=== PATIENT | female | born 1995 | race Caucasian/White ===

== ENCOUNTER → 2019-10-06 15:08 | Outpatient (CLI) | payer BC, SELFPAY ==
[2019-10-11 12:06] LABS: Age Gdln ACOG Testing 21-29 (.)
[2019-10-11 14:49] LABS: HPV Reflexed? NOT INDICATED
== END ==
PROVIDERS: Referring Provider Obstetrics & Gynecology; Visit Provider Obstetrics & Gynecology
DX: Z12.4 Encounter for screening for malignant neoplasm of cervix (principal)
CPT/HCPCS: 88175; G0145

== ENCOUNTER → 2019-10-13 | Outpatient (CLI) | payer BC, SELFPAY ==
--- NOTE | 2019-10-13 14:14 | US_ITS ---
STUDY: ULTRASOUND BREAST - RIGHT REASON FOR EXAM: Female, 23 years old. Palpable lump in the right breast. TECHNIQUE: Axial and longitudinal images of the RIGHT breast were performed with a high resolution ultrasound transducer. # OF IMAGES: 33 COMPARISON: None. FINDINGS: RIGHT Breast: The lateral half of the right breast was examined by ultrasound. There is homogeneous fibroglandular tissue. No sonographic abnormalities seen. US/Breast Limited Unilateral IMPRESSION: No sonographic abnormality is seen. ASSESSMENT CATEGORY: BIRADS Category 1: Negative. A letter regarding these results will be sent to the patient by the facility within 30 days. Electronically Signed: Davey No, at 15:30 EDT , Service support ,
== END | disposition home or self-care (01) ==
PROVIDERS: Referring Provider Obstetrics & Gynecology; Visit Provider Obstetrics & Gynecology
DX: N63.10 Unspecified lump in the right breast, unspecified quadrant (principal)
CPT/HCPCS: 76642

== ENCOUNTER → 2022-07-02 | Outpatient (CLI) | payer BC, SELFPAY ==
[2022-07-10 15:30] LABS: HPV Reflexed? NOT INDICATED
== END | disposition home or self-care (01) ==
PROVIDERS: Visit Provider Obstetrics & Gynecology
DX: Z12.4 Encounter for screening for malignant neoplasm of cervix (principal)
CPT/HCPCS: 88175; G0145

== ENCOUNTER 2022-07-05 11:19 | Day surgery (SDC) | payer BC, SELFPAY ==
--- NOTE | 2022-07-04 16:36 | HP.PCM.OB_ITS ---
HPI - General HPI Narrative LYNNE PAL, is a 26 F who presents with early missed loss. Maternal Data Information ANGEL LUIS Calculator Estimated Delivery Date Method Current WG Current Estimate 01/27/23 LMP (Certain) 10w 3d PFSH PFSH Medical History Non-smoker Home Medications Lactobacillus acidophilus and rhamnosus 15 billion cell capsule (Probiotic) 1 cap PO DAILY 06/27/22 [History Last Taken Unknown] ascorbic acid (vitamin C) 500 mg capsule 500 mg PO DAILY 06/27/22 [History Last Taken Unknown] multivitamin no.47-iron fum 27 mg-folate no.1 1 mg-dha 300 mg capsule (PNV-DHA) 1 cap PO DAILY 06/27/22 [History Last Taken Unknown] omega-3 fatty acids 1,000 mg capsule 1,000 mg PO DAILY 06/27/22 [History Last Taken Unknown] Allergy/AdvReac Type Severity Reaction Status Date / Time No Known Allergies Allergy Verified 07/03/22 09:33 Surgical History (Updated 07/03/22 @ 09:38 by Angelique Vasquez) Hx of wisdom tooth extraction Social History adopted: No household members: spouse housing: house current occupational status: employed 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 current occupational exposures/hazards: No pets and animals: No history of recent travel: No sexually active: Yes Smoking Status: Never smoker alcohol intake: current details: social- but not while substance use type: does not use well-balanced diet: daily or most days caffeine: No eating out: rarely or never during the past year weight has: remained stable what type of physical activity do you participate in: walking frequency: 3-4 times per week duration: 15-30 minutes/day kenia/spiritism: Mormon seatbelt use: always do you feel safe at home: Yes additional social history: - Yossi- Marketing History 1 Elective abortions Hx Para 0 Spontaneous abortions Hx # Term Pregnancies Ectopic pregnancies Hx # Pregnancies Multiple births # of living children Visit Details OB Flowsheet Initial Weight: Not Recorded Date -?-?-?-?-?-?-?--?-?-?-?-?- EGA Weight BP Urine Prot -?-?-?-?-?-?-?-?-?-?-?-?- Glucose FHR FuHt Pres Dilation -?-?-?-?-?-?-?-?-?-?-?-?- Effaced St Visit Note 07/02/22 -?-?-?-?-?-?-?-?-?-?-?-?- 10w 1d 133 lb 6 oz 105/71 -?-?-?-?-?-?-?-?-?-?-?-?- -?-?-?-?-?-?-?-?-?-?-?-?- SM- Crl cons wit h LMP SM- Crl 1.8cm NOT cons with LMP, no fht or color doppler flow seen. 07/05/22 -?-?-?-?-?-?-?-?-?-?-?-?- 10w 4d -?-?-?-?-?-?-?-?-?-?-?-?- -?-?-?-?-?-?-?-?-?-?-?-?- ROS Constitutional Constitutional: Reports systems reviewed and no addt'l complaints, except as documented; Denies as per HPI, change in weight, fatigue, fever(s), malaise, weakness or other Eyes Eyes: Reports systems reviewed and no addt'l complaints, except as documented; Denies as per HPI, change in vision or other ENT HEENT: Reports systems reviewed and no addt'l complaints, except as documented Respiratory/Chest Respiratory/Chest: Reports systems reviewed and no addt'l complaints, except as documented Gastrointestinal Gastrointestinal: Reports systems reviewed and no addt'l complaints, except as documented and as per HPI Genitourinary Genitourinary: Reports as per HPI Musculoskeletal Musculoskeletal: Reports systems reviewed and no addt'l complaints, except as documented Neurologic Neurologic: Reports systems reviewed and no addt'l complaints, except as documented Psychiatric Psychiatric: Reports systems reviewed and no addt'l complaints, except as documented Endocrine Endocrinology: Reports systems reviewed and no addt'l complaints, except as documented Hematologic/Lymphatic Hematologic/Lymphatic: Reports systems reviewed and no addt'l complaints, except as documented Vital Signs Vital Signs Vital Signs: Weight Weight: 134 lb Physical Exam Const alert, oriented x3 and no apparent distress HEENT normocephalic Head and Scalp: atraumatic Eyes EOMs intact bilaterally and conjunctivae normal Neck full ROM, no lymphadenopathy, supple and thyroid normal General: trachea midline Lymph Lymphatic: no lymphadenopathy noted Resp normal respiratory effort, no retractions, no use of accessory muscles and clear to auscultation bilaterally Cardio regular rhythm GI normal to inspection, nondistended, normoactive bowel sounds, soft to palpation, non-distended and no masses Inspection: Negative for abdominal distention Back/Spine no CVA tenderness Extremity normal to inspection Skin no rashes or lesions noted Neuro moves all extremities and deep tendon reflexes 2+ bilaterally Psych mental status grossly normal Labs Labs Labs: No Data to Display Assessment & Plan (1) Missed : COMMENT: plan suction d and c PLAN: Plan After discussing the patient's diagnosis and treatment plan options, patient wishes to proceed with surgical management. I have discussed with the patient the risks, benefits, and alternatives of the procedure which include but are not limited to risks of anesthesia, bleeding, infection, possible damage to bowel, bladder, or surrounding vasculature which could lead to additional surgery to evaluate any complications. Patient agrees to procedure and wishes to proceed. ACOG/uptodate references given for additional information regarding procedure.
[2022-07-05] VITALS (9 sets, daily range): BP systolic 80–113; BP diastolic 49–59; PULSE 56–74; RESP 16–18; TEMP 36.3–36.9; O2SAT 97–100; BMI 23.8
[2022-07-05] MEDS: Lactated Ringers 1,000 ML 15 ML IV ×2 (11:30→13:36)
[2022-07-05 12:00] LABS: Hematocrit 39.4 % (37-47); Hemoglobin 13.1 g/dL (12.0-15.0); Mean Corp Hgb Conc 33.2 g/dL (32-36); Mean Corpuscular Hgb 29.9 pg (27.0-32.0); Mean Platelet Vol. 10.5 fl (6.2-12.0); Platelet Count 181 K/mm3 (150-450); RBC Distribution Width CV 11.7 % (11.6-14.6); RBC Distribution Width SD 38.1 fl (35.1-43.9); Red Blood Count 4.38 M/mm3 (4.2-5.4); White Blood Count 4.2 K/mm3 (4.4-11.0)
[2022-07-05] MEDS: Doxycycline 100 MG CAPSULE PO (12:06)
--- NOTE | 2022-07-05 12:50 | POC_PTH ---
PATIENT: LYNNE PAL [place] [facility] [place][id number] AGE/SX: 26/F ROOM: RE07/05/[address]: Dr. Cheyenne Cuenca MD : 1995 BED: DIS: 07/05/2022 SPEC #: [id number] RECD: 07/05/22 13:49 STATUS: LOIS REJennifer #: [id number] SAUL: 07/05/22 12:[address]: Cheyenne Cuenca DEPT: SURGICAL PATHOLOGY RECD BY: Valencia Meza ENTERED: 07/08/22 09:48 SP TYPE: PROD CONC OTHR DR: No Primary Care Phys Tissues: Product of conception, NOS Procedures: Surgery Specimen Level IV HEADER OPERATION: Suction dilation and curettage PRE-OP DIAGNOSIS: Missed TISSUE SUBMITTED: Products of conception MICROSCOPIC DIAGNOSIS Products of conception, suction dilation and curettage: [place], gestational endometrium and immature chorionic villi (products of conception), clinically missed . PRUDENCE:jp 07/09/2022 MICROSCOPIC DESCRIPTION Slides are reviewed. GROSS DESCRIPTION Received in fixative is one container labeled with the patient's name and designated products of conception. The specimen consists of multiple irregular fragments of light green soft tissue that in aggregate measure 5.0 x 4.0 x 1.0 cm. parts are not grossly recognized. Edger Hand portions are submitted in one cassette. / AM:jp 07/08/2022 TC:5 CPT: 10640
[2022-07-05] MEDS: Lubricating Jelly 60 GM Tube 30 GM (13:06)
[2022-07-05] MEDS: Lidocaine 1% (20 ml mdv) 20 ML Vial (13:12)
--- NOTE | 2022-07-05 14:30 | PCM.OPRPT ---
Problems Associated Problem List Diagnoses (1) Missed : Report of Operation Date of Procedure: 07/05/22 Pre-Operative Diagnosis: see problem list Post-Operative Diagnosis: same Surgery/Procedure Performed:: Suction dilation and curettage Description of Surgical Findings:: no FHT present, Nonviable 8 weeks, confirmed again on bedside ultrasound Surgeon: Cheyenne Cuenca public events facilities rental manager: None Type of Anesthesia: Local MAC Special Medications: none Specimen's removed: POC Drains: none Estimated Blood Loss (mL): 50 Fluids Replaced: crystalloid Description of Procedure: Patient was taken to the operating room and placed under MAC local anesthesia. She was prepped and draped in the normal sterile fashion the dorsal lithotomy position. Bladder was drained of clear urine and anterior lip of the cervix was grasped and the uterus sounded to 7 cm. Cervix was progressively dilated to allow passage of a 7 mm suction curette. Progressive passes were made removing the retained products of conception without complication. Sharp curettage confirmed complete removal of the retained products. All instruments were removed from the vagina and excellent hemostasis was noted and the patient was taken to recovery in stable condition. Grafts/Implants Used: none Complications none Admit VTE Documentation VTE Present on Admission: No VTE Mechan Device Prophylaxis: SCD's Procedures Urinary/Genital 52xxx-59xxx: [id number] Surg Trtmt missed Ab, 1TM
--- NOTE | 2022-07-05 14:32 | DCINST_ITS ---
Discharge Instructions Procedure D&C Diet Discharge Diet: No restrictions Activity Discharge Activity: Return to Normal Activity, May Shower and May Take a Tub Bath (after 1 week) May resume sexual activity in: 1-2 weeks Weight Bearing Status: Weight bearing as tolerated Lifting Restrictions: none Dressing / Incision Call your doctor if you observe: Fever of 101 or Higher, Using more than 1 pad per hour, Shortness of breath and Uncontrolled pain Follow Up Care Please Follow Up With: Cheyenne Cuenca MD When: Call [phone] to schedule appointment. Test Results: Test results from this visit will be discussed in further detail at your follow- up appointment, if applicable. Discharge Plan Admission Attending Provider: Cheyenne Cuenca Primary Care Provider: Care Physician,Ofelia Primary Discharge Orders/Prescriptions Prescriptions: No Action PNV-DHA 27 mg iron-1 mg -300 mg capsule 1 cap PO DAILY Probiotic 15 billion cell capsule 1 cap PO DAILY omega-3 fatty acids 1,000 mg capsule 1,000 mg PO DAILY ascorbic acid (vitamin C) 500 mg capsule 500 mg PO DAILY Referrals / Follow Up: Care Physician,No Primary [Primary Care Provider] - Disposition Disposition (needs filled in before D/C Order can be placed): Home, Self Care
== END 2022-07-05 15:10 | disposition home or self-care (01) ==
LOC: SDC 11:20 → AC 11:21
PROVIDERS: Visit Provider Obstetrics & Gynecology
PROC: (CPT 59820; principal; 2022-07-05 12:35)
DX: O02.1 Missed abortion (principal)
CPT/HCPCS: 59820; 01965; 85027; 86850; 86900; 86901; 88305; J7120; J2405

== ENCOUNTER → 2022-09-21 | Outpatient (CLI) | payer BC, SELFPAY ==
[2022-09-21 07:36] LABS: Absolute Lymphocyte Count 2.23 X10^3/uL (0.83-4.51); Absolute Neutrophil Count 2.3 X10^3/uL (2.0-7.7); Basophil# 0.06 X10^3/uL; Basophil% 1.2 % (0-1); Eosinophil# 0.24 X10^3/uL; Eosinophils% 4.7 % (0-5); Hematocrit 39.8 % (37-47); Hemoglobin 12.9 g/dL (12.0-15.0); Lymphocyte # 2.23 X10^3/ul (0.83-4.51); Lymphocyte % 44.1 % (19-41); Mean Corp Hgb Conc 32.4 g/dL (32-36); Mean Corpuscular Hgb 29.7 pg (27.0-32.0); Mean Corpuscular Volume 91.7 fL (81-99); Mean Platelet Vol. 10.8 fl (6.2-12.0); Monocyte# 0.24 X10^3/uL; Monocyte% 4.7 % (0-10); NRBC Flagged by Analyzer 0 % (0-5); Neutrophil # 2.29 X10^3/uL (2.7-7.7); Neutrophil % 45.3 % (47-70); Platelet Count 187 K/mm3 (150-450); RBC Distribution Width CV 11.5 % (11.6-14.6); Red Blood Count 4.34 M/mm3 (4.2-5.4); White Blood Count 5.1 K/mm3 (4.4-11.0)
== END | disposition home or self-care (01) ==
LOC: LAB 07:18
PROVIDERS: PCP Family Medicine; Referring Provider Obstetrics & Gynecology; Visit Provider Obstetrics & Gynecology
DX: R00.2 Palpitations (principal); R42 Dizziness and giddiness
CPT/HCPCS: 36415; 85025

== ENCOUNTER → 2023-01-09 | Outpatient (CLI) | payer BC, SELFPAY ==
[2023-01-09 17:37] LABS: hCG Titer Quant., Serum 1481 mIU/mL (1-3)
== END | disposition home or self-care (01) ==
LOC: LAB 16:36
PROVIDERS: PCP Family Medicine; Visit Provider Obstetrics & Gynecology
DX: O09.299 Supervision of pregnancy with other poor reproductive or obstetric history, unspecified trimester (principal); Z3A.00 Weeks of gestation of pregnancy not specified
CPT/HCPCS: 36415; 84702

== ENCOUNTER → 2023-01-11 | Outpatient (CLI) | payer BC, SELFPAY ==
[2023-01-11 12:55] LABS: hCG Titer Quant., Serum 2987 mIU/mL (1-3)
[2023-01-20 17:16] LABS: Absolute Lymphocyte Count 1.62 X10^3/uL (0.83-4.51); Absolute Neutrophil Count 3.4 X10^3/uL (2.0-7.7); Basophil# 0.04 X10^3/uL; Basophil% 0.7 % (0-1); Eosinophil# 0.06 X10^3/uL; Eosinophils% 1.1 % (0-5); Hematocrit 38.6 % (37-47); Hemoglobin 12.8 g/dL (12.0-15.0); Lymphocyte # 1.62 X10^3/ul (0.83-4.51); Lymphocyte % 29.8 % (19-41); Mean Corp Hgb Conc 33.2 g/dL (32-36); Mean Corpuscular Hgb 29.8 pg (27.0-32.0); Mean Corpuscular Volume 89.8 fL (81-99); Mean Platelet Vol. 10.6 fl (6.2-12.0); Monocyte% 5.5 % (0-10); NRBC Flagged by Analyzer 0 % (0-5); Neutrophil # 3.41 X10^3/uL (2.7-7.7); Neutrophil % 62.7 % (47-70); Platelet Count 191 K/mm3 (150-450); RBC Distribution Width CV 11.7 % (11.6-14.6); RBC Distribution Width SD 38.3 fl (35.1-43.9); White Blood Count 5.4 K/mm3 (4.4-11.0)
[2023-01-20 18:46] LABS: HIV - WCH Non-Reactive (Nonreactive); Hepatitis B Surface Antigen Non-Reactive (Nonreactive); Hepatitis C Antibody Non-Reactive (Nonreactive); Rubella IgG Reactive (Nonreactive); Syphilis Antibodies Non-reactive
[2023-01-22 21:07] LABS: Chlamydia By Nucleic Acid AMP Negative (Negative); Gonococcus By Nucleic Acid AMP Negative (Negative)
== END | disposition home or self-care (01) ==
LOC: LAB 11:30
PROVIDERS: Obstetrics & Gynecology; PCP Family Medicine; Referring Provider Obstetrics & Gynecology; Visit Provider Obstetrics & Gynecology
DX: O09.299 Supervision of pregnancy with other poor reproductive or obstetric history, unspecified trimester (principal); Z3A.00 Weeks of gestation of pregnancy not specified
CPT/HCPCS: 36415; 84702; 85025; 86703; 86762; 86780; 86803; 86850; 86900; 86901; 87086; 87340; 87491; 87591

== ENCOUNTER 2023-01-31 23:21 | Emergency (ER) | payer BC, SELFPAY ==
[2023-01-31 23:22] VITALS: BP 112/67; PULSE 73; RESP 15; TEMP 36.4; O2SAT 100; BMI 24.3
--- NOTE | 2023-02-01 00:06 | US_ITS ---
INDICATION: bleeding EXAMINATION: Ultrasound US OB Transvaginal TECHNIQUE: Transvaginal pelvic ultrasound was performed. Jessica scale and color Doppler evaluation of the adnexa. COMPARISON: None. FINDINGS: INTRAUTERINE GESTATIONAL SAC: Septate uterus with a gestational sac and the left endometrial canal. No evidence of a subchorionic hemorrhage. Contour of the gestational sac appears normal. CERVIX: Unremarkable. POLE: Present. CRL: 1.7 cm. YOLK SAC: Present. ESTIMATED GESTATION AGE(by today''s ultrasound measurements): 8 weeks 2 days. HEART RATE: 161 bpm. RIGHT OVARY: Unremarkable. LEFT OVARY: 3.3 cm solid lesion within the left ovary. 1.9 cm simple cystic lesion consistent with a dominant follicle. FREE FLUID: No significant free fluid. US/Transvaginal w/Preg US IMPRESSION: 1. Single live intrauterine with estimated gestational age by today''s ultrasound measurements of 8 weeks 2 days corresponding to an ANGEL LUIS of 09/11/2023. 2. Septate uterus with the gestational sac in the left endometrial canal. 3. 3.3 cm solid lesion within the left ovary. Recommend follow-up ultrasound in 6-12 weeks. Electronically Signed: Chace Albrecht DO at 2:35 EDT ,
--- NOTE | 2023-02-01 02:53 | EDS_ITS ---
HPI HPI - Female History of Present Illness Chief Complaint: Vag Bld, Preg Informant: patient and spouse/S.O. Narrative Narrative: Patient is a G2, P0 female approximately 8 to 10 weeks . She states that her first resulted in a miscarriage at roughly this stage of her . She states that today she noticed a small amount of vaginal bleeding when she wiped and did not think much of this but this evening had a large amount of dark blood that passed per vagina and with this being concerned about a possible miscarriage and therefore comes in for evaluation [facility] Medical History (Updated 02/01/23 @ 02:[address] Ryne May, DO) Breast tenderness in female History of group B Streptococcus (GBS) infection Non-smoker Pre-conception counseling Home Medications Lactobacillus acidophilus and rhamnosus 15 billion cell capsule (Probiotic) 1 cap PO DAILY 06/27/22 [History Last Taken Unknown] multivitamin no.47-iron fum 27 mg-folate no.1 1 mg-dha 300 mg capsule (PNV-DHA) 1 cap PO DAILY 06/27/22 [History Last Taken Unknown] Allergy/AdvReac Type Severity Reaction Status Date / Time No Known Allergies Allergy Verified 01/31/23 23:27 Surgical History H/O dilation and curettage Hx of wisdom tooth extraction Social History (Updated 01/16/23 @ 11:39 by Sona Paul) adopted: No household members: spouse housing: house current occupational status: employed 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 current occupational exposures/hazards: No pets and animals: No history of recent travel: Yes ([place]) out of state: Yes out of country: No sexually active: Yes Smoking Status: Never smoker alcohol intake: current details: social- but not while substance use type: does not use well-balanced diet: daily or most days caffeine: No eating out: rarely or never during the past year weight has: remained stable what type of physical activity do you participate in: walking frequency: 3-4 times per week duration: 15-30 minutes/day kenia/baptist: Islam seatbelt use: always do you feel safe at home: Yes additional social history: - Yossi- Marketing ROS ROS ED Constitutional Constitutional ED: Denies chills or fever(s) ENT ENT ED: Denies sore throat Cardiovascular Cardiovascular: Denies chest pain Respiratory/Chest Respiratory/Chest: Denies cough or dyspnea Gastrointestinal Gastrointestinal: Reports abdominal pain; Denies diarrhea, nausea or vomiting Genitourinary Genitourinary ED: Reports other Details: Positive vaginal bleeding ; Denies dysuria or urinary frequency Musculoskeletal Musculoskeletal: Denies myalgias Integumentary Denies rash Neurologic Neurologic: Denies headache(s) Hematologic/Lymphatic Hematologic/Lymphatic: Denies easy bleeding or easy bruising EXAM Physical Exam Const Vital Signs: 01/31/23 23:22 Temperature 97.6 F L Temperature Source Temporal Pulse Rate 73 Respiratory Rate 15 Blood Pressure 112/67 Blood Pressure Mean 82 Pulse Ox 100 Oxygen Delivery Method Room Air Positive well nourished and well developed General Appearance ED: well developed; Negative for pallor HEENT HEENT Narrative: Normocephalic atraumatic Eyes PERRL and EOMs intact bilaterally General Eye ED: Negative for pale conjunctiva Neck supple Resp normal respiratory effort and clear to auscultation bilaterally Cardio regular rate and regular rhythm Rate: other Other Details: Radial and carotid pulses are equal and symmetric GI soft to palpation and non-distended GI Narrative: Abdomen is soft and nondistended with normal active bowel sounds. There is faint pain with palpation in the lower abdomen diffusely without voluntary guarding or rigidity Auscultation: normoactive bowel sounds Palpation: soft Narrative: Patient deferred Back/Spine no CVA tenderness Extremity normal to inspection Neuro oriented x3 and CN's II-XII intact bilaterally Sensorium / Orientation: alert Psych mental status grossly normal Skin no rashes or lesions noted General Skin Exam: Negative for pallor MDM MDM MDM Narrative Medical decision making narrative: Patient presented to the ER with stable vitals and reported increase in vaginal bleeding throughout the day but once she arrived to the ER reported began to slow down. With her past history of miscarriage and her vaginal bleeding at this time differential diagnosis is for ectopic versus heterotopic versus threatened miscarriage versus incomplete versus demise. I elected to check an hCG quantitative value and ABO Rh type did not feel need for further b lood test based on her history and exam. A transvaginal ultrasound was then obtained which showed a single IUP with normal heart rate indicating patient's blood was consistent with threatened . She received a RhoGAM shot 2 weeks ago and as this is effective for approximately 13 weeks there is no need for her to have a repeat RhoGAM injection at this time. As vitals are stable and patient has a living IUP without active hemorrhage there is no need for further work-up or emergent ELECTRIC DOLLY OPERATOR consultation and she is otherwise safe for discharge. History & Record Review Discussion w/independent historian: Patient and Significant other Lab Data Attestation: I reviewed the patient's lab results. Labs: Laboratory Results - last 24 hr 02/01/23 00:18 HCG, Quant [id number] H Blood Type O NEGATIVE Radiography Diagnostic Testing: Clinical Impression(s) from Imaging Studies Obstetrics Ultrasound 02/01/23 00:06 IMPRESSION: 1. Single live intrauterine with estimated gestational age by today''s ultrasound measurements of 8 weeks 2 days corresponding to an ANGEL LUIS of 09/11/2023. 2. Septate uterus with the gestational sac in the left endometrial canal. 3. 3.3 cm solid lesion within the left ovary. Recommend follow-up ultrasound in 6-12 weeks. Electronically Signed: Chace Albrecht DO at 2:35 EDT , Discharge Plan Triage Chief Complaint: Vag Bld, Preg ED Provider: Ryne May Dx/Rx/DC Orders Clinical Impression: Miscarriage, threatened, early Instructions: Bleeding During Early Prescriptions: No Action PNV-DHA 27 mg iron-1 mg -300 mg capsule 1 cap PO DAILY Probiotic 15 billion cell capsule 1 cap PO DAILY Primary Care Provider: Earl Tang Referrals: Earl Tang MD [Primary Care Provider] - Cheyenne Cuenca MD [Med Staff - Active Staff] - Activity Restrictions/Additional Instructions: Please call your ELECTRIC DOLLY OPERATOR office on Friday to discuss need for repeat evaluation. Your ultrasound today showed the fetus/baby to be in the uterus with a normal heartbeat of 161 bpm. If you have increased bleeding or any further concerns please return to the ER for repeat evaluation. Disposition Disposition: Home, Self Care Discharge Date/Time: 02/01/23 03:17
[2023-02-01 03:14] VITALS: BP 102/60; PULSE 71; RESP 15; O2SAT 100
== END 2023-02-01 03:17 | disposition home or self-care (01) ==
PROVIDERS: Emergency Provider Emergency Medicine; PCP Family Medicine; Visit Provider Emergency Medicine
DX: O20.0 Threatened abortion (principal); Z3A.00 Weeks of gestation of pregnancy not specified
CPT/HCPCS: 76817; 84702; 86900; 86901; 99282

== ENCOUNTER → 2023-03-06 | Outpatient (CLI) | payer BC, SELFPAY ==
--- NOTE | 2023-03-06 18:21 | US_ITS ---
STUDY: FIRST TRIMESTER OBSTETRICAL ULTRASOUND REASON FOR EXAM: Female, 27 years old known ovarian cyst, follow-up LMP: 12/03/2022 TECHNIQUE: Transvaginal TECHNICAL QUALITY: Adequate. PRIOR ULTRASOUND: 02/01/2023 FINDINGS: There is visualization of a single gestational sac in a normal intrauterine position. The mean sac diameter (MSD) measures 5.84 cm, indicating an estimated gestational age (EGA) of 11 weeks, 6 days. The gestational sac shape is within normal limits. There is no demonstrated yolk sac. There is visualization of the placenta. Placenta is anterior There is visualization of a live embryo. The crown-rump length (CRL) measures 6.46 cm, indicating an estimated gestational age (EGA) of 12 weeks, 6 days. There is demonstrated cardiac activity with a heart rate of 154 bpm. The estimated gestation age (EGA) by LMP is 13 weeks, 2 days. The estimated date of delivery (ANGEL LUIS) by LMP is 09/09/2023. The estimated gestation age (EGA) by US is 12 weeks, 3 days. The estimated date of delivery (ANGEL LUIS) by US is 09/15/2023. The uterus measures 13.7 x 11.0 x 7.4 cm. There is no demonstrated uterine fibroid. The cervix is closed. The right ovary measures 3.9 x 2.4 x 2.0 cm. There is no right ovarian cyst. There is no visualized right adnexal mass or complex lesion. Normal blood flow noted. The left ovary measures 4.2 x 2.8 x 1.4 cm. There is a likely 2.2 cm corpus luteal cyst. Normal blood flow noted. There is no fluid in the cul de sac. US/Transvaginal w/Preg US IMPRESSION: Single live intrauterine at 12 weeks 3 days by current ultrasound with ANGEL LUIS of 09/15/2023. Heart rate of 154 bpm. No suspicious sonographic findings. Electronically Signed: Cristobal Ren MD at 11:29 EDT ,
== END | disposition home or self-care (01) ==
LOC: US 18:21
PROVIDERS: PCP Family Medicine; Visit Provider Registered Nurse
DX: N83.9 Noninflammatory disorder of ovary, fallopian tube and broad ligament, unspecified (principal)
CPT/HCPCS: 76817

== ENCOUNTER 2023-06-19 08:37 | Outpatient (CLI) | payer BC, SELFPAY ==
[2023-06-19 08:58] LABS: Absolute Lymphocyte Count 1.84 X10^3/uL (0.83-4.51); Absolute Neutrophil Count 6.4 X10^3/uL (2.0-7.7); Basophil# 0.05 X10^3/uL; Basophil% 0.6 % (0-1); Eosinophil# 0.05 X10^3/uL; Eosinophils% 0.6 % (0-5); Hematocrit 34.5 % (37-47); Hemoglobin 11.4 g/dL (12.0-15.0); Lymphocyte # 1.84 X10^3/ul (0.83-4.51); Lymphocyte % 20.8 % (19-41); Mean Corpuscular Hgb 31.4 pg (27.0-32.0); Mean Platelet Vol. 9.8 fl (6.2-12.0); Monocyte# 0.39 X10^3/uL; Monocyte% 4.4 % (0-10); NRBC Flagged by Analyzer 0 % (0-5); Neutrophil # 6.44 X10^3/uL (2.7-7.7); Neutrophil % 72.8 % (47-70); Platelet Count 181 K/mm3 (150-450); RBC Distribution Width CV 12.5 % (11.6-14.6); RBC Distribution Width SD 43.5 fl (35.1-43.9); Red Blood Count 3.63 M/mm3 (4.2-5.4); White Blood Count 8.8 K/mm3 (4.4-11.0)
--- OUTSIDE RECORDS SUMMARY | 2023-06-19 09:03 | XMS RPT_ITS | CCD ---
Author Name Unknown Address [address] [place] [address] [address] [place] [id number] Organization [facility] Care Team Providers Care Automotive Design Drafter Name Role Phone WINSTON CONWAY Attending Unavailable WINSTON CONWAY Primary Care Unavailable WINSTON CONWAY Admitting Unavailable ROMY MONTES Primary Care UnavailSAMIRA Nassar Referring UnavailREMIGIO Olmstead Attending Unavailable Problems Problem Classification Problem Date Documented Da te Episodic/Chronic Immunizations and screening for infectious disease (3 sources) Contact with and (suspected) exposure to other viral communicable diseases; Translations: [Contact with and (suspected) exposure to other viral communicable diseases] Onset: 04-21-2020 Episodic Results Test Name Value Interpretation Reference Range Facil ity Encounters Encounter Date Encounter Type Care Provider Facility Start: 04-15-2023 End: 04-15-2023 ambulatory ROMY MONTES [facility] Start: 04-21-2020 End: 04-21-2020 Patient encounter procedure WINSTON CONWAY [facility] Payers Date Payer Category Payer Unknown [id number] 1995 Unknown [id number] Unknown Unknown [id number] Summary Purpose Family History No Family History Records FoundNo Family History Records FoundNo Family History Records Found Advance Directives No Advanced Directives Records FoundNo Advanced Directives Records FoundNo Advanced Directives Records Found Additional Source Comments INFORMATION SOURCE (unrecogn ized section and content) DATE CREATED AUTHOR AUTHOR'S ORGANIZ ATION 04/26/2020 [facility] DATE CREATED AUTHOR AUTHOR'S ORGANIZ ATION 04/17/2023 [facility] FOR RECORDS PERTAINING TO PATIENTS WHO ARE OR HAVE BEEN ENROLLED IN A CHEMICAL DEPENDENCY/SUBSTANCEABUSE PROGRAM, SOME INFORMATION MAY BE OMITTED. This clinical summary was aggregated from multiple sources. Caution should be exercised in using it in the provision of clinical care. This summary normalizes information from multiple sources, and as a consequence, information in this document may materially change the coding, format and clinical context of patient data. In addition, data may be omitted in some cases. CLINICAL DECISIONS SHOULD BE BASED ON THE PRIMARY CLINICAL RECORDS. [facility], [facility]. provides no warranty or guarantee of the accuracy or completeness of information in this document.
[2023-06-19 09:14] LABS: Glucose Challenge Gest 1H 50g 95 mg/dL (70-140)
[2023-06-19 09:39] LABS: HIV - WCH Non-Reactive (Nonreactive); Syphilis Antibodies Non-reactive
== END 2023-06-19 23:59 | disposition home or self-care (01) ==
LOC: PAVLAB 08:38
PROVIDERS: PCP Family Medicine; Referring Provider Obstetrics & Gynecology; Visit Provider Obstetrics & Gynecology
DX: O26.899 Other specified pregnancy related conditions, unspecified trimester (principal); Z67.91 Unspecified blood type, Rh negative; Z3A.00 Weeks of gestation of pregnancy not specified; Z13.1 Encounter for screening for diabetes mellitus
CPT/HCPCS: 36415; 82950; 85025; 86703; 86780; 86850; 86900; 86901

== ENCOUNTER → 2023-08-14 | Outpatient (CLI) | payer BC, SELFPAY | END | disposition home or self-care (01) | PROVIDERS: PCP Family Medicine; Visit Provider Obstetrics & Gynecology | DX: O09.90 Supervision of high risk pregnancy, unspecified, unspecified trimester (principal); Z3A.00 Weeks of gestation of pregnancy not specified | CPT/HCPCS: 87081 ==

== ENCOUNTER 2023-09-14 15:15 | Inpatient (IN) | payer BC, SELFPAY ==
[2023-09-14] VITALS (13 sets, daily range): BP systolic 104–141; BP diastolic 55–74; PULSE 74–132; RESP 14–16; TEMP 36.2–36.8; O2SAT 83–100; BMI 31.4
[2023-09-14 14:57] LABS: ROM Internal Control Test YES-OK TO RESULT pt. (Internal QC)
[2023-09-14 14:58] LABS: ROM Patient Test POSITIVE (Negative)
[2023-09-14] MEDS: Lactated Ringers 1,000 ML 50 ML IV (16:30)
[2023-09-14 16:35] LABS: Absolute Lymphocyte Count 1.42 X10^3/uL (0.83-4.51); Absolute Neutrophil Count 5.5 X10^3/uL (2.0-7.7); Basophil# 0.03 X10^3/uL; Basophil% 0.4 % (0-1); Eosinophil# 0.02 X10^3/uL; Eosinophils% 0.3 % (0-5); Hematocrit 35.3 % (37-47); Hemoglobin 12.2 g/dL (12.0-15.0); Lymphocyte # 1.42 X10^3/ul (0.83-4.51); Lymphocyte % 19.2 % (19-41); Mean Corp Hgb Conc 34.6 g/dL (32-36); Mean Corpuscular Hgb 32.2 pg (27.0-32.0); Mean Corpuscular Volume 93.1 fL (81-99); Mean Platelet Vol. 11.3 fl (6.2-12.0); Monocyte# 0.44 X10^3/uL; NRBC Flagged by Analyzer 0 % (0-5); Neutrophil # 5.45 X10^3/uL (2.7-7.7); Neutrophil % 73.8 % (47-70); Platelet Count 167 K/mm3 (150-450); RBC Distribution Width CV 12.5 % (11.6-14.6); RBC Distribution Width SD 41.9 fl (35.1-43.9); Red Blood Count 3.79 M/mm3 (4.2-5.4); White Blood Count 7.4 K/mm3 (4.4-11.0)
[2023-09-14] MEDS: Oxytocin 15 Units/NS 250ml 15 UNITS/250 ML IV.SOLN 2 UNITS IV (16:36)
[2023-09-14 17:43] LABS: Syphilis Antibodies Non-reactive
--- NOTE | 2023-09-14 21:17 | HP.PCM.OB_ITS ---
HPI - General General Date of Admission: 09/14/23 Date of Service: 09/14/23 Chief Complaint: leaking of fluid HPI Narrative LYNNE PAL, is a 27 F who presents at 40.5 with leaking of fluid since 5pm 09/13/2023, good fm, denies vb. Maternal Data Information ANGEL LUIS Calculator Estimated Delivery Date Method Current WG Current Estimate 09/09/23 LMP (Certain) 40w 5d PFSH PFSH Medical History Breast tenderness in female History of group B Streptococcus (GBS) infection Non-smoker Pre-conception counseling Home Medications Lactobacillus acidophilus and rhamnosus 15 billion cell capsule (Probiotic) 1 cap PO DAILY supplement 06/27/22 [History Last Taken Unknown] multivitamin no.47-iron fum 27 mg-folate no.1 1 mg-dha 300 mg capsule (PNV-DHA) 1 cap PO DAILY 06/27/22 [History Last Taken Unknown] Allergy/AdvReac Type Severity Reaction Status Date / Time No Known Allergies Allergy Verified 09/14/23 16:35 Surgical History H/O dilation and curettage Hx of wisdom tooth extraction Social History adopted: No household members: spouse housing: house current occupational status: employed current occupation: [employer] current occupational exposures/hazards: No pets and animals: No history of recent travel: Yes ([place]) out of state: Yes out of country: No sexually active: Yes Smoking Status: Former smoker alcohol intake: current details: social- but not while substance use type: does not use well-balanced diet: daily or most days caffeine: No eating out: rarely or never during the past year weight has: remained stable what type of physical activity do you participate in: walking frequency: 3-4 times per week duration: 15-30 minutes/day kenia/church: [employer] seatbelt use: always do you feel safe at home: Yes additional social history: - Yossi- Marketing History 2 Elective abortions Hx Para 0 Spontaneous abortions 1 Hx # Term Pregnancies Ectopic pregnancies Hx # Pregnancies Multiple births # of living children 0 Past Pregnancies Del. Date Name GA/Weeks Outcome Route Bth Weight Gen Labor Lgth Anesthesia Del Robby Provider FOB Unknown June 2022 miscarriage 8wk Visit Details Expected Delivery Route/Plan Labor Preferences- CB/BF classes: [] labor support person: [] labor intervention preferences: [] pain management options preferred: [] cut cord/dad catch: [] : [] PP control planned: [] discussed possible routes of delivery and associated risks: [] special requests: [] Plans Covid status: declined Flu vaccine: declined Tdap vaccine: done 06/27/23 Rhogam: given LARC form signed: declined movement and labor precautions reviewed. Problem list reviewed and updated with the most current plan of care details and appropriate orders placed. Relevant counseling for the gestational age provided. Continue routine care and follow up unless otherwise noted in visit notes/problem list details OB Flowsheet Initial Weight: Not Recorded Date -?-?-?-?-?-?-?-?-?-?-?-?- EGA Weight BP Urine Prot -?-?-?-?-?-?-?-?-?-?-?-?- Glucose FHR FuHt Pres Dilation -?-?-?-?-?-?-?-?-?-?-?-?- Effaced St Visit Note 01/20/23 -?-?-?-?-?-?-?-?-?--?-?-?- 6w 6d 132 lb 110/68 -?-?-?-?-?-?-?-?-?-?-?-?- 120 -?-?-?-?-?-?-?-?-?-?-?-?- SM- CRL 4.6mm co ns with LMP 02/19/23 -?-?-?-?-?-?-?-?-?-?-?-?- 11w 1d 132 lb 8 oz Negative -?-?-?-?-?-?-?-?-?-?-?-?- Negative 154 -?-?-?-?-?-?-?-?-?-?-?-?- LC- no vb/crampi ng. discussed and declines afp. 03/20/23 -?-?-?-?-?-?-?-?-?-?-?-?- 15w 2d 137 lb 111/74 Negative -?-?-?-?-?-?-?-?-?-?-?-?- Negative 147 -?-?-?-?-?-?-?-?-?-?-?-?- KW-no vb/crampin g. chiropractor and magnesium for headaches. US on 04/15. 04/14/23 -?-?-?-?-?-?-?-?-?-?-?-?- 18w 6d 142 lb 4 oz 111/65 Nega tive -?-?-?-?-?-?-?-?-?-?-?-?- Negative 145 -?-?-?-?-?-?-?-?-?-?-?-?- JV- no cramping or spotting. has frequent nose bleeds. remedies discussed. anatomy scan is scheduled for tomorrow. 05/16/23 -?-?-?-?-?-?-?-?-?-?-?-?- 23w 3d 149 lb 123/77 Negative -?-?-?-?-?-?-?-?-?-?-?-?- Negative 145 -?-?-?-?-?-?-?-?-?-?-?-?- SM- no vb lof go od fm n regular ctx discussed rhogam after 28 weeks 06/13/23 -?-?-?-?-?-?-?-?-?-?-?-?- 27w 3d 155 lb 2 oz 131/80 Nega tive -?-?-?-?-?-?-?-?-?-?-?-?- Negative 144 27 -?-?-?-?-?-?-?-?-?-?-?-?- JV- pt wants to do the fresh test. she will return next week for a nurse visit for her rhogam. 06/27/23 -?-?-?-?-?-?-?-?-?-?-?-?- 29w 3d 156 lb 8 oz 118/79 Nega tive -?-?-?-?-?-?-?-?-?-?-?-?- Negative 145 29 -?-?-?-?-?-?--?-?-?-?-?-?- KW- no vb/lof/ct x. good fm. Tdap today. RHogam last week. LARC today 07/11/23 -?-?-?-?-?-?-?-?-?-?-?-?- 31w 3d 159 lb 2 oz 116/76 Nega tive -?-?-?-?-?-?-?-?-?-?-?-?- Negative 144 29 -?-?-?-?-?-?-?-?-?-?-?-?- JV- no lof, vagi nal bleeding, or dec fn. has lower pelvic cramping infrequently. 07/24/23 -?-?-?-?-?-?-?-?-?-?-?-?- 33w 2d 158 lb 107/72 Negative -?-?-?-?-?-?-?-?-?-?-?-?- Negative 145 32 -?-?-?-?-?-?-?-?-?-?-?-?- SM- no vb lof go od fm no regular ctx 08/08/23 -?-?-?-?-?-?-?-?-?-?-?-?- 35w 3d 164 lb 2 oz 124/79 Nega tive -?-?-?-?-?-?-?-?-?-?-?-?- Negative 140 34 -?-?-?-?-?-?-?-?-?-?-?-?- KW-no vb/lof/reg ctx. good fm. 08/14/23 -?-?-?-?-?-?-?-?-?-?-?-?- 36w 2d 166 lb 119/77 Negative -?-?-?-?-?-?-?-?-?-?-?-?- Negative 145 36 Cephalic -?-?-?-?-?-?-?-?-?-?-?-?- SM- no vb lof go od fm no regular ctx gbs 08/22/23 -?-?-?-?-?-?-?-?-?-?-?-?- 37w 3d 165 lb 8 oz 125/75 Nega tive -?-?-?-?-?-?-?-?-?-?-?-?- Negative 135 37 Cephalic -?-?-?-?-?-?-?-?-?-?-?-?- JV- no lof, or d ec fm. labor preferences reviewed and scanned to chart. 08/28/23 -?-?-?-?-?-?-?-?-?-?-?-?- 38w 2d 170 lb 112/72 Negative -?-?-?-?-?-?-?-?-?-?-?-?- Negative 140 38 Cephalic -?-?-?-?-?-?-?-?-?-?-?-?- Sm- no vb lof go od fm n oregular ctx 09/05/23 -?-?-?-?-?-?-?-?-?-?-?-?- 39w 3d 173 lb 8 oz 137/87 123/82 Negative -?-?-?-?-?-?-?-?-?-?-?-?- Negative 144 38 Cephalic 0 -?-?-?-?-?-?-?-?-?-?-?-?- JV- bedside scan to confirm vtx. labor precautions discussed. will wait until 41 weeks if bp stable. rpt bp was 123/82 09/12/23 -?-?-?-?-?-?-?-?-?-?-?-?- 40w 3d 172 lb 117/82 Negative -?-?-?-?-?-?-?-?-?-?-?-?- Negative 140 40 Cephalic 3 -?-?-?-?-?-?-?-?-?-?-?-?- 80 -2 Sm- no vb lof good fm no regular ctx- after check had some bleeding but cervix is very soft. NST FHR Rate Baby A Baseline: 13 Variability:: Moderate Accelerations:: 15 x 15 Decelerations:: None NST Reactive:: Yes FHR Category:: Category I ROS Cardiovascular Cardiovascular: Denies abdominal pain, chest pain, diaphoresis or dyspnea Respiratory/Chest Respiratory/Chest: Denies change in mental status, chest congestion, chest tightness, cough, shortness of breath at rest, shortness of breath with exertion, breast mass, breast pain, breast skin changes, breast swelling, change in breast shape or nipple discharge Genitourinary Genitourinary: Reports change in urinary stream Musculoskeletal Musculoskeletal: Reports none Integumentary Integumentary: Reports none Neurologic Neurologic: Reports none Psychiatric Psychiatric: Reports none Endocrine Endocrinology: Reports none Hematologic/Lymphatic Hematologic/Lymphatic: Reports none Allergic/Immunologic Allergic/Immunologic: Reports none Vital Signs Vital Signs Vital Signs: 09/14/23 14:54 09/14/23 14:54 09/14/23 16:45 Temperature Temperature Source Temporal Pulse Rate 79 Respiratory Rate Blood Pressure 113/65 BP Systolic 113 BP Diastolic 65 Pulse Ox 09/14/23 16:47 09/14/23 16:47 09/14/23 16:45 Temperature Temperature Source Pulse Rate 82 77 Respiratory Rate Blood Pressure 122/73 H BP Systolic 122 BP Diastolic 73 Pulse Ox 09/14/23 16:45 09/14/23 16:45 09/14/23 16:45 Temperature 98.3 F Temperature Source Pulse Rate Respiratory Rate 14 Blood Pressure BP Systolic BP Diastolic Pulse Ox 97 09/14/23 19:21 09/14/23 19:21 09/14/23 19:22 Temperature Temperature Source Pulse Rate 132 H Respiratory Rate Blood Pressure 119/74 BP Systolic 119 BP Diastolic 74 Pulse Ox 83 09/14/23 19:22 09/14/23 19:22 09/14/23 19:22 Temperature Temperature Source Temporal Pulse Rate 78 Respiratory Rate Blood Pressure BP Systolic BP Diastolic Pulse Ox 97 09/14/23 19:22 09/14/23 19:22 09/14/23 19:22 Temperature 98.2 F Temperature Source Pulse Rate Respiratory Rate 16 Blood Pressure BP Systolic BP Diastolic Pulse Ox 97 09/14/23 20:27 09/14/23 20:27 09/14/23 20:27 Temperature Temperature Source Temporal Pulse Rate 86 Respiratory Rate Blood Pressure 141/74 H BP Systolic 141 BP Diastolic 74 Pulse Ox 09/14/23 20:27 09/14/23 20:27 09/14/23 20:27 Temperature 97.6 F L Temperature Source Pulse Rate Respiratory Rate 16 Blood Pressure BP Systolic BP Diastolic Pulse Ox 97 Weight Weight: 172 lb Body Mass Index (BMI) 31.4 Physical Exam Const alert, oriented x3 and no apparent distress General Appearance: cooperative, comfortable and well kempt Orientation / Consciousness: awake and oriented to person Exam Limitations: no limitations HEENT normocephalic Neck full ROM Chest inspection of chest normal Resp normal respiratory effort, normal air movement and no retractions Effort and Inspection: able to speak in complete sentences and symmetric chest movement Cardio regular rate Peripheral Pulses: pulses 2+ throughout GI normal to inspection, nondistended, normoactive bowel sounds Inspection: gravid no CVA tenderness and appearance of the vagina normal External Female Exam: normal appearance of the urethra; Negative for external lesion OB / External & Speculum: external exam normal Manual OB Exam: estimated gestational size appropriate, presentation cephalic, dilated 5, effaced 80 and station 0 Uterus Palpation: Negative for uterus tender Extremity normal to inspection Skin no rashes or lesions noted Neuro deep tendon reflexes 2+ bilaterally and gait normal Motor Exam: strength 5/5 throughout and clonus absent Psych Activity / Motor Behavior: appropriate eye contact Speech: normal speech Labs Labs Labs: Blood Type O NEGATIVE Antibody Screen NEGATIVE Hct 35.3 % (37-47) L Hgb 12.2 g/dL (12.0-15.0) Obstetrics Ultrasound Syphilis Total Ab Non-reactive Rubella IgG Antibody Reactive (Nonreactive) Hep Bs Antigen Non-Reactive (Nonreactive) Hepatitis C Antibody Non-Reactive (Nonreactive) Chlamydia DNA (ANUSHA) Negative (Negative) N.gonorrhoeae DNA (ANUSHA) Negative (Negative) HIV 1&2 Antibody Non-Reactive (Nonreactive) Glucose 1 Hr 50 gm 95 mg/dL (70-140) Assessment & Plan (1) Spontaneous rupture of amniotic membranes: COMMENT: 5pm 09/13/2023 PLAN: -admit to with routine order -start pitocin for unchanged cervical exam since friday in office with prolonged ROM. (2) Supervision of high-risk : QUALIFIERS: Trimester: third trimester Qualified Code(s): O09.93 - Supervision of high risk , unspecified, third trimester COMMENT: PRR, , ANGEL LUIS 09/09/23 girl Yossi (3) : QUALIFIERS: Weeks of gestation: 40 weeks Qualified Code(s): Z3A.40 - 40 weeks gestation of COMMENT: GBS negative, discussed ntd genetic & carrier testing- declined, nl anatomy PLAN: Plan Patient presents IAL, plan expectant management for , pitocin/AROM PRN if needed. forebag ruptured with vaginal exam. clear fluid. Pain management: plans unmedicated. GBS negative. Management of any complications: [none] I have reviewed the [facility] and made any clinically relevant updates. updated on admission, exam and poc and agrees with midwifery primary management, available as needed for consult.
[2023-09-14] MEDS: Lactated Ringers 1,000 ML 200 ML IV (22:31)
[2023-09-14] MEDS: Methylergonovine 0.2 MG/ML Ampul IM (23:53)
[2023-09-14] MEDS: Lidocaine 1% (20 ml mdv) 20 ML Vial INFILT (23:55)
[2023-09-14] MEDS: miSOPROStol 200 MCG Tablet 1000 MCG RC (23:56)
[2023-09-15] VITALS (36 sets, daily range): BP systolic 107–155; BP diastolic 58–80; PULSE 76–113; RESP 14–18; TEMP 36.3–37.2; O2SAT 96–100
--- NOTE | 2023-09-15 00:17 | EX.PCM.OBRPT ---
Assessment & Plan (1) (spontaneous vaginal delivery): COMMENT: LC SROM May. (2) hemorrhage: COMMENT: 1000ml PPH Maternal Data Information ANGEL LUIS Calculator Estimated Delivery Date Method Current WG Current Estimate 09/09/23 LMP (Certain) 40w 6d Final ANGEL LUIS: 09/09/23 Final ANGEL LUIS Source: LMP Gestational age: 40.5 Vaginal Delivery Maternal Presentation Maternal Presentation: Spontaneous Rupture of Membranes Maternal Presentation: at 40.5 presented with SROM, augmented with pitocin and progressed to fully dilated. Type of Induction: Pitocin Operative Information Date of Procedure: 09/14/23 Pre-Operative Diagnosis: see problem list. Post-Operative Diagnosis: Surgery / Procedure Performed: Spontaneous Vaginal Delivery Type of Anesthesia: Local with 1% Lidocaine Estimated Blood Loss: 1000 Time of Delivery: 23:43 Findings Description of Procedure: Patient began pushing and delivered the head in the SUSU presentation. The head was delivered atraumatically. The anterior and posterior shoulders delivered with a loose body cord around shoulder not easily reduced,decision made to proceed with delivering through cord and the rest of the delivered without difficulty and the infant was placed on the maternal abdomen. Delayed cord clamping was employed for approximately 7 minutes. Cord was clamped and cut and gentle traction was applied to the cord and the placenta delivered spontaneously with large gush of blood following placenta removal. pitocin, methergine and cytotec was used along with manual removal of JUNIOR clot to achieve hemostasis and uterine tone. CBC obtained during hemorrhage. placenta was noted to be intact with three-vessel cord. The perineum and vagina were inspected and noted to have 1st degree laceration, repaired with 3-0 vicryl EBL was 1000cc. Patient and tolerated delivery well. Dr. Pozo notified of delivery and hemorrhage, agrees with CBC hours. 2 u PRBC are on hold in addition to routine PP ordered. Presentation: Vertex Amniotic Membrane Rupture Type: Spontaneous Time of Membrane Rupture: 1700 Amniotic Fluid Description: Clear Placental Delivery Description: Spontaneous Placenta Disposition: [facility] Cord Vessel Description: 3 Vessels Cord Entanglement: - (around shoulder x1 tight, delivered through) Infant A Gender: Female (1 minute): 8 (5 minute): 9 Delayed Cord Clamping: Yes Post Vaginal Delivery Medications Given After Delivery: IV Pitocin, IM Methergin and - (cytotec) Procedures Urinary/Genital [id number]: [id number] Vaginal Delivery global pkg
--- NOTE | 2023-09-15 00:28 | DCINST_ITS ---
Discharge Instructions Diet Discharge Diet: No restrictions Activity Discharge Activity: May Not Drive and May Shower May resume sexual activity in: 6 weeks Weight Bearing Status: Full weight bearing Dressing / Incision Call your doctor if your incision/area has: Sudden Increased Bleeding, Increased Pain/ Swelling and Foul Smelling Discharge Call your doctor if you observe: Fever of 101 or Higher, Numbness or Tingling, Change in Color, Inability to urinate, Inability to have a bowel movement, Using more than 1 pad per hour, Shortness of breath, Dizziness, Fainting spells, Chest pain, Calf discomfort and Uncontrolled pain Follow Up Care Please Follow Up With: Destiney Cano CNM When: 6 weeks , please call office to make an appointment. Congratulations on the of your baby girl May!! Test Results: Test results from this visit will be discussed in further detail at your follow- up appointment, if applicable. Discharge Plan Admission Admit Date/Time: 09/14/23 15:15 Attending Provider: Destiney Cano Primary Care Provider: Hector Tang Discharge Orders/Prescriptions Prescriptions: No Action PNV-DHA 27 mg iron-1 mg -300 mg capsule 1 cap PO DAILY Probiotic 15 billion cell capsule 1 cap PO DAILY Referrals / Follow Up: Hector Tang MD [Primary Care Provider] -
[2023-09-15] MEDS: Oxytocin 15 Units/NS 250ml 15 UNITS/250 ML IV.SOLN 83 UNITS IV (00:30)
[2023-09-15 00:33] LABS: Basophil# 0.03 X10^3/uL; Basophil% 0.2 % (0-1); Hematocrit 37.7 % (37-47); Hemoglobin 12.6 g/dL (12.0-15.0); Lymphocyte % 9.3 % (19-41); Mean Corp Hgb Conc 33.4 g/dL (32-36); Mean Corpuscular Hgb 31.7 pg (27.0-32.0); Mean Corpuscular Volume 94.7 fL (81-99); Monocyte% 2.3 % (0-10); NRBC Flagged by Analyzer 0 % (0-5); Neutrophil # 15.02 X10^3/uL (2.7-7.7); Neutrophil % 86.9 % (47-70); Platelet Count 180 K/mm3 (150-450); RBC Distribution Width CV 12.2 % (11.6-14.6); RBC Distribution Width SD 42.2 fl (35.1-43.9); Red Blood Count 3.98 M/mm3 (4.2-5.4); White Blood Count 17.3 K/mm3 (4.4-11.0)
--- NOTE | 2023-09-15 02:31 | NURSING ---
this RN to hand off couplet to akhil RN. that RN to assume care of patients.
--- NOTE | 2023-09-15 03:00 | NURSING ---
Report received from Eula MASTERSON, taking over pt care at this time.
[2023-09-15] MEDS: 0.9% Saline Lock 10 ML Syringe IV ×2 (03:29→12:41)
[2023-09-15 06:29] LABS: Absolute Lymphocyte Count 1.32 X10^3/uL (0.83-4.51); Absolute Neutrophil Count 11.4 X10^3/uL (2.0-7.7); Basophil# 0.02 X10^3/uL; Basophil% 0.1 % (0-1); Hematocrit 29.3 % (37-47); Lymphocyte # 1.32 X10^3/ul (0.83-4.51); Lymphocyte % 9.8 % (19-41); Mean Corp Hgb Conc 34.1 g/dL (32-36); Mean Corpuscular Hgb 31.4 pg (27.0-32.0); Mean Corpuscular Volume 92.1 fL (81-99); Mean Platelet Vol. 11.1 fl (6.2-12.0); Monocyte# 0.64 X10^3/uL; Monocyte% 4.8 % (0-10); NRBC Flagged by Analyzer 0 % (0-5); Neutrophil # 11.43 X10^3/uL (2.7-7.7); Platelet Count 146 K/mm3 (150-450); RBC Distribution Width CV 12.1 % (11.6-14.6); RBC Distribution Width SD 40.9 fl (35.1-43.9); Red Blood Count 3.18 M/mm3 (4.2-5.4); White Blood Count 13.5 K/mm3 (4.4-11.0)
--- NOTE | 2023-09-15 08:05 | PN.OBGYN_ITS ---
Subjective Subjective Patient doing well without complaints. Tolerating PO. Ambulating and voiding without difficulty. Feeding well. Denies chest pain, shortness of breath, calf pain/swelling, fevers, chills, lightheadedness. Objective Data Objective Data Vital Signs: Vital Signs Temp Pulse Resp BP Pulse Ox O2 Del Method 98.9 F 96 16 125/80 H 100 Room Air 09/15/23 04:15 09/15/23 04:15 09/15/23 04:15 09/15/23 04:15 09/15/23 04:15 09/15/23 04:15 Oxygen Delivery Method Room Air Weight: 172 lb Body Mass Index (BMI) 31.4 Intake & Output: Intake and Output for Last 24 Hours 09/13/23 09/14/23 09/15/23 23:59 23:59 23:59 Intake Total 1546.10 / 1546.10 462.35 / 462.35 Output Total 350 / 350 1200 / 1200 Balance 1196.10 / 1196.10 -737.65 / -737.65 Lab / Micro Data Attestation: I reviewed the patient's lab results. 09/15/23 06:10 Labs: Laboratory Results - last 24 hr 09/14/23 14:35: Vag Amniotic Fld Detect POSITIVE H 09/14/23 16:15: WBC 7.4, RBC 3.79 L, Hgb 12.2, Hct 35.3 L, MCV 93.1, MCH 32.2 H, MCHC 34.6, RDW Std Deviation 41.9, RDW Coeff of Norma 12.5, Plt Count 167, MPV 11.3, Immature Gran % (Auto) 0.300, Neut % (Auto) 73.8 H, Lymph % (Auto) 19.2, Glasscock % (Auto) 6.0, Eos % (Auto) 0.3, Baso % (Auto) 0.4, Absolute Neuts (auto) 5.5, Absolute Lymphs (auto) 1.42, Nucleated RBC % 0, Syphilis Total Ab Non-reactive, Blood Type O NEGATIVE, Antibody Screen NEGATIVE, Crossmatch See Detail 09/14/23 23:59: WBC 17.3 H, RBC 3.98 L, Hgb 12.6, Hct 37.7, MCV 94.7, MCH 31.7, MCHC 33.4, RDW Std Deviation 42.2, RDW Coeff of Norma 12.2, Plt Count 180, MPV 11.0, Immature Gran % (Auto) 1.300 H, Neut % (Auto) 86.9 H, Lymph % (Auto) 9.3 L , Glasscock % (Auto) 2.3, Eos % (Auto) 0.0, Baso % (Auto) 0.2, Absolute Neuts (auto) 15.0 H, Absolute Lymphs (auto) 1.60, Nucleated RBC % 0 09/15/23 06:10: WBC 13.5 H, RBC 3.18 L, Hgb 10.0 L, Hct 29.3 L, MCV 92.1, MCH 31.4, MCHC 34.1, RDW Std Deviation 40.9, RDW Coeff of Norma 12.1, Plt Count 146 L, MPV 11.1, Immature Gran % (Auto) 0.300, Neut % (Auto) 85.0 H, Lymph % (Auto) 9.8 L, Glasscock % (Auto) 4.8, Eos % (Auto) 0.0, Baso % (Auto) 0.1, Absolute Neuts (auto) 11.4 H, Absolute Lymphs (auto) 1.32, Nucleated RBC % 0 ROS Constitutional Constitutional: Reports systems reviewed and no addt'l complaints, except as documented; Denies anorexia or headache(s) Cardiovascular Cardiovascular: Reports systems reviewed and no addt'l complaints, except as documented; Denies dizziness, dyspnea, nausea or tachypnea Respiratory/Chest Respiratory/Chest: Reports systems reviewed and no addt'l complaints, except as documented; Denies cough, dyspnea, shortness of breath at rest or tachypnea Gastrointestinal Gastrointestinal: Reports systems reviewed and no addt'l complaints, except as documented; Denies abdominal pain, constipation or nausea Genitourinary Genitourinary: Reports systems reviewed and no addt'l complaints, except as documented; Denies burning urination, difficulty urinating, dysuria, urinary frequency or urinary incontinence Musculoskeletal Musculoskeletal: Reports systems reviewed and no addt'l complaints, except as documented Integumentary Integumentary: Reports systems reviewed and no addt'l complaints, except as documented Neurologic Neurologic: Reports systems reviewed and no addt'l complaints, except as documented; Denies abnormal speech, dizziness or headache(s) Psychiatric Psychiatric: Reports systems reviewed and no addt'l complaints, except as documented Endocrine Endocrinology: Reports systems reviewed and no addt'l complaints, except as documented Hematologic/Lymphatic Hematologic/Lymphatic: Reports systems reviewed and no addt'l complaints, except as documented Physical Exam Const alert, oriented x3 and no apparent distress Neck full ROM Resp normal respiratory effort, normal air movement and no retractions Effort and Inspection: able to speak in complete sentences and symmetric chest movement GI soft to palpation Bladder / Kidney Exam: bladder normal to palpation Uterus Palpation: uterus fundus firm Extremity normal to inspection and full ROM Psych mental status grossly normal, thought process normal and cooperative Assessment & Plan (1) hemorrhage: COMMENT: 1000ml PPH PLAN: stable labs Redraw CBC if sx develop (2) (spontaneous vaginal delivery): COMMENT: LC SROM May. PLAN: s/p PPD # 1 1. routine post delivery care 2. breast feeding- support given 3. rh neg-rhogam if needed 4. rubella immune (3) Rh negative state in antepartum period: COMMENT: rhogam at 28 weeks and PRN. Rhogam given 06/19/23 (4) Supervision of high-risk : QUALIFIERS: Trimester: third trimester Qualified Code(s): O09.93 - Supervision of high risk , unspecified, third trimester COMMENT: PRR, , ANGEL LUIS 09/09/23 girl Yossi (5) : QUALIFIERS: Weeks of gestation: 40 weeks Qualified Code(s): Z3A.40 - 40 weeks gestation of COMMENT: GBS negative, discussed ntd genetic & carrier testing- declined, nl anatomy Charges/Coding Multi Select Codes Urinary/Genital Urinary/Genital CPT Codes: No Charge
[2023-09-15] MEDS: Rho(D) Immune Globulin 300 MCG (1500 Unit) Syringe IV (12:41)
[2023-09-15] MEDS: Senna/Docusate Sodium 1 Tablet PO (12:42)
[2023-09-16 01:35] VITALS: BP 116/74; PULSE 98; RESP 16; TEMP 36.3; O2SAT 97
--- NOTE | 2023-09-16 07:51 | PCM.PN.OB ---
Subjective Subjective Patient doing well without complaints. Tolerating PO. Ambulating and voiding without difficulty. Feeding well. Denies chest pain, shortness of breath, calf pain/swelling, fevers, chills, lightheadedness. Objective Data Objective Data Vital Signs: Vital Signs Temp Pulse Resp BP Pulse Ox O2 Del Method 97.3 F L 98 16 116/74 97 Room Air 09/16/23 01:35 09/16/23 01:35 09/16/23 01:35 09/16/23 01:35 09/16/23 01:35 09/16/23 01:35 Oxygen Delivery Method Room Air Weight: 172 lb Body Mass Index (BMI) 31.4 Intake & Output: Intake and Output for Last 24 Hours 09/14/23 09/15/23 09/16/23 23:59 23:59 23:59 Intake Total 1546.10 / 1546.10 462.35 / 462.35 Output Total 350 / 350 1200 / 1200 Balance 1196.10 / 1196.10 -737.65 / -737.65 Lab / Micro Data 09/15/23 06:10 Labs: Laboratory Results - last 24 hr 09/15/23 06:10: Screen NEGATIVE, Baby's Blood Type A POSITIVE, Baby's BRITTANI NEGATIVE Physical Exam Const alert and oriented x3 HEENT normocephalic Eyes PERRL Neck full ROM Resp normal respiratory effort GI soft to palpation GI Narrative: FF below U Assessment & Plan (1) (spontaneous vaginal delivery): COMMENT: LC SROM May. (2) Rh negative state in antepartum period: COMMENT: rhogam at 28 weeks and PRN. Rhogam given 06/19/23 (3) hemorrhage: QUALIFIERS: hemorrhage type: other immediate Qualified Code(s): O72.1 - Other immediate hemorrhage COMMENT: 1000ml PPH PLAN: Plan s/p PPD # 2 1. routine post delivery care 2. breast feeding- support given 3. rh negative 4. rubella immune 5. home today
[2023-09-16 10:18] VITALS: BP 130/79; PULSE 80; RESP 16; TEMP 36.3
[2023-09-16 14:30] VITALS: BP 122/81; PULSE 93; RESP 16; TEMP 36.2; O2SAT 99
--- NOTE | 2023-09-20 14:01 | NURSING ---
F/Up questions asked during visit. MOB reports feeling well and that recovery is going better than expected so far. Denies headache, vision changes, or heavy lochia. Has some mild ankle edema. No questions or concerns.
== END 2023-09-16 18:00 | disposition home or self-care (01) | DRG 806 ==
LOC: WPOUT 15:25 → WP 15:25
PROVIDERS: Admitting Provider Registered Nurse; PCP Family Medicine; Visit Provider Registered Nurse
DX: O48.0 Post-term pregnancy (principal); Z37.0 Single live birth; O72.1 Other immediate postpartum hemorrhage; O69.2XX0 Labor and delivery complicated by other cord entanglement, with compression, not applicable or unspecified; O70.0 First degree perineal laceration during delivery; Z3A.40 40 weeks gestation of pregnancy
CPT/HCPCS: 59025; 59050; 84112; 85025; 85461; 86780; 86850; 86900; 86901; 86920; 90384; 99221; J7120; A4216; G0378; J2790; J2791

== ENCOUNTER → 2024-07-09 | Outpatient (CLI) | payer BC, SELFPAY ==
[2024-07-09 20:10] LABS: hCG Titer Quant., Serum 23 mIU/mL (<9 non-preg)
== END | disposition home or self-care (01) ==
LOC: LAB 14:31
PROVIDERS: PCP Family Medicine; Referring Provider Advanced Practice Midwife; Visit Provider Advanced Practice Midwife
DX: O09.299 Supervision of pregnancy with other poor reproductive or obstetric history, unspecified trimester (principal); Z3A.00 Weeks of gestation of pregnancy not specified
CPT/HCPCS: 36415; 84702

== ENCOUNTER → 2024-07-12 | Outpatient (CLI) | payer BC, SELFPAY ==
[2024-07-12 07:51] LABS: hCG Titer Quant., Serum 101 mIU/mL (<9 non-preg)
== END | disposition home or self-care (01) ==
LOC: LAB 06:31
PROVIDERS: PCP Family Medicine; Referring Provider Advanced Practice Midwife; Visit Provider Advanced Practice Midwife
DX: O09.299 Supervision of pregnancy with other poor reproductive or obstetric history, unspecified trimester (principal); Z3A.00 Weeks of gestation of pregnancy not specified
CPT/HCPCS: 36415; 84702

== ENCOUNTER → 2024-07-26 | Outpatient (CLI) | payer BC, SELFPAY ==
[2024-07-27 21:07] LABS: Chlamydia By Nucleic Acid AMP Negative (Negative); Gonococcus By Nucleic Acid AMP Negative (Negative)
== END | disposition home or self-care (01) ==
LOC: LABSPEC 11:45
PROVIDERS: PCP Family Medicine; Referring Provider Obstetrics & Gynecology; Visit Provider Obstetrics & Gynecology
DX: O09.90 Supervision of high risk pregnancy, unspecified, unspecified trimester (principal); Z3A.00 Weeks of gestation of pregnancy not specified
CPT/HCPCS: 87086; 87088; 87491; 87591

== ENCOUNTER → 2024-08-27 | Outpatient (CLI) | payer BC, SELFPAY ==
[2024-08-27 16:42] LABS: Absolute Lymphocyte Count 1.55 X10^3/uL (0.83-4.51); Absolute Neutrophil Count 3.8 X10^3/uL (2.0-7.7); Basophil# 0.03 X10^3/uL; Basophil% 0.5 % (0-1); Eosinophil# 0.02 X10^3/uL; Eosinophils% 0.3 % (0-5); Hematocrit 35.7 % (37-47); Hemoglobin 12.2 g/dL (12.0-15.0); Lymphocyte # 1.55 X10^3/ul (0.83-4.51); Mean Corp Hgb Conc 34.2 g/dL (32-36); Mean Corpuscular Hgb 30.3 pg (27.0-32.0); Mean Corpuscular Volume 88.6 fL (81-99); Mean Platelet Vol. 11.3 fl (6.2-12.0); Monocyte% 5.2 % (0-10); NRBC Flagged by Analyzer 0 % (0-5); Neutrophil # 3.83 X10^3/uL (2.7-7.7); Neutrophil % 66.8 % (47-70); Platelet Count 194 K/mm3 (150-450); RBC Distribution Width CV 12.9 % (11.6-14.6); RBC Distribution Width SD 41.8 fl (35.1-43.9); Red Blood Count 4.03 M/mm3 (4.2-5.4); White Blood Count 5.7 K/mm3 (4.4-11.0)
[2024-08-27 17:53] LABS: HIV Nonreactive (Nonreactive); Hepatitis B Surface Antigen Nonreactive (Nonreactive); Hepatitis C Antibody Nonreactive (Nonreactive); Rubella IgG REAC (Nonreactive); Syphilis Antibodies Nonreactive (Nonreactive)
== END | disposition home or self-care (01) ==
PROVIDERS: Obstetrics & Gynecology; PCP Family Medicine; Referring Provider Advanced Practice Midwife; Visit Provider Advanced Practice Midwife
DX: O09.90 Supervision of high risk pregnancy, unspecified, unspecified trimester (principal); Z3A.00 Weeks of gestation of pregnancy not specified
CPT/HCPCS: 36415; 85025; 86703; 86762; 86780; 86803; 86850; 86900; 86901; 87340

== ENCOUNTER → 2024-12-31 | Outpatient (CLI) | payer BC, SELFPAY ==
[2024-12-31 12:49] LABS: Hematocrit 31.9 % (37-47); Hemoglobin 10.9 g/dL (12.0-15.0); Immature Granulocytes Count 0.040 X10^3/uL (0.0-0.0); Mean Corp Hgb Conc 34.2 g/dL (32-36); Mean Corpuscular Volume 93.5 fL (81-99); Mean Platelet Vol. 10.2 fl (6.2-12.0); NRBC Flagged by Analyzer 0 % (0-5); Platelet Count 177 K/mm3 (150-450); RBC Distribution Width CV 12.7 % (11.6-14.6); RBC Distribution Width SD 43.5 fl (35.1-43.9); Red Blood Count 3.41 M/mm3 (4.2-5.4); White Blood Count 7.5 K/mm3 (4.4-11.0)
[2024-12-31 13:37] LABS: Glucose Challenge Gest 1H 50g 93 mg/dL (70-140); HIV Nonreactive (Nonreactive); Syphilis Antibodies Nonreactive (Nonreactive)
== END | disposition home or self-care (01) ==
PROVIDERS: PCP Family Medicine; Referring Provider Advanced Practice Midwife; Visit Provider Advanced Practice Midwife
DX: O26.899 Other specified pregnancy related conditions, unspecified trimester (principal); O09.92 Supervision of high risk pregnancy, unspecified, second trimester; Z67.91 Unspecified blood type, Rh negative; Z13.1 Encounter for screening for diabetes mellitus; Z3A.00 Weeks of gestation of pregnancy not specified
CPT/HCPCS: 36415; 82950; 85025; 86703; 86780; 86850; 86900; 86901

== ENCOUNTER 2025-01-05 09:00 | Outpatient (CLI) | payer BC, SELFPAY ==
[2025-01-05 09:09] VITALS: BMI 29.2
[2025-01-05 09:16] VITALS: RESP 16; TEMP 36.9
[2025-01-05 09:17] VITALS: BP 102/55; PULSE 90
[2025-01-05 10:13] LABS: Hematocrit 31.2 % (37-47); Hemoglobin 10.7 g/dL (12.0-15.0); Immature Granulocytes Count 0.060 X10^3/uL (0.0-0.0); Mean Corp Hgb Conc 34.3 g/dL (32-36); Mean Corpuscular Volume 91.8 fL (81-99); Mean Platelet Vol. 9.9 fl (6.2-12.0); NRBC Flagged by Analyzer 0 % (0-5); Platelet Count 161 K/mm3 (150-450); RBC Distribution Width CV 12.4 % (11.6-14.6); RBC Distribution Width SD 41.2 fl (35.1-43.9); Red Blood Count 3.40 M/mm3 (4.2-5.4); White Blood Count 7.9 K/mm3 (4.4-11.0)
[2025-01-05 10:48] VITALS: BP 104/59; PULSE 80
[2025-01-05 11:10] LABS: Fibrinogen 419 mg/dl (203-444)
[2025-01-05 12:43] VITALS: BP 105/59; PULSE 88
--- NOTE | 2025-01-05 20:44 | OB.TRI.HP_ITS ---
HPI - General HPI Narrative LYNNE PAL, is a 29 y/o @ 29 weeks who presents to L&D after she slipped and fell to her back on the carpeted stairs. She also hit the back of her neck. She denies loss of consciousness. She also denies loss of fluid, vaginal bleeding, or dec fm. She denies headache, visual changes, neck stiffness, or s hortness of breath. She states that a small area on the middle of her back stings a little. She is admitted for observation for at least 2 hours. A fibrinogen, cbc and KB have been ordered. Maternal Data Information ANGEL LUIS Calculator Estimated Delivery Date Method Current WG Current Estimate 03/20/25 Ultrasound #1 29w 3d Other Estimates 03/05/25 LMP (Certain) 31w 4d PFSH PFSH Medical History hemorrhage (spontaneous vaginal delivery) History of group B Streptococcus (GBS) infection Pre-conception counseling Breast tenderness in female Non-smoker Home Medications ?Medication ?Instructions ?Recorded ?Last Taken ?Type Lactobacillus acidophilus and 1 cap PO DAILY supplemen t 06/27/22 Unknown History rhamnosus 15 billion cell capsule (Probiotic) multivitamin no.47-iron fum 27 1 cap PO DAILY pregnanc y 06/27/22 01/05/25 07:00 History mg-folate no.1 1 mg-dha 300 mg 1 cap capsule (PNV-DHA) Allergy/AdvReac Type Severity Reaction Status Date / Time No Known Allergies Allergy Verified 01/05/25 09:22 Family History Father Hypertension Surgical History H/O dilation and curettage Hx of wisdom tooth extraction Social History adopted: No household members: spouse housing: house number of children: 1 current occupational status: employed 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 current occupational exposures/hazards: No pets and animals: No history of recent travel: No ([place]) sexually active: Yes Smoking Status: Never smoker alcohol intake: former details: social- but not while substance use type: does not use well-balanced diet: daily or most days caffeine: No eating out: rarely or never during the past year weight has: other details: had a baby is 7# heavier than prepregnancy what type of physical activity do you participate in: walking and weight training frequency: 3-4 times per week duration: 15-30 minutes/day kenia/amish: Mandaen seatbelt use: always do you feel safe at home: Yes additional social history: - Yossi- Marketing History 3 Elective abortions Hx Para 1 Spontaneous abortions 1 Hx # Term Pregnancies Ectopic pregnancies Hx # Pregnancies Multiple births # of living children 1 Past Pregnancies Del. Date Name GA/Weeks Outcome Route Bth Weight Gen Labor Lgth Anesthesia Del Locatn Provider FOB Unknown June 2022 miscarriage 8wk 09/15/23 May 40 live - full term 7lbs 4oz Female n one [facility] [place] [facility] Delivery Date: 09/15/23 Last Updated by: Snow Delgado PP hem. Visit Details Expected Delivery Route/Plan Labor Preferences- CB/BF classes: [] labor support person: [] labor intervention preferences: [] pain management options preferred: [] cut cord/dad catch: [] : [] PP control planned: [] discussed possible routes of delivery and associated risks: [] special requests: [] Plans Covid status: [] Flu vaccine: [] Tdap vaccine: [] Rhogam: [] LARC form signed: [] Problem list reviewed and updated with the most current plan of care details and appropriate orders placed. Relevant counseling for the gestational age provided. Continue routine care and follow up unless otherwise noted in visit notes/problem list details OB Flowsheet Initial Weight: Not Recorded Date -?-?-?-?-?-?-?-?-?-?-?-?- EGA Weight BP Urine Prot -?-?-?-?-?-?-?-?-?-?-?-?- Glucose FHR FuHt Pres Dilation -?-?-?-?-?-?-?-?-?-?-?-?- Effaced St Visit Note 07/26/24 -?-?-?-?-?-?-?-?-?-?-?-?- 6w 1d 139 lb 4 oz 120/80 -?-?-?-?-?-?-?-?-?-?-?-?- 105 -?-?-?-?-?-?-?-?-?-?-?-?- JV- CRL measurin g 6 weeks 1 day with heart tones. states is 6 weeks by when she calculated ovulation. unsure about nipt or blood type testing of baby (she is rh neg) 08/27/24 -?-?-?-?-?-?-?-?-?-?-?-?- 10w 5d 141 lb 2 oz 110/76 Nega tive -?-?-?-?-?-?-?-?-?-?-?-?- Negative 173 -?-?-?-?-?-?-?-?-?-?-?-?- KW- CRL cons wit h 10.5 weeks. labs today and [facility] order placed 09/21/24 -?-?-?-?-?-?-?-?-?-?-?-?- 14w 2d 144 lb 8 oz 119/75 Nega tive -?-?-?-?-?-?-?-?-?-?-?-?- Negative 153 -?-?-?-?-?-?-?-?-?-?-?-?- KW- no vb/crampi ng. US scheduled- 10/26. no concerns KW- no vb/cramping. US sched uled- 10/26. no concerns. declines AFP 10/21/24 -?-?-?-?-?-?-?-?-?-?-?-?- 18w 4d 146 lb 8 oz 116/64 Nega tive -?-?-?-?-?-?-?-?-?-?-?-?- Negative 151 -?-?-?-?-?-?-?-?-?-?-?-?- MH-No VB. Feelin g movement. No concerns 11/19/24 -?-?-?-?-?-?-?-?-?-?-?-?- 22w 5d 154 lb 6 oz 131/73 Nega tive -?-?-?-?-?-?-?-?-?-?-?--?- Negative 155 -?-?-?-?-?-?-?-?-?-?-?-?- KW- no vb/crampi ng. good fm. glucose at 28 week. will do the fresh test. 12/17/24 -?-?-?-?-?-?-?-?-?-?--?-?- 26w 5d 156 lb 2 oz 115/70 Nega tive -?-?-?-?-?-?-?-?-?-?-?-?- Negative 150 26 -?-?-?-?-?-?-?-?-?-?-?-?- KW- no vb/lof/ct x. good fm. glucose and rhogam next visit. [facility] today. 12/27/24 -?-?-?-?-?-?-?-?-?-?-?-?- 28w 1d 157 lb 3 oz 103/67 Nega tive -?-?-?-?-?-?-?-?-?-?-?-?- Negative 155 27 -?-?-?-?-?-?-?-?-?-?-?-?- KW- no vb/lof/ct x. good fm. Missed draw time and will need to redo. Will come in friday for labs and rhogam. declines TDAP today. ROS Constitutional Constitutional: Reports systems reviewed and no addt'l complaints, except as documented Gastrointestinal Gastrointestinal: Denies bloating, constipation, cramping, diarrhea, nausea or vomiting Genitourinary Genitourinary: Reports other Details: Denies vaginal odor, vaginal bleeding, or vaginal discharge ; Denies difficulty urinating or flank pain Physical Exam Const alert, oriented x3 and no apparent distress HEENT normocephalic Head and Scalp: normal to inspection and normocephalic Eyes PERRL and EOMs intact bilaterally Neck full ROM and No nuchal rigidity Chest Chest: symmetrical chest wall rise Resp normal respiratory effort and normal air movement no CVA tenderness Back/Spine Back/Spine Narrative: 3 cm area mid back of a superficial brush burn. no spinal tenderness. has full rom present Thoracic Spine / Upper Back: normal to inspection and thoracic ROM normal Extremity normal to inspection General Extremity: edema bilateral (trace ) NST FHR Rate Baby A Baseline: 130 Variability:: Moderate Accelerations:: 15 x 15 Decelerations:: None NST Reactive:: Yes FHR Category:: Category I Uterine Activity:: no contractions Assessment & Plan (1) Status post fall: (2) Hx of hemorrhage, currently : (3) Supervision of high-risk : QUALIFIERS: Trimester: second trimester Qualified Code(s): O09.92 - Supervision of high risk , unspecified, second trimester COMMENT: PRR, , ANGEL LUIS 03/20/25, PC May, Yossi (4) : QUALIFIERS: Weeks of gestation: 28 weeks Qualified Code(s): Z3A.28 - 28 weeks gestation of COMMENT: declined NIPT & Carrier testing (5) History of miscarriage, currently : (6) Rh negative state in antepartum period: COMMENT: rhogam at 28 weeks. PLAN: Plan reassuring monitoring (reactive for gestational age) negative KB normal fibrinogen mild chronic anemia ok to dc to home after 2.5 hrs of monitoring. Charges/Coding Multi Select Codes Visit Charges Office Visit/Consults: 83368 OV L3 Est 20min Urinary/Genital Urinary/Genital CPT Codes: 37742-75 non-stress test Interp
== END 2025-01-05 12:50 | disposition home or self-care (01) ==
LOC: WPOUT 09:08 → WP 09:09
PROVIDERS: PCP Family Medicine; Referring Provider Obstetrics & Gynecology; Visit Provider Obstetrics & Gynecology
DX: O9A.213 Injury, poisoning and certain other consequences of external causes complicating pregnancy, third trimester (principal); S30.810A Abrasion of lower back and pelvis, initial encounter; W10.9XXA Fall (on) (from) unspecified stairs and steps, initial encounter; Z3A.29 29 weeks gestation of pregnancy; O09.293 Supervision of pregnancy with other poor reproductive or obstetric history, third trimester
CPT/HCPCS: 59025; 59050; 85025; 85384; 85460; 99221; G0378

== ENCOUNTER → 2025-02-25 | Outpatient (CLI) | payer BC, SELFPAY ==
--- OUTSIDE RECORDS SUMMARY | 2025-02-25 16:12 | XMS RPT_ITS | CCD ---
Author Organization [facility] CliniSyfl Care Team Providers Care Nursing Home Admissions Director Name Role Phone WINSTON CONWAY Attending Unavailable WINSTON CONWAY Primary Care Unavailable WINSTON CONWAY Admitting Unavailable Care Physician, No Primary Primary Care Provider Unavailable Care Physician, No Primary Referring Provider Un available Dr. Cheyenne Cuenca Attending Provider [phone] Dr. Cheyenne Cuenca Other Provider [phone] Dr. Earl Tang Primary Care Provider Dr. Earl Tang Referring Provider FREIDA Cano Attending Provider [phone] Dr. Earl Tang Primary Care Provider Dr. Earl Tang Referring Provider Dr. Cheyenne Cuenca Attending Provider [phone] FREIDA Cano Attending Provider [phone] Earl Tang Primary Care Provider Dr. Earl Tang Referring Provider FREIDA Cash Attending Provider [phone] Dr. Graciela Dang Attending Provider [phone] Dr. Cheyenne Cuenca Attending Provider [phone] SHANNA Willson NP Attending Provider [phone] Dr. Romy Tang Primary Care Provider Dr. Romy Tang Referring Provider [phone] Dr. Cheyenne Cuenca Attending Provider [phone] Dr. Graciela Dang Attending Provider [phone] Demetris WORLD LANGUAGE TEACHER, WORLD LANGUAGE TEACHERCameronC Sharifa Attending Provider [phone] FREIDA Cash Attending Provider [phone] Dr. Romy Tang Primary Care Provider Dr. Romy Tang Referring Provider [phone] Dr. Cheyenne Cuenca Attending Provider [phone] Jerome, FREIDA Cabello Admit Provider [phone] Jerome, FREIDA Cabello Attending Provider Jerome, FREIDA Cabello Other Provider [phone] Clyde PERKINS, Dr. Young Primary Care Provider Camacho Cash CNM Attending Provider [phone] Camacho Cash CNM Referring Provider [phone] Clyde PERKINS, Dr. Young Referring Provider [phone] Dr. Graciela Dang DO Attending Provider Dr. Graciela Dang DO Referring Provider Demetris ROJO-C, Sharifa Attending Provider [phone] CAMACHO CASH Referring Unavailable RICKY PAYNE Attending Unavailable ROMY TANG Primary Care Unavailvaldemar e RICKY PAYNE Attending Unavailable ROMY TANG Primary Care Unavailabl e CAMACHO CASH Referring Unavailable Clyde PERKINS, Dr. Young Primary Care Provider Camacho Cash CNM Attending Provider [phone] Camacho Cash CNM Referring Provider [phone] Clyde PERKINS, Dr. Young Primary Care Provider Clyde PERKINS, Dr. Young Referring Provider Clyde PERKINS, Dr. Young Primary Care Provider Clyde PERKINS, Dr. Young Referring Provider [phone] Camacho Cash CNM Attending Provider [phone] Dr. Cheyenne Cuenca MD Attending Provider Camacho Cash CNM Referring Provider [phone] Baltazar Moya DO, Dr. Owens Attending Provider Baltazar Moya DO, Dr. Owens Referring Provider Baltazar Moya DO, Dr. Owens Other Provider [phone] Clyde PERKINS, Dr. Young Primary Care Physicia n Clyde PERKINS, Dr. Young Referring Provider Demetris WORLD LANGUAGE TEACHER-C, Sharifa Attending Physician [phone] Camacho Cash CNM Attending Physician [phone] Bang PERKINS, Dr. Quinn Attending Physician Baltazar Moya DO, Dr. Owens Attending Physician Baltazar Moya DO, Dr. Owens Nurse Practitioner Ranney, Christopher Referring Unavailable Camacho Cash Attending Unavailable Ranney, Christopher Primary Care Unavailable Ranney, Christopher Primary Care Unavailable Ranney, Christopher Referring Unavailable Cheyenne Cuenca Attending Unavailable Ranney, Christopher Primary Care Unavailable Cheyenne Cuenca Attending Unavailable Ranney, Christopher Referring Unavailable Vande VeldeGraciela Consulting Unavailabl e Vande Velde, Graciela Referring Unavailabl e Vande VeldeGraciela Attending Unavailabl e Ranney, Christopher Primary Care Unavailable Vande VeldeGraciela Attending Unavailabl e Ranney, Christopher Primary Care Unavailable Ranney, Christopher Referring Unavailable Ranney, Christopher Primary Care Unavailable Ranney, Christopher Referring Unavailable Camacho Cash Attending Unavailable Ranney, Christopher Referring Unavailable Vande Velde, Graciela Attending Unavailabl e Ranney, Christopher Primary Care Unavailable Ranney, Christopher Referring Unavailable Ranney, Christopher Primary Care Unavailable Camacho Cash Attending Unavailable Vande Velde, Graciela Referring Unavailabl e Vande Velde, Graciela Attending Unavailabl e Ranney, Christopher Primary Care Unavailable Ranney, Christopher Referring Unavailable Ranney, Christopher Primary Care Unavailable Cheyenne Cuenca Attending Unavailable Ranney, Christopher Referring Unavailable Graciela Dang [facility] Unavailable [facility] Referring Unavailable [facility] Primary Care Unavailable Camacho Cash Attending Unavailable [facility] Primary Care Unavailable Camacho Cash Attending Unavailable Camacho Cash Referring Unavailable [facility] Primary Care Unavailable Camacho Cash Referring Unavailable Camacho Cash Attending Unavailable [facility] Unavailable Camacho Cash Referring Unavailable Camacho Cash Attending Unavailable [facility] Unavailable Camacho Cash Referring Unavailable Camacho Cash Attending Unavailable Graciela Dang Attending UnavailGraciela Cha Referring [facility] Care Unavailable [facility] Referring Unavailable [facility] Unavailable Demetris WORLD LANGUAGE TEACHER, Sharifa Attending Unavailable [facility] Referring Unavailable Camacho Cash Attending Unavailable [facility] Unavailable [facility] Referring Unavailable Camacho Cash Attending Unavailable [facility] Unavailable Medications Current Medications Medication Drug Class(es) Dates Sig (Normalized) Sig (Original) L. Acidophilus-L. Rhamnosus (Probiotic) 15 billion cell capsule (20 sources) Start: 06-27-2022 L. Acidophilus-L. Rhamnosus (Probiotic) 15 billion cell capsule Active 1 NMA PO DAILY June 27, 2022 1:00am supplement Complies with drug therapy Start: 06-27-2022 L. Acidophilus -L. Rhamnosus (Probiotic) 15 billion cell capsule Active 1 NMA PO DAILY June 27, 2022 1:00am supplement Start: 06-27-2022 L. Acidophilus -L. Rhamnosus (Probiotic) 15 billion cell capsule Active 1 NMA PO DAILY June 27, 2022 1:00am Start: 06-27-2022 take 1 capsule by mo ut once daily L. Acidophilus-L. Rhamnosus (Probiotic) 15 billion cell capsule Active 1 CAP PO DAILY June 27, 2022 1:00am Start: 06-27-2022 take 1 capsule by mo uth once daily L. Acidophilus-L. Rhamnosus (Probiotic) 15 billion cell capsule Active 1 CAP PO DAILY June 27, 2022 12:00am Multivit 69-Zide-Kvnnea 1-Dh a (Pnv-Dha) 27 mg iron-1 mg -300 mg capsule (20 sources) Start: 06-27-2022 Multivit 47-Ir on-Folate 1-Dha (Pnv-Dha) 27 mg iron-1 mg -300 mg capsule Active 1 NMA PO DAILY June 27, 2022 1:00am Complies with drug therapy Start: 06-27-2022 Multivit 47-Ir on-Folate 1-Dha (Pnv-Dha) 27 mg iron-1 mg -300 mg capsule Active 1 NMA PO DAILY June 27, 2022 1:00am Start: 06-27-2022 Multivit 47-Ir on-Folate 1-Dha (Pnv-Dha) 27 mg iron-1 mg -300 mg capsule Active 1 NMA PO DAILY June 27, 2022 1:00am Start: 06-27-2022 take 1 capsule by mo uth once daily Multivit 07-Xvfq-Akdjfc 1-Dha (Pnv-Dha) 27 mg iron-1 mg -300 mg capsule Active 1 CAP PO DAILY June 27, 2022 1:00am Start: 06-27-2022 take 1 capsule by mo uth once daily Multivit 41-Ycmy-Cpcnkh 1-Dha (Pnv-Dha) 27 mg iron-1 mg -300 mg capsule Active 1 CAP PO DAILY June 27, 2022 12:00am Completed/Discontinued Medications Medication Drug Class(es) Dates Sig (Normalized) Sig (Original) ascorbic acid 500 mg oral capsule (20 sources) Vitamin C Start: 06-27-2022 End: 01-16-2023 take 1 capsule by mouth once daily Ascorbic Acid (Vitamin C) 500 mg capsule Discontinued 500 mg PO DAILY June 27, 2022 1:00am January 16, 2023 11:36am ferrous sulfate 325 mg oral tablet (14 sources) Start: 10-27-2023 End: 07-16-2024 take 1 tablet by mouth once daily Ferrous Sulfate 325 mg (65 mg iron) tablet Discontinued 325 mg PO DAILY October 27, 2023 12:00am July 16, 2024 2:45pm Sanford-3 Fatty Acids (8 sources) Start: 06-27-2022 End: 01-16-2023 take 1000 mg by mouth once daily Sanford-3 Fatty Acids Discontinued 1000 MG PO DAILY June 27, 2022 12:00am January 16, 2023 10:37am Start: 06-27-2022 End: 01-16-2023 take 1000 mg by mouth once daily Sanford-3 Fatty Acids Discontinued 1000 MG PO DAILY June 27, 2022 1:00am January 16, 2023 11:37am Start: 06-27-2022 take 1000 mg by mout h once daily Sanford-3 Fatty Acids Active 1000 MG PO DAILY June 27, 2022 12:00am Sanford-3 Fatty Acids 1,000 mg capsule (14 sources) Start: 06-27-2022 End: 01-16-2023 take 1 capsule by mouth once daily Sanford-3 Fatty Acids 1,000 mg capsule Discontinued 1000 mg PO DAILY June 27, 2022 1:00am January 16, 2023 11:37am Problems Active Problems Problem Classification Problem Date Documented Date Episodic/Chronic Contraceptive and procreative management (20 sources) Patient encounter status; Translations: [Encounter for other general counseling and advice on procreation] 01-16-2023 Episodic Hemorrhage during ; abruptio placenta; placenta previa (19 sources) Threatened miscarriage in first trimester; Translations: [Threatened ] 02-01-2023 Episodic Immunizations and screening for infectious disease (4 sources) Contact with and (suspected) exposure to other viral communicable diseases; Translations: [Encounter for immunization] Onset: 04-21-2020 Episodic Nonmalignant breast conditions (20 sources) Breast tenderness; Translations: [Mastodynia] 01-16-2023 Episodic Comment on above: no nipple discharge, pain is resolving Other complications of ; puerperium affecting management of mother (15 sources) hemorrhage; Translations: [Other immediate hemorrhage] 09-16-2023 Episodic Comment on above: 1000ml PPH Other complications of ; puerperium affecting management of mother (1 source) Other immediate hemorrhage; Translations: [Other immediate hemorrhage, unspecified as to episode of care or not applicable] 09-16-2023 Episodic Other complications of (20 sources) Missed miscarriage; Translations: [Missed ] 07-04-2022 Episodic Comment on above: s/p suction d and c, offered serial hcgs next Other complications of (3 sources) Missed ; Translations: [Missed ] 07-05-2022 Episodic Other complications of (20 sources) High risk ; Translations: [Supervision of high risk , unspecified, unspecified trimester] 01-16-2023 Episodic Comment on above: , ANGEL LUIS 03/07/25, PC May, Yossi PRR, , ANGEL LUIS girl Yossi PRR, , ANGEL LUIS , PC May, Yossi Other complications of (20 sources) RhD negative; Translations: [Other specified related conditions, unspecified trimester] 01-23-2023 Episodic Comment on above: rhogam at 28 weeks. Other complications of (20 sources) Other specified related conditions, unspecified trimester; Translations: [Other specified complications of , antepartum condition or complication] Onset: 01-28-2025 01-20-2023 Episodic Other complications of (20 sources) History of hemorrhage; Translations: [Supervision of with other poor reproductive or obstetric history, unspecified trimester] 07-16-2024 Episodic Other complications of (2 sources) Supervision of with other poor reproductive or obstetric history, unspecified trimester; Translations: [Supervision of with other poor reproductive or obstetric history, unspecified trimester] Onset: 01-28-2025 Episodic Other complications of (2 sources) Supervision of high risk , unspecified, second trimester; Translations: [Supervision of high risk , unspecified, second trimester] Onset: 01-28-2025 Episodic Other complications of (1 source) Injury, poisoning and certain other consequences of external causes complicating , third trimester; Translations: [Injury, poisoning and certain other consequences of external causes complicating , third trimester] Onset: 01-28-2025 Episodic Other female genital disorders (2 sources) Lesion of ovary; Translations: [Noninflammatory disorder of ovary, fallopian tube and broad ligament, unspecified] 02-19-2023 Episodic Other female genital disorders (3 sources) Noninflammatory disorder of ovary, fallopian tube and broad ligament, unspecified; Translations: [Unspecified noninflammatory disorder of ovary, fallopian tube, and broad ligament] 03-20-2023 Episodic Other infections; including parasitic (20 sources) H/O: infectious disease; Translations: [Personal history of other infectious and parasitic diseases] 07-02-2022 Episodic Comment on above: Pt was infected at b irth Other injuries and conditions due to external causes (14 sources) History of fall; Translations: [History of falling] 01-05-2025 Episodic Other injuries and conditions due to external causes (2 sources) History of falling; Translations: [History of falling] Onset: 01-28-2025 Episodic Polyhydramnios and other problems of amniotic cavity (14 sources) Spontaneous rupture of membranes 09-15-2023 Episodic Comment on above: 5pm 09/13/2023 Residual codes; unclassified (20 sources) H/O: miscarriage; Translations: [Personal history of other complications of , childbirth and the puerperium] 01-16-2023 Episodic Residual codes; unclassified (2 sources) Unspecified blood type, Rh negative; Translations: [Unspecified blood type, Rh negative] Onset: 01-28-2025 Episodic Residual codes; unclassified (1 source) 32 weeks gestation of ; Translations: [32 weeks gestation of ] Onset: 01-28-2025 Episodic Residual codes; unclassified (1 source) 30 weeks gestation of ; Translations: [30 weeks gestation of ] Onset: 01-12-2025 Episodic Residual codes; unclassified (2 sources) 28 weeks gestation of ; Translations: [28 weeks gestation of ] Onset: 12-27-2024 Episodic Past or Other Problems Problem Classification Problem Date Documented Da te Episodic/Chronic Other complications of (20 sources) Supervision of high risk , unspecified, unspecified trimester; Translations: [Supervision of unspecified high-risk ] Onset: 09-21-2024 01-20-2023 Episodic Other and delivery including normal (20 sources) Normal ; Translations: [Encounter for supervision of normal first , unspecified trimester] Onset: 09-21-2024 06-27-2022 Episodic Comment on above: , ANGEL LUIS 01/27/23, Pooja TORRES SROM CARINE Olvera. declined NIPT & Hudson ier testing discussed genetic & carrier testing GBS negative, discus sed ntd genetic & carrier testing- declined, nl anatomy Residual codes; unclassified (1 source) 22 weeks gestation of ; Translations: [22 weeks gestation of ] Onset: 11-19-2024 Episodic Residual codes; unclassified (1 source) 14 weeks gestation of ; Translations: [14 weeks gestation of ] Onset: 09-21-2024 Episodic Residual codes; unclassified (1 source) 10 weeks gestation of ; Translations: [10 weeks gestation of ] Onset: 08-27-2024 Episodic Unclassified (2 sources) Spontaneous rupture of membranes; Translations: [Spontaneous rupture of amniotic membranes] 09-15-2023 Results Test Name Value Interpretation Reference Range Facility Shovel Handle Assembler Office Visit Reporton 02-11-2025 Shovel Handle Assembler Office Visit Report [facility] [address], [address] [place] [address] OFFICE VISIT Date of Service: 02/11/25 MR#: [id number] Acct: [id number] Name: LYNNE PAL Rep #: [id number] : 1995 Provider: Dr. Cheyenne tanner MD Age/Sex: 29/F Location: [facility] Status: Signed Intake Vital Signs 12/17/24 09:43 01/28/25 09:10 02/11/25 15:57 Height 5 ft 2 in 5 ft 2 in 5 ft 2 in Weight: 163 lb 6 oz BMI 29.9 BP 131/74 H Intake Visit Reasons: 34wk 5d ob Open Cut Examiner Required: No Is patient in pain?: No Allergies No Known Allergies Allergy (Verified 02/11/25 15:57) Medications ???Medication ???Instructions ???Recorded ???Confirmed ???Type Lactobacillus acidophilus and 1 cap PO DAILY supplement 06/27/22 02/11/25 History rhamnosus 15 billion cell capsule (Probiotic) multivitamin no.47-iron fum 27 1 cap PO DAILY 06/27/22 02/11/25 History mg-folate no.1 1 mg-dha 300 mg capsule (PNV-DHA) Last Menstrual Period: 05/29/24 Zika: Zika virus screening: Negative : No PFSH PFSH Medical History hemorrhage (spontaneous vaginal delivery) History of group B Streptococcus (GBS) infection Pre-conception counseling Breast tenderness in female Non-smoker Surgical History H/O dilation and curettage Hx of wisdom tooth extraction Family History Father Hypertension Social History adopted: No household members: spouse housing: house number of children: 1 current occupational status: employed 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 current occupational exposures/hazards: No pets and animals: No history of recent travel: No ([place]) sexually active: Yes Smoking Status: Never smoker alcohol intake: former details: social- but not while substance use type: does not use well-balanced diet: daily or most days caffeine: No eating out: rarely or never during the past year weight has: other details: had a baby is 7# heavier than prepregnancy what type of physical activity do you participate in: walking and weight training frequency: 3-4 times per week duration: 15-30 minutes/day kenia/evangelical: Sikh seatbelt use: always do you feel safe at home: Yes additional social history: - Yossi- Marketing History 3 Elective abortions Hx Para 1 Spontaneous abortions 1 Hx # Term Pregnancies Ectopic pregnancies Hx # Pregnancies Multiple births # of living children 1 Past Pregnancies Del. Date Name GA/Weeks Outcome Route Bth Weight Gen Labor Lgth Anesthesia Del Locatn Provider FOB Unknown June 2022 miscarriage 8wk 09/15/23 May 40 live - full term 7lbs 4oz Female none [facility] kerry Cano Yossi Delivery Date: 09/15/23 Last Updated by: Snow Delgado PP hem. HPI 34wk 5d ob Details: LYNNE PAL is a 29 year old who presents for routine OB visit. OB Visit ANGEL LUIS Calculator Estimated Delivery Date Method Current WG Current Estimate 03/20/25 Ultrasound #1 34w 5d Other Estimates 03/05/25 LMP (Certain) 36w 6d Expected Delivery Route/Plan Labor Preferences- CB/BF classes: [] labor support person: [] labor intervention preferences: [] pain management options preferred: [] cut cord/dad catch: [] : [] PP control planned: [] discussed possible routes of delivery and associated risks: [] special requests: [] Specific Issue/Plans Covid status: [] Flu vaccine: [] Tdap vaccine: [] Rhogam: [] LARC form signed: [] Problem list reviewed and updated with the most current plan of care details and appropriate orders placed. Relevant counseling for the gestational age provided. Continue routine care and follow up unless otherwise noted in visit notes/problem list details Initial Weight: 135 lb Date -???-???-???-???-??? -???-???-???-???-??? -???-???- EGA Weight BP Urine Prot -???-???-???-???-??? -???-???-???-???-??? -???-???- Glucose FHR FuHt Pres Dilation -???-???-???-???-??? -???-???-???-???-??? -???-???- Effaced St Visit Note 07/26/24 -???-???-???-???-??? -???-???-???-???-??? -???-???- 6w 1d 139 lb 4 oz (+4 lb 4 oz) 120/80 -???-???-???-???-??? -???-???-???-???-??? -???-???- 105 -???-???-???-???-??? -???-???-???-???-??? -???-???- JV- CRL lindy uring 6 weeks 1 day with heart tones. states is 6 weeks by when she calculated ovulation. unsure about nipt or blood type testing of baby (she is rh neg) 08/27/24 -???-???-???-???-??? -???-???-???-???-??? -???-???- 10w 5d 141 lb 2 oz (+6 lb 2 oz) 110/76 Negative -???-???-?? (more content not included)... Normal [facility] - Chemistry and C hemistry - challengeOrdered By: Camacho Cash on 01-28-2025 Glucose Ql (U) Negative [facility] - UrinalysisOrder ed By: Camacho Cash on 01-28-2025 Protein Ql (U) Negative [facility] Shovel Handle Assembler Office Visit Reporton 01-28-2025 Shovel Handle Assembler Office Visit Report [facility] [address], [address] [place] [address] OFFICE VISIT Date of Service: 01/28/25 MR#: [id number] Acct: [id number] Name: LYNNE PAL Rep #: [id number] : 1995 Provider: FREIDA Myers ams Age/Sex: 29/F Location: [facility] Status: Signed Intake Vital Signs 12/17/24 09:43 01/12/25 15:49 01/28/25 09:10 Height 5 ft 2 in 5 ft 2 in 5 ft 2 in Weight: 164 lb 6 oz BMI 30.0 BP 105/67 Intake Visit Reasons: 32wk ob Open Cut Examiner Required: No Is patient in pain?: No Allergies No Known Allergies Allergy (Verified 01/28/25 09:12) Medications ???Medication ???Instructions ???Recorded ???Confirmed ???Type Lactobacillus acidophilus and 1 cap PO DAILY supplement 06/27/22 01/28/25 History rhamnosus 15 billion cell capsule (Probiotic) multivitamin no.47-iron fum 27 1 cap PO DAILY 06/27/22 01/28/25 History mg-folate no.1 1 mg-dha 300 mg capsule (PNV-DHA) Last Menstrual Period: 05/29/24 Zika: Zika virus screening: Negative : No Have you fallen in the past year?: No PFSH PFSH Medical History hemorrhage (spontaneous vaginal delivery) History of group B Streptococcus (GBS) infection Pre-conception counseling Breast tenderness in female Non-smoker Surgical History H/O dilation and curettage Hx of wisdom tooth extraction Family History Father Hypertension Social History adopted: No household members: spouse housing: house number of children: 1 current occupational status: employed 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[employer] current occupational exposures/hazards: No pets and animals: No history of recent travel: No ([place]) sexually active: Yes Smoking Status: Never smoker alcohol intake: former details: social- but not while substance use type: does not use well-balanced diet: daily or most days caffeine: No eating out: rarely or never during the past year weight has: other details: had a baby is 7# heavier than prepregnancy what type of physical activity do you participate in: walking and weight training frequency: 3-4 times per week duration: 15-30 minutes/day kenia/evangelical: Sikh seatbelt use: always do you feel safe at home: Yes additional social history: - Yossi- Marketing History 3 Elective abortions Hx Para 1 Spontaneous abortions 1 Hx # Term Pregnancies Ectopic pregnancies Hx # Pregnancies Multiple births # of living children 1 Past Pregnancies Del. Date Name GA/Weeks Outcome Route Bth Weight Gen Labor Lgth Anesthesia Del Locatn Provider FOB Unknown June 2022 miscarriage 8wk 09/15/23 May 40 live - full term 7lbs 4oz Female none [facility] Cano Yossi Delivery Date: 09/15/23 Last Updated by: Snow Delgado PP hem. HPI 32wk ob Details: LYNNE PAL is a 29 year old who presents for routine OB visit. OB Visit ANGEL LUIS Calculator Estimated Delivery Date Method Current WG Current Estimate 03/20/25 Ultrasound #1 32w 5d Other Estimates 03/05/25 LMP (Certain) 34w 6d Expected Delivery Route/Plan Labor Preferences- CB/BF classes: [] labor support person: [] labor intervention preferences: [] pain management options preferred: [] cut cord/dad catch: [] : [] PP control planned: [] discussed possible routes of delivery and associated risks: [] special requests: [] Specific Issue/Plans Covid status: [] Flu vaccine: [] Tdap vaccine: [] Rhogam: [] LARC form signed: [] Problem list reviewed and updated with the most current plan of care details and appropriate orders placed. Relevant counseling for the gestational age provided. Continue routine care and follow up unless otherwise noted in visit notes/problem list details Initial Weight: 135 lb Date -???-???-???-???-??? -???-???-???-???-??? -???-???- EGA Weight BP Urine Prot -???-???-???-???-??? -???-???-???-???-??? -???-???- Glucose FHR FuHt Pres Dilation -???-???-???-???-??? -???-???-???-???-??? -???-???- Effaced St Visit Note 07/26/24 -???-???-???-???-??? -???-???-???-???-??? -???-???- 6w 1d 139 lb 4 oz (+4 lb 4 oz) 120/80 -???-???-???-???-??? -???-???-???-???-??? -???-???- 105 -???-???-???-???-??? -???-???-???-???-??? -???-???- JV- CRL lindy uring 6 weeks 1 day with heart tones. states is 6 weeks by when she calculated ovulation. unsure about nipt or blood type testing of baby (she is rh neg) 08/27/24 -???-???-???-???-??? -???-???-???-???-??? -???-???- 10w 5d 141 lb 2 oz (+6 lb 2 oz) 110/76 Nega (more content not included)... Normal [facility] - Chemistry and C hemistry - challengeOrdered By: Graciela Moya on 01-12-2025 Glucose Ql (U) Negative [facility] - UrinalysisOrder ed By: Graciela Moya on 01-12-2025 Protein Ql (U) Negative [facility] [employer]er Office Visit Reporton 01-12-2025 [employer] Office Visit Report [facility] [address], [address] [place] [address] OFFICE VISIT Date of Service: 01/12/25 MR#: [id number] Acct: [id number] Name: LYNNE PAL Rep #: [id number] : 1995 Provider: Dr. Graciela Matamoros DO Age/Sex: 29/F Location: [facility] Status: Signed Intake Vital Signs 10/21/24 08:39 01/05/25 09:09 01/12/25 15:47 01/12/25 15:49 Height 5 ft 2 in 5 ft 2 in 5 ft 2 in 5 ft 2 in Weight: 164 lb BMI 29.9 BP 110/65 Intake Visit Reasons: 30 WK OB Open Cut Examiner Required: No Is patient in pain?: No Allergies No Known Allergies Allergy (Verified 01/12/25 15:47) Medications ???Medication ???Instructions ???Recorded ???Confirmed ???Type Lactobacillus acidophilus and 1 cap PO DAILY supplement 06/27/22 01/12/25 History rhamnosus 15 billion cell capsule (Probiotic) multivitamin no.47-iron fum 27 1 cap PO DAILY 06/27/22 01/12/25 History mg-folate no.1 1 mg-dha 300 mg capsule (PNV-DHA) Last Menstrual Period: 05/29/24 Zika: Zika virus screening: Negative : No PFSH PFSH Medical History hemorrhage (spontaneous vaginal delivery) History of group B Streptococcus (GBS) infection Pre-conception counseling Breast tenderness in female Non-smoker Surgical History H/O dilation and curettage Hx of wisdom tooth extraction Family History Father Hypertension Social History adopted: No household members: spouse housing: house number of children: 1 current occupational status: employed 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 current occupational exposures/hazards: No pets and animals: No history of recent travel: No ([place]) sexually active: Yes Smoking Status: Never smoker alcohol intake: former details: social- but not while substance use type: does not use well-balanced diet: daily or most days caffeine: No eating out: rarely or never during the past year weight has: other details: had a baby is 7# heavier than prepregnancy what type of physical activity do you participate in: walking and weight training frequency: 3-4 times per week duration: 15-30 minutes/day kenia/evangelical: Sikh seatbelt use: always do you feel safe at home: Yes additional social history: - Yossi- Marketing History 3 Elective abortions Hx Para 1 Spontaneous abortions 1 Hx # Term Pregnancies Ectopic pregnancies Hx # Pregnancies Multiple births # of living children 1 Past Pregnancies Del. Date Name GA/Weeks Outcome Route Bth Weight Infant Gen Labor Lgth Anesthesia Del Locatn Provider FOB Unknown June 2022 miscarriage 8wk 09/15/23 May 40 live - full term 7lbs 4oz Female none [facility] [place] Delivery Date: 09/15/23 Last Updated by: Snow Delgado PP hem. HPI 30 WK OB Details: LYNNE PAL is a 29 year old who presents for routine OB visit. OB Visit ANGEL LUIS Calculator Estimated Delivery Date Method Current WG Current Estimate 03/20/25 Ultrasound #1 30w 3d Other Estimates 03/05/25 LMP (Certain) 32w 4d Expected Delivery Route/Plan Labor Preferences- CB/BF classes: [] labor support person: [] labor intervention preferences: [] pain management options preferred: [] cut cord/dad catch: [] : [] PP control planned: [] discussed possible routes of delivery and associated risks: [] special requests: [] Specific Issue/Plans Covid status: [] Flu vaccine: [] Tdap vaccine: [] Rhogam: [] LARC form signed: [] Problem list reviewed and updated with the most current plan of care details and appropriate orders placed. Relevant counseling for the gestational age provided. Continue routine care and follow up unless otherwise noted in visit notes/problem list details Initial Weight: 135 lb Date -???-???-???-???-??? -???-???-???-???-??? -???-???- EGA Weight BP Urine Prot -???-???-???-???-??? -???-???-???-???-??? -???-???- Glucose FHR FuHt Pres Dilation -???-???-???-???-??? -???-???-???-???-??? -???-???- Effaced St Visit Note 07/26/24 -???-???-???-???-??? -???-???-???-???-??? -???-???- 6w 1d 139 lb 4 oz (+4 lb 4 oz) 120/80 -???-???-???-???-??? -???-???-???-???-??? -???-???- 105 -???-???-???-???-??? -???-???-???-???-??? -???-???- JV- CRL lindy uring 6 weeks 1 day with heart tones. states is 6 weeks by when she calculated ovulation. unsure about nipt or blood type testing of baby (she is rh neg) 08/27/24 -???-???-???-???-??? -???-???-???-???-??? -???-???- 10w 5d 141 lb 2 oz (+6 lb 2 oz) 110/7 (more content not included)... Normal [facility] Absolute lymphocyte countOrd ered By: Graciela Moya on 01-05-2025 Lymphocytes Auto (Unsp spec) [#/Vol] 1.55 10*3/uL 0.83-4.51 [facility] Absolute neutrophil countOrd ered By: Graciela Moya on 01-05-2025 Neutrophils (Bld) [#/Vol] 5.8 10*3/uL 2.0-7.7 [facility] Automated lymphocyte count a s percentage of total leukocytesOrdered By: Graciela Moya on 01-05-2025 Lymphocytes/100 WBC Auto (Unsp spec) 19.6 % 19-41 [facility] Basophil percentageOrdered B y: Graciela Moya on 01-05-2025 Basophils/100 WBC (Bld) 0.5 % 0-1 [facility] CBC W/Diff, Automatedon 12-11 Absolute Lymph 1.55 X10 3/uL Normal 0.83-4.51 [facility] Comment on above: Performed By: #### L 100.0100 ####[facility] [address] [place], [address] Absolute Neut 5.8 X10 3/uL Normal 2.0-7.7 [facility] Comment on above: Performed By: #### L 100.0100 ####[facility] [address] [place], [address] Basophils/100 WBC (Bld) 0.5 % Normal 0-1 [facility] Comment on above: Performed By: #### L 100.0100 ####[facility] [address] [place], [address] Eosinophils/100 WBC (Bld) 0.4 % Normal 0-5 [facility] Comment on above: Performed By: #### L 100.0100 ####[facility] [address] [place], [address] Erythrocyte distribution width (RBC) [Ratio] 12.4 % Normal 11.6-14.6 [facility] Comment on above: Performed By: #### L 100.0100 ####[facility] [address] [place], [address] Hematocrit (Bld) [Volume fraction] 31.2 % Low 37-47 [facility] Comment on above: Performed By: #### L 100.0100 ####[facility] [address] [place], [address] Hemoglobin (Bld) [Mass/Vol] 10.7 g/dL Low 12.0-15.0 [facility] Comment on above: Performed By: #### L 100.0100 ####[facility] [address] [place], [address] IG% 0.800 Normal 0.0-0.9 [facility] Comment on above: Result Comment: IG% - Immature Granulocytes (promyelocytes, myelocytes and metamyelocytes) > 1% indicates that a LEFT SHIFT is Present. Performed By: #### L 100.0100 ####[facility] [address] [place], [address] Lymphocytes/100 WBC (Bld) 19.6 % Normal 19-41 [facility] Comment on above: Performed By: #### L 100.0100 ####[facility] [address] [place], [address] MCH (RBC) [Entitic mass] 31.5 pg Normal 27.0-32.0 [facility] Comment on above: Performed By: #### L 100.0100 ####[facility] [address] [place], [address] MCHC (RBC) [Mass/Vol] 34.3 g/dL Normal 32-36 [facility] Comment on above: Performed By: #### L 100.0100 ####[facility] [address] [place], [address] MCV (RBC) [Entitic vol] 91.8 fL Normal 81-99 [facility] Comment on above: Performed By: #### L 100.0100 ####[facility] [address] [place], [address] Monocytes/100 WBC (Bld) 5.7 % Normal 0-10 [facility] Comment on above: Performed By: #### L 100.0100 ####[facility] [address] [place], [address] Neutrophils/100 WBC (Bld) 73.0 % High 47-70 [facility] Comment on above: Performed By: #### L 100.0100 ####[facility] [address] [place], [address] Nucleated RBC (Bld) [#/Vol] 0 10*3/uL Normal 0-5 [facility] Comment on above: Performed By: #### L 100.0100 ####[facility] [address] [place], [address] Platelet mean volume (Bld) [Entitic vol] 9.9 fL Normal 6.2-12.0 [facility] Comment on above: Performed By: #### L 100.0100 ####[facility] [address] [place], [address] Platelets (Bld) [#/Vol] 161 10*3/uL Normal 150-450 [facility] Comment on above: Performed By: #### L 100.0100 ####[facility] [address] [place], [address] RBC (Bld) [#/Vol] 3.40 10*6/uL Low 4.2-5.4 [facility] Comment on above: Performed By: #### L 100.0100 ####[facility] [address] [place], [address] RDW SD 41.2 fl Normal 35.1-43.9 [facility] Comment on above: Performed By: #### L 100.0100 ####[facility] [address] [place], [place], [id number] WBC (Bld) [#/Vol] 7.9 10*3/uL Normal 4.4-11.0 [facility] Comment on above: Performed By: #### L 100.0100 ####[facility] [address] [place], [place], [id number](068) Eosinophil percentageOrdered By: Graciela Moya on 01-05-2025 Eosinophils/100 WBC (Bld) 0.4 % 0-5 [facility] Erythrocyte distribution wid th ratioOrdered By: Graciela Moya on 01-05-2025 Erythrocyte distribution width (RBC) [Ratio] 12.4 % 11.6-14.6 [facility] Erythrocyte distribution wid th standard deviationOrdered By: Graciela Moya on 01-05-2025 Erythrocyte distribution width (RBC) [Ratio] 41.2 fl 35.1-43.9 [facility] Fibrinogenon 01-05-2025 FIBRINOGEN 419 mg/dl Normal 203-444 [facility] Comment on above: Performed By: #### L 300.4700, L803.2300 ####[facility] [address] [place], [place], [id number] Hematocrit Auto (Bld) [Volum e fraction]Ordered By: Graciela Moya on 01-05-2025 Hematocrit (Bld) [Volume fraction] 31.2 % Low 37-47 [facility] Hemoglobin measurementOrdere d By: Graciela Moya on 01-05-2025 Hemoglobin (Bld) [Mass/Vol] 10.7 g/dL Low 12.0-15.0 [facility] Immature granulocytes/100 WB C Auto (Bld)Ordered By: Graciela Moya on 01-05-2025 Immature granulocytes/100 WBC (Bld) 0.800 % 0.0-0.9 [facility] Comment on above: IG% - Immature Granu locytes (promyelocytes, myelocytes and metamyelocytes) > 1% indicates that a LEFT SHIFT is Present. Ladonnaon 01-05-2025 KLEMACIE-RANDALL Normal [facility] Comment on above: Result Comment: TEST RESULTS LIMITS Yanet Giron Study Negative Negative TESTING PERFORMED AT [facility]. ORIGINAL REPORT ON FILE IN LAB CONTAINS ADDITIONAL TEST SITE INFORMATION. Performed By: #### L 300.4700, L803.2300 ####[facility] [address] [place], [address] MCV (mean corpuscular volume ) determinationOrdered By: Graciela Moya on 01-05-2025 MCV (RBC) [Entitic vol] 91.8 fL 81-99 [facility] Mean corpuscular hemoglobin (MCH) determinationOrdered By: Graciela Moya on 01-05-2025 MCH (RBC) [Entitic mass] 31.5 pg 27.0-32.0 [facility] Mean corpuscular hemoglobin concentration (MCHC) determinationOrdered By: Graciela Moya on 01-05-2025 MCHC (RBC) [Mass/Vol] 34.3 g/dL 32-36 [facility] Mean platelet volume determi nationOrdered By: Gracilea Moya on 01-05-2025 Platelet mean volume (Bld) [Entitic vol] 9.9 fL 6.2-12.0 [facility] Monocyte percentageOrdered B y: Graciela Moya on 01-05-2025 Monocytes/100 WBC (Bld) 5.7 % 0-10 [facility] Neutrophil percentageOrdered By: Graciela Moya on 01-05-2025 Neutrophils/100 WBC (Bld) 73.0 % High 47-70 [facility] Nucleated red blood cell per centageOrdered By: Graciela Moya on 01-05-2025 Nucleated RBC/100 WBC (Bld) [Ratio] 0 % 0-5 [facility] OB Triage Physician Noteon 0 01-05-2025 OB Triage Physician Note [facility] Medical Records Department [address] [place] [address] OB Triage Physician Note 01/05/252043 MR#: [id number] Acct: [id number] Name: LYNNE PAL Rep #: [id number] : 1995 29 From: Graciela Dang DO PCP: Dr. Romy Tang MD Status:DEP [facility] Y Location: [facility] HPI - General HPI Narrative LYNNE PAL, is a 29 y/o @ 29 weeks who presents to D after she slipped and fell to her back on the carpeted stairs. She also hit the back of her neck. She denies loss of consciousness. She also denies loss of fluid, vaginal bleeding, or dec fm. She denies headache, visual changes, neck stiffness, or shortness of breath. She states that a small area on the middle of her back stings a little. She is admitted for observation for at least 2 hours. A fibrinogen, cbc and KB have been ordered. Maternal Data Information ANGEL LUIS Calculator Estimated Delivery Date Method Current WG Current Estimate 03/20/25 Ultrasound #1 29w 3d Other Estimates 03/05/25 LMP (Certain) 31w 4d PFSH PFSH Medical History hemorrhage (spontaneous vaginal delivery) History of group B Streptococcus (GBS) infection Pre-conception counseling Breast tenderness in female Non-smoker Home Medications ???Medication ???Instructions ???Recorded ???Last Taken ???Type Lactobacillus acidophilus and 1 cap PO DAILY supplement 06/27/22 Unknown History rhamnosus 15 billion cell capsule (Probiotic) multivitamin no.47-iron fum 27 1 cap PO DAILY 06/27/22 01/05/25 07:00 History mg-folate no.1 1 mg-dha 300 mg 1 cap capsule (PNV-DHA) Allergy/AdvReac Type Severity Reaction Status Date / Time No Known Allergies Allergy Verified 01/05/25 09:22 Family History Father Hypertension Surgical History H/O dilation and curettage Hx of wisdom tooth extraction Social History adopted: No household members: spouse housing: house number of children: 1 current occupational status: employed 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 current occupational exposures/hazards: No pets and animals: No history of recent travel: No ([place]) sexually active: Yes Smoking Status: Never smoker alcohol intake: former details: social- but not while substance use type: does not use well-balanced diet: daily or most days caffeine: No eating out: rarely or never during the past year weight has: other details: had a baby is 7# heavier than prepregnancy what type of physical activity do you participate in: walking and weight training frequency: 3-4 times per week duration: 15-30 minutes/day kenia/evangelical: Sikh seatbelt use: always do you feel safe at home: Yes additional social history: - Yossi- Marketing History 3 Elective abortions Hx Para 1 Spontaneous abortions 1 Hx # Term Pregnancies Ectopic pregnancies Hx # Pregnancies Multiple births # of living children 1 Past Pregnancies Del. Date Name GA/Weeks Outcome Route Bth Weight Gen Labor Lgth Anesthesia Del Locatn Provider FOB Unknown June 2022 miscarriage 8wk 09/15/23 May 40 live - full term 7lbs 4oz Female none [facility] Delivery Date: 09/15/23 Last Updated by: Snow Delgado PP hem. Visit Details Expected Delivery Route/Plan Labor Preferences- CB/BF classes: [] labor support person: [] labor intervention preferences: [] pain management options preferred: [] cut cord/dad catch: [] : [] PP control planned: [] discussed possible routes of delivery and associated risks: [] special requests: [] Plans Covid status: [] Flu vaccine: [] Tdap vaccine: [] Rhogam: [] LARC form signed: [] Problem list reviewed and updated with the most current plan of care details and appropriate orders placed. Relevant counseling for the gestational age provided. Continue routine care and follow up unless otherwise noted in visit notes/problem list details OB Flowsheet Initial Weight: Not Recorded Date -???-???-???-???-??? -???-???-???-???-??? -???-???- EGA Weight BP Urine Prot -???-???-???-???-??? -???-???-???-???-??? -???-???- Glucose FHR FuHt Pres Dilation -???-???-???-???-??? -???-???-???-???-??? -???-???- Effaced St Visit Note 07/26/24 -???-???-???-???-??? -???-???-???-???-??? -???-???- 6w 1d 139 lb 4 oz 120/80 -???-???-???-???-??? -???-???-???-???-??? -???-???- 105 -???-???-???-???-??? -???-???-???-???-??? -???-???- JV- CRL lindy uring 6 weeks 1 day with heart tones. states is 6 weeks by when she calculated ovulation. unsure about nipt or blood type testing of baby (more content not included)... Normal [facility] Platelet countOrdered By: Guilherme Moya on 01-05-2025 Platelets (Bld) [#/Vol] 161 10*3/uL 150-450 [facility] RBC Auto (Bld) [#/Vol]Ordere d By: Graciela Moya on 01-05-2025 RBC (Bld) [#/Vol] 3.40 10*6/uL Low 4.2-5.4 [facility] White blood cell (WBC) count Ordered By: Graceila Moya on 01-05-2025 WBC (Bld) [#/Vol] 7.9 10*3/uL 4.4-11.0 [facility] Absolute lymphocyte countOrd ered By: Camacho Cash on 12-31-2024 Lymphocytes Auto (Unsp spec) [#/Vol] 1.50 10*3/uL 0.83-4.51 [facility] Absolute neutrophil countOrd ered By: Camacho Cash on 12-31-2024 Neutrophils (Bld) [#/Vol] 5.6 10*3/uL 2.0-7.7 [facility] Automated lymphocyte count a s percentage of total leukocytesOrdered By: Camacho Cash on 12-31-2024 Lymphocytes/100 WBC Auto (Unsp spec) 20.0 % 19-41 [facility] Basophil percentageOrdered B y: Camacho Cash on 12-31-2024 Basophils/100 WBC (Bld) 0.4 % 0-1 [facility] CBC W/Diff, Automatedon 12-11 Absolute Lymph 1.50 X10 3/uL Normal 0.83-4.51 [facility] Comment on above: Performed By: #### L 501.0250, BTS, L100.0100, L509.8002, L3890.6006 #### [facility] [address] [place], [address] Absolute Neut 5.6 X10 3/uL Normal 2.0-7.7 [facility] Comment on above: Performed By: #### L 501.0250, BTS, L100.0100, L509.8002, L3890.6006 #### [facility] [address] [place], [address] Basophils/100 WBC (Bld) 0.4 % Normal 0-1 [facility] Comment on above: Performed By: #### L 501.0250, BTS, L100.0100, L509.8002, L3890.6006 #### [facility] [address] [place], [address] Eosinophils/100 WBC (Bld) 0.5 % Normal 0-5 [facility] Comment on above: Performed By: #### L 501.0250, BTS, L100.0100, L509.8002, L3890.6006 #### [facility] [address] [place], [address] Erythrocyte distribution width (RBC) [Ratio] 12.7 % Normal 11.6-14.6 [facility] Comment on above: Performed By: #### L 501.0250, BTS, L100.0100, L509.8002, L3890.6006 #### [facility] [address] [place], [address] Hematocrit (Bld) [Volume fraction] 31.9 % Low 37-47 [facility] Comment on above: Performed By: #### L 501.0250, BTS, L100.0100, L509.8002, L3890.6006 #### [facility] [address] [place], [address] Hemoglobin (Bld) [Mass/Vol] 10.9 g/dL Low 12.0-15.0 [facility] Comment on above: Performed By: #### L 501.0250, BTS, L100.0100, L509.8002, L3890.6006 #### [facility] [address] [place], [address] IG% 0.500 Normal 0.0-0.9 [facility] Comment on above: Result Comment: IG% - Immature Granulocytes (promyelocytes, myelocytes and metamyelocytes) > 1% indicates that a LEFT SHIFT is Present. Performed By: #### L 501.0250, BTS, L100.0100, L509.8002, L3890.6006 #### [facility] [address] [place], [address] Lymphocytes/100 WBC (Bld) 20.0 % Normal 19-41 [facility] Comment on above: Performed By: #### L 501.0250, BTS, L100.0100, L509.8002, L3890.6006 #### [facility] [address] [place], [address] MCH (RBC) [Entitic mass] 32.0 pg Normal 27.0-32.0 [facility] Comment on above: Performed By: #### L 501.0250, BTS, L100.0100, L509.8002, L3890.6006 #### [facility] [address] [place], [address] MCHC (RBC) [Mass/Vol] 34.2 g/dL Normal 32-36 [facility] Comment on above: Performed By: #### L 501.0250, BTS, L100.0100, L509.8002, L3890.6006 #### [facility] [address] [place], [address] MCV (RBC) [Entitic vol] 93.5 fL Normal 81-99 [facility] Comment on above: Performed By: #### L 501.0250, BTS, L100.0100, L509.8002, L3890.6006 #### [facility] [address] [place], [address] Monocytes/100 WBC (Bld) 4.1 % Normal 0-10 [facility] Comment on above: Performed By: #### L 501.0250, BTS, L100.0100, L509.8002, L3890.6006 #### [facility] [address] [place], [address] Neutrophils/100 WBC (Bld) 74.5 % High 47-70 [facility] Comment on above: Performed By: #### L 501.0250, BTS, L100.0100, L509.8002, L3890.6006 #### [facility] [address] [place], [address] Nucleated RBC (Bld) [#/Vol] 0 10*3/uL Normal 0-5 [facility] Comment on above: Performed By: #### L 501.0250, BTS, L100.0100, L509.8002, L3890.6006 #### [facility] [address] [place], [address] Platelet mean volume (Bld) [Entitic vol] 10.2 fL Normal 6.2-12.0 [facility] Comment on above: Performed By: #### L 501.0250, BTS, L100.0100, L509.8002, L3890.6006 #### [facility] [address] [place], [address] Platelets (Bld) [#/Vol] 177 10*3/uL Normal 150-450 [facility] Comment on above: Performed By: #### L 501.0250, BTS, L100.0100, L509.8002, L3890.6006 #### [facility] [address] [place], [address] RBC (Bld) [#/Vol] 3.41 10*6/uL Low 4.2-5.4 [facility] Comment on above: Performed By: #### L 501.0250, BTS, L100.0100, L509.8002, L3890.6006 #### [facility] Laboratory [address] [place], [address] RDW SD 43.5 fl Normal 35.1-43.9 [facility] Comment on above: Performed By: #### L 501.0250, BTS, L100.0100, L509.8002, L3890.6006 #### [facility] Laboratory [address] [place], [place], [id number] WBC (Bld) [#/Vol] 7.5 10*3/uL Normal 4.4-11.0 [facility] Comment on above: Performed By: #### L 501.0250, BTS, L100.0100, L509.8002, L3890.6006 #### [facility] Laboratory [address] [place], [place], [id number] Eosinophil percentageOrdered By: Camacho Cash on 12-31-2024 Eosinophils/100 WBC (Bld) 0.5 % 0-5 [facility] Erythrocyte distribution wid th ratioOrdered By: Camacho Cash on 12-31-2024 Erythrocyte distribution width (RBC) [Ratio] 12.7 % 11.6-14.6 [facility] Erythrocyte distribution wid th standard deviationOrdered By: Camacho Cash on 12-31-2024 Erythrocyte distribution width (RBC) [Ratio] 43.5 fl 35.1-43.9 [facility] Glucose Challenge Gest 1H 50 rosalind 12-31-2024 GLU GEST 50g 1H 93 mg/dL Normal 70-140 [facility] Comment on above: Performed By: #### L 501.0250, BTS, L100.0100, L509.8002, L3890.6006 #### [facility] Laboratory [address], [place], [id number] Glucose measurement at 2 loly rs post-dose gestational glucose tolerance testOrdered By: Camacho Cash on 12-31-2024 Glucose [Mass/Vol] 93 mg/dL 70-140 [facility] HIVon 12-31-2024 HIV Non-Reactive Normal Nonreactive [facility] Comment on above: Result Comment: Non- Reactive Reactive Repeatedly reactive samples must be confirmed according to CDC recommended confirmatory algorithms. The subresults for either HIVAG or AHIV can be used as an aid in the selection of the confirmation algorithm for reactive samples. Send out specimens with Reactive results to [facility] for confirmation. Order the HIV antibody detection and differentiation: lc#[id number] Performed By: #### L 501.0250, BTS, L100.0100, L509.8002, L3890.6006 #### [facility] [place], [address] Hematocrit Auto (Bld) [Volum e fraction]Ordered By: Camacho Cash on 12-31-2024 Hematocrit (Bld) [Volume fraction] 31.9 % Low 37-47 [facility] Hemoglobin measurementOrdere d By: Camacho Cash on 12-31-2024 Hemoglobin (Bld) [Mass/Vol] 10.9 g/dL Low 12.0-15.0 [facility] Immature granulocytes/100 WB C Auto (Bld)Ordered By: Camacho Cash on 12-31-2024 Immature granulocytes/100 WBC (Bld) 0.500 % 0.0-0.9 [facility] Comment on above: IG% - Immature Granu locytes (promyelocytes, myelocytes and metamyelocytes) > 1% indicates that a LEFT SHIFT is Present. MCV (mean corpuscular volume ) determinationOrdered By: Camacho Cash on 12-31-2024 MCV (RBC) [Entitic vol] 93.5 fL 81-99 [facility] Mean corpuscular hemoglobin (MCH) determinationOrdered By: Camacho Cash on 12-31-2024 MCH (RBC) [Entitic mass] 32.0 pg 27.0-32.0 [facility] Mean corpuscular hemoglobin concentration (MCHC) determinationOrdered By: Camacho Cash on 12-31-2024 MCHC (RBC) [Mass/Vol] 34.2 g/dL 32-36 [facility] Mean platelet volume determi nationOrdered By: Camacho Cash on 12-31-2024 Platelet mean volume (Bld) [Entitic vol] 10.2 fL 6.2-12.0 [facility] Monocyte percentageOrdered B y: Camacho Cash on 12-31-2024 Monocytes/100 WBC (Bld) 4.1 % 0-10 [facility] Neutrophil percentageOrdered By: Camacho Cash on 12-31-2024 Neutrophils/100 WBC (Bld) 74.5 % High 47-70 [facility] No Panel InformationOrdered By: Camacho Cash on 12-31-2024 HIV (1&2) Antibody Non-Reactive Nonreactive [facility] Comment on above: Non-ReactiveReactive Repeatedly reactive samples must be confirmed according to CDC recommended confirmatory algorithms. The subresults for either HIVAG or AHIV can be used as an aid in the selection of the confirmation algorithm for reactive samples.Send out specimens with Reactive results to [facility] for confirmation.Order the HIV antibody detection and differentiation: #[id number] Nucleated red blood cell per centageOrdered By: Camacho Cash on 12-31-2024 Nucleated RBC/100 WBC (Bld) [Ratio] 0 % 0-5 [facility] [employer] Office Visit Reporton 12-31-2024 [employer] Office Visit Report [facility] [address], [address] [place] [address] OFFICE VISIT Date of Service: 12/31/24 MR#: [id number] Acct: [id number] Name: LYNNE PAL Rep #: [id number] : 1995 Provider: Dr. Cheyenne tanner MD Age/Sex: 29/F Location: [facility] Status: Signed Intake Vital Signs 12/27/24 09:42 12/31/24 09:01 Height 5 ft 2 in 5 ft 2 in Weight: 157 lb 3 oz 157 lb 2 oz BMI 28.7 28.7 BP 103/67 110/74 Intake Visit Reasons: Glucose Rhogam *ok per AW Open Cut Examiner Required: No Is patient in pain?: No Allergies No Known Allergies Allergy (Verified 12/31/24 09:03) Medications ???Medication ???Instructions ???Recorded ???Confirmed ???Type Lactobacillus acidophilus and 1 cap PO DAILY supplement 06/27/22 12/31/24 History rhamnosus 15 billion cell capsule (Probiotic) multivitamin no.47-iron fum 27 1 cap PO DAILY 06/27/22 12/31/24 History mg-folate no.1 1 mg-dha 300 mg capsule (PNV-DHA) Last Menstrual Period: 05/29/24 Zika: Zika virus screening: Negative : No Have you fallen in the past year?: No Nurse's Note: pt here for glucose draw and rhogam. no complaints or issues.pt tolerated shot well. PFSH PFSH Medical History hemorrhage (spontaneous vaginal delivery) History of group B Streptococcus (GBS) infection Pre-conception counseling Breast tenderness in female Non-smoker Surgical History H/O dilation and curettage Hx of wisdom tooth extraction Family History Father Hypertension Social History adopted: No household members: spouse housing: house number of children: 1 current occupational status: employed 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 current occupational exposures/hazards: No pets and animals: No history of recent travel: No ([place]) sexually active: Yes Smoking Status: Never smoker alcohol intake: former details: social- but not while substance use type: does not use well-balanced diet: daily or most days caffeine: No eating out: rarely or never during the past year weight has: other details: had a baby is 7# heavier than prepregnancy what type of physical activity do you participate in: walking and weight training frequency: 3-4 times per week duration: 15-30 minutes/day kenia/evangelical: Sikh seatbelt use: always do you feel safe at home: Yes additional social history: - [employer]- Marketing History 3 Elective abortions Hx Para 1 Spontaneous abortions 1 Hx # Term Pregnancies Ectopic pregnancies Hx # Pregnancies Multiple births # of living children 1 Past Pregnancies Del. Date Name GA/Weeks Outcome Route Bth Weight Gen Labor Lgth Anesthesia Del Locatn Provider FOB Unknown June 2022 miscarriage 8wk 09/15/23 May 40 live - full term 7lbs 4oz Female none [facility] Cano Yossi Delivery Date: 09/15/23 Last Updated by: Snow Delgado PP hem. HPI Glucose Rhogam *ok per AW Details: LYNNE PAL is a 29 year old who presents for routine OB visit. OB Visit ANGEL LUIS Calculator Estimated Delivery Date Method Current WG Current Estimate 03/20/25 Ultrasound #1 28w 5d Other Estimates 03/05/25 LMP (Certain) 30w 6d Expected Delivery Route/Plan Labor Preferences- CB/BF classes: [] labor support person: [] labor intervention preferences: [] pain management options preferred: [] cut cord/dad catch: [] : [] PP control planned: [] discussed possible routes of delivery and associated risks: [] special requests: [] Specific Issue/Plans Covid status: [] Flu vaccine: [] Tdap vaccine: [] Rhogam: [] LARC form signed: [] Problem list reviewed and updated with the most current plan of care details and appropriate orders placed. Relevant counseling for the gestational age provided. Continue routine care and follow up unless otherwise noted in visit notes/problem list details Initial Weight: Not Recorded Date -???-???-???-???-??? -???-???-???-???-??? -???-???- EGA Weight BP Urine Prot -???-???-???-???-??? -???-???-???-???-??? -???-???- Glucose FHR FuHt Pres Dilation -???-???-???-???-??? -???-???-???-???-??? -???-???- Effaced St Visit Note 07/26/24 -???-???-???-???-??? -???-???-???-???-??? -???-???- 6w 1d 139 lb 4 oz 120/80 -???-???-???-???-??? -???-???-???-???-??? -???-???- 105 -???-???-???-???-??? -???-???-???-???-??? -???-???- JV- CRL lindy uring 6 weeks 1 day with heart tones. states is 6 weeks by when she calculated ovulation. unsure about nipt or blood type testing o (more content not included)... Normal [facility] Platelet countOrdered By: Deric Cash on 12-31-2024 Platelets (Bld) [#/Vol] 177 10*3/uL 150-450 [facility] RBC Auto (Bld) [#/Vol]Ordere d By: Camacho Cash on 12-31-2024 RBC (Bld) [#/Vol] 3.41 10*6/uL Low 4.2-5.4 [facility] Syphilis Antibodieson 2024 Syphilis Abs Non-Reactive Normal Nonreactive [facility] Comment on above: Performed By: #### L 501.0250, BTS, L100.0100, L509.8002, L3890.6006 #### [facility] Laboratory [address] [place], [place], [id number] Type AND Screenon 12-31-2024 ABO and Rh group Nom (Bld) Blood group O Rh(D) negative Normal [facility] Comment on above: Order Comment: PN Performed By: #### L 501.0250, BTS, L100.0100, L509.8002, L3890.6006 ####[facility] [address] [place], [place], [id number] White blood cell (WBC) count Ordered By: Camacho Cash on 12-31-2024 WBC (Bld) [#/Vol] 7.5 10*3/uL 4.4-11.0 [facility] Laboratory - Chemistry and C hemistry - challengeOrdered By: Camacho Cash on 12-27-2024 Glucose Ql (U) Negative [facility] Laboratory - UrinalysisOrder ed By: Camacho Cash on 12-27-2024 Protein Ql (U) Negative [facility] [employer]er Office Visit Reporton 12-27-2024 Shovel Handle Assembler Office Visit Report [facility], [address] [place] [address] OFFICE VISIT Date of Service: 12/27/24 MR#: [id number] Acct: [id number] Name: LYNNE PAL Rep #: [id number] : 1995 Provider: FREIDA Myers ams Age/Sex: 29/F Location: [facility] Status: Signed Intake Vital Signs 10/21/24 08:39 12/17/24 09:43 12/27/24 09:42 Height 5 ft 2 in 5 ft 2 in 5 ft 2 in Weight: 157 lb 3 oz BMI 28.7 BP 103/67 Intake Visit Reasons: 28 WK OB GLUCOSE/RHOGAM Chief Complaint: 28wk OB/Rhogam Open Cut Examiner Required: No Is patient in pain?: No Allergies No Known Allergies Allergy (Verified 12/27/24 09:40) Medications ???Medication ???Instructions ???Recorded ???Confirmed ???Type Lactobacillus acidophilus and 1 cap PO DAILY supplement 06/27/22 12/27/24 History rhamnosus 15 billion cell capsule (Probiotic) multivitamin no.47-iron fum 27 1 cap PO DAILY 06/27/22 12/27/24 History mg-folate no.1 1 mg-dha 300 mg capsule (PNV-DHA) Last Menstrual Period: 05/29/24 : No PFSH PFSH Medical History hemorrhage (spontaneous vaginal delivery) History of group B Streptococcus (GBS) infection Pre-conception counseling Breast tenderness in female Non-smoker Surgical History H/O dilation and curettage Hx of wisdom tooth extraction Family History Father Hypertension Social History adopted: No household members: spouse housing: house number of children: 1 current occupational status: employed 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 current occupational exposures/hazards: No pets and animals: No history of recent travel: No ([place]) sexually active: Yes Smoking Status: Never smoker alcohol intake: former details: social- but not while substance use type: does not use well-balanced diet: daily or most days caffeine: No eating out: rarely or never during the past year weight has: other details: had a baby is 7# heavier than prepregnancy what type of physical activity do you participate in: walking and weight training frequency: 3-4 times per week duration: 15-30 minutes/day kenia/evangelical: Sikh seatbelt use: always do you feel safe at home: Yes additional social history: - [employer]- Marketing History 3 Elective abortions Hx Para 1 Spontaneous abortions 1 Hx # Term Pregnancies Ectopic pregnancies Hx # Pregnancies Multiple births # of living children 1 Past Pregnancies Del. Date Name GA/Weeks Outcome Route Bth Weight Gen Labor Lgth Anesthesia Del Locatn Provider FOB Unknown June 2022 miscarriage 8wk 09/15/23 May 40 live - full term 7lbs 4oz Female none [facility] kerry Sy Delivery Date: 09/15/23 Last Updated by: Snow Delgado PP hem. HPI 28 WK OB GLUCOSE/RHOGAM Details: LYNNE PAL is a 29 year old who presents for routine OB visit. OB Visit ANGEL LUIS Calculator Estimated Delivery Date Method Current WG Current Estimate 03/20/25 Ultrasound #1 28w 1d Other Estimates 03/05/25 LMP (Certain) 30w 2d Expected Delivery Route/Plan Labor Preferences- CB/BF classes: [] labor support person: [] labor intervention preferences: [] pain management options preferred: [] cut cord/dad catch: [] : [] PP control planned: [] discussed possible routes of delivery and associated risks: [] special requests: [] Specific Issue/Plans Covid status: [] Flu vaccine: [] Tdap vaccine: [] Rhogam: [] LARC form signed: [] Problem list reviewed and updated with the most current plan of care details and appropriate orders placed. Relevant counseling for the gestational age provided. Continue routine care and follow up unless otherwise noted in visit notes/problem list details Initial Weight: Not Recorded Date -???-???-???-???-??? -???-???-???-???-??? -???-???- EGA Weight BP Urine Prot -???-???-???-???-??? -???-???-???-???-??? -???-???- Glucose FHR FuHt Pres Dilation -???-???-???-???-??? -???-???-???-???-??? -???-???- Effaced St Visit Note 07/26/24 -???-???-???-???-??? -???-???-???-???-??? -???-???- 6w 1d 139 lb 4 oz 120/80 -???-???-???-???-??? -???-???-???-???-??? -???-???- 105 -???-???-???-???-??? -???-???-???-???-??? -???-???- JV- CRL lindy uring 6 weeks 1 day with heart tones. states is 6 weeks by when she calculated ovulation. unsure about nipt or blood type testing of baby (she is rh neg) 08/27/24 -???-???-???-???-??? -???-???-???-???-??? -???-???- 10w 5d 141 lb 2 oz 110/76 Negative -???-???-???-???-??? -???-???-?? (more content not included)... Normal [facility] Laboratory - Chemistry and C hemistry - challengeOrdered By: Camacho Cash on 12-17-2024 Glucose Ql (U) Negative [facility] Laboratory - UrinalysisOrder ed By: Camacho Cash on 12-17-2024 Protein Ql (U) Negative [facility] [employer] Handle [employer]sembler Office Visit Reporton 12-17-2024 Shovel Handle Assembler Office Visit Report [facility] [address], [address] [place] [address] OFFICE VISIT Date of Service: 12/17/24 MR#: [id number] Acct: [id number] Name: LYNNE PAL Rep #: [id number] : 1995 Provider: FREIDA Myers ams Age/Sex: 29/F Location: [facility] Status: Signed Intake Vital Signs 10/21/24 08:39 11/19/24 10:06 12/17/24 09:43 Height 5 ft 2 in 5 ft 2 in 5 ft 2 in Weight: 156 lb 2 oz BMI 28.5 BP 115/70 Intake Visit Reasons: 26 WK OB Chief Complaint: 26wk OB Open Cut Examiner Required: No Is patient in pain?: No Allergies No Known Allergies Allergy (Verified 12/17/24 09:41) Medications ???Medication ???Instructions ???Recorded ???Confirmed ???Type Lactobacillus acidophilus and 1 cap PO DAILY supplement 06/27/22 12/17/24 History rhamnosus 15 billion cell capsule (Probiotic) multivitamin no.47-iron fum 27 1 cap PO DAILY 06/27/22 12/17/24 History mg-folate no.1 1 mg-dha 300 mg capsule (PNV-DHA) Last Menstrual Period: 05/29/24 : No PFSH PFSH Medical History hemorrhage (spontaneous vaginal delivery) History of group B Streptococcus (GBS) infection Pre-conception counseling Breast tenderness in female Non-smoker Surgical History H/O dilation and curettage Hx of wisdom tooth extraction Family History Father Hypertension Social History adopted: No household members: spouse housing: house number of children: 1 current occupational status: employed 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 current occupational exposures/hazards: No pets and animals: No history of recent travel: No ([place]) sexually active: Yes Smoking Status: Never smoker alcohol intake: former details: social- but not while substance use type: does not use well-balanced diet: daily or most days caffeine: No eating out: rarely or never during the past year weight has: other details: had a baby is 7# heavier than prepregnancy what type of physical activity do you participate in: walking and weight training frequency: 3-4 times per week duration: 15-30 minutes/day kenia/evangelical: Sikh seatbelt use: always do you feel safe at home: Yes additional social history: - [employer]- Marketing History 3 Elective abortions Hx Para 1 Spontaneous abortions 1 Hx # Term Pregnancies Ectopic pregnancies Hx # Pregnancies Multiple births # of living children 1 Past Pregnancies Del. Date Name GA/Weeks Outcome Route Bth Weight Gen Labor Lgth Anesthesia Del Locatn Provider FOB Unknown June 2022 miscarriage 8wk 09/15/23 May 40 live - full term 7lbs 4oz Female none [facility] kerry Sy Delivery Date: 09/15/23 Last Updated by: Snow Delgado PP hem. HPI 26 WK OB Details: LYNNE PAL is a 29 year old who presents for routine OB visit. OB Visit ANGEL LUIS Calculator Estimated Delivery Date Method Current WG Current Estimate 03/20/25 Ultrasound #1 26w 5d Other Estimates 03/05/25 LMP (Certain) 28w 6d Expected Delivery Route/Plan Labor Preferences- CB/BF classes: [] labor support person: [] labor intervention preferences: [] pain management options preferred: [] cut cord/dad catch: [] : [] PP control planned: [] discussed possible routes of delivery and associated risks: [] special requests: [] Specific Issue/Plans Covid status: [] Flu vaccine: [] Tdap vaccine: [] Rhogam: [] LARC form signed: [] Problem list reviewed and updated with the most current plan of care details and appropriate orders placed. Relevant counseling for the gestational age provided. Continue routine care and follow up unless otherwise noted in visit notes/problem list details Initial Weight: Not Recorded Date -???-???-???-???-??? -???-???-???-???-??? -???-???- EGA Weight BP Urine Prot -???-???-???-???-??? -???-???-???-???-??? -???-???- Glucose FHR FuHt Pres Dilation -???-???-???-???-??? -???-???-???-???-??? -???-???- Effaced St Visit Note 07/26/24 -???-???-???-???-??? -???-???-???-???-??? -???-???- 6w 1d 139 lb 4 oz 120/80 -???-???-???-???-??? -???-???-???-???-??? -???-???- 105 -???-???-???-???-??? -???-???-???-???-??? -???-???- JV- CRL lindy uring 6 weeks 1 day with heart tones. states is 6 weeks by when she calculated ovulation. unsure about nipt or blood type testing of baby (she is rh neg) 08/27/24 -???-???-???-???-??? -???-???-???-???-??? -???-???- 10w 5d 141 lb 2 oz 110/76 Negative -???-???-???-???-??? -???-???-???-???-??? -???-???- Negative 173 - (more content not included)... Normal [facility] Laboratory - Chemistry and C hemistry - challengeOrdered By: Camacho Cash on 11-19-2024 Glucose Ql (U) Negative [facility] Laboratory - UrinalysisOrder ed By: Camacho Cash on 11-19-2024 Protein Ql (U) Negative [facility] [employer] Handle [employer]er Office Visit Reporton 11-19-2024 Shovel Handle Assembler Office Visit Report [facility] [address], [address] [place] [address] OFFICE VISIT Date of Service: 11/19/24 MR#: [id number] Acct: [id number] Name: LYNNE PAL Rep #: [id number] : 1995 Provider: FREIDA Myers ams Age/Sex: 29/F [place] [facility] Status: Signed Intake Vital Signs 09/21/24 15:40 10/21/24 08:39 11/19/24 10:06 Height 5 ft 2 in 5 ft 2 in 5 ft 2 in Weight: 154 lb 6 oz BMI 28.2 BP 131/73 H Intake Visit Reasons: 22 wk ob Open Cut Examiner Required: No Is patient in pain?: No Allergies No Known Allergies Allergy (Verified 11/19/24 10:06) Medications ???Medication ???Instructions ???Recorded ???Confirmed ???Type Lactobacillus acidophilus and 1 cap PO DAILY supplement 06/27/22 11/19/24 History rhamnosus 15 billion cell capsule (Probiotic) multivitamin no.47-iron fum 27 1 cap PO DAILY 06/27/22 11/19/24 History mg-folate no.1 1 mg-dha 300 mg capsule (PNV-DHA) Last Menstrual Period: 05/29/24 Zika: Zika virus screening: Negative : No Have you fallen in the past year?: No PFSH PFSH Medical History hemorrhage (spontaneous vaginal delivery) History of group B Streptococcus (GBS) infection Pre-conception counseling Breast tenderness in female Non-smoker Surgical History H/O dilation and curettage Hx of wisdom tooth extraction Family History Father Hypertension Social History adopted: No household members: spouse housing: house number of children: 1 current occupational status: employed 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 current occupational exposures/hazards: No pets and animals: No history of recent travel: No ([place]) sexually active: Yes Smoking Status: Never smoker alcohol intake: former details: social- but not while substance use type: does not use well-balanced diet: daily or most days caffeine: No eating out: rarely or never during the past year weight has: other details: had a baby is 7# heavier than prepregnancy what type of physical activity do you participate in: walking and weight training frequency: 3-4 times per week duration: 15-30 minutes/day kenia/evangelical: Sikh seatbelt use: always do you feel safe at home: Yes additional social history: - Yossi- Marketing History 3 Elective abortions Hx Para 1 Spontaneous abortions 1 Hx # Term Pregnancies Ectopic pregnancies Hx # Pregnancies Multiple births # of living children 1 Past Pregnancies Del. Date Name GA/Weeks Outcome Route Bth Weight Infant Gen Labor Lgth Anesthesia Del Locatn Provider FOB Unknown June 2022 miscarriage 8wk 09/15/23 May 40 live - full term 7lbs 4oz Female none [facility] Yelena Sy Delivery Date: 09/15/23 Last Updated by: Snow Delgado PP hem. HPI 22 wk ob Details: LYNNE PAL is a 29 year old who presents for routine OB visit. OB Visit ANGEL LUIS Calculator Estimated Delivery Date Method Current WG Current Estimate 03/20/25 Ultrasound #1 22w 5d Other Estimates 03/05/25 LMP (Certain) 24w 6d Expected Delivery Route/Plan Labor Preferences- CB/BF classes: [] labor support person: [] labor intervention preferences: [] pain management options preferred: [] cut cord/dad catch: [] : [] PP control planned: [] discussed possible routes of delivery and associated risks: [] special requests: [] Specific Issue/Plans Covid status: [] Flu vaccine: [] Tdap vaccine: [] Rhogam: [] LARC form signed: [] Problem list reviewed and updated with the most current plan of care details and appropriate orders placed. Relevant counseling for the gestational age provided. Continue routine care and follow up unless otherwise noted in visit notes/problem list details Initial Weight: Not Recorded Date -???-???-???-???-??? -???-???-???-???-??? -???-???- EGA Weight BP Urine Prot -???-???-???-???-??? -???-???-???-???-??? -???-???- Glucose FHR FuHt Pres Dilation -???-???-???-???-??? -???-???-???-???-??? -???-???- Effaced St Visit Note 07/26/24 -???-???-???-???-??? -???-???-???-???-??? -???-???- 6w 1d 139 lb 4 oz 120/80 -???-???-???-???-??? -???-???-???-???-??? -???-???- 105 -???-???-???-???-??? -???-???-???-???-??? -???-???- JV- CRL lindy uring 6 weeks 1 day with heart tones. states is 6 weeks by when she calculated ovulation. unsure about nipt or blood type testing of baby (she is rh neg) 08/27/24 -???-???-???-???-??? -???-???-???-???-??? -???-???- 10w 5d 141 lb 2 oz 110/76 Negative -???-???-?? (more content not included)... Normal [facility] Laboratory - Chemistry and C hemistry - challengeOrdered By: Sharifa Willson on 2024 Glucose Ql (U) Negative [facility] Laboratory - UrinalysisOrder ed By: Sharifa Willson on 2024 Protein Ql (U) Negative [facility] [employer] Handle Assembler Office Visit Reporton 2024 Shovel [employer] Assembler Office Visit Report [facility] [address] [place] [address], [address] [place] [address] OFFICE VISIT Date of Service: 10/21/24 MR#: [id number] Acct: [id number] Name: LYNNE PAL Rep #: [id number] : 1995 Provider: SHANNA trammell Age/Sex: 29/F [place] [facility] Status: Signed Intake Vital Signs 07/26/24 10:30 09/21/24 15:40 10/21/24 08:39 Height 5 ft 2 in 5 ft 2 in 5 ft 2 in Weight: 146 lb 8 oz BMI 26.8 BP 116/64 Intake Visit Reasons: 18wk ob Chief Complaint: 18 Week OB Open Cut Examiner Required: No Is patient in pain?: No Allergies No Known Allergies Allergy (Verified 10/21/24 08:41) Medications ???Medication ???Instructions ???Recorded ???Confirmed ???Type Lactobacillus acidophilus and 1 cap PO DAILY supplement 06/27/22 10/21/24 History rhamnosus 15 billion cell capsule (Probiotic) multivitamin no.47-iron fum 27 1 cap PO DAILY 06/27/22 10/21/24 History mg-folate no.1 1 mg-dha 300 mg capsule (PNV-DHA) Last Menstrual Period: 05/29/24 Zika: Zika virus screening: Negative : No PFSH PFSH Medical History hemorrhage (spontaneous vaginal delivery) History of group B Streptococcus (GBS) infection Pre-conception counseling Breast tenderness in female Non-smoker Surgical History H/O dilation and curettage Hx of wisdom tooth extraction Family History Father Hypertension Social History adopted: No household members: spouse housing: house number of children: 1 current occupational status: employed 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 current occupational exposures/hazards: No pets and animals: No history of recent travel: No ([place]) sexually active: Yes Smoking Status: Never smoker alcohol intake: former details: social- but not while substance use type: does not use well-balanced diet: daily or most days caffeine: No eating out: rarely or never during the past year weight has: other details: had a baby is 7# heavier than prepregnancy what type of physical activity do you participate in: walking and weight training frequency: 3-4 times per week duration: 15-30 minutes/day kenia/evangelical: Sikh seatbelt use: always do you feel safe at home: Yes additional social history: - [employer]- Marketing History 3 Elective abortions Hx Para 1 Spontaneous abortions 1 Hx # Term Pregnancies Ectopic pregnancies Hx # Pregnancies Multiple births # of living children 1 Past Pregnancies Del. Date Name GA/Weeks Outcome Route Bth Weight Gen Labor Lgth Anesthesia Del Locatn Provider FOB Unknown June 2022 miscarriage 8wk 09/15/23 May 40 live - full term 7lbs 4oz Female none [facility] Yelena Sy Delivery Date: 09/15/23 Last Updated by: Snow Delgado PP hem. HPI 18wk ob Details: LYNNE PAL is a 29 year old who presents for routine OB visit. OB Visit ANGEL LUIS Calculator Estimated Delivery Date Method Current WG Current Estimate 03/20/25 Ultrasound #1 18w 4d Other Estimates 03/05/25 LMP (Certain) 20w 5d Expected Delivery Route/Plan Labor Preferences- CB/BF classes: [] labor support person: [] labor intervention preferences: [] pain management options preferred: [] cut cord/dad catch: [] : [] PP control planned: [] discussed possible routes of delivery and associated risks: [] special requests: [] Specific Issue/Plans Covid status: [] Flu vaccine: [] Tdap vaccine: [] Rhogam: [] LARC form signed: [] Problem list reviewed and updated with the most current plan of care details and appropriate orders placed. Relevant counseling for the gestational age provided. Continue routine care and follow up unless otherwise noted in visit notes/problem list details Initial Weight: Not Recorded Date -???-???-???-???-??? -???-???-???-???-??? -???-???- EGA Weight BP Urine Prot -???-???-???-???-??? -???-???-???-???-??? -???-???- Glucose FHR FuHt Pres Dilation -???-???-???-???-??? -???-???-???-???-??? -???-???- Effaced St Visit Note 07/26/24 -???-???-???-???-??? -???-???-???-???-??? -???-???- 6w 1d 139 lb 4 oz 120/80 -???-???-???-???-??? -???-???-???-???-??? -???-???- 105 -???-???-???-???-??? -???-???-???-???-??? -???-???- JV- CRL lindy uring 6 weeks 1 day with heart tones. states is 6 weeks by when she calculated ovulation. unsure about nipt or blood type testing of baby (she is rh neg) 08/27/24 -???-???-???-???-??? -???-???-???-???-??? -???-???- 10w 5d 141 lb 2 oz 110/76 Negative -???-???- (more content not included)... Normal [facility] Laboratory - Chemistry and C hemistry - challengeOrdered By: Camacho Cash on 09-21-2024 Glucose Ql (U) Negative [facility] Laboratory - UrinalysisOrder ed By: Camacho Cash on 09-21-2024 Protein Ql (U) Negative [facility] Shovel Handle Assembler Office Visit Reporton 09-21-2024 Shovel Handle Assembler Office Visit Report [facility] [address], [address] [place] [address] OFFICE VISIT Date of Service: 09/21/24 MR#: [id number] Acct: [id number] Name: LYNNE PAL Rep #: [id number] : 1995 Provider: FREIDA Myers ams Age/Sex: 28/F Location[place] [facility] [place] Status: Signed Intake Vital Signs 07/26/24 10:30 08/27/24 14:22 09/21/24 15:40 Height 5 ft 2 in 5 ft 2 in 5 ft 2 in Weight: 144 lb 8 oz BMI 26.4 BP 119/75 Intake Visit Reasons: 14wk ob Chief Complaint: 14wk OB Open Cut Examiner Required: No Is patient in pain?: No Allergies No Known Allergies Allergy (Verified 09/21/24 15:38) Medications ???Medication ???Instructions ???Recorded ???Confirmed ???Type Lactobacillus acidophilus and 1 cap PO DAILY supplement 06/27/22 09/21/24 History rhamnosus 15 billion cell capsule (Probiotic) multivitamin no.47-iron fum 27 1 cap PO DAILY 06/27/22 09/21/24 History mg-folate no.1 1 mg-dha 300 mg capsule (PNV-DHA) Last Menstrual Period: 05/29/24 : No PFSH PFSH Medical History hemorrhage (spontaneous vaginal delivery) History of group B Streptococcus (GBS) infection Pre-conception counseling Breast tenderness in female Non-smoker Surgical History H/O dilation and curettage Hx of wisdom tooth extraction Family History Father Hypertension Social History adopted: No household members: spouse housing: house number of children: 1 current occupational status: employed 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 current occupational exposures/hazards: No pets and animals: No history of recent travel: No ([place]) sexually active: Yes Smoking Status: Never smoker alcohol intake: former details: social- but not while substance use type: does not use well-balanced diet: daily or most days caffeine: No eating out: rarely or never during the past year weight has: other details: had a baby is 7# heavier than prepregnancy what type of physical activity do you participate in: walking and weight training frequency: 3-4 times per week duration: 15-30 minutes/day kenia/evangelical: Sikh seatbelt use: always do you feel safe at home: Yes additional social history: - [employer]- Marketing History 3 Elective abortions Hx Para 1 Spontaneous abortions 1 Hx # Term Pregnancies Ectopic pregnancies Hx # Pregnancies Multiple births # of living children 1 Past Pregnancies Del. Date Name GA/Weeks Outcome Route Bth Weight Gen Labor Lgth Anesthesia Del Locatn Provider FOB Unknown June 2022 miscarriage 8wk 09/15/23 May 40 live - full term 7lbs 4oz Female none [facility] Yelena Sy Delivery Date: 09/15/23 Last Updated by: Snow Delgado PP hem. HPI 14wk ob Details: LYNNE PAL is a 28 year old who presents for routine OB visit. OB Visit ANGEL LUIS Calculator Estimated Delivery Date Method Current WG Current Estimate 03/20/25 Ultrasound #1 14w 2d Other Estimates 03/05/25 LMP (Certain) 16w 3d Expected Delivery Route/Plan Labor Preferences- CB/BF classes: [] labor support person: [] labor intervention preferences: [] pain management options preferred: [] cut cord/dad catch: [] : [] PP control planned: [] discussed possible routes of delivery and associated risks: [] special requests: [] Specific Issue/Plans Covid status: [] Flu vaccine: [] Tdap vaccine: [] Rhogam: [] LARC form signed: [] Problem list reviewed and updated with the most current plan of care details and appropriate orders placed. Relevant counseling for the gestational age provided. Continue routine care and follow up unless otherwise noted in visit notes/problem list details Initial Weight: Not Recorded Date -???-???-???-???-??? -???-???-???-???-??? -???-???- EGA Weight BP Urine Prot -???-???-???-???-??? -???-???-???-???-??? -???-???- Glucose FHR FuHt Pres Dilation -???-???-???-???-??? -???-???-???-???-??? -???-???- Effaced St Visit Note 07/26/24 -???-???-???-???-??? -???-???-???-???-??? -???-???- 6w 1d 139 lb 4 oz 120/80 -???-???-???-???-??? -???-???-???-???-??? -???-???- 105 -???-???-???-???-??? -???-???-???-???-??? -???-???- JV- CRL lindy uring 6 weeks 1 day with heart tones. states is 6 weeks by when she calculated ovulation. unsure about nipt or blood type testing of baby (she is rh neg) 08/27/24 -???-???-???-???-??? -???-???-???-???-??? -???-???- 10w 5d 141 lb 2 oz 110/76 Negative -???-???-???-???-??? -???-???-???-???-??? -???-???- Negative 173 -?? (more content not included)... Normal [facility] Absolute lymphocyte countOrd ered By: Graciela Griffin on 08-27-2024 Lymphocytes Auto (Unsp spec) [#/Vol] 1.55 10*3/uL 0.83-4.51 [facility] Absolute neutrophil countOrd ered By: Graciela Griffin on 08-27-2024 Neutrophils (Bld) [#/Vol] 3.8 10*3/uL 2.0-7.7 [facility] Automated lymphocyte count a s percentage of total leukocytesOrdered By: Graciela Moya on 08-27-2024 Lymphocytes/100 WBC Auto (Unsp spec) 27.0 % 19-41 [facility] Basophil percentageOrdered B y: Graciela Griffin on 08-27-2024 Basophils/100 WBC (Bld) 0.5 % 0-1 [facility] CBC W/Diff, Automatedon 08-10 Absolute Lymph 1.55 X10 3/uL Normal 0.83-4.51 [facility] Comment on above: Performed By: #### L 509.1840, BTS, L3890.0991, L509.8002, L3890.6102, L100.0100, L3890.6006 ####[facility] [address] [place], [address] Absolute Neut 3.8 X10 3/uL Normal 2.0-7.7 [facility] Comment on above: Performed By: #### L 509.4006, BTS, L3890.6301, L509.8002, L3890.6102, L100.0100, L3890.6006 ####[facility] [address] [place], [address] Basophils/100 WBC (Bld) 0.5 % Normal 0-1 [facility] Comment on above: Performed By: #### L 509.4006, BTS, L3890.6301, L509.8002, L3890.6102, L100.0100, L3890.6006 ####[facility] [address] [place], [address] Eosinophils/100 WBC (Bld) 0.3 % Normal 0-5 [facility] Comment on above: Performed By: #### L 509.4006, BTS, L3890.6301, L509.8002, L3890.6102, L100.0100, L3890.6006 ####[facility] [address] [place], [address] Erythrocyte distribution width (RBC) [Ratio] 12.9 % Normal 11.6-14.6 [facility] Comment on above: Performed By: #### L 509.4006, BTS, L3890.6301, L509.8002, L3890.6102, L100.0100, L3890.6006 ####[facility] [address] [place], [address] Hematocrit (Bld) [Volume fraction] 35.7 % Low 37-47 [facility] Comment on above: Performed By: #### L 509.4006, BTS, L3890.6301, L509.8002, L3890.6102, L100.0100, L3890.6006 ####[facility] [address] [place], [address] Hemoglobin (Bld) [Mass/Vol] 12.2 g/dL Normal 12.0-15.0 [facility] Comment on above: Performed By: #### L 509.4006, BTS, L3890.6301, L509.8002, L3890.6102, L100.0100, L3890.6006 ####[facility] [address] [place], [address] IG% 0.200 Normal 0.0-0.9 [facility] Comment on above: Result Comment: IG% - Immature Granulocytes (promyelocytes, myelocytes and metamyelocytes) > 1% indicates that a LEFT SHIFT is Present. Performed By: #### L 509.4006, BTS, L3890.6301, L509.8002, L3890.6102, L100.0100, L3890.6006 ####[facility] [address] [place], [address] Lymphocytes/100 WBC (Bld) 27.0 % Normal 19-41 [facility] Comment on above: Performed By: #### L 509.4006, BTS, L3890.6301, L509.8002, L3890.6102, L100.0100, L3890.6006 ####[facility] [address] [place], [address] MCH (RBC) [Entitic mass] 30.3 pg Normal 27.0-32.0 [facility] Comment on above: Performed By: #### L 509.4006, BTS, L3890.6301, L509.8002, L3890.6102, L100.0100, L3890.6006 ####[facility] [address] [place], [address] MCHC (RBC) [Mass/Vol] 34.2 g/dL Normal 32-36 [facility] Comment on above: Performed By: #### L 509.4006, BTS, L3890.6301, L509.8002, L3890.6102, L100.0100, L3890.6006 ####[facility] [address] [place], [address] MCV (RBC) [Entitic vol] 88.6 fL Normal 81-99 [facility] Comment on above: Performed By: #### L 509.4006, BTS, L3890.6301, L509.8002, L3890.6102, L100.0100, L3890.6006 ####[facility] [address] [place], [address] Monocytes/100 WBC (Bld) 5.2 % Normal 0-10 [facility] Comment on above: Performed By: #### L 509.4006, BTS, L3890.6301, L509.8002, L3890.6102, L100.0100, L3890.6006 ####[facility] [address] [place], [address] Neutrophils/100 WBC (Bld) 66.8 % Normal 47-70 [facility] Comment on above: Performed By: #### L 509.4006, BTS, L3890.6301, L509.8002, L3890.6102, L100.0100, L3890.6006 ####[facility] [address] [place], [address] Nucleated RBC (Bld) [#/Vol] 0 10*3/uL Normal 0-5 [facility] Comment on above: Performed By: #### L 509.4006, BTS, L3890.6301, L509.8002, L3890.6102, L100.0100, L3890.6006 ####[facility] [address] [place], [address] Platelet mean volume (Bld) [Entitic vol] 11.3 fL Normal 6.2-12.0 [facility] Comment on above: Performed By: #### L 509.4006, BTS, L3890.6301, L509.8002, L3890.6102, L100.0100, L3890.6006 ####[facility] [address] [place], [address] Platelets (Bld) [#/Vol] 194 10*3/uL Normal 150-450 [facility] Comment on above: Performed By: #### L 509.4006, BTS, L3890.6301, L509.8002, L3890.6102, L100.0100, L3890.6006 ####[facility] [address] [place], [address] RBC (Bld) [#/Vol] 4.03 10*6/uL Low 4.2-5.4 [facility] Comment on above: Performed By: #### L 509.4006, BTS, L3890.6301, L509.8002, L3890.6102, L100.0100, L3890.6006 ####[facility] [address] [place], [address] RDW SD 41.8 fl Normal 35.1-43.9 [facility] Comment on above: Performed By: #### L 509.4006, BTS, L3890.6301, L509.8002, L3890.6102, L100.0100, L3890.6006 ####[facility] [address] [place], [address] WBC (Bld) [#/Vol] 5.7 10*3/uL Normal 4.4-11.0 [facility] Comment on above: Performed By: #### L 509.4006, BTS, L3890.6301, L509.8002, L3890.6102, L100.0100, L3890.6006 ####[facility] [address] [place], [place], [address] Eosinophil percentageOrdered By: Graciela Moya on 08-27-2024 Eosinophils/100 WBC (Bld) 0.3 % 0-5 [facility] Erythrocyte distribution wid th ratioOrdered By: Graciela Moya on 08-27-2024 Erythrocyte distribution width (RBC) [Ratio] 12.9 % 11.6-14.6 [facility] Erythrocyte distribution wid th standard deviationOrdered By: Graciela Moya on 08-27-2024 Erythrocyte distribution width (RBC) [Ratio] 41.8 fl 35.1-43.9 [facility] HIVon 08-27-2024 HIV Non-Reactive Normal Nonreactive [facility] Comment on above: Result Comment: Non- Reactive Reactive Repeatedly reactive samples must be confirmed according to CDC recommended confirmatory algorithms. The subresults for either HIVAG or AHIV can be used as an aid in the selection of the confirmation algorithm for reactive samples. Send out specimens with Reactive results to [facility] for confirmation. Order the HIV antibody detection and differentiation: #[id number] Performed By: #### L 509.4006, BTS, L3890.6301, L509.8002, L3890.6102, L100.0100, L3890.6006 ####[facility] [address] [place], [place], [id number] Hematocrit Auto (Bld) [Volum e fraction]Ordered By: Graciela Moya on 08-27-2024 Hematocrit (Bld) [Volume fraction] 35.7 % Low 37-47 [facility] Hemoglobin measurementOrdere d By: Graciela Moya on 08-27-2024 Hemoglobin (Bld) [Mass/Vol] 12.2 g/dL 12.0-15.0 [facility] Hepatitis C Antibodyon 08-27 Hepatitis C Ab Non-Reactive Normal Nonreactive [facility] Comment on above: Result Comment: Reac tive: Presumptive evidence of antibodies to HCV. Follow CDC recommendations for supplemental testing. Non-Reactive: Antibodies to HCV were not detected; does not exclude the possibility of exposure to HCV Reactive Results are presumptive evidence of antibodies to HCV. Follow CDC recommendations for supplemental testing. Order confirmation testing: HCV Quant by PCR testing - HCVPCR #[id number] Non Reactive: < 0.8 Equivocal: >/= 0.8 to < 1.0 Reactive: >/= 1.0 The [facility] requires that a reactive/equivocal HCV antibody result be sent out for confirmation. HCV Quant by PCR testing. Performed By: #### L 509.4006, BTS, L3890.6301, L509.8002, L3890.6102, L100.0100, L3890.6006 ####[facility] [address] [place], [place], [id number] Immature granulocytes/100 WB C Auto (Bld)Ordered By: Graciela Moya on 08-27-2024 Immature granulocytes/100 WBC (Bld) 0.200 % 0.0-0.9 [facility] Comment on above: IG% - Immature Granu locytes (promyelocytes, myelocytes and metamyelocytes) > 1% indicates that a LEFT SHIFT is Present. L3890.6102on 08-27-2024 HEP B Surf Ag Non-Reactive Normal Nonreactive [facility] Comment on above: Result Comment: Reac tive: Presumptive evidence of HBV. Repeatedly reactive samples must be confirmed using a neutralization test ([employer] HBsAg Confirmatory Test) Non-Reactive: HBsAg not detected; does not exclude the possibility of exposure to HBV Performed By: #### L 509.4006, BTS, L3890.6301, L509.8002, L3890.6102, L100.0100, L3890.6006 ####[facility] [address] [place], [place], [id number] L509.4006on 08-27-2024 Rubella IgG REAC Normal Nonreactive [facility] Comment on above: Result Comment: Anti body Result: Interpretation Non-Reactive: Non-Immune Reactive: Immune The following results were obtained with the [employer] Rubella IgG assay. Results from assays of other manufacturers cannot be used interchangeably. Performed By: #### L 509.4006, BTS, L3890.6301, L509.8002, L3890.6102, L100.0100, L3890.6006 ####[facility] [address] [place], [address] Laboratory - Chemistry and C hemistry - challengeOrdered By: Camacho Cash on 08-27-2024 Glucose Ql (U) Negative [facility] Laboratory - Microbiology an d Antimicrobial susceptibilityOrdered By: Graciela Moya on 08-27-2024 HBV surface Ag Ql (S) Non-Reactive Nonreactive [facility] Comment on above: Reactive: Presumptiv e evidence of HBV. Repeatedly reactive samples must be confirmed using a neutralization test ([employer] HBsAg Confirmatory Test)Non-Reactive: HBsAg not detected; does not exclude the possibility of exposure to HBV Laboratory - UrinalysisOrder ed By: Camacho Cash on 08-27-2024 Protein Ql (U) Negative [facility] MCV (mean corpuscular volume ) determinationOrdered By: Graciela Moya on 08-27-2024 MCV (RBC) [Entitic vol] 88.6 fL 81-99 [facility] Mean corpuscular hemoglobin (MCH) determinationOrdered By: Graciela Moya on 08-27-2024 MCH (RBC) [Entitic mass] 30.3 pg 27.0-32.0 [facility] Mean corpuscular hemoglobin concentration (MCHC) determinationOrdered By: Graciela Moya on 08-27-2024 MCHC (RBC) [Mass/Vol] 34.2 g/dL 32-36 [facility] Mean platelet volume determi nationOrdered By: Graciela Moya on 08-27-2024 Platelet mean volume (Bld) [Entitic vol] 11.3 fL 6.2-12.0 [facility] Monocyte percentageOrdered B y: Graciela Moya on 08-27-2024 Monocytes/100 WBC (Bld) 5.2 % 0-10 [facility] Neutrophil percentageOrdered By: Graciela Moya on 08-27-2024 Neutrophils/100 WBC (Bld) 66.8 % 47-70 [facility] No Panel InformationOrdered By: Graciela Moya on 08-27-2024 HIV (1&2) Antibody Non-Reactive Nonreactive [facility] Comment on above: Non-ReactiveReactive Repeatedly reactive samples must be confirmed according to CDC recommended confirmatory algorithms. The subresults for either HIVAG or AHIV can be used as an aid in the selection of the confirmation algorithm for reactive samples.Send out specimens with Reactive results to [facility] for confirmation.Order the HIV antibody detection and differentiation: #[id number] Nucleated red blood cell per centageOrdered By: Graciela Moya on 08-27-2024 Nucleated RBC/100 WBC (Bld) [Ratio] 0 % 0-5 [facility] [employer]vel Handle Assembler Office Visit Reporton 08-27-2024 Shovel Handle Assembler Office Visit Report [facility] [address], [address] [place] [address] OFFICE VISIT Date of Service: 08/27/24 MR#: [id number] Acct: [id number] Name: LYNNE PAL Rep #: [id number] : 1995 Provider: FREIDA Myers ams Age/Sex: 28/F [place] [facility] [place] Status: Signed Intake Vital Signs 03/11/24 15:17 07/26/24 10:30 08/27/24 14:22 Height 5 ft 2 in 5 ft 2 in 5 ft 2 in Weight: 141 lb 2 oz BMI 25.8 BP 110/76 Intake Visit Reasons: 10wk ob Chief Complaint: 10wk OB Open Cut Examiner Required: No Is patient in pain?: No Allergies No Known Allergies Allergy (Verified 08/27/24 14:23) Medications ???Medication ???Instructions ???Recorded ???Confirmed ???Type Lactobacillus acidophilus and 1 cap PO DAILY supplement 06/27/22 08/27/24 History rhamnosus 15 billion cell capsule (Probiotic) multivitamin no.47-iron fum 27 1 cap PO DAILY 06/27/22 08/27/24 History mg-folate no.1 1 mg-dha 300 mg capsule (PNV-DHA) Last Menstrual Period: 05/29/24 : No PFSH PFSH Medical History hemorrhage (spontaneous vaginal delivery) History of group B Streptococcus (GBS) infection Pre-conception counseling Breast tenderness in female Non-smoker Surgical History H/O dilation and curettage Hx of wisdom tooth extraction Family History Father Hypertension Social History adopted: No household members: spouse housing: house number of children: 1 current occupational status: employed 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 current occupational exposures/hazards: No pets and animals: No history of recent travel: No ([place]) sexually active: Yes Smoking Status: Never smoker alcohol intake: former details: social- but not while substance use type: does not use well-balanced diet: daily or most days caffeine: No eating out: rarely or never during the past year weight has: other details: had a baby is 7# heavier than prepregnancy what type of physical activity do you participate in: walking and weight training frequency: 3-4 times per week duration: 15-30 minutes/day kenia/evangelical: Sikh seatbelt use: always do you feel safe at home: Yes additional social history: - Yossi- Marketing History 3 Elective abortions Hx Para 1 Spontaneous abortions 1 Hx # Term Pregnancies Ectopic pregnancies Hx # Pregnancies Multiple births # of living children 1 Past Pregnancies Del. Date Name GA/Weeks Outcome Route Bth Weight Infant Gen Labor Lgth Anesthesia Del Locatn Provider FOB Unknown June 2022 miscarriage 8wk 09/15/23 May 40 live - full term 7lbs 4oz Female none [facility] kerry Cano Yossi Delivery Date: 09/15/23 Last Updated by: Snow Delgado PP hem. HPI 10wk ob Details: LYNNE PAL is a 28 year old who presents for routine OB visit. OB Visit ANGEL LUIS Calculator Estimated Delivery Date Method Current WG Current Estimate 03/20/25 Ultrasound #1 10w 5d Other Estimates 03/05/25 LMP (Certain) 12w 6d Expected Delivery Route/Plan Labor Preferences- CB/BF classes: [] labor support person: [] labor intervention preferences: [] pain management options preferred: [] cut cord/dad catch: [] : [] PP control planned: [] discussed possible routes of delivery and associated risks: [] special requests: [] Specific Issue/Plans Covid status: [] Flu vaccine: [] Tdap vaccine: [] Rhogam: [] LARC form signed: [] Problem list reviewed and updated with the most current plan of care details and appropriate orders placed. Relevant counseling for the gestational age provided. Continue routine care and follow up unless otherwise noted in visit notes/problem list details Initial Weight: Not Recorded Date -???-???-???-???-??? -???-???-???-???-??? -???-???- EGA Weight BP Urine Prot -???-???-???-???-??? -???-???-???-???-??? -???-???- Glucose FHR FuHt Pres Dilation -???-???-???-???-??? -???-???-???-???-??? -???-???- Effaced St Visit Note 07/26/24 -???-???-???-???-??? -???-???-???-???-??? -???-???- 6w 1d 139 lb 4 oz 120/80 -???-???-???-???-??? -???-???-???-???-??? -???-???- 105 -???-???-???-???-??? -???-???-???-???-??? -???-???- JV- CRL lindy uring 6 weeks 1 day with heart tones. states is 6 weeks by when she calculated ovulation. unsure about nipt or blood type testing of baby (she is rh neg) 08/27/24 -???-???-???-???-??? -???-???-???-???-??? -???-???- 10w 5d 141 lb 2 oz 110/76 Negative -???-???-???-???-??? -???-???-???-???-??? -???-???- Negative 173 -?? (more content not included)... Normal [facility] Platelet countOrdered By: Guilherme Moya on 08-27-2024 Platelets (Bld) [#/Vol] 194 10*3/uL 150-450 [facility] RBC Auto (Bld) [#/Vol]Ordere d By: Graciela Moya on 08-27-2024 RBC (Bld) [#/Vol] 4.03 10*6/uL Low 4.2-5.4 [facility] Syphilis Antibodieson 2024 Syphilis Abs Non-Reactive Normal Nonreactive [facility] Comment on above: Performed By: #### L 509.4006, BTS, L3890.6301, L509.8002, L3890.6102, L100.0100, L3890.6006 ####[facility] [id number] [place], [place], [id number] Type AND Screenon 08-27-2024 Ab SCREEN GEL Negative Normal [facility] Comment on above: Order Comment: PN Performed By: #### L 509.4006, BTS, L3890.6301, L509.8002, L3890.6102, L100.0100, L3890.6006 ####[facility] [id number] [place], [place], [id number] ABO and Rh group Nom (Bld) Blood group O Rh(D) negative Normal [facility] Comment on above: Order Comment: PN Performed By: #### L 509.4006, BTS, L3890.6301, L509.8002, L3890.6102, L100.0100, L3890.6006 ####[facility] [id number] [place], [address] White blood cell (WBC) count Ordered By: Graciela Moya on 08-27-2024 WBC (Bld) [#/Vol] 5.7 10*3/uL 4.4-11.0 [facility] Urine Cultureon 07-29-2024 URC Mixed Gram Positive Organisms [place] Count 11,000-25,000 MIXC Mixed contaminants. Submit a new specimen if indicated. Normal [facility] Comment on above: Performed By: #### L 7000.1800, M100.2200 ####[facility] [address] [place], [address] Chlamydia/GC ANUSHA aptimaon CHLAMY,NUC ACID Negative Normal Negative [facility] Comment on above: Performed By: #### L 7000.1800, M100.2200 ####[facility] [address] [place], [address] GC BY NUC ACID Negative Normal Negative [facility] Comment on above: Result Comment: Perf ormed at: =G - [facility] [address] [id number] [facility] Teacher: Jeane Patiño MD, Phone: [phone] Performed By: #### L 7000.1800, M100.2200 ####[facility] [address] [place], [address] C. trachomatis rRNA ANUSHA+prob e Ql (Unsp spec)Ordered By: Graciela Moya on 07-26-2024 Chlamydia DNA (ANUSHA) Negative Negative [facility] Chlamydia trachomatis rRNA d etection by probe and target amplification methodOrdered By: Graciela Moya on 07-26-2024 C. trachomatis rRNA ANUSHA+probe Ql (Unsp spec) Negative Negative [facility] Neisseria gonorrhoeae nuclei c acid detection by amplified probe techniqueOrdered By: Graciela Moya on 07-26-2024 N. gonorrhoeae DNA ANUSHA+probe Ql (Unsp spec) Negative Negative [facility] Comment on above: Performed at: =[facility] [address] [place] [id number] Director: Jeane Patiño MD, Phone: [phone] [employer] Office Visit Reporton 07-26-2024 [employer] Office Visit Report [facility] [address], [address] [place] [address] OFFICE VISIT Date of Service: 07/26/24 MR#: [id number] Acct: [id number] Name: LYNNE PAL Rep #: [id number] : 1995 Provider: Dr. Graciela Matamoros DO Age/Sex: 28/F [place] [facility] [place] Status: Signed Intake Vital Signs 03/11/24 15:17 07/26/24 10:27 07/26/24 10:30 Height 5 ft 2 in 5 ft 2 in 5 ft 2 in Weight: 139 lb 4 oz BMI 25.4 BP 120/80 Intake Visit Reasons: New OB, LMP 05/29/24, ANGEL LUIS 03/05 Open Cut Examiner Required: No Is patient in pain?: No Allergies No Known Allergies Allergy (Verified 07/26/24 10:27) Medications ???Medication ???Instructions ???Recorded ???Confirmed ???Type Lactobacillus acidophilus and 1 cap PO DAILY supplement 06/27/22 07/26/24 History rhamnosus 15 billion cell capsule (Probiotic) multivitamin no.47-iron fum 27 1 cap PO DAILY 06/27/22 07/26/24 History mg-folate no.1 1 mg-dha 300 mg capsule (PNV-DHA) Last Menstrual Period: 05/29/24 Zika: Zika virus screening: Negative : No PFSH PFSH Medical History hemorrhage (spontaneous vaginal delivery) History of group B Streptococcus (GBS) infection Pre-conception counseling Breast tenderness in female Non-smoker Surgical History H/O dilation and curettage Hx of wisdom tooth extraction Family History Father Hypertension Social History adopted: No household members: spouse housing: house number of children: 1 current occupational status: employed 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 current occupational exposures/hazards: No pets and animals: No history of recent travel: No ([place]) sexually active: Yes Smoking Status: Never smoker alcohol intake: former details: social- but not while substance use type: does not use well-balanced diet: daily or most days caffeine: No eating out: rarely or never during the past year weight has: other details: had a baby is 7# heavier than prepregnancy what type of physical activity do you participate in: walking and weight training frequency: 3-4 times per week duration: 15-30 minutes/day kenia/evangelical: Sikh seatbelt use: always do you feel safe at home: Yes additional social history: - Yossi- Marketing History 3 Elective abortions Hx Para 1 Spontaneous abortions 1 Hx # Term Pregnancies Ectopic pregnancies Hx # Pregnancies Multiple births # of living children 1 Past Pregnancies Del. Date Name GA/Weeks Outcome Route Bth Weight Infant Gen Labor Lgth Anesthesia Del Locatn Provider FOB Unknown June 2022 miscarriage 8wk 09/15/23 May 40 live - full term 7lbs 4oz Female none [facility] Cano Yossi Delivery Date: 09/15/23 Last Updated by: Snow Delgado PP hem. HPI New OB, LMP 05/29/24, ANGEL LUIS 03/05 Details: LYNNE PAL is a 28 year old who presents for New OB visit. OB Visit ANGEL LUIS Calculator Estimated Delivery Date Method Current WG Current Estimate 03/05/25 LMP (Certain) 8w 2d Comments: HIV: Urine Culture: Sequential Screen: NIPT Screen: Estimated Due Date: 09/09/23 Expected Delivery Route/Plan Labor Preferences- CB/BF classes: [] labor support person: [] labor intervention preferences: [] pain management options preferred: [] cut cord/dad catch: [] : [] PP control planned: [] discussed possible routes of delivery and associated risks: [] special requests: [] Specific Issue/Plans Covid status: [] Flu vaccine: [] Tdap vaccine: [] Rhogam: [] LARC form signed: [] Problem list reviewed and updated with the most current plan of care details and appropriate orders placed. Relevant counseling for the gestational age provided. Continue routine care and follow up unless otherwise noted in visit notes/problem list details Initial Weight: Not Recorded Date -???-???-???-???-??? -???-???-???-???-??? -???-???- EGA Weight BP Urine Prot -???-???-???-???-??? -???-???-???-???-??? -???-???- Glucose FHR FuHt Pres Dilation -???-???-???-???-??? -???-???-???-???-??? -???-???- Effaced St Visit Note 07/26/24 -???-???-???-???-??? -???-???-???-???-??? -???-???- 8w 2d 139 lb 4 oz 120/80 -???-???-???-???-??? -???-???-???-???-??? -???-???- 105 -???-???-???-???-??? -???-???-???-???-??? -???-???- JV- CRL lindy uring 6 weeks 1 day with heart tones. states is 6 weeks by when she calculated ovulation. unsure about nipt or blood type testing of baby (she is rh neg) Menstrual History Last Menstrual Pe (more content not included)... Normal [facility] Urine cultureOrdered By: Philly Moya on 07-26-2024 Bacteria identified Cx Nom (U) Positive Abnormal [facility] HCG ( test) QlOrder ed By: Camacho Cash on 07-12-2024 Human Chorionic Gonadotropin, Quant 101 mIU/mL High <9 [facility] Comment on above: Gestational Age0.2-1 Week: 5-50 mIU/mL1-2 Weeks: 50-500 mIU/mL2-3 Weeks: 100-5000 mIU/mL3-4 Weeks: 500-10,000 mIU/mL4-5 Weeks:1000-50,000 mIU/mL5-6 Weeks: 10,000-100,000 mIU/mL6-8 Weeks: 15,000-200,000 mIU/mL2-3 Months:10,000-100,000 mIU/mL Serum human chorionic gonado tropin detection for pregnancyOrdered By: Camacho Cash on 07-12-2024 HCG ( test) Ql 101 mIU/mL High <9 [facility] Comment on above: Gestational Age0.2-1 Week: 5-50 mIU/mL1-2 Weeks: 50-500 mIU/mL2-3 Weeks: 100-5000 mIU/mL3-4 Weeks: 500-10,000 mIU/mL4-5 Weeks:1000-50,000 mIU/mL5-6 Weeks: 10,000-100,000 mIU/mL6-8 Weeks: 15,000-200,000 mIU/mL2-3 Months:10,000-100,000 mIU/mL hCG Titer Quant., Serumon HCG QUANT. 101 mIU/mL High <9 non-preg [facility] Comment on above: Result Comment: Gest ational Age 0.2-1 Week: 5-50 mIU/mL 1-2 Weeks: 50-500 mIU/mL 2-3 Weeks: 100-5000 mIU/mL 3-4 Weeks: 500-10,000 mIU/mL 4-5 Weeks:1000-50,000 mIU/mL 5-6 Weeks: 10,000-100,000 mIU/mL 6-8 Weeks: 15,000-200,000 mIU/mL 2-3 Months:10,000-100,000 mIU/mL Performed By: #### L 700.8000 ####[facility] [address] [place], [address] HCG ( test) QlOrder ed By: Camacho Cash on 07-09-2024 Human Chorionic Gonadotropin, Quant 23 mIU/mL High <9 [facility] Comment on above: Gestational Age0.2-1 Week: 5-50 mIU/mL1-2 Weeks: 50-500 mIU/mL2-3 Weeks: 100-5000 mIU/mL3-4 Weeks: 500-10,000 mIU/mL4-5 Weeks:1000-50,000 mIU/mL5-6 Weeks: 10,000-100,000 mIU/mL6-8 Weeks: 15,000-200,000 mIU/mL2-3 Months:10,000-100,000 mIU/mL Serum human chorionic gonado tropin detection for pregnancyOrdered By: Camacho Cash on 07-09-2024 HCG ( test) Ql 23 mIU/mL High <9 [facility] Comment on above: Gestational Age0.2-1 Week: 5-50 mIU/mL1-2 Weeks: 50-500 mIU/mL2-3 Weeks: 100-5000 mIU/mL3-4 Weeks: 500-10,000 mIU/mL4-5 Weeks:1000-50,000 mIU/mL5-6 Weeks: 10,000-100,000 mIU/mL6-8 Weeks: 15,000-200,000 mIU/mL2-3 Months:10,000-100,000 mIU/mL hCG Titer Quant., Serumon HCG QUANT. 23 mIU/mL High <9 non-preg [facility] Comment on above: Result Comment: Gest ational Age 0.2-1 Week: 5-50 mIU/mL 1-2 Weeks: 50-500 mIU/mL 2-3 Weeks: 100-5000 mIU/mL 3-4 Weeks: 500-10,000 mIU/mL 4-5 Weeks:1000-50,000 mIU/mL 5-6 Weeks: 10,000-100,000 mIU/mL 6-8 Weeks: 15,000-200,000 mIU/mL 2-3 Months:10,000-100,000 mIU/mL Performed By: #### L 700.8000 ####[facility] [address] [place], [address] Absolute lymphocyte countOrd ered By: Destiney Cano on 09-15-2023 Lymphocytes Auto (Unsp spec) [#/Vol] 1.32 10*3/uL 0.83-4.51 [facility] Automated lymphocyte count a s percentage of total leukocytesOrdered By: Destiney Cano on 09-15-2023 Lymphocytes/100 WBC Auto (Unsp spec) 9.8 % 19-41 [facility] Basophil percentageOrdered B y: Destiney Cano on 09-15-2023 Basophils/100 WBC (Bld) 0.1 % 0-1 [facility] Eosinophils/100 WBC (Bld) 0.0 % 0-5 [facility] Hemoglobin (Bld) [Mass/Vol] 10.0 g/dL 12.0-15.0 [facility] Monocytes/100 WBC (Bld) 4.8 % 0-10 [facility] Neutrophils (Bld) [#/Vol] 11.4 10*3/uL 2.0-7.7 [facility] Neutrophils/100 WBC (Bld) 85.0 % 47-70 [facility] WBC (Bld) [#/Vol] 13.5 10*3/uL 4.4-11.0 [facility] Determination of erythrocyte mean corpuscular volume (MCV)Ordered By: Destiney Cano on 09-15-2023 MCV (RBC) [Entitic vol] 92.1 fL 81-99 [facility] Erythrocyte distribution wid th ratioOrdered By: Destiney Cano on 09-15-2023 Erythrocyte distribution width (RBC) [Ratio] 12.1 % 11.6-14.6 [facility] Erythrocyte distribution wid th standard deviationOrdered By: Destiney Cano on 09-15-2023 Erythrocyte distribution width (RBC) [Entitic vol] 40.9 fL 35.1-43.9 [facility] Hematocrit Auto (Bld) [Volum e fraction]Ordered By: Destiney Cano on 09-15-2023 Hematocrit (Bld) [Volume fraction] 29.3 % 37-47 [facility] Immature granulocytes/100 WB C Auto (Bld)Ordered By: Destiney Cano on 09-15-2023 Immature granulocytes/100 WBC (Bld) 0.300 % 0.0-0.9 [facility] Comment on above: IG% - Immature Granu locytes (promyelocytes, myelocytes and metamyelocytes) > 1% indicates that a LEFT SHIFT is Present. Laboratory - Hematology and Cell countsOrdered By: Destiney Cano on 09-15-2023 MCH (RBC) [Entitic mass] 31.4 pg 27.0-32.0 [facility] MCHC (RBC) [Mass/Vol] 34.1 g/dL 32-36 [facility] Nucleated RBC/100 WBC (Bld) [Ratio] 0 % 0-5 [facility] Platelet mean volume (Bld) [Entitic vol] 11.1 fL 6.2-12.0 [facility] Platelets (Bld) [#/Vol] 146 10*3/uL 150-450 [facility] RBC Auto (Bld) [#/Vol]Ordere d By: Destiney Cano on 09-15-2023 RBC (Bld) [#/Vol] 3.18 10*6/uL 4.2-5.4 [facility] No Panel InformationOrdered By: Destiney Cano on 09-14-2023 Vaginal Amniotic Fluid Detection Positive Negative [facility] Comment on above: Amniotic fluid prese nt indicates rupture of Membranes. RESULTS CALLED TO PENNY RODRIGUEZ 09/14/23 1457 Emely Yadav.REPORT READ BACK BY SAME . Serum Treponema species anti body detectionOrdered By: Destiney Cano on 09-14-2023 Treponema sp Ab Ql (S) Non-Reactive [facility] Laboratory - Chemistry and C hemistry - challengeon 09-12-2023 Glucose Ql (U) Negative [facility] Laboratory - Urinalysison Protein Ql (U) Negative [facility] Laboratory - Chemistry and C hemistry - challengeon 09-05-2023 Glucose Ql (U) Negative [facility] Laboratory - Urinalysison Protein Ql (U) Negative [facility] Laboratory - Chemistry and C hemistry - challengeon 08-28-2023 Glucose Ql (U) Negative [facility] Laboratory - Urinalysison Protein Ql (U) Negative [facility] Laboratory - Chemistry and C hemistry - challengeon 08-22-2023 Glucose Ql (U) Negative [facility] Laboratory - Urinalysison Protein Ql (U) Negative [facility] Laboratory - Chemistry and C hemistry - challengeon 08-14-2023 Glucose Ql (U) Negative [facility] Laboratory - Urinalysison Protein Ql (U) Negative [facility] No Panel InformationOrdered By: Cheyenne Cuenca on 08-14-2023 Group B Streptococcus Culture Group B Beta Streptococcus is not isolated. [facility] Laboratory - Chemistry and C hemistry - challengeon 08-08-2023 Glucose Ql (U) Negative [facility] Laboratory - Urinalysison Protein Ql (U) Negative [facility] Laboratory - Chemistry and C hemistry - challengeon 07-24-2023 Glucose Ql (U) Negative [facility] Laboratory - Urinalysison Protein Ql (U) Negative [facility] Laboratory - Chemistry and C hemistry - challengeon 07-11-2023 Glucose Ql (U) Negative [facility] Laboratory - Urinalysison Protein Ql (U) Negative [facility] Laboratory - Chemistry and C hemistry - challengeon 06-27-2023 Glucose Ql (U) Negative [facility] Laboratory - Urinalysison Protein Ql (U) Negative [facility] Absolute lymphocyte countOrd ered By: Graciela Moya on 06-19-2023 Lymphocytes Auto (Unsp spec) [#/Vol] 1.84 10*3/uL 0.83-4.51 [facility] Automated lymphocyte count a s percentage of total leukocytesOrdered By: Graciela Moya on 06-19-2023 Lymphocytes/100 WBC Auto (Unsp spec) 20.8 % 19-41 [facility] Basophil percentageOrdered B y: Graciela Moya on 06-19-2023 Basophils/100 WBC (Bld) 0.6 % 0-1 [facility] Eosinophils/100 WBC (Bld) 0.6 % 0-5 [facility] Hemoglobin (Bld) [Mass/Vol] 11.4 g/dL 12.0-15.0 [facility] Monocytes/100 WBC (Bld) 4.4 % 0-10 [facility] Neutrophils (Bld) [#/Vol] 6.4 10*3/uL 2.0-7.7 [facility] Neutrophils/100 WBC (Bld) 72.8 % 47-70 [facility] WBC (Bld) [#/Vol] 8.8 10*3/uL 4.4-11.0 [facility] Determination of erythrocyte mean corpuscular volume (MCV)Ordered By: Graciela Moya on 06-19-2023 MCV (RBC) [Entitic vol] 95.0 fL 81-99 [facility] Erythrocyte distribution wid th ratioOrdered By: Graciela Moya on 06-19-2023 Erythrocyte distribution width (RBC) [Ratio] 12.5 % 11.6-14.6 [facility] Erythrocyte distribution wid th standard deviationOrdered By: Graciela Moya on 06-19-2023 Erythrocyte distribution width (RBC) [Entitic vol] 43.5 fL 35.1-43.9 [facility] Gestational diabetes screen 1-hour screen with 50g oral glucose loadOrdered By: Graciela Moya on 06-19-2023 Glucose 1 Hr post 50 g glucose PO [Mass/Vol] 95 mg/dL 70-140 [facility] HIV 1 and HIV-2 antibody ass ay with HIV-1 p24 antigen detectionOrdered By: Graciela Moya on 06-19-2023 HIV 1+2 Ab+HIV1 p24 Ag IA Ql Non-Reactive Nonreactive [facility] Hematocrit Auto (Bld) [Volum e fraction]Ordered By: Graciela Moya on 06-19-2023 Hematocrit (Bld) [Volume fraction] 34.5 % 37-47 [facility] Immature granulocytes/100 WB C Auto (Bld)Ordered By: Graciela Moya on 06-19-2023 Immature granulocytes/100 WBC (Bld) 0.800 % 0.0-0.9 [facility] Comment on above: IG% - Immature Granu locytes (promyelocytes, myelocytes and metamyelocytes) > 1% indicates that a LEFT SHIFT is Present. Laboratory - Hematology and Cell countsOrdered By: Graciela Moya on 06-19-2023 MCH (RBC) [Entitic mass] 31.4 pg 27.0-32.0 [facility] MCHC (RBC) [Mass/Vol] 33.0 g/dL 32-36 [facility] Nucleated RBC/100 WBC (Bld) [Ratio] 0 % 0-5 [facility] Platelet mean volume (Bld) [Entitic vol] 9.8 fL 6.2-12.0 [facility] Platelets (Bld) [#/Vol] 181 10*3/uL 150-450 [facility] RBC Auto (Bld) [#/Vol]Ordere d By: Graciela Moya on 06-19-2023 RBC (Bld) [#/Vol] 3.63 10*6/uL 4.2-5.4 [facility] Serum Treponema species anti body detectionOrdered By: Graciela Moya on 06-19-2023 Treponema sp Ab Ql (S) Non-Reactive [facility] Laboratory - Chemistry and C hemistry - challengeon 06-13-2023 Glucose Ql (U) Negative [facility] Laboratory - Urinalysison Protein Ql (U) Negative [facility] Laboratory - Chemistry and C hemistry - challengeon 05-16-2023 Glucose Ql (U) Negative [facility] Laboratory - Urinalysison Protein Ql (U) Negative [facility] Laboratory - Chemistry and C hemistry - challengeon 04-14-2023 Glucose Ql (U) Negative [facility] Laboratory - Urinalysison Protein Ql (U) Negative [facility] Laboratory - Chemistry and C hemistry - challengeon 03-20-2023 Glucose Ql (U) Negative [facility] Laboratory - Urinalysison Protein Ql (U) Negative [facility] Serum or plasma choriogonado tropin detectionOrdered By: Ryne May on 02-01-2023 HCG ( test) Ql 970188 mIU/mL <4 [facility] Comment on above: hCG levels with Gest ational AgeGestational Age hCG mIU/mL (IU/L)0.2 - 1 week 5 - 501-2 weeks 50 - 5002-3 weeks 100 - 68709-7 weeks 500 - 607125-5 weeks 1000 - 425596-7 weeks 83618 - 100,0006-8 weeks 69322 - 200,0002-3 months 39644 - 100,000 Absolute lymphocyte countOrd ered By: Graciela Moya on 01-20-2023 Lymphocytes Auto (Unsp spec) [#/Vol] 1.62 10*3/uL 0.83-4.51 [facility] Basophil percentageOrdered B y: Graciela Moya on 01-20-2023 Basophils/100 WBC (Bld) 0.7 % 0-1 [facility] Eosinophils/100 WBC (Bld) 1.1 % 0-5 [facility] Neutrophils (Bld) [#/Vol] 3.4 10*3/uL 2.0-7.7 [facility] Neutrophils/100 WBC (Bld) 62.7 % 47-70 [facility] WBC (Bld) [#/Vol] 5.4 10*3/uL 4.4-11.0 [facility] Blood erythrocytes count (nu mber/volume)Ordered By: Graciela Moya on 01-20-2023 RBC (Bld) [#/Vol] 4.30 10*6/uL 4.2-5.4 [facility] Blood hemoglobin measurement (mass/volume)Ordered By: Graciela Moya on 01-20-2023 Hemoglobin (Bld) [Mass/Vol] 12.8 g/dL 12.0-15.0 [facility] Blood lymphocytes/100 leukoc ytesOrdered By: Graciela Moya on 01-20-2023 Lymphocytes/100 WBC (Bld) 29.8 % 19-41 [facility] Blood monocytes/100 leukocyt esOrdered By: Graciela Moya on 01-20-2023 Monocytes/100 WBC (Bld) 5.5 % 0-10 [facility] Blood platelet mean volumeOr dered By: Graciela Moya on 01-20-2023 Platelet mean volume (Bld) [Entitic vol] 10.6 fL 6.2-12.0 [facility] Chlamydia trachomatis rRNA d etection by probe and target amplification methodOrdered By: Graciela Moya on 01-20-2023 C. trachomatis rRNA ANUSHA+probe Ql (Unsp spec) Negative Negative [facility] Culture, urineOrdered By: Guilherme Moya on 01-20-2023 Bacteria identified Cx Nom (U) Culture exhibits no growth. [facility] Determination of erythrocyte mean corpuscular volume (MCV)Ordered By: Graciela Moya on 01-20-2023 MCV (RBC) [Entitic vol] 89.8 fL 81-99 [facility] HIV 1 and HIV-2 antibody ass ay with HIV-1 p24 antigen detectionOrdered By: Graciela Moya on 01-20-2023 HIV 1+2 Ab+HIV1 p24 Ag IA Ql Non-Reactive Nonreactive [facility] Hematocrit Auto (Bld) [Volum e fraction]Ordered By: Graciela Moya on 01-20-2023 Hematocrit (Bld) [Volume fraction] 38.6 % 37-47 [facility] Laboratory - Hematology and Cell countsOrdered By: Graciela Moya on 01-20-2023 Erythrocyte distribution width (RBC) [Entitic vol] 38.3 fL 35.1-43.9 [facility] Erythrocyte distribution width (RBC) [Ratio] 11.7 % 11.6-14.6 [facility] Immature granulocytes/100 WBC (Bld) 0.200 % 0.0-0.9 [facility] Comment on above: IG% - Immature Granu locytes (promyelocytes, myelocytes and metamyelocytes) > 1% indicates that a LEFT SHIFT is Present. MCH (RBC) [Entitic mass] 29.8 pg 27.0-32.0 [facility] Nucleated RBC/100 WBC (Bld) [Ratio] 0 % 0-5 [facility] Laboratory - Microbiology an d Antimicrobial susceptibilityOrdered By: Graciela Moya on 01-20-2023 N. gonorrhoeae DNA ANUSHA+probe Ql (Unsp spec) Negative Negative [facility] Comment on above: Performed at: [facility] [address] [id number] Director: Jeane Patiño MD, Phone: [phone] MCHC Auto (RBC) [Mass/Vol]Or dered By: Graciela Moya on 01-20-2023 MCHC (RBC) [Mass/Vol] 33.2 g/dL 32-36 [facility] No Panel InformationOrdered By: Graciela Moya on 01-20-2023 Hepatitis B Surface Antigen Non-Reactive Nonreactive [facility] Hepatitis C Antibody Non-Reactive Nonreactive [facility] Comment on above: Non Reactive: < 0.8 Equivocal: >/= 0.8 to < 1.0 Reactive: >/= 1.0The CDC recommends that a reactive/equivocal HCV antibody result be followed up by the HCV Nucleic Acid Amplificationtest (141457) Rubella IgG Antibody Reactive Nonreactive [facility] Comment on above: Antibody Results Int erpretation of Immune Status Non Reactive Presumed Non-Immune Equivocal Equivocal Reactive Presumed Immune Platelets bldOrdered By: Philly Moya on 01-20-2023 Platelets (Bld) [#/Vol] 191 10*3/uL 150-450 [facility] Serum Treponema species anti body detectionOrdered By: Graciela Moya on 01-20-2023 Treponema sp Ab Ql (S) Non-Reactive [facility] Serum or plasma choriogonado tropin detectionOrdered By: Cheeynne Cuenca on 01-11-2023 HCG ( test) Ql 2987 mIU/mL <4 [facility] Comment on above: hCG levels with Gest ational AgeGestational Age hCG mIU/mL (IU/L)0.2 - 1 week 5 - 501-2 weeks 50 - 5002-3 weeks 100 - 17020-9 weeks 500 - 322273-4 weeks 1000 - 624277-8 weeks 07071 - 100,0006-8 weeks 37518 - 200,0002-3 months 56781 - 100,000 Serum or plasma choriogonado tropin detectionOrdered By: Cheyenne Cuenca on 01-09-2023 HCG ( test) Ql 1481 mIU/mL <4 [facility] Comment on above: hCG levels with Gest ational AgeGestational Age hCG mIU/mL (IU/L)0.2 - 1 week 5 - 501-2 weeks 50 - 5002-3 weeks 100 - 62261-6 weeks 500 - 976556-5 weeks 1000 - 917847-9 weeks 42006 - 100,0006-8 weeks 45219 - 200,0002-3 months 68225 - 100,000 Basophil percentageOrdered B y: Dr. Cuenca on 07-05-2022 WBC (Bld) [#/Vol] 4.2 10*3/uL 4.4-11.0 [facility] Blood erythrocytes count (nu mber/volume)Ordered By: Dr. Cuenca on 07-05-2022 RBC (Bld) [#/Vol] 4.38 10*6/uL 4.2-5.4 [facility] Blood hemoglobin measurement (mass/volume)Ordered By: Dr. Cuenca on 07-05-2022 Hemoglobin (Bld) [Mass/Vol] 13.1 g/dL 12.0-15.0 [facility] Blood platelet mean volumeOr dered By: Dr. Cuenca on 07-05-2022 Platelet mean volume (Bld) [Entitic vol] 10.5 fL 6.2-12.0 [facility] Determination of erythrocyte mean corpuscular volume (MCV)Ordered By: Dr. Cuenca on 07-05-2022 MCV (RBC) [Entitic vol] 90.0 fL 81-99 [facility] Hematocrit Auto (Bld) [Volum e fraction]Ordered By: Dr. Cuenca on 07-05-2022 Hematocrit (Bld) [Volume fraction] 39.4 % 37-47 [facility] Laboratory - Hematology and Cell countsOrdered By: Dr. Cuenca on 07-05-2022 Erythrocyte distribution width (RBC) [Entitic vol] 38.1 fL 35.1-43.9 [facility] Erythrocyte distribution width (RBC) [Ratio] 11.7 % 11.6-14.6 [facility] MCH (RBC) [Entitic mass] 29.9 pg 27.0-32.0 [facility] MCHC Auto (RBC) [Mass/Vol]Or dered By: Dr. Cuenca on 07-05-2022 MCHC (RBC) [Mass/Vol] 33.2 g/dL 32-36 [facility] Platelets bldOrdered By: Dr. Cuenca on 07-05-2022 Platelets (Bld) [#/Vol] 181 10*3/uL 150-450 [facility] CORONAVIRUS PCR [CCL]on 04-11 REF LAB REPORT Positive Normal [facility] Comment on above: Performed By: #### 2 [id number] #### [facility],[address] [place] [address] SEND TO ? YES Normal [facility] Comment on above: Performed By: #### 2 [id number] #### [facility],[address] [place] [address] COVID 19 Result [employer] Positive Abnormal [facility] Comment on above: Result Comment: Posi tive for COVID19 (SARS CoV2) by PCR.(*) This test was developed and its performance characteristics determined by [facility]'s [facility] [place]. This test has been authorized by FDA under an Emergency Use Authorization (EUA). This test has been validated in accordance with the FDA's Guidance Document Policy for Diagnostics Testing in Laboratories Certified to Perform High Complexity Testing under CLIA prior to Emergency use Authorization for Coronavirus Disease 2019 during the Public Health Emergency issued on July 10, 2019. [facility] [address] [place] [address] Zackery Ba III, M.D. [id number] Performed By: #### 2 [id number] #### [address] [address] COVID 19 Source [employer] Nasopharyngeal Swab Normal [facility] Comment on above: Result Comment: Lidya ected on 04/23 AT 0558: Previously reported as UU Performed By: #### 2 [id number] #### [address] [address] Coronavirus 2019 0 COVID 19 Result [employer] Abnormal Negative for COVID19 (SARS CoV2) by PCR. [facility] Comment on above: Result Comment: Posi tive for This test was developed and its performance characteristics determined by [facility] [place]. This test has been authorized by FDA under an Emergency Use Authorization (EUA). This test has been validated in accordance with the FDA's Guidance Document Policy for Diagnostics Testing in Laboratories Certified to Perform High Complexity Testing under CLIA prior to Emergency use Authorization for Coronavirus Disease 2019 during the Public Health Emergency issued on July 10, 2019. COVID19 (SARS This test was developed and its performance characteristics determined by [facility] [place]. This test has been authorized by FDA under an Emergency Use Authorization (EUA). This test has been validated in accordance with the FDA's Guidance Document Policy for Diagnostics Testing in Laboratories Certified to Perform High Complexity Testing under CLIA prior to Emergency use Authorization for Coronavirus Disease 2019 during the Public Health Emergency issued on July 10, 2019. CoV2) by This test was developed and its performance characteristics determined by [facility] [place]. This test has been authorized by FDA under an Emergency Use Authorization (EUA). This test has been validated in accordance with the FDA's Guidance Document Policy for Diagnostics Testing in Laboratories Certified to Perform High Complexity Testing under CLIA prior to Emergency use Authorization for Coronavirus Disease 2019 during the Public Health Emergency issued on July 10, 2019. PCR.(*) This test was developed and its performance characteristics determined by [facility] [place]. This test has been authorized by FDA under an Emergency Use Authorization (EUA). This test has been validated in accordance with the FDA's Guidance Document Policy for Diagnostics Testing in Laboratories Certified to Perform High Complexity Testing under CLIA prior to Emergency use Authorization for Coronavirus Disease 2019 during the Public Health Emergency issued on July 10, 2019. COVID 19 Source WOR[employer]ANG[employer]AGE [employer]ER Normal [facility] Comment on above: Result Comment: Naso pharyngeal Corrected on 04/23 AT 0558: Previously reported as UU Swab Corrected on 04/23 AT 0558: Previously reported as UU Vital Signs Date Time Vital Sign Value Performing Clinician Henrry luis 02-11-2025 15:57-0400 Body height 157.[address] Romy Tang MD Work Phone: [facility] 02-11-2025 15:57-0400 Body mass index (BMI) [Ratio] 29.9 kg/m2 Dr. Romy Tang MD Work Phone: 0(292)777-783789 [place] [address] 02-11-2025 15:57-0400 Body weight 74.[address] Romy Tang MD Work Phone: 2(899)232-295689 [place] [address] 02-11-2025 15:57-0400 Diastolic blood pressure 74 mm[Hg] Dr. Romy Tang MD Work Phone: 1(580)736-740531 [place] [address] 02-11-2025 15:57-0400 Systolic blood pressure 131 mm[Hg] Dr. Romy Tang MD Work Phone: 8(295)531-636131 [place] [address] 01-28-2025 09:10-0400 Body height 157.[address] Romy Tang MD Work Phone: 7(746)253-497531 [place] [address] 01-28-2025 09:10-0400 Body mass index (BMI) [Ratio] 30 kg/m2 Dr. Romy Tang MD Work Phone: 7(304)667-922531 [place] [address] 01-28-2025 09:10-0400 Body weight 74.[address] Romy Tang MD Work Phone: 6(231)924-446131 [place] [address] 01-28-2025 09:10-0400 Diastolic blood pressure 67 mm[Hg] Dr. Romy Tang MD Work Phone: 4(827)032-251731 [place] [address] 01-28-2025 09:10-0400 Systolic blood pressure 105 mm[Hg] Dr. Romy Tang MD Work Phone: 2(777)370-962031 [place] [address] 01-12-2025 15:49-0400 Body height 157.[address] Romy Tang MD Work Phone: 4(870)555-174931 [place] [address] 01-12-2025 15:47-0400 Body mass index (BMI) [Ratio] 29.9 kg/m2 Dr. Romy Tang MD Work Phone: 1(602)676-742431 [place] [address] 01-12-2025 15:47-0400 Body weight 74.[address] Romy Tang MD Work Phone: 7(915)936-546031 [place] [address] 01-12-2025 15:47-0400 Diastolic blood pressure 65 mm[Hg] Dr. Romy Tang MD Work Phone: [facility] 01-12-2025 15:47-0400 Systolic blood pressure 110 mm[Hg] Dr. Romy Tang MD Work Phone: [facility] 01-05-2025 12:43-0400 Diastolic blood pressure 59 mm[Hg] Dr. Romy Tang MD Work Phone: 0(163)792-908089 [place] [address] 01-05-2025 12:43-0400 Heart rate 88 /min Dr. Romy Tang MD Work Phone: 9(302)575-339531 [place] [address] 01-05-2025 12:43-0400 Systolic blood pressure 105 mm[Hg] Dr. Romy Tang MD Work Phone: 9(603)143-440931 [place] [address] 01-05-2025 09:16-0400 Body temperature 98.4 [degF] Dr. Romy Tang MD Work Phone: 3(032)960-984631 [place] [address] 01-05-2025 09:16-0400 Respiratory rate 16 /min Dr. Romy Tang MD Work Phone: 9(144)403-561931 [place] [address] 01-05-2025 09:09-0400 Body height 157.[address] Romy Tang MD Work Phone: 4(802)921-178431 [place] [address] 01-05-2025 09:09-0400 Body mass index (BMI) [Ratio] 29.2 kg/m2 Dr. Romy Tang MD Work Phone: 4(250)021-867089 [place] [address] 01-05-2025 09:09-0400 Body weight 72.[address] Romy Tang MD Work Phone: 5(680)305-816931 [place] [address] 12-31-2024 09:01-0400 Body height 157.[address] Romy Tang MD Work Phone: 2(141)762-001031 [place] [address] 12-31-2024 09:01-0400 Body mass index (BMI) [Ratio] 28.7 kg/m2 Dr. Romy Tang MD Work Phone: 8(231)841-557487 [address] 12-31-2024 09:01-0400 Body weight 71.[address] Romy Tang MD Work Phone: 8(361)336-663631 [place] [address] 12-31-2024 09:01-0400 Diastolic blood pressure 74 mm[Hg] Dr. Romy Tang MD Work Phone: 5(113)962-842131 [place] [address] 12-31-2024 09:01-0400 Systolic blood pressure 110 mm[Hg] Dr. Romy Tang MD Work Phone: 6(520)701-117431 [place] [address] 12-27-2024 09:42-0400 Body height 157.[address] Romy Tang MD Work Phone: 8(907)228-920831 [place] [address] 12-27-2024 09:42-0400 Body mass index (BMI) [Ratio] 28.7 kg/m2 Dr. Romy Tang MD Work Phone: 6(631)469-806631 [place] [address] 12-27-2024 09:42-0400 Body weight 71.[address] Romy Tang MD Work Phone: 4(351)789-595431 [place] [address] 12-27-2024 09:42-0400 Diastolic blood pressure 67 mm[Hg] Dr. Romy Tang MD Work Phone: 2(297)925-428631 [place] [address] 12-27-2024 09:42-0400 Systolic blood pressure 103 mm[Hg] Dr. Romy Tang MD Work Phone: 6(947)698-643831 [place] [address] 12-17-2024 09:43-0400 Body height 157.[address] Romy Tang MD Work Phone: 3(769)872-545631 [place] [address] 12-17-2024 09:43-0400 Body mass index (BMI) [Ratio] 28.5 kg/m2 Dr. Romy Tang MD Work Phone: 0(789)662-231631 [place] [address] 12-17-2024 09:43-0400 Body weight 70.[address] Romy Tang MD Work Phone: 6(608)885-664731 [place] [address] 12-17-2024 09:43-0400 Diastolic blood pressure 70 mm[Hg] Dr. Romy Tang MD Work Phone: 9(198)777-794289 [place] [address] 12-17-2024 09:43-0400 Systolic blood pressure 115 mm[Hg] Dr. Romy Tang MD Work Phone: 7(251)943-351531 [place] [address] 11-19-2024 10:06-0400 Body height 157.[address] Romy Tang MD Work Phone: 7(015)988-690531 [place] [address] 11-19-2024 10:06-0400 Body mass index (BMI) [Ratio] 28.2 kg/m2 Dr. Romy Tang MD Work Phone: 2(533)855-590831 [place] [address] 11-19-2024 10:06-0400 Body weight 70.[address] Romy Tang MD Work Phone: 7(080)578-603331 [place] [address] 11-19-2024 10:06-0400 Diastolic blood pressure 73 mm[Hg] Dr. Romy Tang MD Work Phone: 6(425)155-565131 [place] [address] 11-19-2024 10:06-0400 Systolic blood pressure 131 mm[Hg] Dr. Romy Tang MD Work Phone: 4(079)473-480431 [place] [address] 2024 08:39-0400 Body height 157.[address] Romy Tang MD Work Phone: 3(122)069-914531 [place] [address] 2024 08:39-0400 Body mass index (BMI) [Ratio] 26.8 kg/m2 Dr. Romy Tang MD Work Phone: 1(852)739-341131 [place] [address] 2024 08:39-0400 Body weight 66.[address] Romy Tang MD Work Phone: 8(388)240-585231 [place] [address] 2024 08:39-0400 Diastolic blood pressure 64 mm[Hg] Dr. Romy Tang MD Work Phone: 8(937)510-497331 [place] [address] 2024 08:39-0400 Systolic blood pressure 116 mm[Hg] Dr. Romy Tang MD Work Phone: 3(044)095-642731 [place] [address] 09-21-2024 15:40-0400 Body height 157.[address] Romy Tang MD Work Phone: 3(542)355-907231 [place] [address] 09-21-2024 15:40-0400 Body mass index (BMI) [Ratio] 26.4 kg/m2 Dr. Romy Tang MD Work Phone: 5(654)227-993831 [place] [address] 09-21-2024 15:40-0400 Body weight 65.[address] Romy Tang MD Work Phone: 8(162)280-126831 [place] [address] 09-21-2024 15:40-0400 Diastolic blood pressure 75 mm[Hg] Dr. Romy Tang MD Work Phone: 8(724)422-720631 [place] [address] 09-21-2024 15:40-0400 Systolic blood pressure 119 mm[Hg] Dr. Romy Tang MD Work Phone: 5(682)727-889631 [place] [address] 08-27-2024 14:22-0400 Body mass index (BMI) [Ratio] 25.8 kg/m2 Dr. Romy Tang MD Work Phone: 3(138)776-159831 [place] [address] 08-27-2024 14:22-0400 Body weight 64.[address] Romy Tang MD Work Phone: 9(800)464-748831 [place] [address] 08-27-2024 14:22-0400 Diastolic blood pressure 76 mm[Hg] Dr. Romy Tang MD Work Phone: 0(226)197-085931 [place] [address] 08-27-2024 14:22-0400 Systolic blood pressure 110 mm[Hg] Dr. Romy Tang MD Work Phone: 6(148)185-568231 [place] [address] 07-26-2024 10:30-0400 Body height 157.[address] Romy Tang MD Work Phone: 9(921)431-393131 [place] [address] 07-26-2024 10:27-0400 Body mass index (BMI) [Ratio] 25.4 kg/m2 Dr. Romy Tang MD Work Phone: 6(645)966-482631 [place] [address] 07-26-2024 10:27-0400 Body weight 63.[address] Romy Tang MD Work Phone: [facility] 07-26-2024 10:27-0400 Diastolic blood pressure 80 mm[Hg] Dr. Romy Tang MD Work Phone: [facility] 07-26-2024 10:27-0400 Systolic blood pressure 120 mm[Hg] Dr. Romy Tang MD Work Phone: [facility] 09-16-2023 14:30-0400 Body temperature 97.1 [degF] Dr. Romy Tang Work Phone: [facility] 09-16-2023 14:30-0400 Diastolic blood pressure 81 mm[Hg] Dr. Romy Tang Work Phone: [facility] 09-16-2023 14:30-0400 Heart rate 93 /min Dr. Romy Tang Work Phone: [facility] 09-16-2023 14:30-0400 Respiratory rate 16 /min Dr. Romy Tang Work Phone: [facility] 09-16-2023 14:30-0400 SaO2% (BldA) [Mass fraction] 99 % Dr. Romy Tang Work Phone: [facility] 09-16-2023 14:30-0400 Systolic blood pressure 122 mm[Hg] Dr. Romy Tang Work Phone: [facility] 09-14-2023 15:20-0400 Body height 157.[address] Romy Tang Work Phone: [facility] 09-14-2023 15:20-0400 Body mass index (BMI) [Ratio] 31.4 kg/m2 Dr. Romy Tang Work Phone: [facility] 09-14-2023 15:20-0400 Body weight 78.[address] Romy Tang Work Phone: [facility] 09-12-2023 10:30-0400 Body mass index (BMI) [Ratio] 31.4 kg/m2 Dr. Romy Tang Work Phone: [facility] 09-12-2023 10:30-0400 Body weight 78.[address] Romy Tang Work Phone: [facility] 09-12-2023 10:30-0400 Diastolic blood pressure 82 mm[Hg] Dr. Romy Tang Work Phone: [facility] 09-12-2023 10:30-0400 Systolic blood pressure 117 mm[Hg] Dr. Romy Tang Work Phone: [facility] 09-05-2023 16:25-0400 Diastolic blood pressure 82 mm[Hg] Dr. Romy Tang Work Phone: [facility] 09-05-2023 16:25-0400 Systolic blood pressure 123 mm[Hg] Dr. Romy Tang Work Phone: [facility] 09-05-2023 16:01-0400 Body mass index (BMI) [Ratio] 31.7 kg/m2 Dr. Romy Tang Work Phone: [facility] 09-05-2023 16:01-0400 Body weight 78.[address] Romy Tang Work Phone: [facility] 08-28-2023 15:56-0400 Body mass index (BMI) [Ratio] 31.1 kg/m2 Dr. Romy Tang Work Phone: [facility] 08-28-2023 15:56-0400 Body weight 77.[address] Romy Tang Work Phone: [facility] 08-28-2023 15:56-0400 Diastolic blood pressure 72 mm[Hg] Dr. Romy Tang Work Phone: [facility] 08-28-2023 15:56-0400 Systolic blood pressure 112 mm[Hg] Dr. Romy Tang Work Phone: [facility] 08-22-2023 16:06-0400 Body mass index (BMI) [Ratio] 30.2 kg/m2 Dr. Romy Tang Work Phone: [facility] 08-22-2023 16:06-0400 Body weight 75.[address] Romy Tang Work Phone: [facility] 08-22-2023 16:06-0400 Diastolic blood pressure 75 mm[Hg] Dr. Romy Tang Work Phone: [facility] 08-22-2023 16:06-0400 Systolic blood pressure 125 mm[Hg] Dr. Romy Tang Work Phone: [facility] 08-14-2023 15:54-0400 Body height 157.[address] Romy Tang Work Phone: [facility] 08-14-2023 15:52-0400 Body mass index (BMI) [Ratio] 30.3 kg/m2 Dr. Romy Tang Work Phone: [facility] 08-14-2023 15:52-0400 Body weight 75.[address] Romy Tang Work Phone: [facility] 08-14-2023 15:52-0400 Diastolic blood pressure 77 mm[Hg] Dr. Romy Tang Work Phone: [facility] 08-14-2023 15:52-0400 Systolic blood pressure 119 mm[Hg] Dr. Romy Tang Work Phone: [facility] 08-08-2023 11:01-0400 Body mass index (BMI) [Ratio] 29.9 kg/m2 Dr. Romy Tang Work Phone: [facility] 08-08-2023 11:01-0400 Body weight 74.[address] Romy Tang Work Phone: [facility] 08-08-2023 11:01-0400 Diastolic blood pressure 79 mm[Hg] Dr. Romy Tang Work Phone: [facility] 08-08-2023 11:01-0400 Systolic blood pressure 124 mm[Hg] Dr. Romy Tang Work Phone: [facility] 07-24-2023 15:54-0400 Body mass index (BMI) [Ratio] 28.9 kg/m2 Dr. Romy Tang Work Phone: [facility] 07-24-2023 15:54-0400 Body weight 71.[address] Romy Tang Work Phone: [facility] 07-24-2023 15:54-0400 Diastolic blood pressure 72 mm[Hg] Dr. Romy Tang Work Phone: [facility] 07-24-2023 15:54-0400 Systolic blood pressure 107 mm[Hg] Dr. Romy Tang Work Phone: 0(412)550-905389 [place] [address] 07-11-2023 15:45-0500 Body mass index (BMI) [Ratio] 29 kg/m2 Dr. Romy Tang Work Phone: [facility] 07-11-2023 15:45-0500 Body weight 72.[address] Romy Tang Work Phone: [facility] 07-11-2023 15:45-0500 Diastolic blood pressure 76 mm[Hg] Dr. Romy Tang Work Phone: [facility] 07-11-2023 15:45-0500 Systolic blood pressure 116 mm[Hg] Dr. Romy Tang Work Phone: [facility] 06-27-2023 13:18-0500 Body mass index (BMI) [Ratio] 28.6 kg/m2 Dr. Romy Tang Work Phone: [facility] 06-27-2023 13:18-0500 Body weight 70.[address] Romy Tang Work Phone: [facility] 06-27-2023 13:18-0500 Diastolic blood pressure 79 mm[Hg] Dr. Romy Tang Work Phone: [facility] 06-27-2023 13:18-0500 Systolic blood pressure 118 mm[Hg] Dr. Romy Tang Work Phone: 8(169)296-163187 [address] 06-19-2023 09:04-0500 Body height 157.[address] Earl Tang Work Phone: [facility] 06-19-2023 09:04-0500 Body mass index (BMI) [Ratio] 28.2 kg/m2 Dr. Earl Tang Work Phone: 3(169)203-204487 [address] 06-19-2023 09:04-0500 Body weight 69.[address] Earl Tang Work Phone: 7(552)365-997331 [place] [address] 06-13-2023 15:43-0500 Body mass index (BMI) [Ratio] 28.3 kg/m2 Dr. Earl Tang Work Phone: 8(244)248-646131 [place] [address] 06-13-2023 15:43-0500 Body weight 70.[address] Earl Tang Work Phone: 7(881)017-961731 [place] [address] 06-13-2023 15:43-0500 Diastolic blood pressure 80 mm[Hg] Dr. Earl Tang Work Phone: 4(683)941-216289 [place] [address] 06-13-2023 15:43-0500 Systolic blood pressure 131 mm[Hg] Dr. Earl Tang Work Phone: 7(354)196-656487 [address] 05-16-2023 15:43-0500 Body mass index (BMI) [Ratio] 27.2 kg/m2 Dr. Earl Tang Work Phone: 8(245)730-296531 [place] [address] 05-16-2023 15:43-0500 Body weight 67.[address] Earl Tang Work Phone: 7(959)412-602187 [address] 05-16-2023 15:43-0500 Diastolic blood pressure 77 mm[Hg] Dr. Earl Tang Work Phone: [facility] 05-16-2023 15:43-0500 Systolic blood pressure 123 mm[Hg] Dr. Earl Tang Work Phone: [facility] 04-14-2023 15:59-0500 Body mass index (BMI) [Ratio] 26 kg/m2 Dr. Earl Tang Work Phone: [facility] 04-14-2023 15:59-0500 Body weight 64.[address] Earl Tang Work Phone: [facility] 04-14-2023 15:59-0500 Diastolic blood pressure 65 mm[Hg] Dr. Earl Tang Work Phone: [facility] 04-14-2023 15:59-0500 Systolic blood pressure 111 mm[Hg] Dr. Earl Tang Work Phone: [facility] 03-20-2023 15:42-0500 Body mass index (BMI) [Ratio] 25 kg/m2 Dr. Earl Tang Work Phone: [facility] 03-20-2023 15:42-0500 Body weight 62.[address] Earl Tang Work Phone: [facility] 03-20-2023 15:42-0500 Diastolic blood pressure 74 mm[Hg] Dr. Earl Tang Work Phone: [facility] 03-20-2023 15:42-0500 Systolic blood pressure 111 mm[Hg] Dr. Earl Tang Work Phone: [facility] 02-19-2023 14:24-0400 Body height 157.[address] Earl Tang Work Phone: [facility] 02-19-2023 14:18-0400 Body mass index (BMI) [Ratio] 24.2 kg/m2 Dr. Earl Tang Work Phone: [facility] 02-19-2023 14:18-0400 Body weight 60.[address] Earl Tang Work Phone: [facility] 02-01-2023 03:14-0400 Diastolic blood pressure 60 mm[Hg] Dr. Earl Tang Work Phone: [facility] 02-01-2023 03:14-0400 Heart rate 71 /min Dr. Earl Tang Work Phone: 7(062)715-730589 [place] [address] 02-01-2023 03:14-0400 Respiratory rate 15 /min Dr. Earl Tang Work Phone: 1(231)930-630187 [address] 02-01-2023 03:14-0400 SaO2% (BldA) [Mass fraction] 100 % Dr. Earl Tang Work Phone: 6(797)451-878887 [address] 02-01-2023 03:14-0400 Systolic blood pressure 102 mm[Hg] Dr. Earl Tang Work Phone: 0(391)565-063089 [place] [address] 01-31-2023 23:22-0400 Body height 157.[address] Earl Tang Work Phone: 8(032)889-710387 [address] 01-31-2023 23:22-0400 Body mass index (BMI) [Ratio] 24.3 kg/m2 Dr. Earl Tang Work Phone: 2(270)861-437189 [place] [address] 01-31-2023 23:22-0400 Body temperature 97.6 [degF] Dr. Earl Tang Work Phone: [facility] 01-31-2023 23:22-0400 Body weight 60.[address] Earl Tang Work Phone: 7(879)680-671387 [address] 01-20-2023 16:31-0400 Body mass index (BMI) [Ratio] 24.1 kg/m2 Dr. Earl Tang Work Phone: 4(879)495-672789 [place] [address] 01-20-2023 16:31-0400 Body weight 59.[address] Earl Tang Work Phone: [facility] 01-20-2023 16:31-0400 Diastolic blood pressure 68 mm[Hg] Dr. Earl Tang Work Phone: [facility] 01-20-2023 16:31-0400 Systolic blood pressure 110 mm[Hg] Dr. Earl Tang Work Phone: [facility] 10-02-2022 14:17-0400 Body height 157.[address] Earl Tang Work Phone: [facility] 10-02-2022 14:11-0400 Body mass index (BMI) [Ratio] 24.2 kg/m2 Dr. Earl Tang Work Phone: [facility] 10-02-2022 14:11-0400 Body weight 60.[address] Earl Tang Work Phone: [facility] 10-02-2022 14:11-0400 Diastolic blood pressure 70 mm[Hg] Dr. Earl Tang Work Phone: [facility] 10-02-2022 14:11-0400 Systolic blood pressure 106 mm[Hg] Dr. Earl Tang Work Phone: [facility] 07-05-2022 14:00-0500 Body temperature 97.4 [degF] No Primary Care Physician [facility] 07-05-2022 14:00-0500 Diastolic blood pressure 52 mm[Hg] No Primary Care Physician [facility] 07-05-2022 14:00-0500 Heart rate 65 /min No Primary Care Physician [facility] 07-05-2022 14:00-0500 Respiratory rate 18 /min No Primary Care Physician [facility] 07-05-2022 14:00-0500 SaO2% (BldA) [Mass fraction] 99 % No Primary Care Physician [facility] 07-05-2022 14:00-0500 Systolic blood pressure 86 mm[Hg] No Primary Care Physician [facility] 07-05-2022 11:58-0500 Body height 157.48 cm No Primary Care Physician [facility] 07-05-2022 11:58-0500 Body mass index (BMI) [Ratio] 23.8 kg/m2 No Primary Care Physician [facility] 07-05-2022 11:58-0500 Body weight 59 kg No Primary Care Physician [facility] 07-02-2022 14:53-0500 Body mass index (BMI) [Ratio] 24.3 kg/m2 No Primary Care Physician [facility] 07-02-2022 14:53-0500 Body weight 60.49 kg No Primary Care Physician [facility] 07-02-2022 14:53-0500 Diastolic blood pressure 71 mm[Hg] No Primary Care Physician [facility] 07-02-2022 14:53-0500 Systolic blood pressure 105 mm[Hg] No Primary Care Physician [facility] Encounters Encounter Date Encounter Type Care Provider Facility Start: 03-04-2025 ambulatory [facility]omy Sales [facility] Start: 02-25-2025 ambulatory Romy Sales [facility] Start: 02-11-2025 End: 02-11-[address] Cheyenne Cuenca MD -[facility] Work Phone: Start: 02-11-2025 End: 02-11-[address] Romy Tang MD Work Phone: [facility][1] Start: 01-28-2025 End: 01-28-2025 Patient encounter procedure Camacho Cash CNM -[facility] Work Phone: Start: 01-28-2025 End: 01-28-[address] Romy Tang MD Work Phone: -[facility] Start: 01-12-2025 End: 01-12-[address] Graciela Dang DO -[facility] Work Phone: Start: 01-12-2025 End: 01-12-[address] Romy Tang MD Work Phone: -[facility] Start: 01-05-2025 Non-patient / Non-visit Dr. Graciela Dang DO -[facility] Start: 01-05-2025 End: 01-05-[address] Romy Tang MD Work Phone: -[facility] Start: 01-05-2025 End: 01-05-[address] Graciela Dang DO -[facility] Work Phone: Start: 12-31-2024 End: 12-31-[address] Cheyenne Cuenca MD -[facility] Work Phone: Start: 12-31-2024 End: 12-31-[address] Romy Tang MD Work Phone: -[facility] Start: 12-31-2024 End: 12-31-2024 ambulatory Romy Tang Facility:[facility] Start: 12-27-2024 End: 12-27-2024 Patient encounter procedure Camacho Cash CNM -[facility] Work Phone: Start: 12-27-2024 End: 12-27-[address] Romy Tang MD Work Phone: -[facility] Start: 12-17-2024 End: 12-17-2024 Patient encounter procedure Camacho Cash CNM -[facility] Work Phone: Start: 12-17-2024 End: 12-17-[address] Romy Tang MD Work Phone: [facility][1] Start: 11-19-2024 End: 11-19-2024 Patient encounter procedure Camacho Cash CNM -[facility] Work Phone: Start: 11-19-2024 End: 11-19-[address] Romy Tang MD Work Phone: -[facility] Start: 11-11-2024 End: 11-11-2024 ambulatory CAMACHO CASH [facility] Start: 10-26-2024 End: 10-26-2024 ambulatory RICKY PAYNE [facility] Start: 2024 End: 2024 Patient encounter procedure Sharifa OTERO -[facility] Work Phone: Start: 2024 End: [address] Romy Tang MD Work Phone: [facility] Work Phone: Start: 09-21-2024 End: 09-21-2024 Patient encounter procedure Camacho Cash CNM -[facility] Work Phone: Start: 09-21-2024 End: 09-21-[address] Romy Tang MD Work Phone: [facility] Work Phone: Start: 08-27-2024 End: 08-27-2024 Patient encounter procedure Camacho JOHN -[facility] Work Phone: Start: 08-27-2024 End: 08-27-2024 ambulatory [place] Start: 08-27-2024 End: 08-27-2024 ambulatory Romy [place] Facility:[facility] Start: 07-26-2024 End: 07-26-[address] Romy Tang MD Work Phone: [facility] Work Phone: Start: 07-26-2024 End: 07-26-[address] Graciela Dang DO -Laboratory, Specimen Work Phone: Start: 07-26-2024 End: 07-26-[address] Graciela Dang DO -[facility] Work Phone: Start: 07-26-2024 End: 07-26-2024 ambulatory Romy Tang Facility[place] Start: 07-26-2024 End: 07-26-2024 ambulatory Graciela Dang Facility:[facility] Start: 07-12-2024 End: 07-12-[address] Romy Tang MD Work Phone: [facility] Work Phone: Start: 07-12-2024 End: 07-12-2024 Patient encounter procedure Camacho JOHNM -Laboratory Work Phone: Start: 07-12-2024 End: 07-12-2024 ambulatory Romy Tang Facility:[facility] Start: 07-09-2024 End: 07-09-[address] Romy Tang MD Work Phone: [facility] Work Phone: Start: 07-09-2024 End: 07-09-2024 Patient encounter procedure Camacho Cash CNM -Laboratory Work Phone: Start: 07-09-2024 End: 07-09-2024 ambulatory Romy Tang Facility:[facility] Start: 09-16-2023 Non-patient / Non-visit Dr. Romy Tang Work Phone: [facility] Start: 09-15-2023 Non-patient / Non-visit Dr. Romy Tang Work Phone: [facility] Start: 09-14-2023 Non-patient / Non-visit Dr. Romy Tang Work Phone: [facility] Start: 09-14-2023 End: 09-16-2023 Evaluation and management of inpatient Dr. Romy Tang Work Phone: [facility] Work Phone: Start: 09-12-2023 End: 09-12-[address] Romy Tang Work Phone: [facility] Work Phone: Start: 09-05-2023 End: 09-05-[address] Romy Tang Work Phone: [facility] Work Phone: Start: 08-28-2023 End: 08-28-[address] Romy Tang Work Phone: [facility] Work Phone: Start: 08-22-2023 End: 08-22-[address] Romy Tang Work Phone: [facility] Work Phone: Start: 08-14-2023 End: 08-14-[address] Romy Tang Work Phone: [facility] Work Phone: Start: 08-14-2023 End: 08-14-[address] Romy Tang Work Phone: [facility] Spec[facility] Work Phone: Start: 08-14-2023 End: 08-14-[address] Romy Tang Work Phone: [facility] Work Phone: Start: 08-08-2023 End: 08-08-[address] Romy Tang Work Phone: [facility] Work Phone: Start: 07-24-2023 End: 07-24-[address] Romy Tang Work Phone: [facility] Work Phone: Start: 07-11-2023 End: 07-11-[address] Romy Tang Work Phone: [facility] Work Phone: Start: 06-27-2023 End: 06-27-[address] Romy Tang Work Phone: [facility] Work Phone: Start: 06-19-2023 End: 06-19-[address] Earl Tang Work Phone: [facility] Work Phone: Start: 06-19-2023 End: 06-19-[address] Earl Tang Work Phone: [facility] Work Phone: Start: 06-13-2023 End: 06-13-[address] Earl Tang Work Phone: [facility] Work Phone: Start: 05-16-2023 End: 05-16-[address] Earl Tang Work Phone: [facility] Work Phone: Start: 04-14-2023 End: 04-14-[address] Earl Tang Work Phone: [facility] Work Phone: Start: 03-20-2023 End: 03-20-[address] Earl Tang Work Phone: [facility] Work Phone: Start: 03-06-2023 End: 03-06-[address] Earl Tang Work Phone: [facility] Work Phone: Start: 03-06-2023 End: 03-06-[address] Earl Tang Work Phone: [facility] [facility] Work Phone: Start: 02-19-2023 End: 02-19-[address] Earl Tang Work Phone: [facility] Work Phone: Start: 01-31-2023 End: 02-01-2023 Emergency department patient visit Dr. Earl Tang Work Phone: [facility] Work Phone: Start: 01-20-2023 End: 01-20-[address] Earl Tang Work Phone: [facility] Work Phone: Start: 01-11-2023 End: 01-11-[address] Earl Tang Work Phone: [facility] Work Phone: Start: 01-11-2023 End: 01-11-[address] Earl Tang Work Phone: [facility] Work Phone: Start: 01-09-2023 End: 01-09-[address] Earl Tang Work Phone: [facility] Work Phone: Start: 10-02-2022 End: 10-02-[address] Earl Tang Work Phone: [facility] Work Phone: Start: 07-05-2022 Non-patient / Non-visit No Primary Care Physician [facility] Start: 07-05-2022 End: 07-05-2022 Admission to same day surgery center No Primary Care Physician [facility] Start: 07-05-2022 End: 07-05-2022 ambulatory No Primary Care Physician [facility] Work Phone: Start: 07-04-2022 Non-patient / Non-visit No Primary Care Physician [facility] Start: 07-02-2022 End: 07-02-2022 ambulatory No Primary Care Physician [facility] Work Phone: Start: 07-02-2022 End: 07-02-2022 Patient encounter procedure No Primary Care Physician [facility] Spec[facility] Start: 07-02-2022 End: 07-02-2022 Patient encounter procedure No Primary Care Physician [facility] Start: 04-21-2020 End: 04-21-2020 Patient encounter procedure WINSTON Thao MAN [facility] Procedures Date Procedure Procedure Detail Performing Clinician Start: 01-05-2025 Fibrinogen assay, quantitative Dr. Romy Tang MD Work Phone: Start: 01-05-2025 Hemoglobin F measure ment using Klemarizaauer-Betke method Dr. Romy Tang MD Work Phone: Comment on above: TEST RESULTS [facility] patrica Giron Study Negative Negative TESTING PERFORMED AT [facility]. ORIGINAL REPORT ON FILE IN LAB CONTAINS ADDITIONAL TEST SITE INFORMATION. __ Start: 12-31-2024 Serologic test for syphilis Dr. Romy Tang MD Work Phone: Start: 08-27-2024 Hepatitis C antibody measurement Dr. Romy Tang MD Work Phone: Comment on above: Reactive: Presumptiv e evidence of antibodies to HCV. Follow CDC recommendations for supplemental testing.Non-Reactive: Antibodies to HCV were not detected; does not exclude the possibility of exposure to HCVReactive Results are presumptive evidence of antibodies to HCV. Follow CDC recommendations for supplemental testing.Order confirmation testing: HCV Quant by PCR testing - HCVPCR #[id number] Non Reactive: < 0.8 Equivocal: >/= 0.8 to < 1.0 Reactive: >/= 1.0The CDC requires that a reactive/equivocal HCV antibody result be sent out for confirmation. HCV Quant by PCR testing. Start: 08-27-[address] Romy Tang MD Work Phone: Comment on above: Antibody Result: Int erpretationNon-Reactive: Non- ImmuneReactive: ImmuneThe following results were obtained with the [employer] Rubella IgG assay. Results from assays of other manufacturers cannot be used interchangeably. Start: 08-27-2024 Serologic test for syphilis Dr. Romy Tang MD Work Phone: Start: 07-26-[address] Damien Tang MD Work Phone: Start: 08-14-2023 Group B Streptococcu s Culture Dr. Romy Tang Work Phone: Start: 03-06-[address]ography [address] Earl Tnag Work Phone: Start: 02-01-[address] Earl Tang Work Phone: Start: 01-20-[address] Damien Tang Work Phone: Start: 07-05-2022 Dilation and curetta ge of uterus No Primary Care Physician H/O: surgery H/O dilation and curettage Dr. Earl Tang Work Phone: Plan of Treatment Date Care Activity Detail Author Start: 02-11-2025 [facility] Start: 01-05-2025 Nonstress test [facility] Start: 01-05-2025 Obstetric monitoring [facility] Start: 01-05-2025 Vital signs measurements [facility] Start: 01-05-2025 [facility] Start: 01-05-2025 Patient discharge [facility] Start: 12-31-2024 Anti-D (Rh) immunoglobulin [facility] Start: 12-31-2024 CBC W Auto Different ial panel - Blood [facility] Start: 12-31-2024 Measurement of gluco se 2 hours after glucose challenge for glucose tolerance test [facility] Start: 12-31-2024 Serologic test for syphilis [facility] Start: 12-31-2024 [facility] Start: 09-16-2023 Documentation procedure [facility] Start: 09-16-2023 [facility] Start: 09-16-2023 Patient discharge [facility] Start: 09-15-2023 Administration of blood product [facility] Start: 09-15-2023 [facility] Start: 09-15-2023 Administration of medication [facility] Start: 09-15-2023 Application of ice c ollar, cap or bag [facility] Start: 09-15-2023 Catheterization of vein [facility] Start: 09-15-2023 Introduction of urinary catheter [facility] Start: 09-15-2023 Measuring intake and output [facility] Start: 09-15-2023 Notification of physician [facility] Start: 09-15-2023 Procedure discontinued [facility] Start: 09-15-2023 Provision of activity privileges [facility] Start: 09-15-2023 Vital signs measurements [facility] Start: 09-15-2023 End: 09-15-2023 [facility] Start: 09-15-2023 Documentation procedure [facility] Start: 09-14-2023 Leukocyte reduced red blood cells [facility] Start: 09-14-2023 Admission procedure [facility] Start: 09-14-2023 Verification routine [facility] Start: 07-06-2022 Complete blood count [facility] Start: 07-05-2022 Introduction of urinary catheter [facility] Start: 07-05-2022 Ambulation therapy management [facility] Start: 07-05-2022 Ambulation without limitation [facility] Start: 07-05-2022 Continuous pulse oximetry [facility] Start: 07-05-2022 Elevation of head of bed [facility] Start: 07-05-2022 Incentive spirometry [facility] Start: 07-05-2022 Measuring intake and output [facility] Start: 07-05-2022 Medication education [facility] Start: 07-05-2022 Notification of physician [facility] Start: 07-05-2022 End: 07-05-2022 Oxygen therapy [facility] Start: 07-05-2022 Patient education [facility] Start: 07-05-2022 Procedures relating to eating and drinking [facility] Start: 07-05-2022 Taking patient vital signs [facility] Start: 07-05-2022 Vital signs measurements [facility] Start: 07-05-2022 [facility] Start: 07-05-2022 Patient discharge [facility] Start: 07-02-2022 Liquid based cervica l cytology screening [facility] Anti-D (Rh) immunoglobulin [facility] CBC W Auto Different ial panel - Blood [facility] CBC W Auto Different ial panel - Blood [facility] Erythrocyte mean cor puscular volume determination [facility] Hematocrit [Volume F raction] of Blood [facility] Hemoglobin [Mass/volume] in Blood [facility] Hemoglobin F [Presen ce] in Blood by Kleihauer-Betke method [facility] Hepatitis C antibody measurement [facility] Leukocytes [#/volume] in Blood [facility] Mean corpuscular hem oglobin concentration determination [facility] Mean corpuscular hem oglobin determination [facility] Measurement of gluco se 2 hours after glucose challenge for glucose tolerance test [facility] Neutrophil count [facility] Neutrophil percent d ifferential count [facility] Path report.final Dx Spec [facility] Patient Education [facility] Work Phone: Patient referral [facility] Work Phone: Platelets [#/volume] in Blood [facility] Procedure [facility] Red blood cell count [facility] Red cell distributio n width determination [facility] Rubella IgG measurement [facility] Serologic test for syphilis [facility] Serologic test for syphilis [facility] Immunizations Immunization Date Immunization Notes Care Provider Fa [facility] 02-11-2025 tetanus toxoid, reduced diphtheria toxoid, and acellular pertussis vaccine, adsorbed Dr. Romy Tang MD Work Phone: [facility] 06-27-2023 tetanus toxoid, reduced diphtheria toxoid, and acellular pertussis vaccine, adsorbed Dr. Romy Tang Work Phone: [facility] Payers Date Payer Category Payer Self-pay [id number] 2024 Unknown [id number] 1996 Unknown [id number] 2.16.84 0.1.445915.3.579.2.651 1996 Unknown [id number] 2.16. 840.1.442669.3.579.2.479 1996 Unknown [id number] 2.16. 840.1.023054.3.579.2.479 Unknown Unknown [id number] 2.16.8 40.1.227596.3.579.2.462 Unknown [id number] 2.16.8 40.1.749095.3.579.2.462 Unknown [id number] 2.16.8 40.1.323866.3.579.2.462 Unknown [id number] 2.16.8 40.1.584115.3.579.2.462 Unknown [id number] 2.16.8 40.1.534970.3.579.2.462 Unknown [id number] 2.16.8 40.1.403434.3.579.2.462 Unknown [id number] 2.16.8 40.1.693872.3.579.2.462 Unknown [id number] 2.16.8 40.1.493305.3.579.2.462 Unknown [id number] 2.16.8 40.1.568211.3.579.2.462 Unknown [id number] 2.16.8 40.1.195643.3.579.2.462 Unknown [id number] 2.16.8 40.1.011353.3.579.2.462 Unknown [id number] 2.16.8 40.1.253145.3.579.2.462 Unknown [id number] 2.16.8 40.1.442814.3.579.2.462 Unknown [id number] 2.16.8 40.1.694337.3.579.2.462 Unknown [id number] 2.16.8 40.1.695643.3.579.2.462 Unknown [id number] 2.16.8 40.1.907765.3.579.2.462 Unknown [id number] 2.16.8 40.1.350748.3.579.2.462 Unknown [id number] 2.16.8 40.1.065018.3.579.2.462 Unknown [id number] 2.16.8 40.1.765022.3.579.2.462 Unknown [id number] 2.16.8 40.1.158555.3.579.2.462 Social History Date Type Detail Facility [facility] Start: 07-02-2022 End: 09-14-2023 Tobacco smoking status VTIS Unknown if ever smoked [facility] Start: 1995 Sex Assigned At Female [facility] Start: 07-16-2024 Tobacco smoking stat us NHIS Never smoked tobacco (finding) [facility] Start: 07-23-2024 End: 08-04-2024 Sex Female (finding) [facility] Sex Female [facility] Goals Date Patient Goal Desired Activity /State Mental Status Date Assessment Result Facility 07-05-2022 Cognitive function Light Pain [facility] Work Phone: 07-05-2022 Cognitive function Patient Nestor alcantar Person;Place;Time [facility] Work Phone: Clinical Notes 07-04-2022 to 01-28-2025 Note Date & Type Note Facility 01-28-2025 Progress note [facility] 01-12-[address] [facility] 01-12-2025 Progress note Note Date/Time January 12, 2025 4:06pm [facility] [address], [address] [place] [address] OFFICE VISIT Date of Service: 01/12/25 MR#: [id number] Acct: [id number] Name: LYNNE PAL Rep #: [id number] : 1995 Provider: Dr. Selena Dang DO Age/Sex: 29/F Location: [facility] Status: Signed Intake Vital Signs 10/21/24 08:39 01/05/25 09:09 01/12/25 15:47 01/12/25 15:49 Height 5 ft 2 in 5 ft 2 in 5 ft 2 in 5 ft 2 in Weight: 164 lb BMI 29.9 BP 110/65 Intake Visit Reasons: 30 WK OB Open Cut Examiner Required: No Is patient in pain?: No Allergies No Known Allergies Allergy (Verified 01/12/25 15:47) Medications 3 ?Medication ?Instructions ?Recorded ?Confirmed ?Type Lactobacillus acidophilus and 1 cap PO DAILY supplemen t 06/27/22 01/12/25 History rhamnosus 15 billion cell capsule (Probiotic) multivitamin no.47-iron fum 27 1 cap PO DAILY pregnanc y 06/27/22 01/12/25 History mg-folate no.1 1 mg-dha 300 mg capsule (PNV-DHA) Last Menstrual Period: 05/29/24 Zika: Zika virus screening: Negative : No PFSH PFSH Medical History hemorrhage (spontaneous vaginal delivery) History of group B Streptococcus (GBS) infection Pre-conception counseling Breast tenderness in female Non-smoker Surgical History H/O dilation and curettage Hx of wisdom tooth extraction Family History Father Hypertension Social History adopted: No household members: spouse housing: house number of children: 1 current occupational status: employed 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 current occupational exposures/hazards: No pets and animals: No history of recent travel: No ([place]) sexually active: Yes Smoking Status: Never smoker alcohol intake: former details: social- but not while substance use type: does not use well-balanced diet: daily or most days caffeine: No eating out: rarely or never during the past year weight has: other details: had a baby is 7# heavier than prepregnancy what type of physical activity do you participate in: walking and weight training frequency: 3-4 times per week duration: 15-30 minutes/day kenia/evangelical: Sikh seatbelt use: always do you feel safe at home: Yes additional social history: - Yossi- Marketing History 3 Elective abortions Hx Para 1 Spontaneous abortions 1 Hx # Term Pregnancies Ectopic pregnancies Hx # Pregnancies Multiple births # of living children 1 Past Pregnancies Del. Date Name GA/Weeks Outcome Route Bth Weight Gen Labor Lgth Anesthesia Del Locatn Provider FOB Unknown June 2022 miscarriage 8wk 09/15/23 May 40 live - full term 7lbs 4oz Female n one [facility] Destiney Sy Delivery Date: 09/15/23 Last Updated by: Snow Delgado PP hem. HPI 30 WK OB Details: LYNNE PAL is a 29 year old who presents for routine OB visit. OB Visit ANGEL LUIS Calculator Estimated Delivery Date Method Current WG Current Estimate 03/20/25 Ultrasound #1 30w 3d Other Estimates 03/05/25 LMP (Certain) 32w 4d Expected Delivery Route/Plan Labor Preferences- CB/BF classes: [] labor support person: [] labor intervention preferences: [] pain management options preferred: [] cut cord/dad catch: [] : [] PP control planned: [] discussed possible routes of delivery and associated risks: [] special requests: [] Specific Issue/Plans Covid status: [] Flu vaccine: [] Tdap vaccine: [] Rhogam: [] LARC form signed: [] Problem list reviewed and updated with the most current plan of care details and appropriate orders placed. Relevant counseling for the gestational age provided. Continue routine care and follow up unless otherwise noted in visit notes/problem list details Initial Weight: 135 lb Date -?-?-?-?-?-?-?-?-?-?-?-?- EGA Weight BP Urine Prot -?-?-?-?-?-?-?-?-?-?-?-?- Glucose FHR FuHt Pres Dilation -?-?-?-?-?-?-?-?-?-?-?-?- Effaced St Visit Note 07/26/24 -?-?-?-?-?-?-?-?-?-?-?-?- 6w 1d 139 lb 4 oz (+4 lb 4 oz) 120/80 -?-?-?-?-?-?-?-?-?-?-?-?- 105 -?-?-?-?-?-?-?-?-?-?-?-?- JV- CRL measurin g 6 weeks 1 day with heart tones. states is 6 weeks by when she calculated ovulation. unsure about nipt or blood type testing of baby (she is rh neg) 08/27/24 -?-?-?-?-?-?-?-?-?-?-?-?- 10w 5d 141 lb 2 oz (+6 lb 2 oz) 110/76 Negative -?-?-?-?-?-?-?-?-?-?-?-?- Negative 173 -?-?-?-?-?-?-?-?-?-?-?-?- KW- CRL cons wit h 10.5 weeks. labs today and MFM order placed 09/21/24 -?-?-?-?-?-?-?-?-?-?-?-?- 14w 2d 144 lb 8 oz (+9 lb 8 oz) 119/75 Negative -?-?-?-?-?-?-?-?-?-?-?-?- Negative 153 -?-?-?-?-?-?-?-?-?-?-?-?- KW- no vb/johnny ng. US scheduled- 10/26. no concerns KW- no vb/cramping. US sched uled- 10/26. no concerns. declines AFP 10/21/24 -?-?-?-?-?-?-?-?-?-?-?-?- 18w 4d 146 lb 8 oz (+11 lb 8 oz) 116/64 Negative -?-?-?-?-?-?-?-?-?-?-?-?- Negative 151 -?-?-?-?-?-?-?-?-?-?-?-?- MH-No VB. Feelin g movement. No concerns 11/19/24 -?-?-?-?-?-?-?-?-?-?-?-?- 22w 5d 154 lb 6 oz (+19 lb 6 oz) 131/73 Negative -?-?-?-?-?-?-?-?-?-?-?-?- Negative 155 -?-?-?-?-?-?-?-?-?-?-?-?- KW- no vb/crampi ng. good fm. glucose at 28 week. will do the fresh test. 12/17/24 -?-?-?-?-?-?-?-?-?-?-?-?- 26w 5d 156 lb 2 oz (+21 lb 2 oz) 115/70 Negative -?-?-?-?-?-?-?-?-?-?-?-?- Negative 150 26 -?-?-?-?-?-?-?-?-?-?-?-?- KW- no vb/lof/ct x. good fm. glucose and rhogam next visit. LARC today. 12/27/24 -?-?-?-?-?-?-?-?-?-?-?-?- 28w 1d 157 lb 3 oz (+22 lb 3 oz) 103/67 Negative -?-?-?-?-?-?-?-?-?-?-?-?- Negative 155 27 -?-?-?-?-?-?-?-?-?-?-?-?- KW- no vb/lof/ct x. good fm. Missed draw time and will need to redo. Will come in friday for labs and rhogam. declines TDAP today. 01/12/25 -?-?-?-?-?-?-?-?-?-?-?-?- 30w 3d 164 lb (+29 lb) 110/65 -?-?-?-?-?-?-?-?-?-?-?-?- 145 29 -?-?-?-?-?-?-?-?-?-?-?-?- JV- no lof, vagi nal bleeding, or dec fm. ACOG First Trimester First Trimester: Desire for , Alcohol, Tobacco Cessation, Illicit/Recreational Drug/Substance Use, Intimate Partner Violence, Barriers to care, Unstable Housing, Communication Barriers, Environmental/Work Hazards, Anticipated Course of Care, Toxoplasmosis Precations, Use of Any medications, Sexual activity, Exercise, Dental Care, Sauna/Hot tub use, Seat Belt use, Childbirth classes/Hospital facilities, Travel, Indications for Ultrasound and Screening for Aneuploidy; Discussed Second Trimester Second Trimester: Signs and Symptoms of Labor, Selecting a care provider, Reproductive Life Planning & Contreception, Care Planning, Depression/Anxiety and Intimate Partner Violence; Discussed Tobacco Cessation Third Trimester Third Trimester: Pain Management Plans, Labor support person(s), Immediate Larc, Movement Monitoring, Signs and Symptoms of Preeclampsia and [place] Education Coding Level of Care Code OB Routine Diagnoses Status post fall Z91.81 Hx of hemorrhage, currently O09.299 Supervision of high risk in second trimester O09.92 Trimester: second trimester 30 weeks gestation of Z3A.30 Weeks of gestation: 30 weeks History of miscarriage, currently O09.299 Rh negative state in antepartum period O26.899; Z67.91 Assessment and Plan Assessment and Plan (1) Status post fall: Status: Acute (2) Hx of hemorrhage, currently : Status: Acute (3) Supervision of high-risk : Status: Acute Qualifiers: Trimester: second trimester Qualified Code(s): O09.92 - Supervision of high risk , unspecified, second trimester Comment: PRR, , ANGEL LUIS 03/20/25, JEFFERSON Olvera, Yossi (4) : Status: Acute Qualifiers: Weeks of gestation: 30 weeks Qualified Code(s): Z3A.30 - 30 weeks gestation of Comment: declined NIPT & Carrier testing (5) History of miscarriage, currently : Status: Acute (6) Rh negative state in antepartum period: Status: Acute Comment: rhogam at 28 weeks. Orders: Orders POC Urinalysis 2 Dip (Clinic) Today 01/12/25 1607 <Electronically signed by Graciela Elise DO> Date _ Graciela Dang DO [facility] Signature: Date (if applicable) CC: ~ [facility] Work Phone: 1(174) 659-643708-18-2025 [facility] [address] [place] [address], [address] [place] [address] OFFICE VISIT Date of Service: 12/27/24 MR#: [id number] Acct: [id number] Name: LYNNE PAL Rep #: [id number] : 1995 Provider: FREIDA Cash Age/Sex: 29/F Location: [facility] Status: Signed Intake Vital Signs 10/21/24 08:39 12/17/24 09:43 12/27/24 09:42 Height 5 ft 2 in 5 ft 2 in 5 ft 2 in Weight: 157 lb 3 oz BMI 28.7 BP 103/67 Intake Visit Reasons: 28 WK OB GLUCOSE/RHOGAM Chief Complaint: 28wk OB/Rhogam Open Cut Examiner Required: No Is patient in pain?: No Allergies No Known Allergies Allergy (Verified 12/27/24 09:40) Medications ?Medication ?Instructions ?Recorded ?Confirmed ?Type Lactobacillus acidophilus and 1 cap PO DAILY supplemen t 06/27/22 12/27/24 History rhamnosus 15 billion cell capsule (Probiotic) multivitamin no.47-iron fum 27 1 cap PO DAILY pregnanc y 06/27/22 12/27/24 History mg-folate no.1 1 mg-dha 300 mg capsule (PNV-DHA) Last Menstrual Period: 05/29/24 : No PFSH PFSH Medical History hemorrhage (spontaneous vaginal delivery) History of group B Streptococcus (GBS) infection Pre-conception counseling Breast tenderness in female Non-smoker Surgical History H/O dilation and curettage Hx of wisdom tooth extraction Family History Father Hypertension Social History adopted: No household members: spouse housing: house number of children: 1 current occupational status: employed 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 current occupational exposures/hazards: No pets and animals: No history of recent travel: No ([place]) sexually active: Yes Smoking Status: Never smoker alcohol intake: former details: social- but not while substance use type: does not use well-balanced diet: daily or most days caffeine: No eating out: rarely or never during the past year weight has: other details: had a baby is 7# heavier than prepregnancy what type of physical activity do you participate in: walking and weight training frequency: 3-4 times per week duration: 15-30 minutes/day kenia/evangelical: Sikh seatbelt use: always do you feel safe at home: Yes additional social history: - Yossi- Marketing History 3 Elective abortions Hx Para 1 Spontaneous abortions 1 Hx # Term Pregnancies Ectopic pregnancies Hx # Pregnancies Multiple births # of living children 1 Past Pregnancies Del. Date Name GA/Weeks Outcome Route Bth Weight Infant Gen Labor Lgth Anesthesia Del Locatn Provider FOB Unknown June 2022 miscarriage 8wk 09/15/23 May 40 live - full term 7lbs 4oz Female n one [facility] Destiney Sy Delivery Date: 09/15/23 Last Updated by: Snow Delgado PP hem. HPI 28 WK OB GLUCOSE/RHOGAM Details: LYNNE PAL is a 29 year old who presents for routine OB visit. OB Visit ANGEL LUIS Calculator Estimated Delivery Date Method Current WG Current Estimate 03/20/25 Ultrasound #1 28w 1d Other Estimates 03/05/25 LMP (Certain) 30w 2d Expected Delivery Route/Plan Labor Preferences- CB/BF classes: [] labor support person: [] labor intervention preferences: [] pain management options preferred: [] cut cord/dad catch: [] : [] PP control planned: [] discussed possible routes of delivery and associated risks: [] special requests: [] Specific Issue/Plans Covid status: [] Flu vaccine: [] Tdap vaccine: [] Rhogam: [] LARC form signed: [] Problem list reviewed and updated with the most current plan of care details and appropriate ordersplaced. Relevant counseling for the gestational age provided. Continue routine care and follow up unless otherwise noted in visit notes/problem list details Initial Weight: Not Recorded Date -?-?-?-?-?-?-?-?-?-?-?-?- EGA Weight BP Urine Prot -?-?-?-?-?-?-?-?-?-?-?-?- Glucose FHR FuHt Pres Dilation -?-?-?-?-?-?-?-?-?-?-?-?- Effaced St Visit Note 07/26/24 -?-?-?-?-?-?-?-?-?-?-?-?- 6w 1d 139 lb 4 oz 120/80 -?-?-?-?--?-?-?-?-?-?-?-?- 105 -?-?-?-?-?-?-?-?-?-?-?-?- JV- CRL measurin g 6 weeks 1 day with heart tones. states is 6 weeks by when she calculated ovulation. unsure about nipt or blood type testing of baby (she is rh neg) 08/27/24 -?-?-?-?-?-?-?-?-?-?-?-?- 10w 5d 141 lb 2 oz 110/76 Nega tive -?-?-?-?-?-?-?-?-?-?-?-?- Negative 173 -?-?-?-?-?-?-?-?-?-?-?-?- KW- CRL cons wit h 10.5 weeks. labs today and MFM order placed 09/21/24 -?-?-?-?-?-?-?-?-?-?-?-?- 14w 2d 144 lb 8 oz 119/75 Nega tive -?-?-?-?-?-?-?-?-?-?-?-?- Negative 153 -?-?-?-?-?-?-?-?-?-?-?-?- KW- no vb/crampi ng. US scheduled- 10/26. no concerns KW- no vb/cramping. US sched uled- 10/26. no concerns. declines AFP 10/21/24 -?-?-?-?-?-?-?-?-?-?-?-?- 18w 4d 146 lb 8 oz 116/64 Nega tive -?-?-?-?-?-?-?-?-?-?-?-?- Negative 151 -?-?-?-?-?-?-?-?-?-?-?-?- MH-No VB. Feelin g movement. No concerns 11/19/24 -?-?-?-?-?-?-?-?-?-?-?-?- 22w 5d 154 lb 6 oz 131/73 Nega tive -?-?-?-?-?-?-?-?-?-?-?-?- Negative 155 -?-?-?-?-?-?-?-?-?-?-?-?- KW- no vb/crampi ng. good fm. glucose at 28 week. will do the fresh test. 12/17/24 -?-?-?-?-?-?-?-?-?-?-?-?- 26w 5d 156 lb 2 oz 115/70 Nega tive -?-?-?-?-?-?-?-?-?-?-?-?- Negative 150 26 -?-?-?-?-?-?-?-?-?-?-?-?- KW- no vb/lof/ct x. good fm. glucose and rhogam next visit. LARC today. 12/27/24 -?-?-?-?-?-?-?-?-?-?-?-?- 28w 1d 157 lb 3 oz 103/67 -?-?-?-?-?-?-?-?-?-?-?-?- 155 27 -?-?-?-?-?-?-?-?-?-?-?-?- KW- no vb/lof/ct x. good fm. Missed draw time and will need to redo. Will come in friday for labs and rhogam. declines TDAP today. ACOG First Trimester First Trimester: Desire for , Alcohol, Tobacco Cessation, Illicit/Recreational Drug/Substance Use, Intimate Partner Violence, Barriers to care, Unstable Housing, Communication Barriers, Environmental/Work Hazards, Anticipated Course of Care, Toxoplasmosis Precations, Use of Any med ications, Sexual activity, Exercise, Dental Care, Sauna/Hot tub use, Seat Belt use, Childbirth classes/Hospital facilities, Travel, Indications for Ultrasound and Screening for Aneuploidy; Discussed Second Trimester Second Trimester: Signs and Symptoms of Labor, Selecting a care provider, Reproductive Life Planning & Contreception, Care Planning, Depression/Anxiety and Intimate Partner Violence; Discussed Tobacco Cessation Third Trimester Third Trimester: Pain Management Plans, Labor support person(s), Immediate Larc, Movement Monitoring, Signs and Symptoms of Preeclampsia and [place] Education ROS Const Reports system reviewed and no additional complaints, except as documented Eyes Reports system reviewed and no additional complaints, except as documented ENT Reports system reviewed and no additional complaints, except as documented Card Reports system reviewed and no additional complaints, except as documented Resp Reports system reviewed and no additional complaints, except as documented GI Reports system reviewed and no additional complaints, except as documented, Denies nausea and Denies vomiting Reports system reviewed and no additional complaints, except as documented Musc Reports system reviewed and no additional complaints, except as documented Skin/Breast Reports system reviewed and no additional complaints, except as documented Neuro Yes system reviewed and no additional complaints, except as documented Psych Reports system reviewed and no additional complaints, except as documented Endo Reports system reviewed and no additional complaints, except as documented Jacobo/Lymph Reports system reviewed and no additional complaints, except as documented Aller/Immun Reports system reviewed and no additional complaints, except as documented Exam Const General: cooperative, healthy appearing and no acute distress Orientation: alert, awake and oriented x3 Neck Neck: normal visual inspection and full ROM Resp Effort & Inspection: normal respiratory effort, able to speak in complete sentences and symmetric chest movement GI Inspection: normal to inspection Palpation: soft and other Other: gravid Skin General: no rashes or lesions noted Neuro General: patient alert, patient awake and patient oriented x3 Cognition: normal cognition Speech: speech normal Gait: normal gait Motor: muscle tone normal throughout Extrem General: normal to inspection and full ROM Psych Appearance: grossly normal Mental Status: mental status grossly normal Mood: congruent mood Affect: normal affect Speech and Movement: speech and movement normal Attitude: cooperative Thought Process: normal Thought Content: normal Judgment: judgment good Coding Level of Care Code OB Routine Diagnoses Hx of hemorrhage, currently O09.299 Supervision of high risk in second trimester O09.92 Trimester: second trimester 28 weeks gestation of Z3A.28 Weeks of gestation: 28 weeks History of miscarriage, currently O09.299 Rh negative state in antepartum period O26.899; Z67.91 Assessment and Plan Assessment and Plan (1) Hx of hemorrhage, currently : Status: Acute (2) Supervision of high-risk : Status: Acute Qualifiers: Trimester: second trimester Qualified Code(s): O09.92 - Supervision of high risk , unspecified, second trimester Comment: PRR, , ANGEL LUIS 03/20/25, JEFFERSON Olvera, Yossi (3) : Status: Acute Qualifiers: Weeks of gestation: 28 weeks Qualified Code(s): Z3A.28 - 28 weeks gestation of Comment: declined NIPT & Carrier testing (4) History of miscarriage, currently : Status: Acute (5) Rh negative state in antepartum period: Status: Acute Comment: rhogam at 28 weeks. Orders: Orders POC Urinalysis 2 Dip (Clinic) Today Plan Details Additional Comments: ACOG trimester education reviewed and updated. see problem list details for updated plan management information and see below for orders placed atthis visit. GA appropriate handout given. 12/27/24 0972 s FREIDA> Date Ara Cash CNM Cosigner Signature: Date (if applicable) CC: ~ [facility]08-08-2025 [facility] [address], [address] [place] [address] OFFICE VISIT Date of Service: 12/17/24 MR#: [id number] Acct: [id number] Name: LYNNE PAL Rep #: [id number] : 1995 Provider: FREIDA Cash Age/Sex: 29/F Location: [facility] Status: Signed Intake Vital Signs 10/21/24 08:39 11/19/24 10:06 12/17/24 09:43 Height 5 ft 2 in 5 ft 2 in 5 ft 2 in Weight: 156 lb 2 oz BMI 28.5 BP 115/70 Intake Visit Reasons: 26 WK OB Chief Complaint: 26wk OB Open Cut Examiner Required: No Is patient in pain?: No Allergies No Known Allergies Allergy (Verified 12/17/24 09:41) Medications ?Medication ?Instructions ?Recorded ?Confirmed ?Type Lactobacillus acidophilus and 1 cap PO DAILY supplemen t 06/27/22 12/17/24 History rhamnosus 15 billion cell capsule (Probiotic) multivitamin no.47-iron fum 27 1 cap PO DAILY pregnanc y 06/27/22 12/17/24 History mg-folate no.1 1 mg-dha 300 mg capsule (PNV-DHA) Last Menstrual Period: 05/29/24 : No PFSH PFSH Medical History hemorrhage (spontaneous vaginal delivery) History of group B Streptococcus (GBS) infection Pre-conception counseling Breast tenderness in female Non-smoker Surgical History H/O dilation and curettage Hx of wisdom tooth extraction Family History Father Hypertension Social History adopted: No household members: spouse housing: house number of children: 1 current occupational status: employed 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 current occupational exposures/hazards: No pets and animals: No history of recent travel: No ([place]) sexually active: Yes Smoking Status: Never smoker alcohol intake: former details: social- but not while substance use type: does not use well-balanced diet: daily or most days caffeine: No eating out: rarely or never during the past year weight has: other details: had a baby is 7# heavier than prepregnancy what type of physical activity do you participate in: walking and weight training frequency: 3-4 times per week duration: 15-30 minutes/day kenia/evangelical: Sikh seatbelt use: always do you feel safe at home: Yes additional social history: - Yossi- Marketing History 3 Elective abortions Hx Para 1 Spontaneous abortions 1 Hx # Term Pregnancies Ectopic pregnancies Hx # Pregnancies Multiple births # of living children 1 Past Pregnancies Del. Date Name GA/Weeks Outcome Route Bth Weight Gen Labor Lgth Anes thes ia Del Locatn Provider FOB Unknown June 2022 miscarriage 8wk 09/15/23 May 40 live - full term 7lbs 4oz Female n one [facility] Destiney Lópezrett Delivery Date: 09/15/23 Last Updated by: Snow Delgado PP hem. HPI 26 WK OB Details: LYNNE PAL is a 29 year old who presents for routine OB visit. OB Visit ANGEL LUIS Calculator Estimated Delivery Date Method Current WG Current Estimate 03/20/25 Ultrasound #1 26w 5d Other Estimates 03/05/25 LMP (Certain) 28w 6d Expected Delivery Route/Plan Labor Preferences- CB/BF classes: [] labor support person: [] labor intervention preferences: [] pain management options preferred: [] cut cord/dad catch: [] : [] PP control planned: [] discussed possible routes of delivery and associated risks: [] special requests: [] Specific Issue/Plans Covid status: [] Flu vaccine: [] Tdap vaccine: [] Rhogam: [] LARC form signed: [] Problem list reviewed and updated with the most current plan of care details and appropriate ordersplaced. Relevant counseling for the gestational age provided. Continue routine care and follow up unless otherwise noted in visit notes/problem list details Initial Weight: Not Recorded Date -?-?-?-?-?-?-?-?-?-?-?-?- EGA Weight BP Urine Prot -?-?-?-?-?-?-?-?-?-?-?-?- Glucose FHR FuHt Pres Dilation -?-?-?-?-?-?-?-?-?-?-?-?- Effaced St Visit Note 07/26/24 -?-?-?-?-?-?-?-?-?-?-?-?- 6w 1d 139 lb 4 oz 120/80 -?-?-?-?-?-?-?-?-?-?-?-?- 105 -?-?-?-?-?-?-?-?-?-?-?-?- JV- CRL measurin g 6 weeks 1 day with heart tones. states is 6 weeks by when she calculated ovulation. unsure about nipt or blood type testing of baby (she is rh neg) 08/27/24 -?-?-?-?-?-?-?-?-?-?-?-?- 10w 5d 141 lb 2 oz 110/76 Nega tive -?-?-?-?-?-?-?-?-?-?-?-?- Negative 173 -?-?-?-?-?-?-?--?-?-?-?-?- KW- CRL cons wit h 10.5 weeks. labs today and MFM order placed 09/21/24 -?-?-?-?-?-?-?-?-?-?-?-?- 14w 2d 144 lb 8 oz 119/75 Nega tive -?--?-?-?-?-?-?-?-?-?-?-?- Negative 153 -?-?-?-?-?-?-?-?-?-?-?-?- KW- no vb/crampi ng. US scheduled- 10/26. no concerns KW- no vb/cramping. US sched uled- 10/26. no concerns. declines AFP 10/21/24 -?-?-?-?-?-?-?-?-?-?-?-?- 18w 4d 146 lb 8 oz 116/64 Nega tive -?-?-?-?-?-?-?-?-?-?-?-?- Negative 151 -?-?-?-?-?--?-?-?-?-?-?-?- MH-No VB. Feelin g movement. No concerns 11/19/24 -?-?-?-?-?-?-?-?-?-?-?-?- 22w 5d 154 lb 6 oz 131/73 Nega tive -?-?-?-?-?-?-?-?-?-?-?-?- Negative 155 -?-?-?-?-?-?-?-?-?-?-?-?- KW- no vb/crampi ng. good fm. glucose at 28 week. will do the fresh test. 12/17/24 -?-?-?-?-?-?-?-?-?-?-?-?- 26w 5d 156 lb 2 oz 115/70 Nega tive -?-?-?-?-?-?-?-?-?-?-?-?- Negative 150 26 -?-?-?-?-?-?-?-?-?-?-?-?- KW- no vb/lof/ct x. good fm. glucose and rhogam next visit. LARC today. ACOG First Trimester First Trimester: Desire for , Alcohol, Tobacco Cessation, Illicit/Recreational Drug/Substance Use, Intimate Partner Violence, Barriers to care, Unstable Housing, Communication Barriers, Environmental/Work Hazards, Anticipated Course of Care, Toxoplasmosis Precations, Use of Any med ications, Sexual activity, Exercise, Dental Care, Sauna/Hot tub use, Seat Belt use, Childbirth classes/Hospital facilities, Travel, Indications for Ultrasound and Screening for Aneuploidy; Discussed Second Trimester Second Trimester: Signs and Symptoms of Labor, Selecting a care provider, Reproductive Life Planning & Contreception, Care Planning, Depression/Anxiety and Intimate Partner Violence; Discussed Tobacco Cessation Third Trimester Third Trimester: Pain Management Plans, Labor support person(s), Immediate Larc, Movement Monitoring, Signs and Symptoms of Preeclampsia and Education ROS Const Reports system reviewed and no additional complaints, except as documented Eyes Reports system reviewed and no additional complaints, except as documented ENT Reports system reviewed and no additional complaints, except as documented Card Reports system reviewed and no additional complaints, except as documented Resp Reports system reviewed and no additional complaints, except as documented GI Reports system reviewed and no additional complaints, except as documented, Denies nausea and Denies vomiting Reports system reviewed and no additional complaints, except as documented Musc Reports system reviewed and no additional complaints, except as documented Skin/Breast Reports system reviewed and no additional complaints, except as documented Neuro Yes system reviewed and no additional complaints, except as documented Psych Reports system reviewed and no additional complaints, except as documented Endo Reports system reviewed and no additional complaints, except as documented Jacobo/Lymph Reports system reviewed and no additional complaints, except as documented Aller/Immun Reports system reviewed and no additional complaints, except as documented Exam Const General: cooperative, healthy appearing and no acute distress Orientation: alert, awake and oriented x3 Neck Neck: normal visual inspection and full ROM Resp Effort & Inspection: normal respiratory effort, able to speak in complete sentences and symmetric chest movement GI Inspection: normal to inspection Palpation: soft and other Other: gravid Skin General: no rashes or lesions noted Neuro General: patient alert, patient awake and patient oriented x3 Cognition: normal cognition Speech: speech normal Gait: normal gait Motor: muscle tone normal throughout Extrem General: normal to inspection and full ROM Psych Appearance: grossly normal Mental Status: mental status grossly normal Mood: congruent mood Affect: normal affect Speech and Movement: speech and movement normal Attitude: cooperative Thought Process: normal Thought Content: normal Judgment: judgment good Results POC Urinalysis 2 Dip (Clinic) Office Urine Glucose Negative Last Edit by Nika Dubon on 12/17/24 09:51 Office Urine Protein Negative Last Edit by Nika Dubon on 12/17/24 09:51 Coding Level of Care Code OB Routine Diagnoses Hx of hemorrhage, currently O09.299 Supervision of high risk in second trimester O09.92 Trimester: second trimester 26 weeks gestation of Z3A.26 Weeks of gestation: 26 weeks History of miscarriage, currently O09.299 Rh negative state in antepartum period O26.899; Z67.91 Assessment and Plan Assessment and Plan (1) Hx of hemorrhage, currently : Status: Acute (2) Supervision of high-risk : Status: Acute Qualifiers: Trimester: second trimester Qualified Code(s): O09.92 - Supervision of high risk , unspecified, second trimester Comment: PRR, , ANGEL LUIS 03/20/25, PC May, Yossi (3) : Status: Acute Qualifiers: Weeks of gestation: 26 weeks Qualified Code(s): Z3A.26 - 26 weeks gestation of Comment: declined NIPT & Carrier testing (4) History of miscarriage, currently : Status: Acute (5) Rh negative state in antepartum period: Status: Acute Comment: rhogam at 28 weeks. Orders: Orders CBC W/Diff, Automated 12/10/24 O09.92 - Supervision of high risk , unspecified, second trimester, O26.899 - Other specified related conditions, unspecified trimester, Z67.91 - Unspecified blood type, Rh negative Type & Screen 12/10/24 O09.92 - Supervision of high risk , unspecified, second trimester, O26.899 - Other specified related conditions, unspecified trimester, Z67.91 - Unspecified blood type, Rh negative Glucose Challenge Gest 1H 50g 12/10/24 O09.92 - Supervision of high risk , unspecified, second trimester, O26.899 - Other specified related conditions, unspecified trimester, Z13.1- Encounter for screening for diabetes mellitus, Z67.91 - Unspecified blood type, Rh negative HIV 12/10/24 O09.92 - Supervision of high risk , unspecified, second trimester, O26.899 - Other specified related conditions, unspecified trimester, Z67.91 - Unspecified blood type, Rh negative Syphilis Antibodies 12/10/24 O09.92 - Supervision of high risk , unspecified, second trimester, O26.899 - Other specified related conditions, unspecified trimester, Z67.91 - Unspecified blood type, Rh negative Rho(D) Immune Globulin RhoGam 12/10/24 O09.92 - Supervision of high risk , unspecified, second trimester, O26.899 - Other specified related conditions, unspecified trimester, Z67.91 - Unspecified blood type, Rh negative POC Urinalysis 2 Dip (Clinic) Today Plan Details Additional Comments: ACOG trimester education reviewed and updated. see problem list details for updated plan management information and see below for orders placed atthis visit. [place] appropriate handout given. 12/17/24 1007 s CNM> Date _ Camacho Galaviz Signature: Date (if applicable) CC: ~ [facility]07-11-2025 [facility] [address] [place] [address], [address] [place] [address] OFFICE VISIT Date of Service: 11/19/24 MR#: [id number] Acct: [id number] Name: LYNNE PAL Rep #: [id number] : 1995 Provider: FREIDA Cash Age/Sex: 29/F [place] [facility] [place] Status: Signed Intake Vital Signs 09/21/24 15:40 10/21/24 08:39 11/19/24 10:06 Height 5 ft 2 in 5 ft 2 in 5 ft 2 in Weight: 154 lb 6 oz BMI 28.2 BP 131/73 H Intake Visit Reasons: 22 wk ob Open Cut Examiner Required: No Is patient in pain?: No Allergies No Known Allergies Allergy (Verified 11/19/24 10:06) Medications ?Medication ?Instructions ?Recorded ?Confirmed ?Type Lactobacillus acidophilus and 1 cap PO DAILY supplemen t 06/27/22 11/19/24 History rhamnosus 15 billion cell capsule (Probiotic) multivitamin no.47-iron fum 27 1 cap PO DAILY pregnanc y 06/27/22 11/19/24 History mg-folate no.1 1 mg-dha 300 mg capsule (PNV-DHA) Last Menstrual Period: 05/29/24 Zika: Zika virus screening: Negative : No Have you fallen in the past year?: No PFSH PFSH Medical History hemorrhage (spontaneous vaginal delivery) History of group B Streptococcus (GBS) infection Pre-conception counseling Breast tenderness in female Non-smoker Surgical History H/O dilation and curettage Hx of wisdom tooth extraction Family History Father Hypertension Social History adopted: No household members: spouse housing: house number of children: 1 current occupational status: employed 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 current occupational exposures/hazards: No pets and animals: No history of recent travel: No ([place]) sexually active: Yes Smoking Status: Never smoker alcohol intake: former details: social- but not while substance use type: does not use well-balanced diet: daily or most days caffeine: No eating out: rarely or never during the past year weight has: other details: had a baby is 7# heavier than prepregnancy what type of physical activity do you participate in: walking and weight training frequency: 3-4 times per week duration: 15-30 minutes/day kenia/evangelical: Sikh seatbelt use: always do you feel safe at home: Yes additional social history: - Yossi- Marketing History 3 Elective abortions Hx Para 1 Spontaneous abortions 1 Hx # Term Pregnancies Ectopic pregnancies Hx # Pregnancies Multiple births # of living children 1 Past Pregnancies Del. Date Name GA/Weeks Outcome Route Bth Weight Infant Gen Labor Lgth Anesthesia Del Locatn Provider FOB Unknown June 2022 miscarriage 8wk 09/15/23 May 40 live - full term 7lbs 4oz Female n one [facility] Destiney Lópezrett Delivery Date: 09/15/23 Last Updated by: Snow Delgado PP hem. HPI 22 wk ob Details: LYNNE PAL is a 29 year old who presents for routine OB visit. OB Visit ANGEL LUIS Calculator Estimated Delivery Date Method Current WG Current Estimate 03/20/25 Ultrasound #1 22w 5d Other Estimates 03/05/25 LMP (Certain) 24w 6d Expected Delivery Route/Plan Labor Preferences- CB/BF classes: [] labor support person: [] labor intervention preferences: [] pain management options preferred: [] cut cord/dad catch: [] : [] PP control planned: [] discussed possible routes of delivery and associated risks: [] special requests: [] Specific Issue/Plans Covid status: [] Flu vaccine: [] Tdap vaccine: [] Rhogam: [] LARC form signed: [] Problem list reviewed and updated with the most current plan of care details and appropriate ordersplaced. Relevant counseling for the gestational age provided. Continue routine care and follow up unless otherwise noted in visit notes/problem list details Initial Weight: Not Recorded Date -?-?-?-?-?-?-?-?-?-?-?-?- EGA Weight BP Urine Prot -?-?-?-?-?-?-?-?-?-?-?-?- Glucose FHR FuHt Pres Dilation -?-?-?-?-?-?-?-?-?-?-?-?- Effaced St Visit Note 07/26/24 -?-?-?-?-?-?-?-?-?-?-?-?- 6w 1d 139 lb 4 oz 120/80 -?-?-?-?-?-?-?-?-?-?-?-?- 105 -?-?-?-?-?-?-?-?-?-?-?-?- JV- CRL measurin g 6 weeks 1 day with heart tones. states is 6 weeks by when she calculated ovulation. unsure about nipt or blood type testing of baby (she is rh neg) 08/27/24 -?-?-?-?-?-?-?-?-?-?-?-?- 10w 5d 141 lb 2 oz 110/76 Nega tive -?-?-?-?-?-?-?-?-?-?-?-?- Negative 173 -?-?-?-?-?-?-?-?-?-?-?-?- KW- CRL cons wit h 10.5 weeks. labs today and MFM order placed 09/21/24 -?-?-?-?-?-?--?-?-?-?-?-?- 14w 2d 144 lb 8 oz 119/75 Nega tive -?-?-?-?-?-?-?-?-?-?-?-?- Negative 153 -?-?-?-?-?-?-?-?-?-?-?-?- KW- no vb/johnny ng. US scheduled- 10/26. no concerns KW- no vb/cramping. US sched uled- 10/26. no concerns. declines AFP 10/21/24 -?-?-?-?-?-?-?-?-?-?-?-?- 18w 4d 146 lb 8 oz 116/64 Nega tive -?-?-?-?-?-?-?-?-?-?-?-?- Negative 151 -?-?-?-?-?-?-?-?-?-?-?-?- MH-No VB. Feelin g movement. No concerns 11/19/24 -?-?-?-?-?-?-?-?-?-?-?-?- 22w 5d 154 lb 6 oz 131/73 Nega tive -?-?-?-?-?-?-?-?-?-?-?-?- Negative 155 -?-?-?-?-?-?-?-?-?-?-?-?- KW- no vb/crampi ng. good fm. glucose at 28 week. will do the fresh test. ACOG First Trimester First Trimester: Desire for , Alcohol, Tobacco Cessation, Illicit/Recreational Drug/Substance Use, Intimate Partner Violence, Barriers to care, Unstable Housing, Communication Barriers, Environmental/Work Hazards, Anticipated Course of Care, Toxoplasmosis Precations, Use of Any med ications, Sexual activity, Exercise, Dental Care, Sauna/Hot tub use, Seat Belt use, Childbirth classes/Hospital facilities, Travel, Indications for Ultrasound and Screening for Aneuploidy; Discussed Second Trimester Second Trimester: Signs and Symptoms of Labor, Selecting a care provider, Reproductive Life Planning & Contreception, Care Planning, Depression/Anxiety and Intimate Partner Violence; Discussed Tobacco Cessation Third Trimester Third Trimester: Pain Management Plans, Labor support person(s), Immediate Larc, Movement Monitoring, Signs and Symptoms of Preeclampsia and [place] Education ROS Const Reports system reviewed and no additional complaints, except as documented Eyes Reports system reviewed and no additional complaints, except as documented ENT Reports system reviewed and no additional complaints, except as documented Card Reports system reviewed and no additional complaints, except as documented Resp Reports system reviewed and no additional complaints, except as documented GI Reports system reviewed and no additional complaints, except as documented, Denies nausea and Denies vomiting Reports system reviewed and no additional complaints, except as documented Musc Reports system reviewed and no additional complaints, except as documented Skin/Breast Reports system reviewed and no additional complaints, except as documented Neuro Yes system reviewed and no additional complaints, except as documented Psych Reports system reviewed and no additional complaints, except as documented Endo Reports system reviewed and no additional complaints, except as documented Jacobo/Lymph Reports system reviewed and no additional complaints, except as documented Aller/Immun Reports system reviewed and no additional complaints, except as documented Exam Const General: cooperative, healthy appearing and no acute distress Orientation: alert, awake and oriented x3 Neck Neck: normal visual inspection and full ROM Resp Effort & Inspection: normal respiratory effort, able to speak in complete sentences and symmetric chest movement GI Inspection: normal to inspection Palpation: soft and other Other: gravid Skin General: no rashes or lesions noted Neuro General: patient alert, patient awake and patient oriented x3 Cognition: normal cognition Speech: speech normal Gait: normal gait Motor: muscle tone normal throughout Extrem General: normal to inspection and full ROM Psych Appearance: grossly normal Mental Status: mental status grossly normal Mood: congruent mood Affect: normal affect Speech and Movement: speech and movement normal Attitude: cooperative Thought Process: normal Thought Content: normal Judgment: judgment good Results POC Urinalysis 2 Dip (Clinic) Office Urine Glucose Negative Last Edit by Alondra Weldon on 11/19/24 10:15 Office Urine Protein Negative Last Edit by Alondra Weldon on 11/19/24 10:15 Coding Level of Care Code OB Routine Diagnoses Hx of hemorrhage, currently O09.299 Supervision of high risk in second trimester O09.92 Trimester: second trimester 22 weeks gestation of Z3A.22 Weeks of gestation: 22 weeks History of miscarriage, currently O09.299 Rh negative state in antepartum period O26.899; Z67.91 Assessment and Plan Assessment and Plan (1) Hx of hemorrhage, currently : Status: Acute (2) Supervision of high-risk : Status: Acute Qualifiers: Trimester: second trimester Qualified Code(s): O09.92 - Supervision of high risk , unspecified, second trimester Comment: PRR, , ANGLE LUIS 03/20/25, PC May, Yossi (3) : Status: Acute Qualifiers: Weeks of gestation: 22 weeks Qualified Code(s): Z3A.22 - 22 weeks gestation of Comment: declined NIPT & Carrier testing (4) History of miscarriage, currently : Status: Acute (5) Rh negative state in antepartum period: Status: Acute Comment: rhogam at 28 weeks. Orders: Orders POC Urinalysis 2 Dip (Clinic) Today Plan Details Additional Comments: ACOG trimester education reviewed and updated. see problem list details for updated plan management information and see below for orders placed atthis visit. [place] appropriate handout given. Clinical Quality Measures Falls Risk Screening/Assistive Devices Have you fallen in the past year?: No 11/19/24 1043 s DORAM> Date _ Camacho Cash CNM Cosigner Signature: Date (if applicable) CC: ~ [facility]06-12-2025 Evaluation note* Diagnosis Onset Date Resolution Status Admit Date History of miscarriage, currently acute October 21 8:37am Hx of hemorrhage, currently acute October 21 8:37am acute October 21 8:37am Rh negative state in antepartum period acute October 21 8:37am Supervision of high-risk acute 2024 8:37am History of miscarriage, currently acute November 19 10:04am Hx of hemorrhage, currently acute November 19 10:04am acute November 19 10:04am Rh negative state in antepartum period acute November 19 10:04am Supervision of high-risk acute November 19, 2024 10:04am History of miscarriage, currently acute December 17 9:40am Hx of hemorrhage, currently acute December 17 025 9:40am acute December 17 9:40am Rh negative state in antepartum period acute December 17 9:40am Supervision of high-risk acute December 17, 2024 9:40am History of miscarriage, currently acute December 27, 2024 9:37am Hx of hemorrhage, currently acute December 27, 2024 9:37am acute December 27, 2 025 9:37am Rh negative state in antepartum period acute December 27, 2 025 9:37am Supervision of high-risk acute December 27 9:37am History of miscarriage, currently acute December 31, 2024 8:57am Hx of hemorrhage, currently acute December 31, 2024 8:57am acute December 31, 2 025 8:57am Rh negative state in antepartum period acute December 31 025 8:57am Supervision of high-risk acute December 31 8:57am History of miscarriage, currently acute January 05, 2025 9:00am Hx of hemorrhage, currently acute January 05, 2025 9:00am acute January 05, 025 9:00am Rh negative state in antepartum period acute January 05 025 9:00am Status post fall acute December 112024 9:00am Supervision of high-risk acute January 05 9:00am History of miscarriage, currently acute January 3:35pm Hx of hemorrhage, currently acute January 3:35pm acute January 12, 2025 3:35pm Rh negative state in antepartum period acute January 12, 2025 3:35pm Status post fall acute 2024 3:35pm Supervision of high-risk acute January 12 3:35pm History of miscarriage, currently acute January 9:09am Hx of hemorrhage, currently acute January 9:09am acute January 9:09am Rh negative state in antepartum period acute January 9:09am Status post fall acute Septembe r 2024 9:09am Supervision of high-risk acute January 28, 2025 9:09am [facility] Work Phone: 1(931) 128-910906-12-2025 Evaluation note* Diagnosis Onset Date Resolution Status Admit Date History of miscarriage, currently acute October 21 8:37am Hx of hemorrhage, currently acute October 21 8:37am acute October 21 8:37am Rh negative state in antepartum period acute October 21 8:37am Supervision of high-risk acute 2024 8:37am History of miscarriage, currently acute November 19 10:04am Hx of hemorrhage, currently acute November 19 10:04am acute November 19 10:04am Rh negative state in antepartum period acute November 19 10:04am Supervision of high-risk acute November 19, 2024 10:04am History of miscarriage, currently acute December 17, 025 9:40am Hx of hemorrhage, currently acute December 17, 025 9:40am acute December 17 9:40am Rh negative state in antepartum period acute December 17 9:40am Supervision of high-risk acute December 17, 2024 9:40am History of miscarriage, currently acute December 27, 2024 9:37am Hx of hemorrhage, currently acute December 27, 2024 9:37am acute December 27, 2 025 9:37am Rh negative state in antepartum period acute December 27, 025 9:37am Supervision of high-risk acute December 27 9:37am History of miscarriage, currently acute December 31, 2024 8:57am Hx of hemorrhage, currently acute December 31, 2024 8:57am acute December 31, 2 025 8:57am Rh negative state in antepartum period acute December 31, 2 025 8:57am Supervision of high-risk acute December 31 8:57am History of miscarriage, currently acute January 05, 2025 9:00am Hx of hemorrhage, currently acute January 05, 2025 9:00am acute January 05, 2 025 9:00am Rh negative state in antepartum period acute January 05, 2 025 9:00am Status post fall acute December 112024 9:00am Supervision of high-risk acute January 05 9:00am History of miscarriage, currently acute January 3:35pm Hx of hemorrhage, currently acute January 3:35pm acute January 12, 2025 3:35pm Rh negative state in antepartum period acute January 12, 2025 3:35pm Status post fall acute Septembe 2024 3:35pm Supervision of high-risk acute January 12, 2 025 3:35pm History of miscarriage, currently acute January 9:09am Hx of hemorrhage, currently acute January 9:09am acute January 9:09am Rh negative state in antepartum period acute January 9:09am Status post fall acute Septembe r 2024 9:09am Supervision of high-risk acute January 28, 2025 9:09am History of miscarriage, currently acute February 11, 2025 3:53pm Hx of hemorrhage, currently acute February 11, 2025 3:53pm acute February 11, 025 3:53pm Rh negative state in antepartum period acute February 11 025 3:53pm Status post fall acute February 11, 2025 3:53pm Supervision of high-risk acute February 11 3:53pm [facility] Work Phone: 1(620) 759-232106-12-2025 [facility] [address] [place] [address], [address] [place] [address] OFFICE VISIT Date of Service: 10/21/24 MR#: [id number] Acct: [id number] Name: LYNNE PAL Rep #: [id number] : 1995 Provider: SHANNA Willson Age/Sex: 29/F Location: [facility] [place] Status: Signed Intake Vital Signs 07/26/24 10:30 09/21/24 15:40 10/21/24 08:39 Height 5 ft 2 in 5 ft 2 in 5 ft 2 in Weight: 146 lb 8 oz BMI 26.8 BP 116/64 Intake Visit Reasons: 18wk ob Chief Complaint: 18 Week OB Open Cut Examiner Required: No Is patient in pain?: No Allergies No Known Allergies Allergy (Verified 06/12/25 08:41) Medications ?Medication ?Instructions ?Recorded ?Confirmed ?Type Lactobacillus acidophilus and 1 cap PO DAILY supplemen t 06/27/22 10/21/24 History rhamnosus 15 billion cell capsule (Probiotic) multivitamin no.47-iron fum 27 1 cap PO DAILY pregnanc y 06/27/22 10/21/24 History mg-folate no.1 1 mg-dha 300 mg capsule (PNV-DHA) Last Menstrual Period: 05/29/24 Zika: Zika virus screening: Negative : No PFSH PFSH Medical History hemorrhage (spontaneous vaginal delivery) History of group B Streptococcus (GBS) infection Pre-conception counseling Breast tenderness in female Non-smoker Surgical History H/O dilation and curettage Hx of wisdom tooth extraction Family History Father Hypertension Social History adopted: No household members: spouse housing: house number of children: 1 current occupational status: employed 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 current occupational exposures/hazards: No pets and animals: No history of recent travel: No ([place]) sexually active: Yes Smoking Status: Never smoker alcohol intake: former details: social- but not while substance use type: does not use well-balanced diet: daily or most days caffeine: No eating out: rarely or never during the past year weight has: other details: had a baby is 7# heavier than prepregnancy what type of physical activity do you participate in: walking and weight training frequency: 3-4 times per week duration: 15-30 minutes/day kenia/evangelical: Sikh seatbelt use: always do you feel safe at home: Yes additional social history: - Yossi- Marketing History 3 Elective abortions Hx Para 1 Spontaneous abortions 1 Hx # Term Pregnancies Ectopic pregnancies Hx # Pregnancies Multiple births # of living children 1 Past Pregnancies Del. Date Name GA/Weeks Outcome Route Bth Weight Infant Gen Labor Lgth Anesthesia Del Locatn Provider FOB Unknown June 2022 miscarriage 8wk 09/15/23 May 40 live - full term 7lbs 4oz Female n one [facility] Destiney Cano Yossi Delivery Date: 09/15/23 Last Updated by: Snow Delgado PP hem. HPI 18wk ob Details: LYNNE PAL is a 29 year old who presents for routine OB visit. OB Visit ANGEL LUIS Calculator Estimated Delivery Date Method Current WG Current Estimate 03/20/25 Ultrasound #1 18w 4d Other Estimates 03/05/25 LMP (Certain) 20w 5d Expected Delivery Route/Plan Labor Preferences- CB/BF classes: [] labor support person: [] labor intervention preferences: [] pain management options preferred: [] cut cord/dad catch: [] : [] PP control planned: [] discussed possible routes of delivery and associated risks: [] special requests: [] Specific Issue/Plans Covid status: [] Flu vaccine: [] Tdap vaccine: [] Rhogam: [] LARC form signed: [] Problem list reviewed and updated with the most current plan of care details and appropriate ordersplaced. Relevant counseling for the gestational age provided. Continue routine care and follow up unless otherwise noted in visit notes/problem list details Initial Weight: Not Recorded Date -?-?-?-?-?-?-?-?-?-?-?-?- EGA Weight BP Urine Prot -?-?-?-?-?-?-?-?-?-?-?-?- Glucose FHR FuHt Pres Dilation -?-?-?-?-?-?-?-?-?-?-?-?- Effaced St Visit Note 07/26/24 -?-?-?-?-?-?-?-?-?-?-?-?- 6w 1d 139 lb 4 oz 120/80 -?-?-?-?-?-?-?-?-?-?-?-?- 105 -?-?-?-?-?-?-?-?-?-?-?-?- JV- CRL measurin g 6 weeks 1 day with heart tones. states is 6 weeks by when she calculated ovulation. unsure about nipt or blood type testing of baby (she is rh neg) 08/27/24 -?-?-?-?-?-?-?-?-?-?-?-?- 10w 5d 141 lb 2 oz 110/76 Nega tive -?-?-?-?-?-?-?-?-?-?-?-?- Negative 173 -?-?-?-?-?-?-?-?-?-?-?-?- KW- CRL cons wit h 10.5 weeks. labs today and MFM order placed 09/21/24 -?-?-?-?--?-?-?-?-?-?-?-?- 14w 2d 144 lb 8 oz 119/75 Nega tive -?-?-?-?-?-?-?-?-?-?-?-?- Negative 153 -?-?-?-?-?-?-?-?-?-?-?-?- KW- no vb/crampi ng. US scheduled- 10/26. no concerns KW- no vb/cramping. US sched uled- 10/26. no concerns. declines AFP 10/21/24 -?-?-?-?-?-?-?-?-?-?-?-?- 18w 4d 146 lb 8 oz 116/64 Nega tive -?-?-?-?-?-?-?-?-?-?-?-?- Negative 151 -?-?-?-?-?-?-?-?-?-?-?-?- MH-No VB. Feelin g movement. No concerns ACOG First Trimester First Trimester: Desire for , Alcohol, Tobacco Cessation, Illicit/Recreational Drug/Substance Use, Intimate Partner Violence, Barriers to care, Unstable Housing, Communication Barriers, Environmental/Work Hazards, Anticipated Course of Care, Toxoplasmosis Precations, Use of Any med ications, Sexual activity, Exercise, Dental Care, Sauna/Hot tub use, Seat Belt use, Childbirth classes/Hospital facilities, Travel, Indications for Ultrasound and Screening for Aneuploidy; Discussed Second Trimester Second Trimester: Signs and Symptoms of Labor, Selecting a care provider, Reproductive Life Planning & Contreception, Care Planning, Depression/Anxiety and Intimate Partner Violence; Discussed Tobacco Cessation Third Trimester Third Trimester: Pain Management Plans, Labor support person(s), Immediate Larc, Movement Monitoring, Signs and Symptoms of Preeclampsia and Education ROS Const Reports system reviewed and no additional complaints, except as documented GI Denies abdominal pain, Denies nausea and Denies vomiting Exam Const General: cooperative Nutritional Appearance: well nourished GI Palpation: soft, nontender and other (gravid) Results POC Urinalysis 2 Dip (Clinic) Office Urine Glucose Negative Last Edit by Padmaja Crabtree on 10/21/24 08 :44 Office Urine Protein Negative Last Edit by Padmaja Crabtree on 10/21/24 08 :44 Coding Level of Care Code OB Routine Diagnoses Supervision of high risk in second trimester O09.92 Trimester: second trimester 18 weeks gestation of Z3A.18 Weeks of gestation: 18 weeks Hx of hemorrhage, currently O09.299 History of miscarriage, currently O09.299 Rh negative state in antepartum period O26.899; Z67.91 Assessment and Plan Assessment and Plan (1) Supervision of high-risk : Status: Acute Qualifiers: Trimester: second trimester Qualified Code(s): O09.92 - Supervision of high risk , unspecified, second trimester Comment: PRR, , ANGEL LUIS 03/20/25, JEFFERSON Olvera, Yossi (2) : Status: Acute Qualifiers: Weeks of gestation: 18 weeks Qualified Code(s): Z3A.18 - 18 weeks gestation of Comment: declined NIPT & Carrier testing (3) Hx of hemorrhage, currently : Status: Acute (4) History of miscarriage, currently : Status: Acute (5) Rh negative state in antepartum period: Status: Acute Comment: rhogam at 28 weeks. Orders: Orders POC Urinalysis 2 Dip (Clinic) Today Plan problem list reviewed and updated for most current plan of care and appropriate orders placed. Relevant counseling for the gestational age appropriate provided and ACOG education checklist updated. Continue routine care and follow up. 10/21/24 0854 s WORLD LANGUAGE TEACHER WORLD LANGUAGE TEACHER-C> Date _ Sharifa Willson WORLD LANGUAGE TEACHER WORLD LANGUAGE TEACHER-C Cosigner Signature: Date (if applicable) CC: ~ [facility]05-13-2025 Evaluation note* Diagnosis Onset Date Resolution Status Admit Date History of miscarriage, currently acute September 21 3:36pm Hx of hemorrhage, currently acute September 21 3:36pm acute September 21, 2024 3:36pm Rh negative state in antepartum period acute September 21, 2024 3:36pm Supervision of high-risk acute September 21, 2024 3 :36pm Early stage of deleted September 21, 2024 3:36pm History of miscarriage, currently acute October 21 8:37am Hx of hemorrhage, currently acute October 21 8:37am acute October 21 8:37am Rh negative state in antepartum period acute October 21 8:37am Supervision of high-risk acute 2024 8:37am History of miscarriage, currently acute November 19 10:04am Hx of hemorrhage, currently acute November 19 10:04am acute November 19 10:04am Rh negative state in antepartum period acute November 19 10:04am Supervision of high-risk acute November 19, 2024 10:04am History of miscarriage, currently acute December 17, 9:40am Hx of hemorrhage, currently acute December 17, 025 9:40am acute December 17 9:40am Rh negative state in antepartum period acute December 17 9:40am Supervision of high-risk acute December 17, 2024 9:40am History of miscarriage, currently acute December 27, 2024 9:37am Hx of hemorrhage, currently acute December 27, 2024 9:37am acute December 27, 025 9:37am Rh negative state in antepartum period acute December 27, 025 9:37am Supervision of high-risk acute December 27 9:37am [facility] Work Phone: 1(637) 441-946105-13-2025 Evaluation note* Diagnosis Onset Date Resolution Status Admit Date History of miscarriage, currently acute September 21 3:36pm Hx of hemorrhage, currently acute September 21 3:36pm acute September 21, 2024 3:36pm Rh negative state in antepartum period acute September 21, 2024 3:36pm Supervision of high-risk acute September 21, 2024 3 :36pm Early stage of deleted September 21, 2024 3:36pm History of miscarriage, currently acute October 21 8:37am Hx of hemorrhage, currently acute October 21 8:37am acute October 21 8:37am Rh negative state in antepartum period acute October 21 8:37am Supervision of high-risk acute 2024 8:37am History of miscarriage, currently acute November 19 10:04am Hx of hemorrhage, currently acute November 19 10:04am acute November 19 10:04am Rh negative state in antepartum period acute November 19 10:04am Supervision of high-risk acute November 19, 2024 10:04am History of miscarriage, currently acute December 17 9:40am Hx of hemorrhage, currently acute December 17, 025 9:40am acute December 17 9:40am Rh negative state in antepartum period acute December 17 9:40am Supervision of high-risk acute December 17, 2024 9:40am History of miscarriage, currently acute December 27, 2024 9:37am Hx of hemorrhage, currently acute December 27, 2024 9:37am acute December 27, 025 9:37am Rh negative state in antepartum period acute December 27, 025 9:37am Supervision of high-risk acute December 27 9:37am History of miscarriage, currently acute December 31, 2024 8:57am Hx of hemorrhage, currently acute December 31, 2024 8:57am acute December 31, 025 8:57am Rh negative state in antepartum period acute December 31, 025 8:57am Supervision of high-risk acute December 31 8:57am [facility] Work Phone: 1(517) 323-634405-13-2025 Evaluation note* Diagnosis Onset Date Resolution Status Admit Date History of miscarriage, currently acute September 21 3:36pm Hx of hemorrhage, currently acute September 21 3:36pm acute September 21, 2024 3:36pm Rh negative state in antepartum period acute September 21, 2024 3:36pm Supervision of high-risk acute September 21, 2024 3 :36pm Early stage of deleted September 21, 2024 3:36pm History of miscarriage, currently acute October 21 8:37am Hx of hemorrhage, currently acute October 21 8:37am acute October 21 8:37am Rh negative state in antepartum period acute October 21 8:37am Supervision of high-risk acute 2024 8:37am History of miscarriage, currently acute November 19 10:04am Hx of hemorrhage, currently acute November 19 10:04am acute November 19 10:04am Rh negative state in antepartum period acute November 19 10:04am Supervision of high-risk acute November 19, 2024 10:04am History of miscarriage, currently acute December 17 9:40am Hx of hemorrhage, currently acute December 17, 025 9:40am acute December 17 9:40am Rh negative state in antepartum period acute December 17 9:40am Supervision of high-risk acute December 17, 2024 9:40am History of miscarriage, currently acute December 27, 2024 9:37am Hx of hemorrhage, currently acute December 27, 2024 9:37am acute December 27, 2 025 9:37am Rh negative state in antepartum period acute December 27 025 9:37am Supervision of high-risk acute December 27 9:37am History of miscarriage, currently acute December 31, 2024 8:57am Hx of hemorrhage, currently acute December 31, 2024 8:57am acute December 31, 2 025 8:57am Rh negative state in antepartum period acute December 31, 025 8:57am Supervision of high-risk acute December 31 8:57am History of miscarriage, currently acute January 05, 2025 9:00am Hx of hemorrhage, currently acute January 05, 2025 9:00am acute January 05, 2 025 9:00am Rh negative state in antepartum period acute January 05, 2 025 9:00am Status post fall acute December 112024 9:00am Supervision of high-risk acute January 05 9:00am [facility] Work Phone: 1(143) 767-747305-13-2025 Evaluation note* Diagnosis Onset Date Resolution Status Admit Date History of miscarriage, currently acute September 21 3:36pm Hx of hemorrhage, currently acute September 21 3:36pm acute September 21, 2024 3:36pm Rh negative state in antepartum period acute September 21, 2024 3:36pm Supervision of high-risk acute September 21, 2024 3 :36pm Early stage of deleted September 21, 2024 3:36pm History of miscarriage, currently acute October 21 8:37am Hx of hemorrhage, currently acute October 21 8:37am acute October 21 8:37am Rh negative state in antepartum period acute October 21 8:37am Supervision of high-risk acute 2024 8:37am History of miscarriage, currently acute November 19 10:04am Hx of hemorrhage, currently acute November 19 10:04am acute November 19 10:04am Rh negative state in antepartum period acute November 19 10:04am Supervision of high-risk acute November 19, 2024 10:04am History of miscarriage, currently acute December 17, 025 9:40am Hx of hemorrhage, currently acute December 17, 9:40am acute December 17 9:40am Rh negative state in antepartum period acute December 17 9:40am Supervision of high-risk acute December 17, 2024 9:40am History of miscarriage, currently acute December 27, 2024 9:37am Hx of hemorrhage, currently acute December 27, 2024 9:37am acute December 27 025 9:37am Rh negative state in antepartum period acute December 27 025 9:37am Supervision of high-risk acute December 27 9:37am History of miscarriage, currently acute December 31, 2024 8:57am Hx of hemorrhage, currently acute December 31, 2024 8:57am acute December 31 025 8:57am Rh negative state in antepartum period acute December 31 8:57am Supervision of high-risk acute December 31 8:57am History of miscarriage, currently acute January 05, 2025 9:00am Hx of hemorrhage, currently acute January 05, 2025 9:00am acute January 05, 025 9:00am Rh negative state in antepartum period acute January 05 9:00am Status post fall acute December 112024 9:00am Supervision of high-risk acute January 05 9:00am History of miscarriage, currently acute January 3:35pm Hx of hemorrhage, currently acute January 3:35pm acute January 12, 2025 3:35pm Rh negative state in antepartum period acute January 12, 2025 3:35pm Status post fall acute 2024 3:35pm Supervision of high-risk acute January 12 3:35pm [facility] Work Phone: 1(709) 481-259505-13-2025 [facility] [address] [place] [address], [address] [place] [address] OFFICE VISIT Date of Service: 09/21/24 MR#: [id number] Acct: [id number] Name: LYNNE PAL Rep #: [id number] : 1995 Provider: FREDIA Cash Age/Sex: 28/F Location: [facility] Status: Signed Intake Vital Signs 07/26/24 10:30 08/27/24 14:22 09/21/24 15:40 Height 5 ft 2 in 5 ft 2 in 5 ft 2 in Weight: 144 lb 8 oz BMI 26.4 BP 119/75 Intake Visit Reasons: 14wk ob Chief Complaint: 14wk OB Open Cut Examiner Required: No Is patient in pain?: No Allergies No Known Allergies Allergy (Verified 09/21/24 15:38) Medications 3 ?Medication ?Instructions ?Recorded ?Confirmed ?Type Lactobacillus acidophilus and 1 cap PO DAILY supplemen t 06/27/22 09/21/24 History rhamnosus 15 billion cell capsule (Probiotic) multivitamin no.47-iron fum 27 1 cap PO DAILY pregnanc y 06/27/22 09/21/24 History mg-folate no.1 1 mg-dha 300 mg capsule (PNV-DHA) Last Menstrual Period: 05/29/24 : No PFSH PFSH Medical History hemorrhage (spontaneous vaginal delivery) History of group B Streptococcus (GBS) infection Pre-conception counseling Breast tenderness in female Non-smoker Surgical History H/O dilation and curettage Hx of wisdom tooth extraction Family History Father Hypertension Social History adopted: No household members: spouse housing: house number of children: 1 current occupational status: employed 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[employer] current occupational exposures/hazards: No pets and animals: No history of recent travel: No ([place]) sexually active: Yes Smoking Status: Never smoker alcohol intake: former details: social- but not while substance use type: does not use well-balanced diet: daily or most days caffeine: No eating out: rarely or never during the past year weight has: other details: had a baby is 7# heavier than prepregnancy what type of physical activity do you participate in: walking and weight training frequency: 3-4 times per week duration: 15-30 minutes/day kenia/evangelical: Sikh seatbelt use: always do you feel safe at home: Yes additional social history: - Yossi- Marketing History 3 Elective abortions Hx Para 1 Spontaneous abortions 1 Hx # Term Pregnancies Ectopic pregnancies Hx # Pregnancies Multiple births # of living children 1 Past Pregnancies Del. Date Name GA/Weeks Outcome Route Bth Weight Infant Gen Labor Lgth Anes thesi a Del Locatn Provider FOB Unknown June 2022 miscarriage 8wk 09/15/23 May 40 live - full term 7lbs 4oz Female n one [facility] Destiney Sy Delivery Date: 09/15/23 Last Updated by: Snow Delgado PP hem. HPI 14wk ob Details: LYNNE PAL is a 28 year old who presents for routine OB visit. OB Visit ANGEL LUIS Calculator Estimated Delivery Date Method Current WG Current Estimate 03/20/25 Ultrasound #1 14w 2d Other Estimates 03/05/25 LMP (Certain) 16w 3d Expected Delivery Route/Plan Labor Preferences- CB/BF classes: [] labor support person: [] labor intervention preferences: [] pain management options preferred: [] cut cord/dad catch: [] : [] PP control planned: [] discussed possible routes of delivery and associated risks: [] special requests: [] Specific Issue/Plans Covid status: [] Flu vaccine: [] Tdap vaccine: [] Rhogam: [] LARC form signed: [] Problem list reviewed and updated with the most current plan of care details and appropriate ordersplaced. Relevant counseling for the gestational age provided. Continue routine care and follow up unless otherwise noted in visit notes/problem list details Initial Weight: Not Recorded Date -?-?-?-?-?-?-?-?-?-?-?-?- EGA Weight BP Urine Prot -?-?-?-?-?-?-?-?-?-?-?-?- Glucose FHR FuHt Pres Dilation -?-?-?-?-?-?-?-?-?-?-?-?- Effaced St Visit Note 07/26/24 -?-?-?-?-?-?-?-?-?-?-?-?- 6w 1d 139 lb 4 oz 120/80 -?-?-?-?-?-?-?-?-?-?-?-?- 105 -?-?-?-?-?-?-?-?-?-?-?-?- JV- CRL measurin g 6 weeks 1 day with heart tones. states is 6 weeks by when she calculated ovulation. unsure about nipt or blood type testing of baby (she is rh neg) 08/27/24 -?-?-?-?-?-?-?-?-?-?-?-?- 10w 5d 141 lb 2 oz 110/76 Nega tive -?-?-?-?-?-?-?-?-?-?-?-?- Negative 173 -?-?-?-?-?-?-?-?-?-?--?-?- KW- CRL cons wit h 10.5 weeks. labs today and MFM order placed 09/21/24 -?-?-?-?-?-?-?-?-?-?-?-?- 14w 2d 144 lb 8 oz 119/75 Nega tive -?-?-?-?--?-?-?-?-?-?-?-?- Negative 153 -?-?-?-?-?-?-?-?-?-?-?-?- KW- no vb/crampi ng. US scheduled- 10/26. no concerns KW- no vb/cramping. US sched uled- 10/26. no concerns. declines AFP ACOG First Trimester First Trimester: Desire for , Alcohol, Tobacco Cessation, Illicit/Recreational Drug/Substance Use, Intimate Partner Violence, Barriers to care, Unstable Housing, Communication Barriers, Environmental/Work Hazards, Anticipated Course of Care, Toxoplasmosis Precations, Use of Any med ications, Sexual activity, Exercise, Dental Care, Sauna/Hot tub use, Seat Belt use, Childbirth classes/Hospital facilities, Travel, Indications for Ultrasound and Screening for Aneuploidy; Discussed Second Trimester Second Trimester: Signs and Symptoms of Labor, Selecting a care provider, Reproductive Life Planning & Contreception, Care Planning, Depression/Anxiety and Intimate Partner Violence; Discussed Tobacco Cessation Third Trimester Third Trimester: Pain Management Plans, Labor support person(s), Immediate Larc, Movement Monitoring, Signs and Symptoms of Preeclampsia and Education ROS Const Reports system reviewed and no additional complaints, except as documented Eyes Reports system reviewed and no additional complaints, except as documented ENT Reports system reviewed and no additional complaints, except as documented Card Reports system reviewed and no additional complaints, except as documented Resp Reports system reviewed and no additional complaints, except as documented GI Reports system reviewed and no additional complaints, except as documented, Denies nausea and Denies vomiting Reports system reviewed and no additional complaints, except as documented Musc Reports system reviewed and no additional complaints, except as documented Skin/Breast Reports system reviewed and no additional complaints, except as documented Neuro Yes system reviewed and no additional complaints, except as documented Psych Reports system reviewed and no additional complaints, except as documented Endo Reports system reviewed and no additional complaints, except as documented Jacobo/Lymph Reports system reviewed and no additional complaints, except as documented Aller/Immun Reports system reviewed and no additional complaints, except as documented Exam Const General: cooperative, healthy appearing and no acute distress Orientation: alert, awake and oriented x3 Neck Neck: normal visual inspection and full ROM Resp Effort & Inspection: normal respiratory effort, able to speak in complete sentences and symmetric chest movement GI Inspection: normal to inspection Palpation: soft and other Other: gravid Skin General: no rashes or lesions noted Neuro General: patient alert, patient awake and patient oriented x3 Cognition: normal cognition Speech: speech normal Gait: normal gait Motor: muscle tone normal throughout Extrem General: normal to inspection and full ROM Psych Appearance: grossly normal Mental Status: mental status grossly normal Mood: congruent mood Affect: normal affect Speech and Movement: speech and movement normal Attitude: cooperative Thought Process: normal Thought Content: normal Judgment: judgment good Results POC Urinalysis 2 Dip (Clinic) Office Urine Glucose Negative Last Edit by Nika Dubon on 09/21/24 15:45 Office Urine Protein Negative Last Edit by Nika Dubon on 09/21/24 15:45 Coding Level of Care Code OB Routine Diagnoses Hx of hemorrhage, currently O09.299 Supervision of high-risk O09.90 Early stage of Z34.90 14 weeks gestation of Z3A.14 Weeks of gestation: 14 weeks History of miscarriage, currently O09.299 Rh negative state in antepartum period O26.899; Z67.91 Assessment and Plan Assessment and Plan (1) Hx of hemorrhage, currently : Status: Acute (2) Supervision of high-risk : Status: Acute Comment: PRR, , ANGEL LUIS 03/20/25, JEFFERSON Olvera, Yossi (3) Early stage of : Status: Acute (4) : Status: Acute Qualifiers: Weeks of gestation: 14 weeks Qualified Code(s): Z3A.14 - 14 weeks gestation of Comment: declined NIPT & Carrier testing (5) History of miscarriage, currently : Status: Acute (6) Rh negative state in antepartum period: Status: Acute Comment: rhogam at 28 weeks. Orders: Orders POC Urinalysis 2 Dip (Clinic) Today Plan Details Additional Comments: ACOG trimester education reviewed and updated. see problem list details for updated plan management information and see below for orders placed atthis visit. GA appropriate handout given. 09/21/24 1551 s CNM> Date _ Camacho Ignacio FREIDA Cosigner Signature: Date (if applicable) CC: ~ [facility]05-13-2025 Progress note Author Camacho Cash [facility] Note Date/Time September 21, 2024 3:51p [facility] [address], [address] [place] [address] OFFICE VISIT Date of Service: 09/21/24 MR#: [id number] Acct: [id number] Name: LYNNE PAL Rep #: [id number] : 1995 Provider: FREIDA Cash Age/Sex: 28/F Location: [facility] Status: Signed Intake Vital Signs 07/26/24 10:30 08/27/24 14:22 09/21/24 15:40 Height 5 ft 2 in 5 ft 2 in 5 ft 2 in Weight: 144 lb 8 oz BMI 26.4 BP 119/75 Intake Visit Reasons: 14wk ob Chief Complaint: 14wk OB Open Cut Examiner Required: No Is patient in pain?: No Allergies No Known Allergies Allergy (Verified 09/21/24 15:38) Medications 3 ?Medication ?Instructions ?Recorded ?Confirmed ?Type Lactobacillus acidophilus and 1 cap PO DAILY supplemen t 06/27/22 09/21/24 History rhamnosus 15 billion cell capsule (Probiotic) multivitamin no.47-iron fum 27 1 cap PO DAILY pregnanc y 06/27/22 09/21/24 History mg-folate no.1 1 mg-dha 300 mg capsule (PNV-DHA) Last Menstrual Period: 05/29/24 : No PFSH PFSH Medical History hemorrhage (spontaneous vaginal delivery) History of group B Streptococcus (GBS) infection Pre-conception counseling Breast tenderness in female Non-smoker Surgical History H/O dilation and curettage Hx of wisdom tooth extraction Family History Father Hypertension Social History adopted: No household members: spouse housing: house number of children: 1 current occupational status: employed 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[employer] current occupational exposures/hazards: No pets and animals: No history of recent travel: No ([place]) sexually active: Yes Smoking Status: Never smoker alcohol intake: former details: social- but not while substance use type: does not use well-balanced diet: daily or most days caffeine: No eating out: rarely or never during the past year weight has: other details: had a baby is 7# heavier than prepregnancy what type of physical activity do you participate in: walking and weight training frequency: 3-4 times per week duration: 15-30 minutes/day kenia/evangelical: Sikh seatbelt use: always do you feel safe at home: Yes additional social history: - Yossi- Marketing History 3 Elective abortions Hx Para 1 Spontaneous abortions 1 Hx # Term Pregnancies Ectopic pregnancies Hx # Pregnancies Multiple births # of living children 1 Past Pregnancies Del. Date Name GA/Weeks Outcome Route Bth Weight Gen Labor Lgth Anes thesi a Del Locatn Provider FOB Unknown June 2022 miscarriage 8wk 09/15/23 May 40 live - full term 7lbs 4oz Female n one [facility] Destiney Sy Delivery Date: 09/15/23 Last Updated by: Snow Delgado PP hem. HPI 14wk ob Details: LYNNE PAL is a 28 year old who presents for routine OB visit. OB Visit ANGEL LUIS Calculator Estimated Delivery Date Method Current WG Current Estimate 03/20/25 Ultrasound #1 14w 2d Other Estimates 03/05/25 LMP (Certain) 16w 3d Expected Delivery Route/Plan Labor Preferences- CB/BF classes: [] labor support person: [] labor intervention preferences: [] pain management options preferred: [] cut cord/dad catch: [] : [] PP control planned: [] discussed possible routes of delivery and associated risks: [] special requests: [] Specific Issue/Plans Covid status: [] Flu vaccine: [] Tdap vaccine: [] Rhogam: [] LARC form signed: [] Problem list reviewed and updated with the most current plan of care details and appropriate orders placed. Relevant counseling for the gestational age provided. Continue routine care and follow up unless otherwise noted in visit notes/problem list details Initial Weight: Not Recorded Date -?-?-?-?-?-?-?-?-?-?-?-?- EGA Weight BP Urine Prot -?-?-?-?-?-?-?-?-?-?-?-?- Glucose FHR FuHt Pres Dilation -?-?-?-?-?-?-?-?-?-?-?-?- Effaced St Visit Note 07/26/24 -?-?-?-?-?-?-?-?-?-?-?-?- 6w 1d 139 lb 4 oz 120/80 -?-?-?-?-?-?-?-?-?-?-?-?- 105 -?-?-?-?-?-?-?-?-?-?-?-?- JV- CRL measurin g 6 weeks 1 day with heart tones. states is 6 weeks by when she calculated ovulation. unsure about nipt or blood type testing of baby (she is rh neg) 08/27/24 -?-?-?-?-?-?-?-?-?-?-?-?- 10w 5d 141 lb 2 oz 110/76 Nega tive -?-?-?-?-?-?-?-?-?-?-?-?- Negative 173 -?-?-?-?-?-?-?-?-?-?--?-?- KW- CRL cons wit h 10.5 weeks. labs today and MFM order placed 09/21/24 -?-?-?-?-?-?-?-?-?-?-?-?- 14w 2d 144 lb 8 oz 119/75 Nega tive -?-?-?-?--?-?-?-?-?-?-?-?- Negative 153 -?-?-?-?-?-?-?-?-?-?-?-?- KW- no vb/crampi ng. US scheduled- 10/26. no concerns KW- no vb/cramping. US sched uled- 10/26. no concerns. declines AFP ACOG First Trimester First Trimester: Desire for , Alcohol, Tobacco Cessation, Illicit/Recreational Drug/Substance Use, Intimate Partner Violence, Barriers to care, Unstable Housing, Communication Barriers, Environmental/Work Hazards, Anticipated Course of Care, Toxoplasmosis Precations, Use of Any medications, Sexual activity, Exercise, Dental Care, Sauna/Hot tub use, Seat Belt use, Childbirth classes/Hospital facilities, Travel, Indications for Ultrasound and Screening for Aneuploidy; Discussed Second Trimester Second Trimester: Signs and Symptoms of Labor, Selecting a care provider, Reproductive Life Planning & Contreception, Care Planning, Depression/Anxiety and Intimate Partner Violence; Discussed Tobacco Cessation Third Trimester Third Trimester: Pain Management Plans, Labor support person(s), Immediate Larc, Movement Monitoring, Signs and Symptoms of Preeclampsia and Education ROS Const Reports system reviewed and no additional complaints, except as documented Eyes Reports system reviewed and no additional complaints, except as documented ENT Reports system reviewed and no additional complaints, except as documented Card Reports system reviewed and no additional complaints, except as documented Resp Reports system reviewed and no additional complaints, except as documented GI Reports system reviewed and no additional complaints, except as documented, Denies nausea and Denies vomiting Reports system reviewed and no additional complaints, except as documented Musc Reports system reviewed and no additional complaints, except as documented Skin/Breast Reports system reviewed and no additional complaints, except as documented Neuro Yes system reviewed and no additional complaints, except as documented Psych Reports system reviewed and no additional complaints, except as documented Endo Reports system reviewed and no additional complaints, except as documented Jacobo/Lymph Reports system reviewed and no additional complaints, except as documented Aller/Immun Reports system reviewed and no additional complaints, except as documented Exam Const General: cooperative, healthy appearing and no acute distress Orientation: alert, awake and oriented x3 Neck Neck: normal visual inspection and full ROM Resp Effort & Inspection: normal respiratory effort, able to speak in complete sentences and symmetric chest movement GI Inspection: normal to inspection Palpation: soft and other Other: gravid Skin General: no rashes or lesions noted Neuro General: patient alert, patient awake and patient oriented x3 Cognition: normal cognition Speech: speech normal Gait: normal gait Motor: muscle tone normal throughout Extrem General: normal to inspection and full ROM Psych Appearance: grossly normal Mental Status: mental status grossly normal Mood: congruent mood Affect: normal affect Speech and Movement: speech and movement normal Attitude: cooperative Thought Process: normal Thought Content: normal Judgment: judgment good Results POC Urinalysis 2 Dip (Clinic) Office Urine Glucose Negative Last Edit by Nika Dubon on 09/21/24 15:45 Office Urine Protein Negative Last Edit by Nika Dubon on 09/21/24 15:45 Coding Level of Care Code OB Routine Diagnoses Hx of hemorrhage, currently O09.299 Supervision of high-risk O09.90 Early stage of Z34.90 14 weeks gestation of Z3A.14 Weeks of gestation: 14 weeks History of miscarriage, currently O09.299 Rh negative state in antepartum period O26.899; Z67.91 Assessment and Plan Assessment and Plan (1) Hx of hemorrhage, currently : Status: Acute (2) Supervision of high-risk : Status: Acute Comment: PRR, , ANGEL LUIS 03/20/25, PC May, Yossi (3) Early stage of : Status: Acute (4) : Status: Acute Qualifiers: Weeks of gestation: 14 weeks Qualified Code(s): Z3A.14 - 14 weeks gestation of Comment: declined NIPT & Carrier testing (5) History of miscarriage, currently : Status: Acute (6) Rh negative state in antepartum period: Status: Acute Comment: rhogam at 28 weeks. Orders: Orders POC Urinalysis 2 Dip (Clinic) Today Plan Details Additional Comments: ACOG trimester education reviewed and updated. see problem list details for updated plan management information and see below for orders placed at this visit. GA appropriate handout given. 09/21/24 1932 <Electronically signed by Camacho scruggs CNM> Date _ Camacho Cash CNM Cosigner Signature: Date (if applicable) CC: ~ [place] [employer] Work Phone: 1(958) 976-125904-18-2025 Evaluation note* Diagnosis Onset Date Resolution Status Admit Date History of miscarriage, currently acute August 27, 2 025 2:20pm Hx of hemorrhage, currently acute August 27, 2 025 2:20pm acute August 27 2:20pm Rh negative state in antepar radha period acute August 27, 2024 2:20pm Supervision of high-risk acute August 27, 2024 2:20pm Early stage of deleted August 27, 2024 2:20pm History of miscarriage, currently acute September 21 3:36pm Hx of hemorrhage, currently acute September 21 3:36pm acute September 21, 2024 3:36pm Rh negative state in antepar radha period acute September 21, 2024 3 :36pm Supervision of high-risk acute September 21, 2024 3 :36pm Early stage of deleted September 21, 2024 3:36pm History of miscarriage, currently acute October 21 8:37am Hx of hemorrhage, currently acute October 21 8:37am acute October 21 8:37am Rh negative state in antepar radha period acute 2024 8:37am Supervision of high-risk acute 2024 8:37am History of miscarriage, currently acute November 19 10:04am Hx of hemorrhage, currently acute November 19 10:04am acute November 19 10:04am Rh negative state in antepar radha period acute November 19, 2024 10:04am Supervision of high-risk acute November 19, 2024 10:04am History of miscarriage, currently acute December 17, 025 9:40am Hx of hemorrhage, currently acute December 17, 2 025 9:40am acute December 17 9:40am Rh negative state in antepar radha period acute December 17, 2024 9:40am Supervision of high-risk acute December 17, 2024 9:[address] [facility] Work Phone: [phone] Evaluation note* Diagnosis Onset Date Resolution Status Admit Date Early stage of acute July 26, 2024 10:21am History of miscarriage, currently acute July 26, 2 025 10:21am Hx of hemorrhage, currently acute July 26, 2 025 10:21am acute July 26 10:21am Rh negative state in antepar radha period acute July 26, 2024 10:21am Supervision of high-risk acute July 26, 2024 10:21am [facility] Work Phone: 1(281) 879-712303-17-2025 Evaluation note* Diagnosis Onset Date Resolution Status Admit Date Early stage of acute July 26, 2024 10:21am History of miscarriage, currently acute July 26, 2 025 10:21am Hx of hemorrhage, currently acute July 26, 2 025 10:21am acute July 26 10:21am Rh negative state in antepar radha period acute July 26, 2024 10:21am Supervision of high-risk acute July 26, 2024 10:21am Early stage of acute August 27, 2024 2:20pm History of miscarriage, currently acute August 27, 2 025 2:20pm Hx of hemorrhage, currently acute August 27, 2 025 2:20pm acute August 27 2:20pm Rh negative state in antepar radha period acute August 27, 2024 2:20pm Supervision of high-risk acute August 27, 2024 2:20pm Early stage of acute September 21, 2024 3:36pm History of miscarriage, currently acute September 21 3:36pm Hx of hemorrhage, currently acute September 21 3:36pm acute September 21, 2024 3:36pm Rh negative state in antepar radha period acute September 21, 2024 3 :36pm Supervision of high-risk acute September 21, 2024 3 :36pm [place] [employer] Work Phone: 1([phone] 515-255703-17-2025 Evaluation note* Diagnosis Onset Date Resolution Status Admit Date History of miscarriage, currently acute July 26, 2 025 10:21am Hx of hemorrhage, currently acute July 26, 2 025 10:21am acute July 26 10:21am Rh negative state in antepar radha period acute July 26, 2024 10:21am Supervision of high-risk acute July 26, 2024 10:21am Early stage of deleted July 26, 2024 10:21am History of miscarriage, currently acute August 27, 2 025 2:20pm Hx of hemorrhage, currently acute August 27, 2 025 2:20pm acute August 27 2:20pm Rh negative state in antepar radha period acute August 27, 2024 2:20pm Supervision of high-risk acute August 27, 2024 2:20pm Early stage of deleted August 27, 2024 2:20pm History of miscarriage, currently acute September 21 3:36pm Hx of hemorrhage, currently acute September 21 3:36pm acute September 21, 2024 3:36pm Rh negative state in antepar radha period acute September 21, 2024 3 :36pm Supervision of high-risk acute September 21, 2024 3 :36pm Early stage of deleted September 21, 2024 3:36pm History of miscarriage, currently acute October 21 8:37am Hx of hemorrhage, currently acute October 21 8:37am acute October 21 8:37am Rh negative state in antepar radha period acute 2024 8:37am Supervision of high-risk acute 2024 8:37am [facility] Work Phone: 1([phone]) 174-956603-17-2025 Evaluation note* Diagnosis Onset Date Resolution Status Admit Date History of miscarriage, currently acute July 26, 2 025 10:21am Hx of hemorrhage, currently acute July 26, 2 025 10:21am acute July 26 10:21am Rh negative state in antepar radha period acute July 26, 2024 10:21am Supervision of high-risk acute July 26, 2024 10:21am Early stage of deleted July 26, 2024 10:21am History of miscarriage, currently acute August 27, 2 025 2:20pm Hx of hemorrhage, currently acute August 27, 2 025 2:20pm acute August 27 2:20pm Rh negative state in antepar radha period acute August 27, 2024 2:20pm Supervision of high-risk acute August 27, 2024 2:20pm Early stage of deleted August 27, 2024 2:20pm History of miscarriage, currently acute September 21 3:36pm Hx of hemorrhage, currently acute September 21 3:36pm acute September 21, 2024 3:36pm Rh negative state in antepar radha period acute September 21, 2024 3 :36pm Supervision of high-risk acute September 21, 2024 3 :36pm Early stage of deleted September 21, 2024 3:36pm History of miscarriage, currently acute October 21 8:37am Hx of hemorrhage, currently acute October 21 8:37am acute October 21 8:37am Rh negative state in antepar radha period acute 2024 8:37am Supervision of high-risk acute 2024 8:37am History of miscarriage, currently acute November 19 10:04am Hx of hemorrhage, currently acute November 19 10:04am acute November 19 10:04am Rh negative state in antepar radha period acute November 19, 2024 10:04am Supervision of high-risk acute November 19, 2024 10:04am [facility] Work Phone: 1([phone]) 454-340605-07-2024 Progress note Author Sharifa Willson [facility] September 16, 2023 7:54am Note Date/Time September 16, 2023 7:51am [facility] Medical Records Department [address] [place] [address] Progress Note - OBGYN 09/16/23 0751 MR#: [id number] Acct: [id number] Name: LYNNE PAL Rep #:[id number] : 1995 27 From: Sharifa Willson NP WORLD LANGUAGE TEACHER-C PCP: Dr. Romy Tang MD Status :ADM IN [facility] Subject[facility] Subjective Patient doing well without complaints. Tolerating PO. Ambulating and voiding without difficulty. Feeding well. Denies chest pain, shortness of breath, calf pain/swelling, fevers, chills, lightheadedness. Objective Data Objective Data Vital Signs: Vital Signs Temp Pulse Resp BP Pulse Ox O2 Del Method 97.3 F L 98 16 116/74 97 Room Air 09/16/23 01:35 09/16/23 01:35 09/16/23 01:35 09/16/23 01:35 09/16/23 01:35 09/16/23 01:35 Oxygen Delivery Method Room Air Weight: 172 lb Body Mass Index (BMI) 31.4 Intake & Output: Intake and Output for Last 24 Hours 09/14/23 09/15/23 09/16/23 23:59 23:59 23:59 Intake Total 1546.10 / 1546.10 462.35 / 462.35 Output Total 350 / 350 1200 / 1200 Balance 1196.10 / 1196.10 -737.65 / -737.65 Lab / Micro Data 09/15/23 06:10 Labs: Laboratory Results - last 24 hr 09/15/23 06:10: Screen NEGATIVE, Baby's Blood Type A POSITIVE, Baby's BRITTANI NEGATIVE Physical Exam Const alert and oriented x3 HEENT normocephalic Eyes PERRL Neck full ROM Resp normal respiratory effort GI soft to palpation GI Narrative: FF below U Assessment & Plan (1) (spontaneous vaginal delivery): COMMENT: LC SROM May. (2) Rh negative state in antepartum period: COMMENT: rhogam at 28 weeks and PRN. Rhogam given 06/19/23 (3) hemorrhage: QUALIFIERS: hemorrhage type: other immediate QualifiedCode(s): O72.1 - Other immediate hemorrhage COMMENT: 1000ml PPH PLAN: Plan s/p PPD # 2 1. routine post delivery care 2. breast feeding- support given 3. rh negative 4. rubella immune 5. home today 09/16/23 5743 <Electronically signed by Sharifa Willson NP WORLD LANGUAGE TEACHER-C> Cosigner Signature (if applicable): CC: ~ Signed [facility] Work Phone: 1(444) 702-641905-06-2024 Progress note Author Camacho Cash [facility] September 15, 2023 8:07am Note Date/Time September 15, 2023 8:08am [facility] Medical Records Department [address] [place] [address] Progress Note - OBGYN 09/15/23 0805 MR#: [id number] Acct: [id number] Name: LYNNE PAL Rep #:[id number] : 1995 From: Camacho Cash CNM PCP: Dr. Romy Tang MD Status :ADM IN Location: [address] Subjective Subjective Patient doing well without complaints. Tolerating PO. Ambulating and voiding without difficulty. Feeding well. Denies chest pain, shortness of breath, calf pain/swelling, fevers, chills, lightheadedness. Objective Data Objective Data Vital Signs: Vital Signs Temp Pulse Resp BP Pulse Ox O2 Del Method 98.9 F 96 16 125/80 H 100 Room Air 09/15/23 04:15 09/15/23 04:15 09/15/23 04:15 09/15/23 04:15 09/15/23 04:15 09/15/23 04:15 Oxygen Delivery Method Room Air Weight: 172 lb Body Mass Index (BMI) 31.4 Intake & Output: Intake and Output for Last 24 Hours 09/13/23 09/14/23 09/15/23 23:59 23:59 23:59 Intake Total 1546.10 / 1546.10 462.35 / 462.35 Output Total 350 / 350 1200 / 1200 Balance 1196.10 / 1196.10 -737.65 / -737.65 Lab / Micro Data Attestation: I reviewed the patient's lab results. 09/15/23 06:10 Labs: Laboratory Results - last 24 hr 09/14/23 14:35: Vag Amniotic Fld Detect POSITIVE H 09/14/23 16:15: WBC 7.4, RBC 3.79 L, Hgb 12.2, Hct 35.3 L, MCV 93.1, MCH 32.2 H,MCHC 34.6, RDW Std Deviation 41.9, RDW Coeff of Norma 12.5, Plt Count 167, MPV 11.3, Immature Gran % (Auto) 0.300, Neut % (Auto) 73.8 H, Lymph % (Auto) 19.2, [place] % (Auto) 6.0, Eos % (Auto) 0.3, Baso % (Auto) 0.4, Absolute Neuts (auto) 5.5, Absolute Lymphs (auto) 1.42, Nucleated RBC % 0, Syphilis Total Ab Non-reactive, Blood Type O NEGATIVE, Antibody Screen NEGATIVE, Crossmatch See Detail 09/14/23 23:59: WBC 17.3 H, RBC 3.98 L, Hgb 12.6, Hct 37.7, MCV 94.7, MCH 31.7, MCHC 33.4, RDW Std Deviation 42.2, RDW Coeff of Norma 12.2, Plt Count 180, MPV 11.0, Immature Gran % (Auto) 1.300 H, Neut % (Auto) 86.9 H, Lymph % (Auto) 9.3 L, [place] % (Auto) 2.3, Eos % (Auto) 0.0, Baso % (Auto) 0.2, Absolute Neuts (auto) 15.0 H, Absolute Lymphs (auto) 1.60, Nucleated RBC % 0 09/15/23 06:10: WBC 13.5 H, RBC 3.18 L, Hgb 10.0 L, Hct 29.3 L, MCV 92.1, MCH 31.4, MCHC 34.1, RDW Std Deviation 40.9, RDW Coeff of Norma 12.1, Plt Count 146 L,MPV 11.1, Immature Gran % (Auto) 0.300, Neut % (Auto) 85.0 H, Lymph % (Auto) 9.8L, [place] % (Auto) 4.8, Eos % (Auto) 0.0, Baso % (Auto) 0.1, Absolute Neuts (auto)11.4 H, Absolute Lymphs (auto) 1.32, Nucleated RBC % 0 ROS Constitutional Constitutional: Reports systems reviewed and no addt'l complaints, except as documented; Denies anorexia or headache(s) Cardiovascular Cardiovascular: Reports systems reviewed and no addt'l complaints, except as documented; Denies dizziness, dyspnea, nausea or tachypnea Respiratory/Chest Respiratory/Chest: Reports systems reviewed and no addt'l complaints, except as documented; Denies cough, dyspnea, shortness of breath at rest or tachypnea Gastrointestinal Gastrointestinal: Reports systems reviewed and no addt'l complaints, except as documented; Denies abdominal pain, constipation or nausea Genitourinary Genitourinary: Reports systems reviewed and no addt'l complaints, except as documented; Denies burning urination, difficulty urinating, dysuria, urinary frequency or urinary incontinence Musculoskeletal Musculoskeletal: Reports systems reviewed and no addt'l complaints, except as documented Integumentary Integumentary: Reports systems reviewed and no addt'l complaints, except as documented Neurologic Neurologic: Reports systems reviewed and no addt'l complaints, except as documented; Denies abnormal speech, dizziness or headache(s) Psychiatric Psychiatric: Reports systems reviewed and no addt'l complaints, except as documented Endocrine Endocrinology: Reports systems reviewed and no addt'l complaints, except as documented Hematologic/Lymphatic Hematologic/Lymphatic: Reports systems reviewed and no addt'l complaints, exceptas documented Physical Exam Const alert, oriented x3 and no apparent distress Neck full ROM Resp normal respiratory effort, normal air movement and no retractions Effort and Inspection: able to speak in complete sentences and symmetric chest movement GI soft to palpation Bladder / Kidney Exam: bladder normal to palpation Uterus Palpation: uterus fundus firm Extremity normal to inspection and full ROM Psych mental status grossly normal, thought process normal and cooperative Assessment & Plan (1) hemorrhage: COMMENT: 1000ml PPH PLAN: stable labs Redraw CBC if sx develop (2) (spontaneous vaginal delivery): COMMENT: LC SROM May. PLAN: s/p PPD # 1 1. routine post delivery care 2. breast feeding- support given 3. rh neg-rhogam if needed 4. rubella immune (3) Rh negative state in antepartum period: COMMENT: rhogam at 28 weeks and PRN. Rhogam given 06/19/23 (4) Supervision of high-risk : QUALIFIERS: Trimester: third trimester Qualified Code(s): O09.93 - Supervision of high risk , unspecified, third trimester COMMENT: PRR, , ANGEL LUIS 09/09/23 girl Yossi (5) : QUALIFIERS: Weeks of gestation: 40 weeks Qualified Code(s): Z3A.40 - 40 weeks gestation of COMMENT: GBS negative, discussed ntd genetic & carrier testing- declined, nl anatomy Charges/Coding Multi Select Codes Urinary/Genital Urinary/Genital CPT Codes: No Charge 09/15/23 0807 <Electronically signed by Camacho Cash CNM> Cosigner Signature (if applicable): CC: ~ Signed [facility] Work Phone: 1(575) 346-110705-06-2024 Discharge summary Author Destiney Cano [facility] September 15, 2023 12:28am Note Date/Time September 15, 2023 12:28a m [facility] Medical Records Department [address] [place] [address] Instructions for Home/Discharge Instructions 09/15/23 0028 MR#: [id number] Acct: [id number] Name: LYNNE PAL Rep #:[id number] : 1995 27 From: Destiney Cano CNM PCP: Dr. Romy Tang MD Status :ADM IN Discharge Instructions Diet Discharge Diet: No restrictions Activity Discharge Activity: May Not Drive and May Shower May resume sexual activity in: 6 weeks Weight Bearing Status: Full weight bearing Dressing / Incision Call your doctor if your incision/area has: Sudden Increased Bleeding, IncreasedPain/ Swelling and Foul Smelling Discharge Call your doctor if you observe: Fever of 101 or Higher, Numbness or Tingling, Change in Color, Inability to urinate, Inability to have a bowel movement, Usingmore than 1 pad per hour, Shortness of breath, Dizziness, Fainting spells, Chestpain, Calf discomfort and Uncontrolled pain Follow Up Care Please Follow Up With: Destiney Cano CNM When: 6 weeks , please call office to make an appointment. Congratulations on the of your baby girl May!! Test Results: Test results from this visit will be discussed in further detail at your follow- up appointment, if applicable. Discharge Plan Admission Admit Date/Time: 09/14/23 15:15 Attending Provider: Destiney Cano Primary Care Provider: Romy Tang Discharge Orders/Prescriptions Prescriptions: No Action PNV-DHA 27 mg iron-1 mg -300 mg capsule 1 cap PO DAILY Probiotic 15 billion cell capsule 1 cap PO DAILY Referrals / Follow Up: Romy Tang MD [Primary Care Provider] - 09/15/23 0028<Electronically signed by Destiney Cano CNM>Destiney Cano CNM CC: Dr. Romy Tang MD ~ Signed [facility] Work Phone: 1(262) 647-953605-06-2024 Procedure [facility] 09-14-2023 History and physical note Author Destiney Cano [facility] September 14, 2023 9:26pm Note Date/Time September 14, 2023 9:25pm [facility] Medical Records Department [address] [place] [address] H&P Exam - PHOTOGRAPHIC HAND DEVELOPER 09/14/232116 MR#: [id number] Acct: [id number] Name: LYNNE PAL Rep #:[id number] : 1995 27 From: Destiney Cano CNM PCP: Dr. Romy Tang MD Status :ADM IN Location: [id number] HPI - General General Date of Admission: 09/14/23 Date of Service: 09/14/23 Chief Complaint: leaking of fluid HPI Narrative LYNNE PAL, is a 27 F who presents at 40.5 with leaking of fluid since 5pm 09/13/2023, good fm, denies vb. Maternal Data Information ANGEL LUIS Calculator Estimated Delivery Date Method Current WG Current Estimate 09/09/23 LMP (Certain) 40w 5d PFSH PFS Medical History Breast tenderness in female History of group B Streptococcus (GBS) infection Non-smoker Pre-conception counseling Home Medications Lactobacillus acidophilus and rhamnosus 15 billion cell capsule (Probiotic) 1 cap PO DAILY supplement 06/27/22 [History Last Taken Unknown] multivitamin no.47-iron fum 27 mg-folate no.1 1 mg-dha 300 mg capsule (PNV-DHA)1 cap PO DAILY 06/27/22 [History Last Taken Unknown] Allergy/AdvReac Type Severity Reaction Status Date / Time No Known Allergies Allergy Verified 09/14/23 16:35 Surgical History H/O dilation and curettage Hx of wisdom tooth extraction Social History adopted: No household members: spouse housing: house current occupational status: employed 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 current occupational exposures/hazards: No pets and animals: No history of recent travel: Yes ([place]) out of state: Yes out of country: No sexually active: Yes Smoking Status: Former smoker alcohol intake: current details: social- but not while substance use type: does not use well-balanced diet: daily or most days caffeine: No eating out: rarely or never during the past year weight has: remained stable what type of physical activity do you participate in: walking frequency: 3-4 times per week duration: 15-30 minutes/day kenia/evangelical: Sikh seatbelt use: always do you feel safe at home: Yes additional social history: - Yossi- Marketing History 2 Elective abortions Hx Para 0 Spontaneous abortions 1 Hx # Term Pregnancies Ectopic pregnancies Hx # Pregnancies Multiple births # of living children 0 Past Pregnancies Del. Date Name GA/Weeks Outcome Route Bth Weight Gen Labor Lgth Anesthesia Del Locatn Provider FOB Unknown June 2022 miscarriage 8wk Visit Details Expected Delivery Route/Plan Labor Preferences- CB/BF classes: [] labor support person: [] labor intervention preferences: [] pain management options preferred: [] cut cord/dad catch: [] : [] PP control planned: [] discussed possible routes of delivery and associated risks: [] special requests: [] Plans Covid status: declined Flu vaccine: declined Tdap vaccine: done 06/27/23 Rhogam: given LARC form signed: declined movement and labor precautions reviewed. Problem list reviewed and updated with the most current plan of care details and appropriate orders placed. Relevant counseling for the gestational age provided. Continue routine care and follow up unless otherwise noted in visit notes/problem list details OB Flowsheet Initial Weight: Not Recorded Date -?-?-?-?-?-?-?-?-?-?-?-?- EGA Weight BP Urine Prot -?-?-?-?-?-?-?-?-?-?-?-?- Glucose FHR FuHt Pres Dilation -?-?-?-?-?-?-?-?-?-?-?-?- Effaced St Visit Note 01/20/23 -?-?-?-?--?-?-?-?-?-?-?-?- 6w 6d 132 lb 110/68 -?-?-?-?-?-?-?-?-?-?-?-?- 120 -?-?-?-?-?-?-?-?-?-?-?-?- SM- CRL 4.6mm co ns with LMP 02/19/23 -?-?-?-?-?-?-?-?-?-?-?-?- 11w 1d 132 lb 8 oz Negative -?-?-?-?-?-?-?-?-?-?-?-?- Negative 154 -?-?-?-?-?-?-?-?-?-?-?-?- LC- no vb/crampi ng. discussed and declines afp. 03/20/23 -?-?-?-?-?-?-?-?-?-?-?-?- 15w 2d 137 lb 111/74 Negative -?-?-?-?-?-?-?-?-?-?-?-?- Negative 147 -?-?-?-?-?-?-?-?-?-?-?-?- KW-no vb/crampin g. chiropractor and magnesium for headaches. US on 04/15. 04/14/23 -?-?-?-?-?-?-?-?-?-?-?-?- 18w 6d 142 lb 4 oz 111/65 Nega tive -?-?-?-?-?-?-?-?-?-?-?-?- Negative 145 -?-?-?-?-?-?-?-?-?-?-?-?- JV- no cramping or spotting. has frequent nose bleeds. remedies discussed. a natomy scan is scheduled for tomorrow. 05/16/23 -?-?-?-?-?-?-?-?-?-?-?-?- 23w 3d 149 lb 123/77 Negative -?-?-?-?-?-?-?-?-?-?-?-?- Negative 145 -?-?-?-?-?-?-?-?-?-?-?-?- SM- no vb lof go od fm n regular ctx discussed rhogam after 28 weeks 06/13/23 -?-?-?-?-?-?-?-?-?-?-?-?- 27w 3d 155 lb 2 oz 131/80 Nega tive -?-?-?-?-?-?-?-?-?-?-?-?- Negative 144 27 -?-?-?-?-?-?-?-?-?-?-?-?- JV- pt wants to do the fresh test. she will return next week for a nurse visit for her rhogam. 06/27/23 -?-?-?-?-?-?-?-?-?-?-?-?- 29w 3d 156 lb 8 oz 118/79 Nega tive -?-?-?-?-?-?-?-?-?-?-?-?- Negative 145 29 -?--?-?-?-?-?-?-?-?-?-?-?- KW- no vb/lof/ct x. good fm. Tdap today. RHogam last week. LARC today 07/11/23 -?-?-?-?-?-?-?-?-?-?-?-?- 31w 3d 159 lb 2 oz 116/76 Nega tive -?-?-?-?-?-?-?-?-?-?-?-?- Negative 144 29 -?-?-?-?-?-?-?-?-?-?-?-?- JV- no lof, vagi nal bleeding, or dec fn. has lower pelvic cramping infrequently. 07/24/23 -?-?-?-?-?-?-?-?-?-?-?-?- 33w 2d 158 lb 107/72 Negative -?-?-?-?-?-?-?-?-?-?-?-?- Negative 145 32 -?-?-?-?-?-?-?-?-?-?-?-?- SM- no vb lof go od fm no regular ctx 08/08/23 -?-?-?-?-?-?-?-?-?-?-?-?- 35w 3d 164 lb 2 oz 124/79 Nega tive -?-?-?-?-?-?-?-?-?-?-?-?- Negative 140 34 -?-?-?-?-?-?-?-?-?-?-?-?- KW-no vb/lof/reg ctx. good fm. 08/14/23 -?-?-?-?-?-?-?-?-?-?-?-?- 36w 2d 166 lb 119/77 Negative -?-?-?-?-?-?-?-?--?-?-?-?- Negative 145 36 Cephalic -?-?-?-?-?-?-?-?-?-?-?-?- SM- no vb lof go od fm no regular ctx gbs 08/22/23 -?-?-?-?-?-?-?-?-?-?-?-?- 37w 3d 165 lb 8 oz 125/75 Nega tive -?-?-?-?-?-?-?-?-?-?-?-?- Negative 135 37 Cephalic -?-?-?-?-?-?-?-?-?-?-?-?- JV- no lof, or d ec fm. labor preferences reviewed and scanned to chart. 08/28/23 -?-?-?-?-?-?-?-?-?-?-?-?- 38w 2d 170 lb 112/72 Negative -?-?-?-?-?-?-?-?-?-?-?-?- Negative 140 38 Cephalic -?-?-?-?-?-?-?-?-?-?-?-?- Sm- no vb lof go od fm n oregular ctx 09/05/23 -?-?-?-?-?-?-?-?-?-?-?-?- 39w 3d 173 lb 8 oz 137/87 123/82 Negative -?-?-?-?-?-?-?-?-?-?-?-?- Negative 144 38 Cephalic 0 -?-?-?-?-?-?-?-?-?-?-?-?- JV- bedside scan to confirm vtx. labor precautions discussed. will wait until 41 weeks if bp stable. rpt bp was 123/82 09/12/23 -?-?-?-?-?-?-?-?-?-?-?-?- 40w 3d 172 lb 117/82 Negative -?-?-?-?-?-?-?-?-?-?-?-?- Negative 140 40 Cephalic 3 -?-?-?-?-?-?-?-?-?-?-?-?- 80 -2 Sm- no vb lof good fm no regular ctx- after check had some bleeding but cervix is very soft. NST FHR Rate Baby A Baseline: 13 Variability:: Moderate Accelerations:: 15 x 15 Decelerations:: None NST Reactive:: Yes FHR Category:: Category I ROS Cardiovascular Cardiovascular: Denies abdominal pain, chest pain, diaphoresis or dyspnea Respiratory/Chest Respiratory/Chest: Denies change in mental status, chest congestion, chest tightness, cough, shortness of breath at rest, shortness of breath with exertion, breast mass, breast pain, breast skin changes, breast swelling, change in breast shape or nipple discharge Genitourinary Genitourinary: Reports change in urinary stream Musculoskeletal Musculoskeletal: Reports none Integumentary Integumentary: Reports none Neurologic Neurologic: Reports none Psychiatric Psychiatric: Reports none Endocrine Endocrinology: Reports none Hematologic/Lymphatic Hematologic/Lymphatic: Reports none Allergic/Immunologic Allergic/Immunologic: Reports none Vital Signs Vital Signs Vital Signs: 09/14/23 14:54 09/14/23 14:54 09/14/23 16:45 Temperature Temperature Source Temporal Pulse Rate 79 Respiratory Rate Blood Pressure 113/65 BP Systolic 113 BP Diastolic 65 Pulse Ox 09/14/23 16:47 09/14/23 16:47 09/14/23 16:45 Temperature Temperature Source Pulse Rate 82 77 Respiratory Rate Blood Pressure 122/73 H BP Systolic 122 BP Diastolic 73 Pulse Ox 09/14/23 16:45 09/14/23 16:45 09/14/23 16:45 Temperature 98.3 F Temperature Source Pulse Rate Respiratory Rate 14 Blood Pressure BP Systolic BP Diastolic Pulse Ox 97 09/14/23 19:21 09/14/23 19:21 09/14/23 19:22 Temperature Temperature Source Pulse Rate 132 H Respiratory Rate Blood Pressure 119/74 BP Systolic 119 BP Diastolic 74 Pulse Ox 83 09/14/23 19:22 09/14/23 19:22 09/14/23 19:22 Temperature Temperature Source Temporal Pulse Rate 78 Respiratory Rate Blood Pressure BP Systolic BP Diastolic Pulse Ox 97 09/14/23 19:22 09/14/23 19:22 09/14/23 19:22 Temperature 98.2 F Temperature Source Pulse Rate Respiratory Rate 16 Blood Pressure BP Systolic BP Diastolic Pulse Ox 97 09/14/23 20:27 09/14/23 20:27 09/14/23 20:27 Temperature Temperature Source Temporal Pulse Rate 86 Respiratory Rate Blood Pressure 141/74 H BP Systolic 141 BP Diastolic 74 Pulse Ox 09/14/23 20:27 09/14/23 20:27 09/14/23 20:27 Temperature 97.6 F L Temperature Source Pulse Rate Respiratory Rate 16 Blood Pressure BP Systolic BP Diastolic Pulse Ox 97 Weight Weight: 172 lb Body Mass Index (BMI) 31.4 Physical Exam Const alert, oriented x3 and no apparent distress General Appearance: cooperative, comfortable and well kempt Orientation / Consciousness: awake and oriented to person Exam Limitations: no limitations HEENT normocephalic Neck full ROM Chest inspection of chest normal Resp normal respiratory effort, normal air movement and no retractions Effort and Inspection: able to speak in complete sentences and symmetric chest movement Cardio regular rate Peripheral Pulses: pulses 2+ throughout GI normal to inspection, nondistended, normoactive bowel sounds Inspection: gravid no CVA tenderness and appearance of the vagina normal External Female Exam: normal appearance of the urethra; Negative for external lesion OB / External & Speculum: external exam normal Manual OB Exam: estimated gestational size appropriate, presentation cephalic, dilated 5, effaced 80 and station 0 Uterus Palpation: Negative for uterus tender Extremity normal to inspection Skin no rashes or lesions noted Neuro deep tendon reflexes 2+ bilaterally and gait normal Motor Exam: strength 5/5 throughout and clonus absent Psych Activity / Motor Behavior: appropriate eye contact Speech: normal speech Labs Labs Labs: Blood Type O NEGATIVE Antibody Screen NEGATIVE Hct 35.3 % (37-47) L Hgb 12.2 g/dL (12.0-15.0) Obstetrics Ultrasound Syphilis Total Ab Non-reactive Rubella IgG Antibody Reactive (Nonreactive) Hep Bs Antigen Non-Reactive (Nonreactive) Hepatitis C Antibody Non-Reactive (Nonreactive) Chlamydia DNA (ANUSHA) Negative (Negative) N.gonorrhoeae DNA (ANUSHA) Negative (Negative) HIV 1&2 Antibody Non-Reactive (Nonreactive) Glucose 1 Hr 50 gm 95 mg/dL (70-140) Assessment & Plan (1) Spontaneous rupture of amniotic membranes: COMMENT: 5pm 09/13/2023 PLAN: -admit to with routine order -start pitocin for unchanged cervical exam since friday in office with prolonged ROM. (2) Supervision of high-risk : QUALIFIERS: Trimester: third trimester Qualified Code(s): O09.93 - Supervision of high risk , unspecified, third trimester COMMENT: PRR, , ANGEL LUIS 09/09/23 girl Yossi (3) : QUALIFIERS: Weeks of gestation: 40 weeks Qualified Code(s): Z3A.40 - 40 weeks gestation of COMMENT: GBS negative, discussed ntd genetic & carrier testing- declined, nl anatomy PLAN: Plan Patient presents IAL, plan expectant management for , pitocin/AROM PRN if needed. forebag ruptured with vaginal exam. clear fluid. Pain management: plans unmedicated. GBS negative. Management of any complications: [none] I have reviewed the [facility] and made any clinically relevant updates. updated on admission, exam and poc and agrees with midwifery primary management, available as needed for consult. 09/14/232125 <Electronically signed by Destiney Cano CNM> Cosigner Signature (if applicable): CC: FREIDA Cano; Dr. Romy Tang MD~ Signed [facility] Work Phone: [phone]) 277-952302-23-2023 History and physical note Author Dr. Cuenca [facility] July 04, 2022 4:38pm Note Date/Time July 04, 2022 4:38pm [facility] Medical Records Department [address] [place] [address] H&P Exam - PHOTOGRAPHIC HAND DEVELOPER 07/04/22 1636 MR#: [id number] Acct: [id number] Name: LYNNE PAL Rep #:[id number] : 1995 26 From: Cheyenne swann MD PCP: Care Physician,No Primary Status :[facility] [place] Location: [place] [address] HPI - General HPI Narrative LYNNE PAL, is a 26 F who presents with early missed loss. Maternal Data Information ANGEL LUIS Calculator Estimated Delivery Date Method Current WG Current Estimate 01/27/23 LMP (Certain) 10w 3d PFSH PFSH Medical History Non-smoker Home Medications Lactobacillus acidophilus and rhamnosus 15 billion cell capsule (Probiotic) 1 cap PO DAILY 06/27/22 [History Last Taken Unknown] ascorbic acid (vitamin C) 500 mg capsule 500 mg PO DAILY 06/27/22 [History Last Taken Unknown] multivitamin no.47-iron fum 27 mg-folate no.1 1 mg-dha 300 mg capsule (PNV-DHA)1 cap PO DAILY 06/27/22 [History Last Taken Unknown] omega-3 fatty acids 1,000 mg capsule 1,000 mg PO DAILY 06/27/22 [History Last Taken Unknown] Allergy/AdvReac Type Severity Reaction Status Date / Time No Known Allergies Allergy Verified 07/03/22 09:33 Surgical History (Updated 07/03/22 @ 09:38 by Angelique Vasquez) Hx of wisdom tooth extraction Social History adopted: No household members: spouse housing: house current occupational status: employed 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 current occupational exposures/hazards: No pets and animals: No history of recent travel: No sexually active: Yes Smoking Status: Never smoker alcohol intake: current details: social- but not while substance use type: does not use well-balanced diet: daily or most days caffeine: No eating out: rarely or never during the past year weight has: remained stable what type of physical activity do you participate in: walking frequency: 3-4 times per week duration: 15-30 minutes/day kenia/evangelical: Sikh seatbelt use: always do you feel safe at home: Yes additional social history: - Yossi- Marketing History 1 Elective abortions Hx Para 0 Spontaneous abortions Hx # Term Pregnancies Ectopic pregnancies Hx # Pregnancies Multiple births # of living children Visit Details OB Flowsheet Initial Weight: Not Recorded Date -?-?-?-?-?-?-?-?-?-?-?-?- EGA Weight BP Urine Prot -?-?-?-?-?-?-?-?-?-?-?-?- Glucose FHR FuHt Pres Dilation -?-?-?-?-?-?-?-?-?-?-?-?- Effaced St Visit Note 07/02/22 -?-?-?-?-?-?-?-?-?-?-?-?- 10w 1d 133 lb 6 oz 105/71 -?-?-?-?-?-?-?-?-?-?-?-?- -?-?-?-?-?-?-?-?-?-?-?-?- SM- Crl cons wit h LMP SM- Crl 1.8cm NOT cons with LMP, no fht or color doppler flow seen. 07/05/22 -?-?-?-?-?-?-?-?--?-?-?-?- 10w 4d -?-?-?-?-?-?-?-?-?-?-?-?- -?-?-?-?-?-?-?-?-?-?-?-?- ROS Constitutional Constitutional: Reports systems reviewed and no addt'l complaints, except as documented; Denies as per HPI, change in weight, fatigue, fever(s), malaise, weakness or other Eyes Eyes: Reports systems reviewed and no addt'l complaints, except as documented; Denies as per HPI, change in vision or other ENT HEENT: Reports systems reviewed and no addt'l complaints, except as documented Respiratory/Chest Respiratory/Chest: Reports systems reviewed and no addt'l complaints, except as documented Gastrointestinal Gastrointestinal: Reports systems reviewed and no addt'l complaints, except as documented and as per HPI Genitourinary Genitourinary: Reports as per HPI Musculoskeletal Musculoskeletal: Reports systems reviewed and no addt'l complaints, except as documented Neurologic Neurologic: Reports systems reviewed and no addt'l complaints, except as documented Psychiatric Psychiatric: Reports systems reviewed and no addt'l complaints, except as documented Endocrine Endocrinology: Reports systems reviewed and no addt'l complaints, except as documented Hematologic/Lymphatic Hematologic/Lymphatic: Reports systems reviewed and no addt'l complaints, exceptas documented Vital Signs Vital Signs Vital Signs: Weight Weight: 134 lb Physical Exam Const alert, oriented x3 and no apparent distress HEENT normocephalic Head and Scalp: atraumatic Eyes EOMs intact bilaterally and conjunctivae normal Neck full ROM, no lymphadenopathy, supple and thyroid normal General: trachea midline Lymph Lymphatic: no lymphadenopathy noted Resp normal respiratory effort, no retractions, no use of accessory muscles and clearto auscultation bilaterally Cardio regular rhythm GI normal to inspection, nondistended, normoactive bowel sounds, soft to palpation,non-distended and no masses Inspection: Negative for abdominal distention Back/Spine no CVA tenderness Extremity normal to inspection Skin no rashes or lesions noted Neuro moves all extremities and deep tendon reflexes 2+ bilaterally Psych mental status grossly normal Labs Labs Labs: No Data to Display Assessment & Plan (1) Missed : COMMENT: plan suction d and c PLAN: Plan After discussing the patient's diagnosis and treatment plan options, patient wishes to proceed with surgical management. I have discussed with the patient the risks, benefits, and alternatives of the procedure which include but are notlimited to risks of anesthesia, bleeding, infection, possible damage to bowel, bladder, or surrounding vasculature which could lead to additional surgery to evaluate any complications. Patient agrees to procedure and wishes to proceed. ACOG/uptodate references given for additional information regarding procedure. 07/04/22 6438 <Electronically signed by Cheyenne Cuenca MD> Cosigner Signature (if applicable): CC: Dr. Cheyenne Cuenca MD; No Primary Care Physician~ Signed [facility] Work Phone: Evaluation note* Diagnosis Onset Date Resolution Status acute Supervision of normal first acute Missed acute [facility] Work Phone: evaluation note* Diagnosis Onset Date Resolution Status Missed acute resolved Supervision of normal first resolved Missed acute [facility] Work Phone: evaluation noteNo assessment information available [facility] Work Phone: evaluation note* Diagnosis Onset Date Resolution Status acute Rh negative state in antepartum period acute Supervision of high-risk acute [facility] Work Phone: evaluation note* Diagnosis Onset Date Resolution Status acute Rh negative state in antepartum period acute Supervision of high-risk acute acute Rh negative state in antepartum period acute Supervision of high-risk acute [facility] Work Phone: evaluation note* Diagnosis Onset Date Resolution Status Lesion of ovary acute acute Rh negative state in antepartum period acute Supervision of high-risk acute Lesion of ovary acute acute Rh negative state in antepartum period acute Supervision of high-risk acute acute Rh negative state in antepartum period acute Supervision of high-risk acute Lesion of ovary acute acute Rh negative state in antepartum period acute Supervision of high-risk acute acute Rh negative state in antepartum period acute Supervision of high-risk acute [facility] Work Phone: evaluation note* Diagnosis Onset Date Resolution Status acute Rh negative state in antepartum period acute Supervision of high-risk acute acute Rh negative state in antepartum period acute Supervision of high-risk acute acute Rh negative state in antepartum period acute Supervision of high-risk acute acute Rh negative state in antepartum period acute Supervision of high-risk acute acute Rh negative state in antepartum period acute Supervision of high-risk acute acute Rh negative state in antepartum period acute Supervision of high-risk acute acute Rh negative state in antepartum period acute Supervision of high-risk acute [facility] Work Phone: evaluation note* Diagnosis Onset Date Resolution Status Rh negative state in antepartum period acute resolved Supervision of high-risk resolved Rh negative state in antepartum period acute resolved Supervision of high-risk resolved Rh negative state in antepartum period acute resolved Supervision of high-risk resolved Rh negative state in antepartum period acute resolved Supervision of high-risk resolved Rh negative state in antepartum period acute resolved Supervision of high-risk resolved Rh negative state in antepartum period acute resolved Supervision of high-risk resolved Rh negative state in antepartum period acute resolved Supervision of high-risk resolved Rh negative state in antepartum period acute resolved Supervision of high-risk resolved Rh negative state in antepartum period acute resolved Supervision of high-risk resolved Rh negative state in antepartum period acute resolved Supervision of high-risk resolved hemorrhage acute Rh negative state in antepartum period acute (spontaneous vaginal delivery) acute resolved Spontaneous rupture of amniotic membranes resolved Supervision of high-risk resolved [facility] Work Phone: Hospital Discharge instructions Additional Instructions Please call your PHOTOGRAPHIC HAND DEVELOPER office on Friday to discuss need for repeat evaluation. Your ultrasound today showed the fetus/baby to be in the uterus with a normal heartbeat of 161 bpm. If you have increased bleeding or any further concerns please return to the ER for repeat evaluation.[facility] Work Phone: Progress note Author Sharifa Willson [facility] Note Date/Time 2024 8:53 am [facility] [address] [place] [address], [address] [place] [address] OFFICE VISIT Date of Service: 10/21/24 MR#: [id number] Acct: [id number] Name: LYNNE PAL Rep #: [id number] : 1995 Provider: SHANNA Willson Age/Sex: 29/F Location: [facility] Status: Signed Intake Vital Signs 07/26/24 10:30 09/21/24 15:40 10/21/24 08:39 Height 5 ft 2 in 5 ft 2 in 5 ft 2 in Weight: 146 lb 8 oz BMI 26.8 BP 116/64 Intake Visit Reasons: 18wk ob Chief Complaint: 18 Week OB Open Cut Examiner Required: No Is patient in pain?: No Allergies No Known Allergies Allergy (Verified 10/21/24 08:41) Medications ?Medication ?Instructions ?Recorded ?Confirmed ?Type Lactobacillus acidophilus and 1 cap PO DAILY supplemen t 06/27/22 10/21/24 History rhamnosus 15 billion cell capsule (Probiotic) multivitamin no.47-iron fum 27 1 cap PO DAILY pregnanc y 06/27/22 10/21/24 History mg-folate no.1 1 mg-dha 300 mg capsule (PNV-DHA) Last Menstrual Period: 05/29/24 Zika: Zika virus screening: Negative : No PFSH PFSH Medical History hemorrhage (spontaneous vaginal delivery) History of group B Streptococcus (GBS) infection Pre-conception counseling Breast tenderness in female Non-smoker Surgical History H/O dilation and curettage Hx of wisdom tooth extraction Family History Father Hypertension Social History adopted: No household members: spouse housing: house number of children: 1 current occupational status: employed 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[employer] current occupational exposures/hazards: No pets and animals: No history of recent travel: No ([place]) sexually active: Yes Smoking Status: Never smoker alcohol intake: former details: social- but not while substance use type: does not use well-balanced diet: daily or most days caffeine: No eating out: rarely or never during the past year weight has: other details: had a baby is 7# heavier than prepregnancy what type of physical activity do you participate in: walking and weight training frequency: 3-4 times per week duration: 15-30 minutes/day kenia/evangelical: Sikh seatbelt use: always do you feel safe at home: Yes additional social history: - Yossi- Marketing History 3 Elective abortions Hx Para 1 Spontaneous abortions 1 Hx # Term Pregnancies Ectopic pregnancies Hx # Pregnancies Multiple births # of living children 1 Past Pregnancies Del. Date Name GA/Weeks Outcome Route Bth Weight Gen Labor Lgth Anesthesia Del Locatn Provider FOB Unknown June 2022 miscarriage 8wk 09/15/23 May 40 live - full term 7lbs 4oz Female n one [facility] Destiney Sy Delivery Date: 09/15/23 Last Updated by: Snow Delgado PP hem. HPI 18wk ob Details: LYNNE KAE is a 29 year old who presents for routine OB visit. OB Visit ANGEL LUIS Calculator Estimated Delivery Date Method Current WG Current Estimate 03/20/25 Ultrasound #1 18w 4d Other Estimates 03/05/25 LMP (Certain) 20w 5d Expected Delivery Route/Plan Labor Preferences- CB/BF classes: [] labor support person: [] labor intervention preferences: [] pain management options preferred: [] cut cord/dad catch: [] : [] PP control planned: [] discussed possible routes of delivery and associated risks: [] special requests: [] Specific Issue/Plans Covid status: [] Flu vaccine: [] Tdap vaccine: [] Rhogam: [] LARC form signed: [] Problem list reviewed and updated with the most current plan of care details and appropriate orders placed. Relevant counseling for the gestational age provided. Continue routine care and follow up unless otherwise noted in visit notes/problem list details Initial Weight: Not Recorded Date -?-?-?-?-?-?-?-?-?-?-?-?- EGA Weight BP Urine Prot -?-?-?-?-?-?-?-?-?-?-?-?- Glucose FHR FuHt Pres Dilation -?-?-?-?-?-?-?-?-?-?-?-?- Effaced St Visit Note 07/26/24 -?-?-?-?-?-?-?-?-?-?-?-?- 6w 1d 139 lb 4 oz 120/80 -?-?-?-?-?-?-?-?-?-?-?-?- 105 -?-?-?-?-?-?-?-?-?-?-?-?- JV- CRL measurin g 6 weeks 1 day with heart tones. states is 6 weeks by when she calculated ovulation. unsure about nipt or blood type testing of baby (she is rh neg) 08/27/24 -?-?-?-?-?-?-?-?-?-?-?-?- 10w 5d 141 lb 2 oz 110/76 Nega tive -?-?-?-?-?-?-?-?-?-?-?-?- Negative 173 -?-?-?-?-?-?-?-?-?-?-?-?- KW- CRL cons wit h 10.5 weeks. labs today and MFM order placed 09/21/24 -?-?-?-?--?-?-?-?-?-?-?-?- 14w 2d 144 lb 8 oz 119/75 Nega tive -?-?-?-?-?-?-?-?-?-?-?-?- Negative 153 -?-?-?-?-?-?-?-?-?-?-?-?- KW- no vb/crampi ng. US scheduled- 10/26. no concerns KW- no vb/cramping. US sched uled- 10/26. no concerns. declines AFP 10/21/24 -?-?-?-?-?-?-?-?-?-?-?-?- 18w 4d 146 lb 8 oz 116/64 Nega tive -?-?-?-?-?-?-?-?-?-?-?-?- Negative 151 -?-?-?-?-?-?-?-?-?-?-?-?- MH-No VB. Feelin g movement. No concerns ACOG First Trimester First Trimester: Desire for , Alcohol, Tobacco Cessation, Illicit/Recreational Drug/Substance Use, Intimate Partner Violence, Barriers to care, Unstable Housing, Communication Barriers, Environmental/Work Hazards, Anticipated Course of Care, Toxoplasmosis Precations, Use of Any medications, Sexual activity, Exercise, Dental Care, Sauna/Hot tub use, Seat Belt use, Childbirth classes/Hospital facilities, Travel, Indications for Ultrasound and Screening for Aneuploidy; Discussed Second Trimester Second Trimester: Signs and Symptoms of Labor, Selecting a care provider, Reproductive Life Planning & Contreception, Care Planning, Depression/Anxiety and Intimate Partner Violence; Discussed Tobacco Cessation Third Trimester Third Trimester: Pain Management Plans, Labor support person(s), Immediate Larc, Movement Monitoring, Signs and Symptoms of Preeclampsia and [place] Education ROS Const Reports system reviewed and no additional complaints, except as documented GI Denies abdominal pain, Denies nausea and Denies vomiting Exam Const General: cooperative Nutritional Appearance: well nourished GI Palpation: soft, nontender and other (gravid) Results POC Urinalysis 2 Dip (Clinic) Office Urine Glucose Negative Last Edit by Padmaaj Crabtree on 10/21/24 08 :44 Office Urine Protein Negative Last Edit by Padmaja Crabtree on 10/21/24 08 :44 Coding Level of Care Code OB Routine Diagnoses Supervision of high risk in second trimester O09.92 Trimester: second trimester 18 weeks gestation of Z3A.18 Weeks of gestation: 18 weeks Hx of hemorrhage, currently O09.299 History of miscarriage, currently O09.299 Rh negative state in antepartum period O26.899; Z67.91 Assessment and Plan Assessment and Plan (1) Supervision of high-risk : Status: Acute Qualifiers: Trimester: second trimester Qualified Code(s): O09.92 - Supervision of high risk , unspecified, second trimester Comment: PRR, , ANGEL LUIS 03/20/25, PC May, Yossi (2) : Status: Acute Qualifiers: Weeks of gestation: 18 weeks Qualified Code(s): Z3A.18 - 18 weeks gestation of Comment: declined NIPT & Carrier testing (3) Hx of hemorrhage, currently : Status: Acute (4) History of miscarriage, currently : Status: Acute (5) Rh negative state in antepartum period: Status: Acute Comment: rhogam at 28 weeks. Orders: Orders POC Urinalysis 2 Dip (Clinic) Today Plan problem list reviewed and updated for most current plan of care and appropriate orders placed. Relevant counseling for the gestational age appropriate provided and ACOG education checklist updated. Continue routine care and follow up. 10/21/24 0854 <Electronically signed by Sharifa scruggs WORLD LANGUAGE TEACHER WORLD LANGUAGE TEACHER-C> Date _ Sharifa Willson NP WORLD LANGUAGE TEACHER-C Cosigner Signature: Date (if applicable) CC: ~ [facility] Work Phone: Progress note Author Camacho Cash [facility] Note Date/Time November 19, 2024 10:4 3am [facility] [address], [address] [place] [address] OFFICE VISIT Date of Service: 11/19/24 MR#: [id number] Acct: [id number] Name: LYNNE PAL Rep #: [id number] : 1995 Provider: FREIDA Cash Age/Sex: 29/F Location: [facility] Status: Signed Intake Vital Signs 09/21/24 15:40 10/21/24 08:39 11/19/24 10:06 Height 5 ft 2 in 5 ft 2 in 5 ft 2 in Weight: 154 lb 6 oz BMI 28.2 BP 131/73 H Intake Visit Reasons: 22 wk ob Open Cut Examiner Required: No Is patient in pain?: No Allergies No Known Allergies Allergy (Verified 11/19/24 10:06) Medications ?Medication ?Instructions ?Recorded ?Confirmed ?Type Lactobacillus acidophilus and 1 cap PO DAILY supplemen t 06/27/22 11/19/24 History rhamnosus 15 billion cell capsule (Probiotic) multivitamin no.47-iron fum 27 1 cap PO DAILY pregnanc y 06/27/22 11/19/24 History mg-folate no.1 1 mg-dha 300 mg capsule (PNV-DHA) Last Menstrual Period: 05/29/24 Zika: Zika virus screening: Negative : No Have you fallen in the past year?: No PFSH PFSH Medical History hemorrhage (spontaneous vaginal delivery) History of group B Streptococcus (GBS) infection Pre-conception counseling Breast tenderness in female Non-smoker Surgical History H/O dilation and curettage Hx of wisdom tooth extraction Family History Father Hypertension Social History adopted: No household members: spouse housing: house number of children: 1 current occupational status: employed 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 current occupational exposures/hazards: No pets and animals: No history of recent travel: No ([place]) sexually active: Yes Smoking Status: Never smoker alcohol intake: former details: social- but not while substance use type: does not use well-balanced diet: daily or most days caffeine: No eating out: rarely or never during the past year weight has: other details: had a baby is 7# heavier than prepregnancy what type of physical activity do you participate in: walking and weight training frequency: 3-4 times per week duration: 15-30 minutes/day kenia/evangelical: Sikh seatbelt use: always do you feel safe at home: Yes additional social history: - Yossi- Marketing History 3 Elective abortions Hx Para 1 Spontaneous abortions 1 Hx # Term Pregnancies Ectopic pregnancies Hx # Pregnancies Multiple births # of living children 1 Past Pregnancies Del. Date Name GA/Weeks Outcome Route Bth Weight Gen Labor Lgth Anesthesia Del Locatn Provider FOB Unknown June 2022 miscarriage 8wk 09/15/23 May 40 live - full term 7lbs 4oz Female n one [facility] Destiney Lópezrett Delivery Date: 09/15/23 Last Updated by: Snow Delgado PP hem. HPI 22 wk ob Details: LYNNE PAL is a 29 year old who presents for routine OB visit. OB Visit ANGEL LUIS Calculator Estimated Delivery Date Method Current WG Current Estimate 03/20/25 Ultrasound #1 22w 5d Other Estimates 03/05/25 LMP (Certain) 24w 6d Expected Delivery Route/Plan Labor Preferences- CB/BF classes: [] labor support person: [] labor intervention preferences: [] pain management options preferred: [] cut cord/dad catch: [] : [] PP control planned: [] discussed possible routes of delivery and associated risks: [] special requests: [] Specific Issue/Plans Covid status: [] Flu vaccine: [] Tdap vaccine: [] Rhogam: [] LARC form signed: [] Problem list reviewed and updated with the most current plan of care details and appropriate orders placed. Relevant counseling for the gestational age provided. Continue routine care and follow up unless otherwise noted in visit notes/problem list details Initial Weight: Not Recorded Date -?-?-?-?-?-?-?-?-?-?-?-?- EGA Weight BP Urine Prot -?-?-?-?-?-?-?-?-?-?-?-?- Glucose FHR FuHt Pres Dilation -?-?-?-?-?-?-?-?-?-?-?-?- Effaced St Visit Note 07/26/24 -?-?-?-?-?-?-?-?-?-?-?-?- 6w 1d 139 lb 4 oz 120/80 -?-?-?-?-?-?-?-?-?-?-?-?- 105 -?-?-?-?-?-?-?-?-?-?-?-?- JV- CRL measurin g 6 weeks 1 day with heart tones. states is 6 weeks by when she calculated ovulation. unsure about nipt or blood type testing of baby (she is rh neg) 08/27/24 -?-?-?-?-?-?-?-?-?-?-?-?- 10w 5d 141 lb 2 oz 110/76 Nega tive -?-?-?-?-?-?-?-?-?-?-?-?- Negative 173 -?-?-?-?-?-?-?-?-?-?-?-?- KW- CRL cons wit h 10.5 weeks. labs today and MFM order placed 09/21/24 -?-?-?-?-?-?--?-?-?-?-?-?- 14w 2d 144 lb 8 oz 119/75 Nega tive -?-?-?-?-?-?-?-?-?-?-?-?- Negative 153 -?-?-?-?-?-?-?-?-?-?-?-?- KW- no vb/crampi ng. US scheduled- 10/26. no concerns KW- no vb/cramping. US sched uled- 10/26. no concerns. declines AFP 10/21/24 -?-?-?-?-?-?-?-?-?-?-?-?- 18w 4d 146 lb 8 oz 116/64 Nega tive -?-?-?-?-?-?-?-?-?-?-?-?- Negative 151 -?-?-?-?-?-?-?-?-?-?-?-?- MH-No VB. Feelin g movement. No concerns 11/19/24 -?-?-?-?-?-?-?-?-?-?-?-?- 22w 5d 154 lb 6 oz 131/73 Nega tive -?-?-?-?-?-?-?-?-?-?-?-?- Negative 155 -?-?-?-?-?-?-?-?-?-?-?-?- KW- no vb/crampi ng. good fm. glucose at 28 week. will do the fresh test. ACOG First Trimester First Trimester: Desire for , Alcohol, Tobacco Cessation, Illicit/Recreational Drug/Substance Use, Intimate Partner Violence, Barriers to care, Unstable Housing, Communication Barriers, Environmental/Work Hazards, Anticipated Course of Care, Toxoplasmosis Precations, Use of Any medications, Sexual activity, Exercise, Dental Care, Sauna/Hot tub use, Seat Belt use, Childbirth classes/Hospital facilities, Travel, Indications for Ultrasound and Screening for Aneuploidy; Discussed Second Trimester Second Trimester: Signs and Symptoms of Labor, Selecting a care provider, Reproductive Life Planning & Contreception, Care Planning, Depression/Anxiety and Intimate Partner Violence; Discussed Tobacco Cessation Third Trimester Third Trimester: Pain Management Plans, Labor support person(s), Immediate Larc, Movement Monitoring, Signs and Symptoms of Preeclampsia and Education ROS Const Reports system reviewed and no additional complaints, except as documented Eyes Reports system reviewed and no additional complaints, except as documented ENT Reports system reviewed and no additional complaints, except as documented Card Reports system reviewed and no additional complaints, except as documented Resp Reports system reviewed and no additional complaints, except as documented GI Reports system reviewed and no additional complaints, except as documented, Denies nausea and Denies vomiting Reports system reviewed and no additional complaints, except as documented Musc Reports system reviewed and no additional complaints, except as documented Skin/Breast Reports system reviewed and no additional complaints, except as documented Neuro Yes system reviewed and no additional complaints, except as documented Psych Reports system reviewed and no additional complaints, except as documented Endo Reports system reviewed and no additional complaints, except as documented Jacobo/Lymph Reports system reviewed and no additional complaints, except as documented Aller/Immun Reports system reviewed and no additional complaints, except as documented Exam Const General: cooperative, healthy appearing and no acute distress Orientation: alert, awake and oriented x3 Neck Neck: normal visual inspection and full ROM Resp Effort & Inspection: normal respiratory effort, able to speak in complete sentences and symmetric chest movement GI Inspection: normal to inspection Palpation: soft and other Other: gravid Skin General: no rashes or lesions noted Neuro General: patient alert, patient awake and patient oriented x3 Cognition: normal cognition Speech: speech normal Gait: normal gait Motor: muscle tone normal throughout Extrem General: normal to inspection and full ROM Psych Appearance: grossly normal Mental Status: mental status grossly normal Mood: congruent mood Affect: normal affect Speech and Movement: speech and movement normal Attitude: cooperative Thought Process: normal Thought Content: normal Judgment: judgment good Results POC Urinalysis 2 Dip (Clinic) Office Urine Glucose Negative Last Edit by Alondra Weldon on 11/19/24 10:15 Office Urine Protein Negative Last Edit by Alondra Weldon on 11/19/24 10:15 Coding Level of Care Code OB Routine Diagnoses Hx of hemorrhage, currently O09.299 Supervision of high risk in second trimester O09.92 Trimester: second trimester 22 weeks gestation of Z3A.22 Weeks of gestation: 22 weeks History of miscarriage, currently O09.299 Rh negative state in antepartum period O26.899; Z67.91 Assessment and Plan Assessment and Plan (1) Hx of hemorrhage, currently : Status: Acute (2) Supervision of high-risk : Status: Acute Qualifiers: Trimester: second trimester Qualified Code(s): O09.92 - Supervision of high risk , unspecified, second trimester Comment: PRR, , ANGEL LUIS 03/20/25, PC May, Yossi (3) : Status: Acute Qualifiers: Weeks of gestation: 22 weeks Qualified Code(s): Z3A.22 - 22 weeks gestation of Comment: declined NIPT & Carrier testing (4) History of miscarriage, currently : Status: Acute (5) Rh negative state in antepartum period: Status: Acute Comment: rhogam at 28 weeks. Orders: Orders POC Urinalysis 2 Dip (Clinic) Today Plan Details Additional Comments: ACOG trimester education reviewed and updated. see problem list details for updated plan management information and see below for orders placed at this visit. GA appropriate handout given. Clinical Quality Measures Falls Risk Screening/Assistive Devices Have you fallen in the past year?: No 11/19/24 1043 <Electronically signed by Camacho scruggs CNM> Date _ Camacho Cash CNM Cosigner Signature: Date (if applicable) CC: ~ [facility] Work Phone: Progress note Author Camacho Cash [facility] Note Date/Time December 17, 2024 10: 06am [facility] [address], [address] [place] [address] OFFICE VISIT Date of Service: 12/17/24 MR#: [id number] Acct: [id number] Name: LYNNE PAL Rep #: [id number] : 1995 Provider: FREIDA Cash Age/Sex: 29/F Location: [facility] Status: Signed Intake Vital Signs 10/21/24 08:39 11/19/24 10:06 12/17/24 09:43 Height 5 ft 2 in 5 ft 2 in 5 ft 2 in Weight: 156 lb 2 oz BMI 28.5 BP 115/70 Intake Visit Reasons: 26 WK OB Chief Complaint: 26wk OB Open Cut Examiner Required: No Is patient in pain?: No Allergies No Known Allergies Allergy (Verified 12/17/24 09:41) Medications ?Medication ?Instructions ?Recorded ?Confirmed ?Type Lactobacillus acidophilus and 1 cap PO DAILY supplemen t 06/27/22 12/17/24 History rhamnosus 15 billion cell capsule (Probiotic) multivitamin no.47-iron fum 27 1 cap PO DAILY pregnanc y 06/27/22 12/17/24 History mg-folate no.1 1 mg-dha 300 mg capsule (PNV-DHA) Last Menstrual Period: 05/29/24 : No PFSH PFSH Medical History hemorrhage (spontaneous vaginal delivery) History of group B Streptococcus (GBS) infection Pre-conception counseling Breast tenderness in female Non-smoker Surgical History H/O dilation and curettage Hx of wisdom tooth extraction Family History Father Hypertension Social History adopted: No household members: spouse housing: house number of children: 1 current occupational status: employed 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 current occupational exposures/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: No pets and animals: No history of recent travel: No ([place]) sexually active: Yes Smoking Status: Never smoker alcohol intake: former details: social- but not while substance use type: does not use well-balanced diet: daily or most days caffeine: No eating out: rarely or never during the past year weight has: other details: had a baby is 7# heavier than prepregnancy what type of physical activity do you participate in: walking and weight training frequency: 3-4 times per week duration: 15-30 minutes/day kenia/evangelical: Sikh seatbelt use: always do you feel safe at home: Yes additional social history: - Yossi- Marketing History 3 Elective abortions Hx Para 1 Spontaneous abortions 1 Hx # Term Pregnancies Ectopic pregnancies Hx # Pregnancies Multiple births # of living children 1 Past Pregnancies Del. Date Name GA/Weeks Outcome Route Bth Weight Gen Labor Lgth Anes thes ia Del Locatn Provider FOB Unknown June 2022 miscarriage 8wk 09/15/23 May 40 live - full term 7lbs 4oz Female n one [facility] Destiney Cano Yossi Delivery Date: 09/15/23 Last Updated by: Snow Delgado PP hem. HPI 26 WK OB Details: LYNNE PAL is a 29 year old who presents for routine OB visit. OB Visit ANGEL LUIS Calculator Estimated Delivery Date Method Current WG Current Estimate 03/20/25 Ultrasound #1 26w 5d Other Estimates 03/05/25 LMP (Certain) 28w 6d Expected Delivery Route/Plan Labor Preferences- CB/BF classes: [] labor support person: [] labor intervention preferences: [] pain management options preferred: [] cut cord/dad catch: [] : [] PP control planned: [] discussed possible routes of delivery and associated risks: [] special requests: [] Specific Issue/Plans Covid status: [] Flu vaccine: [] Tdap vaccine: [] Rhogam: [] LARC form signed: [] Problem list reviewed and updated with the most current plan of care details and appropriate orders placed. Relevant counseling for the gestational age provided. Continue routine care and follow up unless otherwise noted in visit notes/problem list details Initial Weight: Not Recorded Date -?-?-?-?-?-?-?-?-?-?-?-?- EGA Weight BP Urine Prot -?-?-?-?-?-?-?-?-?-?-?-?- Glucose FHR FuHt Pres Dilation -?-?-?-?-?-?-?-?-?-?-?-?- Effaced St Visit Note 07/26/24 -?-?-?-?-?-?-?-?-?-?-?-?- 6w 1d 139 lb 4 oz 120/80 -?-?-?-?-?-?-?-?-?-?-?-?- 105 -?-?-?-?-?-?-?-?-?-?-?-?- JV- CRL measurin g 6 weeks 1 day with heart tones. states is 6 weeks by when she calculated ovulation. unsure about nipt or blood type testing of baby (she is rh neg) 08/27/24 -?-?-?-?-?-?-?-?-?-?-?-?- 10w 5d 141 lb 2 oz 110/76 Nega tive -?-?-?-?-?-?-?-?-?-?-?-?- Negative 173 -?-?-?-?-?-?-?--?-?-?-?-?- KW- CRL cons wit h 10.5 weeks. labs today and MFM order placed 09/21/24 -?-?-?-?-?-?-?-?-?-?-?-?- 14w 2d 144 lb 8 oz 119/75 Nega tive -?--?-?-?-?-?-?-?-?-?-?-?- Negative 153 -?-?-?-?-?-?-?-?-?-?-?-?- KW- no vb/crampi ng. US scheduled- 10/26. no concerns KW- no vb/cramping. US sched uled- 10/26. no concerns. declines AFP 10/21/24 -?-?-?-?-?-?-?-?-?-?-?-?- 18w 4d 146 lb 8 oz 116/64 Nega tive -?-?-?-?-?-?-?-?-?-?-?-?- Negative 151 -?-?-?-?-?--?-?-?-?-?-?-?- MH-No VB. Feelin g movement. No concerns 11/19/24 -?-?-?-?-?-?-?-?-?-?-?-?- 22w 5d 154 lb 6 oz 131/73 Nega tive -?-?-?-?-?-?-?-?-?-?-?-?- Negative 155 -?-?-?-?-?-?-?-?-?-?-?-?- KW- no vb/crampi ng. good fm. glucose at 28 week. will do the fresh test. 12/17/24 -?-?-?-?-?-?-?-?-?-?-?-?- 26w 5d 156 lb 2 oz 115/70 Nega tive -?-?-?-?-?-?-?-?-?-?-?-?- Negative 150 26 -?-?-?-?-?-?-?-?-?-?-?-?- KW- no vb/lof/ct x. good fm. glucose and rhogam next visit. LARC today. ACOG First Trimester First Trimester: Desire for , Alcohol, Tobacco Cessation, Illicit/Recreational Drug/Substance Use, Intimate Partner Violence, Barriers to care, Unstable Housing, Communication Barriers, Environmental/Work Hazards, Anticipated Course of Care, Toxoplasmosis Precations, Use of Any medications, Sexual activity, Exercise, Dental Care, Sauna/Hot tub use, Seat Belt use, Childbirth classes/Hospital facilities, Travel, Indications for Ultrasound and Screening for Aneuploidy; Discussed Second Trimester Second Trimester: Signs and Symptoms of Labor, Selecting a care provider, Reproductive Life Planning & Contreception, Care Planning, Depression/Anxiety and Intimate Partner Violence; Discussed Tobacco Cessation Third Trimester Third Trimester: Pain Management Plans, Labor support person(s), Immediate Larc, Movement Monitoring, Signs and Symptoms of Preeclampsia and [place] Education ROS Const Reports system reviewed and no additional complaints, except as documented Eyes Reports system reviewed and no additional complaints, except as documented ENT Reports system reviewed and no additional complaints, except as documented Card Reports system reviewed and no additional complaints, except as documented Resp Reports system reviewed and no additional complaints, except as documented GI Reports system reviewed and no additional complaints, except as documented, Denies nausea and Denies vomiting Reports system reviewed and no additional complaints, except as documented Musc Reports system reviewed and no additional complaints, except as documented Skin/Breast Reports system reviewed and no additional complaints, except as documented Neuro Yes system reviewed and no additional complaints, except as documented Psych Reports system reviewed and no additional complaints, except as documented Endo Reports system reviewed and no additional complaints, except as documented Jacobo/Lymph Reports system reviewed and no additional complaints, except as documented Aller/Immun Reports system reviewed and no additional complaints, except as documented Exam Const General: cooperative, healthy appearing and no acute distress Orientation: alert, awake and oriented x3 Neck Neck: normal visual inspection and full ROM Resp Effort & Inspection: normal respiratory effort, able to speak in complete sentences and symmetric chest movement GI Inspection: normal to inspection Palpation: soft and other Other: gravid Skin General: no rashes or lesions noted Neuro General: patient alert, patient awake and patient oriented x3 Cognition: normal cognition Speech: speech normal Gait: normal gait Motor: muscle tone normal throughout Extrem General: normal to inspection and full ROM Psych Appearance: grossly normal Mental Status: mental status grossly normal Mood: congruent mood Affect: normal affect Speech and Movement: speech and movement normal Attitude: cooperative Thought Process: normal Thought Content: normal Judgment: judgment good Results POC Urinalysis 2 Dip (Clinic) Office Urine Glucose Negative Last Edit by Nika Dubon on 12/17/24 09:51 Office Urine Protein Negative Last Edit by Nika Dubon on 12/17/24 09:51 Coding Level of Care Code OB Routine Diagnoses Hx of hemorrhage, currently O09.299 Supervision of high risk in second trimester O09.92 Trimester: second trimester 26 weeks gestation of Z3A.26 Weeks of gestation: 26 weeks History of miscarriage, currently O09.299 Rh negative state in antepartum period O26.899; Z67.91 Assessment and Plan Assessment and Plan (1) Hx of hemorrhage, currently : Status: Acute (2) Supervision of high-risk : Status: Acute Qualifiers: Trimester: second trimester Qualified Code(s): O09.92 - Supervision of high risk , unspecified, second trimester Comment: PRR, , ANGEL LUIS 03/20/25, JEFFERSON Olvera, Yossi (3) : Status: Acute Qualifiers: Weeks of gestation: 26 weeks Qualified Code(s): Z3A.26 - 26 weeks gestation of Comment: declined NIPT & Carrier testing (4) History of miscarriage, currently : Status: Acute (5) Rh negative state in antepartum period: Status: Acute Comment: rhogam at 28 weeks. Orders: Orders CBC W/Diff, Automated 12/10/24 O09.92 - Supervision of high risk , unspecified, second trimester, O26.899 - Other specified related conditions, unspecified trimester, Z67.91 - Unspecified blood type, Rh negative Type & Screen 12/10/24 O09.92 - Supervision of high risk , unspecified, second trimester, O26.899 - Other specified related conditions, unspecified trimester, Z67.91 - Unspecified blood type, Rh negative Glucose Challenge Gest 1H 50g 12/10/24 O09.92 - Supervision of high risk , unspecified, second trimester, O26.899 - Other specified related conditions, unspecified trimester, Z13.1 - Encounter for screening for diabetes mellitus, Z67.91 - Unspecified blood type, Rh negative HIV 12/10/24 O09.92 - Supervision of high risk , unspecified, second trimester, O26.899 - Other specified related conditions, unspecified trimester, Z67.91 - Unspecified blood type, Rh negative Syphilis Antibodies 12/10/24 O09.92 - Supervision of high risk , unspecified, second trimester, O26.899 - Other specified related conditions, unspecified trimester, Z67.91 - Unspecified blood type, Rh negative Rho(D) Immune Globulin RhoGam 12/10/24 O09.92 - Supervision of high risk , unspecified, second trimester, O26.899 - Other specified related conditions, unspecified trimester, Z67.91 - Unspecified blood type, Rh negative POC Urinalysis 2 Dip (Clinic) Today Plan Details Additional Comments: ACOG trimester education reviewed and updated. see problem list details for updated plan management information and see below for orders placed at this visit. [place] appropriate handout given. 12/17/24 1007 <Electronically signed by Camacho scruggs CNM> Date _ Camacho Cash CNM Cosigner Signature: Date (if applicable) CC: ~ [facility] Work Phone: Progress note Author Camacho Cash [facility] Note Date/Time December 27, 2024 9: 55am [facility] [address], [address] [place] [address] OFFICE VISIT Date of Service: 12/27/24 MR#: [id number] Acct: [id number] Name: LYNNE PAL Rep #: [id number] : 1995 Provider: FREIDA Cash Age/Sex: 29/F Location: [facility] [place] Status: Signed Intake Vital Signs 10/21/24 08:39 12/17/24 09:43 12/27/24 09:42 Height 5 ft 2 in 5 ft 2 in 5 ft 2 in Weight: 157 lb 3 oz BMI 28.7 BP 103/67 Intake Visit Reasons: 28 WK OB GLUCOSE/RHOGAM Chief Complaint: 28wk OB/Rhogam Open Cut Examiner Required: No Is patient in pain?: No Allergies No Known Allergies Allergy (Verified 12/27/24 09:40) Medications ?Medication ?Instructions ?Recorded ?Confirmed ?Type Lactobacillus acidophilus and 1 cap PO DAILY supplemen t 06/27/22 12/27/24 History rhamnosus 15 billion cell capsule (Probiotic) multivitamin no.47-iron fum 27 1 cap PO DAILY pregnanc y 06/27/22 12/27/24 History mg-folate no.1 1 mg-dha 300 mg capsule (PNV-DHA) Last Menstrual Period: 05/29/24 : No PFSH PFSH Medical History hemorrhage (spontaneous vaginal delivery) History of group B Streptococcus (GBS) infection Pre-conception counseling Breast tenderness in female Non-smoker Surgical History H/O dilation and curettage Hx of wisdom tooth extraction Family History Father Hypertension Social History adopted: No household members: spouse housing: house number of children: 1 current occupational status: employed 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 current occupational exposures/hazards: No pets and animals: No history of recent travel: No ([place]) sexually active: Yes Smoking Status: Never smoker alcohol intake: former details: social- but not while substance use type: does not use well-balanced diet: daily or most days caffeine: No eating out: rarely or never during the past year weight has: other details: had a baby is 7# heavier than prepregnancy what type of physical activity do you participate in: walking and weight training frequency: 3-4 times per week duration: 15-30 minutes/day kenia/evangelical: Sikh seatbelt use: always do you feel safe at home: Yes additional social history: - Yossi- Marketing History 3 Elective abortions Hx Para 1 Spontaneous abortions 1 Hx # Term Pregnancies Ectopic pregnancies Hx # Pregnancies Multiple births # of living children 1 Past Pregnancies Del. Date Name GA/Weeks Outcome Route Bth Weight Gen Labor Lgth Anesthesia Del Locatn Provider FOB Unknown June 2022 miscarriage 8wk 09/15/23 May 40 live - full term 7lbs 4oz Female n one [facility] Destiney Sy Delivery Date: 09/15/23 Last Updated by: Snow Delgado PP hem. HPI 28 WK OB GLUCOSE/RHOGAM Details: LYNNE PAL is a 29 year old who presents for routine OB visit. OB Visit ANGEL LUIS Calculator Estimated Delivery Date Method Current WG Current Estimate 03/20/25 Ultrasound #1 28w 1d Other Estimates 03/05/25 LMP (Certain) 30w 2d Expected Delivery Route/Plan Labor Preferences- CB/BF classes: [] labor support person: [] labor intervention preferences: [] pain management options preferred: [] cut cord/dad catch: [] : [] PP control planned: [] discussed possible routes of delivery and associated risks: [] special requests: [] Specific Issue/Plans Covid status: [] Flu vaccine: [] Tdap vaccine: [] Rhogam: [] LARC form signed: [] Problem list reviewed and updated with the most current plan of care details and appropriate orders placed. Relevant counseling for the gestational age provided. Continue routine care and follow up unless otherwise noted in visit notes/problem list details Initial Weight: Not Recorded Date -?-?-?-?-?-?-?-?-?-?-?-?- EGA Weight BP Urine Prot -?-?-?-?-?-?-?-?-?-?-?-?- Glucose FHR FuHt Pres Dilation -?-?-?-?-?-?-?-?-?-?-?-?- Effaced St Visit Note 07/26/24 -?-?-?-?-?-?-?-?-?-?-?-?- 6w 1d 139 lb 4 oz 120/80 -?-?-?-?--?-?-?-?-?-?-?-?- 105 -?-?-?-?-?-?-?-?-?-?-?-?- JV- CRL measurin g 6 weeks 1 day with heart tones. states is 6 weeks by when she calculated ovulation. unsure about nipt or blood type testing of baby (she is rh neg) 08/27/24 -?-?-?-?-?-?-?-?-?-?-?-?- 10w 5d 141 lb 2 oz 110/76 Nega tive -?-?-?-?-?-?-?-?-?-?-?-?- Negative 173 -?-?-?-?-?-?-?-?-?-?-?-?- KW- CRL cons wit h 10.5 weeks. labs today and MFM order placed 09/21/24 -?-?-?-?-?-?-?-?-?-?-?-?- 14w 2d 144 lb 8 oz 119/75 Nega tive -?-?-?-?-?-?-?-?-?-?-?-?- Negative 153 -?-?-?-?-?-?-?-?-?-?-?-?- KW- no vb/crampi ng. US scheduled- 10/26. no concerns KW- no vb/cramping. US sched uled- 10/26. no concerns. declines AFP 10/21/24 -?-?-?-?-?-?-?-?-?-?-?-?- 18w 4d 146 lb 8 oz 116/64 Nega tive -?-?-?-?-?-?-?-?-?-?-?-?- Negative 151 -?-?-?-?-?-?-?-?-?-?-?-?- MH-No VB. Feelin g movement. No concerns 11/19/24 -?-?-?-?-?-?-?-?-?-?-?-?- 22w 5d 154 lb 6 oz 131/73 Nega tive -?-?-?-?-?-?-?-?-?-?-?-?- Negative 155 -?-?-?-?-?-?-?-?-?-?-?-?- KW- no vb/crampi ng. good fm. glucose at 28 week. will do the fresh test. 12/17/24 -?-?-?-?-?-?-?-?-?-?-?-?- 26w 5d 156 lb 2 oz 115/70 Nega tive -?-?-?-?-?-?-?-?-?-?-?-?- Negative 150 26 -?-?-?-?-?-?-?-?-?-?-?-?- KW- no vb/lof/ct x. good fm. glucose and rhogam next visit. LARC today. 12/27/24 -?-?-?-?-?-?-?-?-?-?-?-?- 28w 1d 157 lb 3 oz 103/67 -?-?-?-?-?-?-?-?-?-?-?-?- 155 27 -?-?-?-?-?-?-?-?-?-?-?-?- KW- no vb/lof/ct x. good fm. Missed draw time and will need to redo. Will come in friday for labs and rhogam. declines TDAP today. ACOG First Trimester First Trimester: Desire for , Alcohol, Tobacco Cessation, Illicit/Recreational Drug/Substance Use, Intimate Partner Violence, Barriers to care, Unstable Housing, Communication Barriers, Environmental/Work Hazards, Anticipated Course of Care, Toxoplasmosis Precations, Use of Any medications, Sexual activity, Exercise, Dental Care, Sauna/Hot tub use, Seat Belt use, Childbirth classes/Hospital facilities, Travel, Indications for Ultrasound and Screening for Aneuploidy; Discussed Second Trimester Second Trimester: Signs and Symptoms of Labor, Selecting a care provider, Reproductive Life Planning & Contreception, Care Planning, Depression/Anxiety and Intimate Partner Violence; Discussed Tobacco Cessation Third Trimester Third Trimester: Pain Management Plans, Labor support person(s), Immediate Larc, Movement Monitoring, Signs and Symptoms of Preeclampsia and [place] Education ROS Const Reports system reviewed and no additional complaints, except as documented Eyes Reports system reviewed and no additional complaints, except as documented ENT Reports system reviewed and no additional complaints, except as documented Card Reports system reviewed and no additional complaints, except as documented Resp Reports system reviewed and no additional complaints, except as documented GI Reports system reviewed and no additional complaints, except as documented, Denies nausea and Denies vomiting Reports system reviewed and no additional complaints, except as documented Musc Reports system reviewed and no additional complaints, except as documented Skin/Breast Reports system reviewed and no additional complaints, except as documented Neuro Yes system reviewed and no additional complaints, except as documented Psych Reports system reviewed and no additional complaints, except as documented Endo Reports system reviewed and no additional complaints, except as documented Jacobo/Lymph Reports system reviewed and no additional complaints, except as documented Aller/Immun Reports system reviewed and no additional complaints, except as documented Exam Const General: cooperative, healthy appearing and no acute distress Orientation: alert, awake and oriented x3 Neck Neck: normal visual inspection and full ROM Resp Effort & Inspection: normal respiratory effort, able to speak in complete sentences and symmetric chest movement GI Inspection: normal to inspection Palpation: soft and other Other: gravid Skin General: no rashes or lesions noted Neuro General: patient alert, patient awake and patient oriented x3 Cognition: normal cognition Speech: speech normal Gait: normal gait Motor: muscle tone normal throughout Extrem General: normal to inspection and full ROM Psych Appearance: grossly normal Mental Status: mental status grossly normal Mood: congruent mood Affect: normal affect Speech and Movement: speech and movement normal Attitude: cooperative Thought Process: normal Thought Content: normal Judgment: judgment good Coding Level of Care Code OB Routine Diagnoses Hx of hemorrhage, currently O09.299 Supervision of high risk in second trimester O09.92 Trimester: second trimester 28 weeks gestation of Z3A.28 Weeks of gestation: 28 weeks History of miscarriage, currently O09.299 Rh negative state in antepartum period O26.899; Z67.91 Assessment and Plan Assessment and Plan (1) Hx of hemorrhage, currently : Status: Acute (2) Supervision of high-risk : Status: Acute Qualifiers: Trimester: second trimester Qualified Code(s): O09.92 - Supervision of high risk , unspecified, second trimester Comment: PRR, , ANGEL LUIS 03/20/25, JEFFERSON Olvera, Yossi (3) : Status: Acute Qualifiers: Weeks of gestation: 28 weeks Qualified Code(s): Z3A.28 - 28 weeks gestation of Comment: declined NIPT & Carrier testing (4) History of miscarriage, currently : Status: Acute (5) Rh negative state in antepartum period: Status: Acute Comment: rhogam at 28 weeks. Orders: Orders POC Urinalysis 2 Dip (Clinic) Today Plan Details Additional Comments: ACOG trimester education reviewed and updated. see problem list details for updated plan management information and see below for orders placed at this visit. [place] appropriate handout given. 12/27/2455 <Electronically signed by Camacho scruggs CNM> Date _ Camacho Cash CNM Cosigner Signature: Date (if applicable) CC: ~ [facility] Work Phone: Progress note Author Camacho Cash [facility] Note Date/Time January 28, 2025 9:23am [facility] [address], [address] [place] [address] OFFICE VISIT Date of Service: 01/28/25 MR#: [id number] Acct: [id number] Name: LYNNE PAL Rep #: [id number] : 1995 Provider: FREIDA Cash Age/Sex: 29/F [place] [facility] [place] Status: Signed Intake Vital Signs 12/17/24 09:43 01/12/25 15:49 01/28/25 09:10 Height 5 ft 2 in 5 ft 2 in 5 ft 2 in Weight: 164 lb 6 oz BMI 30.0 BP 105/67 Intake Visit Reasons: 32wk ob Open Cut Examiner Required: No Is patient in pain?: No Allergies No Known Allergies Allergy (Verified 01/28/25 09:12) Medications ?Medication ?Instructions ?Recorded ?Confirmed ?Type Lactobacillus acidophilus and 1 cap PO DAILY supplemen t 06/27/22 01/28/25 History rhamnosus 15 billion cell capsule (Probiotic) multivitamin no.47-iron fum 27 1 cap PO DAILY pregnanc y 06/27/22 01/28/25 History mg-folate no.1 1 mg-dha 300 mg capsule (PNV-DHA) Last Menstrual Period: 05/29/24 Zika: Zika virus screening: Negative : No Have you fallen in the past year?: No PFSH PFSH Medical History hemorrhage (spontaneous vaginal delivery) History of group B Streptococcus (GBS) infection Pre-conception counseling Breast tenderness in female Non-smoker Surgical History H/O dilation and curettage Hx of wisdom tooth extraction Family History Father Hypertension Social History adopted: No household members: spouse housing: house number of children: 1 current occupational status: employed 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 current occupational exposures/hazards: No pets and animals: No history of recent travel: No ([place]) sexually active: Yes Smoking Status: Never smoker alcohol intake: former details: social- but not while substance use type: does not use well-balanced diet: daily or most days caffeine: No eating out: rarely or never during the past year weight has: other details: had a baby is 7# heavier than prepregnancy what type of physical activity do you participate in: walking and weight training frequency: 3-4 times per week duration: 15-30 minutes/day kenia/evangelical: Sikh seatbelt use: always do you feel safe at home: Yes additional social history: - Yossi- Marketing History 3 Elective abortions Hx Para 1 Spontaneous abortions 1 Hx # Term Pregnancies Ectopic pregnancies Hx # Pregnancies Multiple births # of living children 1 Past Pregnancies Del. Date Name GA/Weeks Outcome Route Bth Weight Infant Gen Labor Lgth Anesthesia Del Locatn Provider FOB Unknown June 2022 miscarriage 8wk 09/15/23 May 40 live - full term 7lbs 4oz Female n one [facility] Destiney Lópezrett Delivery Date: 09/15/23 Last Updated by: Snow Delgado PP hem. HPI 32wk ob Details: LYNNE PAL is a 29 year old who presents for routine OB visit. OB Visit ANGEL LUIS Calculator Estimated Delivery Date Method Current WG Current Estimate 03/20/25 Ultrasound #1 32w 5d Other Estimates 03/05/25 LMP (Certain) 34w 6d Expected Delivery Route/Plan Labor Preferences- CB/BF classes: [] labor support person: [] labor intervention preferences: [] pain management options preferred: [] cut cord/dad catch: [] : [] PP control planned: [] discussed possible routes of delivery and associated risks: [] special requests: [] Specific Issue/Plans Covid status: [] Flu vaccine: [] Tdap vaccine: [] Rhogam: [] LARC form signed: [] Problem list reviewed and updated with the most current plan of care details and appropriate orders placed. Relevant counseling for the gestational age provided. Continue routine care and follow up unless otherwise noted in visit notes/problem list details Initial Weight: 135 lb Date -?-?-?-?-?-?-?-?-?-?-?-?- EGA Weight BP Urine Prot -?-?-?-?-?-?-?-?-?-?-?-?- Glucose FHR FuHt Pres Dilation -?-?-?-?-?-?-?-?-?-?-?-?- Effaced St Visit Note 07/26/24 -?-?-?-?-?-?-?-?-?-?-?-?- 6w 1d 139 lb 4 oz (+4 lb 4 oz) 120/80 -?-?-?-?-?-?-?-?-?-?-?-?- 105 -?-?-?-?-?-?-?-?-?-?-?-?- JV- CRL measurin g 6 weeks 1 day with heart tones. states is 6 weeks by when she calculated ovulation. unsure about nipt or blood type testing of baby (she is rh neg) 08/27/24 -?-?-?-?-?-?-?-?-?-?-?-?- 10w 5d 141 lb 2 oz (+6 lb 2 oz) 110/76 Negative -?-?-?-?-?-?-?-?-?-?-?-?- Negative 173 -?-?-?-?-?-?-?-?-?-?-?-?- KW- CRL cons wit h 10.5 weeks. labs today and MFM order placed 09/21/24 -?-?-?-?-?-?-?-?-?-?-?-?- 14w 2d 144 lb 8 oz (+9 lb 8 oz) 119/75 Negative -?-?-?-?-?-?-?-?-?-?-?-?- Negative 153 -?-?-?-?-?-?-?-?-?-?-?-?- KW- no vb/crampi ng. US scheduled- 10/26. no concerns KW- no vb/cramping. US sched uled- 10/26. no concerns. declines AFP 10/21/24 -?-?-?-?-?-?-?-?-?-?-?-?- 18w 4d 146 lb 8 oz (+11 lb 8 oz) 116/64 Negative -?-?-?-?-?-?-?-?-?-?-?-?- Negative 151 -?-?-?-?-?-?-?-?-?-?-?-?- MH-No VB. Feelin g movement. No concerns 11/19/24 -?-?-?-?-?-?-?-?-?-?-?-?- 22w 5d 154 lb 6 oz (+19 lb 6 oz) 131/73 Negative -?-?-?-?-?-?-?-?-?-?-?-?- Negative 155 -?-?-?-?-?-?-?-?-?-?-?-?- KW- no vb/crampi ng. good fm. glucose at 28 week. will do the fresh test. 12/17/24 -?-?-?-?-?-?-?-?-?-?-?-?- 26w 5d 156 lb 2 oz (+21 lb 2 oz) 115/70 Negative -?-?-?-?-?-?-?-?-?-?-?-?- Negative 150 26 -?-?-?-?-?-?-?-?-?-?-?-?- KW- no vb/lof/ct x. good fm. glucose and rhogam next visit. LARC today. 12/27/24 -?-?-?-?-?-?-?-?-?-?-?-?- 28w 1d 157 lb 3 oz (+22 lb 3 oz) 103/67 Negative -?-?-?-?-?-?-?-?-?-?-?-?- Negative 155 27 -?-?-?-?-?-?-?-?-?-?-?-?- KW- no vb/lof/ct x. good fm. Missed draw time and will need to redo. Will come in friday for labs and rhogam. declines TDAP today. 01/12/25 -?-?-?-?-?-?-?-?-?-?-?-?- 30w 3d 164 lb (+29 lb) 110/65 Negative -?-?-?-?-?-?-?-?-?-?-?-?- Negative 145 29 -?-?-?-?-?-?-?-?-?-?-?-?- JV- no lof, vagi nal bleeding, or dec fm. 01/28/25 -?-?-?-?-?-?-?-?-?-?-?-?- 32w 5d 164 lb 6 oz (+29 lb 6 oz) 105/67 Negative -?-?-?-?-?-?-?-?-?-?-?-?- Negative 145 31 -?-?-?-?-?-?-?-?-?-?-?-?- KW- no vb/lof/ct x. good fm. declined tdap and flu shot. ACOG First Trimester First Trimester: Desire for , Alcohol, Tobacco Cessation, Illicit/Recreational Drug/Substance Use, Intimate Partner Violence, Barriers to care, Unstable Housing, Communication Barriers, Environmental/Work Hazards, Anticipated Course of Care, Toxoplasmosis Precations, Use of Any medications, Sexual activity, Exercise, Dental Care, Sauna/Hot tub use, Seat Belt use, Childbirth classes/Hospital facilities, Travel, Indications for Ultrasound and Screening for Aneuploidy; Discussed Second Trimester Second Trimester: Signs and Symptoms of Labor, Selecting a care provider, Reproductive Life Planning & Contreception, Care Planning, Depression/Anxiety and Intimate Partner Violence; Discussed Tobacco Cessation Third Trimester Third Trimester: Pain Management Plans, Labor support person(s), Immediate Larc, Movement Monitoring, Signs and Symptoms of Preeclampsia and Education ROS Const Reports system reviewed and no additional complaints, except as documented Eyes Reports system reviewed and no additional complaints, except as documented ENT Reports system reviewed and no additional complaints, except as documented Card Reports system reviewed and no additional complaints, except as documented Resp Reports system reviewed and no additional complaints, except as documented GI Reports system reviewed and no additional complaints, except as documented, Denies nausea and Denies vomiting Reports system reviewed and no additional complaints, except as documented Musc Reports system reviewed and no additional complaints, except as documented Skin/Breast Reports system reviewed and no additional complaints, except as documented Neuro Yes system reviewed and no additional complaints, except as documented Psych Reports system reviewed and no additional complaints, except as documented Endo Reports system reviewed and no additional complaints, except as documented Jacobo/Lymph Reports system reviewed and no additional complaints, except as documented Aller/Immun Reports system reviewed and no additional complaints, except as documented Exam Const General: cooperative, healthy appearing and no acute distress Orientation: alert, awake and oriented x3 Neck Neck: normal visual inspection and full ROM Resp Effort & Inspection: normal respiratory effort, able to speak in complete sentences and symmetric chest movement GI Inspection: normal to inspection Palpation: soft and other Other: gravid Skin General: no rashes or lesions noted Neuro General: patient alert, patient awake and patient oriented x3 Cognition: normal cognition Speech: speech normal Gait: normal gait Motor: muscle tone normal throughout Extrem General: normal to inspection and full ROM Psych Appearance: grossly normal Mental Status: mental status grossly normal Mood: congruent mood Affect: normal affect Speech and Movement: speech and movement normal Attitude: cooperative Thought Process: normal Thought Content: normal Judgment: judgment good Results POC Urinalysis 2 Dip (Clinic) Office Urine Glucose Negative Last Edit by Alondra Weldon on 01/28/25 09:16 Office Urine Protein Negative Last Edit by Alondra Weldon on 01/28/25 09:16 Coding Level of Care Code OB Routine Diagnoses Status post fall Z91.81 Hx of hemorrhage, currently O09.299 Supervision of high risk in second trimester O09.92 Trimester: second trimester 32 weeks gestation of Z3A.32 Weeks of gestation: 32 weeks History of miscarriage, currently O09.299 Rh negative state in antepartum period O26.899; Z67.91 Assessment and Plan Assessment and Plan (1) Status post fall: Status: Acute (2) Hx of hemorrhage, currently : Status: Acute (3) Supervision of high-risk : Status: Acute Qualifiers: Trimester: second trimester Qualified Code(s): O09.92 - Supervision of high risk , unspecified, second trimester Comment: PRR, , ANGEL LUIS 03/20/25, PC May, Yossi (4) : Status: Acute Qualifiers: Weeks of gestation: 32 weeks Qualified Code(s): Z3A.32 - 32 weeks gestation of Comment: declined NIPT & Carrier testing (5) History of miscarriage, currently : Status: Acute (6) Rh negative state in antepartum period: Status: Acute Comment: rhogam at 28 weeks. Orders: Orders POC Urinalysis 2 Dip (Clinic) Today Plan Details Additional Comments: ACOG trimester education reviewed and updated. see problem list details for updated plan management information and see below for orders placed at this visit. [place] appropriate handout given. Clinical Quality Measures Falls Risk Screening/Assistive Devices Have you fallen in the past year?: No 01/28/25 0923 <Electronically signed by Camacho scruggs CNM> Date _ Camacho Cash CNM Cosigner Signature: Date (if applicable) CC: ~ [facility] Work Phone: Reason for referral (narrative)No reason for referral information available[facility] Work Phone: Summary Purpose Family History No Family History Records Found Relationship Condition Age at Onset Recorded Date/T audrey father Hypertension Unknown Advance Directives No Advanced Directives Records Found Advance Directive Response Recorded Date/ Time Living Will No July 03, 023 9:39am Power of Middle School English Teacher No July 03, 2022 9:39am Advance Directive Response Recorded Date/ Time Living Will No September 24, 2022 3 :46pm Power of Middle School English Teacher No September 24, 2022 3:46pm Advance Directive Response Recorded Date/ Time Living Will No February 01, 2023 12:51am Power of Middle School English Teacher No January 12:51am Advance Directive Response Recorded Date/ Time Living Will No January 31, 2023 11:51pm Power of Middle School English Teacher No January 11:51pm Advance Directive Response Recorded Date/ Time Living Will No September 14, 2023 4: 29pm Power of Middle School English Teacher No September 14, 2023 4:29pm Chief Complaint and Reason for Visit Chief Complaint NOB LMP 04/22 Reason for Visit Supervision of normal first Missed Chief Complaint NOB LMP 04/22 Reason for Visit Missed Supervision of normal first Missed Chief Complaint discuss symptoms sin ce having miscarriage in Jun. EORDER Chief Complaint EORDER NOB LMP 12/03, ok per SM VAGINAL BLEEDING Reason for Visit Rh negative state in antepartum period Supervision of high-risk Chief Complaint EORDER NOB LMP 12/03, ok per SM VAGINAL BLEEDING 11 WK OB OVARIAN LESION Reason for Visit Rh negative state in antepartum period Supervision of high-risk Rh negative state in antepartum period Supervision of high-risk Chief Complaint OVARIAN LESION 15 WK OB 19 WK OB 23 WK OB 27 WK OB/GLUCOSE RHOGAM Reason for Visit Lesion of ovary Rh negative state in antepartum period Supervision of high-risk Lesion of ovary Rh negative state in antepartum period Supervision of high-risk Rh negative state in antepartum period Supervision of high-risk Lesion of ovary Rh negative state in antepartum period Supervision of high-risk Rh negative state in antepartum period Supervision of high-risk Chief Complaint 23 WK OB 27 WK OB/GLUCOSE RHOGAM 29 WK OB 31 WK OB 33 WK OB 35 WK OB 36 WK OB Reason for Visit Rh negative state in antepartum period Supervision of high-risk Rh negative state in antepartum period Supervision of high-risk Rh negative state in antepartum period Supervision of high-risk Rh negative state in antepartum period Supervision of high-risk Rh negative state in antepartum period Supervision of high-risk Rh negative state in antepartum period Supervision of high-risk Rh negative state in antepartum period Supervision of high-risk Chief Complaint 27 WK OB/GLUCOSE RHOGAM 29 WK OB 31 WK OB 33 WK OB 35 WK OB 36 WK OB 37 WK OB 38 WK OB 39 WK OB 40 WK OB VAGINAL DELIVERY LABOR AND DELIVERY VAGINAL DELIVERY VAGINAL DELIVERY Reason for Visit Rh negative state in antepartum period Supervision of high-risk Rh negative state in antepartum period Supervision of high-risk Rh negative state in antepartum period Supervision of high-risk Rh negative state in antepartum period Supervision of high-risk Rh negative state in antepartum period Supervision of high-risk Rh negative state in antepartum period Supervision of high-risk Rh negative state in antepartum period Supervision of high-risk Rh negative state in antepartum period Supervision of high-risk Rh negative state in antepartum period Supervision of high-risk Rh negative state in antepartum period Supervision of high-risk hemorrhage Rh negative state in antepartum period (spontaneous vaginal delivery) Spontaneous rupture of amniotic membranes Supervision of high-risk Chief Complaint Admit Date E-ORDER July 09, 2024 2:30pm Chief Complaint Admit Date E-ORDER July 09, 2024 2:30pm New OB, LMP 05/29/24, ANGEL LUIS 03/05 10:21am Reason for Visit Admit Date Early stage of July 26 10:21am History of miscarriage, currently pregna nt July 26, 2024 10:21am Hx of hemorrhage, currently p regnant July 26, 2024 10:21am July 26, 2024 10: 21am Rh negative state in antepartum period M 2024 10:21am Supervision of high-risk July 26, 2024 10:21am Chief Complaint Admit Date E-ORDER July 09, 2024 2:30pm New OB, LMP 05/29/24, ANGEL LUIS 03/05 10:21am 10wk ob August 27, 2024 2:2 0pm 14wk ob September 21, 2024 3:36p m Reason for Visit Admit Date Early stage of July 26 10:21am History of miscarriage, currently pregna nt July 26, 2024 10:21am Hx of hemorrhage, currently p regnant July 26, 2024 10:21am July 26, 2024 10: 21am Rh negative state in antepartum period M arch 2024 10:21am Supervision of high-risk July 26, 2024 10:21am Early stage of August 27 2:20pm History of miscarriage, currently pregna nt August 27, 2024 2:20pm Hx of hemorrhage, currently p regnant August 27, 2024 2:20pm August 27, 2024 2:2 0pm Rh negative state in antepartum period A pril 2024 2:20pm Supervision of high-risk August 27, 2024 2:20pm Early stage of September 21, 2024 3:36pm History of miscarriage, currently pregna nt September 21, 2024 3:36pm Hx of hemorrhage, currently p regnant September 21, 2024 3:36pm September 21, 2024 3:36p m Rh negative state in antepartum period M ay 2024 3:36pm Supervision of high-risk September 092024 3:36pm Chief Complaint Admit Date E-ORDER July 09, 2024 2:30pm New OB, LMP 05/29/24, ANGEL LUIS 03/05 10:21am 10wk ob August 27, 2024 2:2 0pm 14wk ob September 21, 2024 3:36p m 18wk ob 2024 8:37 am Reason for Visit Admit Date History of miscarriage, currently pregna nt July 26, 2024 10:21am Hx of hemorrhage, currently p regnant July 26, 2024 10:21am July 26, 2024 10: 21am Rh negative state in antepartum period M arch 2024 10:21am Supervision of high-risk July 26, 2024 10:21am Early stage of July 26 10:21am History of miscarriage, currently pregna nt August 27, 2024 2:20pm Hx of hemorrhage, currently p regnant August 27, 2024 2:20pm August 27, 2024 2:2 0pm Rh negative state in antepartum period A pril 2024 2:20pm Supervision of high-risk August 27, 2024 2:20pm Early stage of August 27 2:20pm History of miscarriage, currently pregna nt September 21, 2024 3:36pm Hx of hemorrhage, currently p regnant September 21, 2024 3:36pm September 21, 2024 3:36p m Rh negative state in antepartum period M ay 2024 3:36pm Supervision of high-risk September 092024 3:36pm Early stage of September 21, 2024 3:36pm History of miscarriage, currently pregna nt 2024 8:37am Hx of hemorrhage, currently p regnant 2024 8:37am 2024 8:37 am Rh negative state in antepartum period J [facility] 2024 8:37am Supervision of high-risk 2024 8:37am Chief Complaint Admit Date New OB, LMP 05/29/24, ANGEL LUIS 03/05 10:21am 10wk ob August 27, 2024 2:2 0pm 14wk ob September 21, 2024 3:36p m 18wk ob 2024 8:37 am 22 wk ob November 19, 2024 10:0 4am Reason for Visit Admit Date History of miscarriage, currently pregna nt July 26, 2024 10:21am Hx of hemorrhage, currently p regnant July 26, 2024 10:21am July 26, 2024 10: 21am Rh negative state in antepartum period M arch 2024 10:21am Supervision of high-risk July 26, 2024 10:21am Early stage of July 26 10:21am History of miscarriage, currently pregna nt August 27, 2024 2:20pm Hx of hemorrhage, currently p regnant August 27, 2024 2:20pm August 27, 2024 2:2 0pm Rh negative state in antepartum period A pril 2024 2:20pm Supervision of high-risk August 27, 2024 2:20pm Early stage of August 27 2:20pm History of miscarriage, currently pregna nt September 21, 2024 3:36pm Hx of hemorrhage, currently p regnant September 21, 2024 3:36pm September 21, 2024 3:36p m Rh negative state in antepartum period M ay 2024 3:36pm Supervision of high-risk September 092024 3:36pm Early stage of September 21, 2024 3:36pm History of miscarriage, currently pregna nt 2024 8:37am Hx of hemorrhage, currently p regnant 2024 8:37am 2024 8:37 am Rh negative state in antepartum period J une 2024 8:37am Supervision of high-risk 2024 8:37am History of miscarriage, currently pregna nt November 19, 2024 10:04am Hx of hemorrhage, currently p regnant November 19, 2024 10:04am November 19, 2024 10:0 4am Rh negative state in antepartum period J brittany 2024 10:04am Supervision of high-risk November 19, 2024 10:04am Chief Complaint Admit Date 10wk ob August 27, 2024 2:2 0pm 14wk ob September 21, 2024 3:36p m 18wk ob 2024 8:37 am 22 wk ob November 19, 2024 10:0 4am 26 WK OB December 17, 2024 9:4 0am Reason for Visit Admit Date History of miscarriage, currently pregna nt August 27, 2024 2:20pm Hx of hemorrhage, currently p regnant August 27, 2024 2:20pm August 27, 2024 2:2 0pm Rh negative state in antepartum period A pril 2024 2:20pm Supervision of high-risk August 27, 2024 2:20pm Early stage of August 27 2:20pm History of miscarriage, currently pregna nt September 21, 2024 3:36pm Hx of hemorrhage, currently p regnant September 21, 2024 3:36pm September 21, 2024 3:36p m Rh negative state in antepartum period M ay 2024 3:36pm Supervision of high-risk September 092024 3:36pm Early stage of September 21, 2024 3:36pm History of miscarriage, currently pregna nt 2024 8:37am Hx of hemorrhage, currently p regnant 2024 8:37am 2024 8:37 am Rh negative state in antepartum period J une 2024 8:37am Supervision of high-risk 2024 8:37am History of miscarriage, currently pregna nt November 19, 2024 10:04am Hx of hemorrhage, currently p regnant November 19, 2024 10:04am November 19, 2024 10:0 4am Rh negative state in antepartum period J brittany 2024 10:04am Supervision of high-risk November 19, 2024 10:04am History of miscarriage, currently pregna nt December 17, 2024 9:40am Hx of hemorrhage, currently p regnant December 17, 2024 9:40am December 17, 2024 9:4 0am Rh negative state in antepartum period A ugust 2024 9:40am Supervision of high-risk Augus t 2024 9:40am Chief Complaint Admit Date 14wk ob September 21, 2024 3:36p m 18wk ob 2024 8:37 am 22 wk ob November 19, 2024 10:0 4am 26 WK OB December 17, 2024 9:4 0am 28 WK OB GLUCOSE/RHOGAM December 27 9:37am Reason for Visit Admit Date History of miscarriage, currently pregna nt September 21, 2024 3:36pm Hx of hemorrhage, currently p regnant September 21, 2024 3:36pm September 21, 2024 3:36p m Rh negative state in antepartum period M ay 2024 3:36pm Supervision of high-risk September 092024 3:36pm Early stage of September 21, 2024 3:36pm History of miscarriage, currently pregna nt 2024 8:37am Hx of hemorrhage, currently p regnant 2024 8:37am 2024 8:37 am Rh negative state in antepartum period J une 2024 8:37am Supervision of high-risk 2024 8:37am History of miscarriage, currently pregna nt November 19, 2024 10:04am Hx of hemorrhage, currently p regnant November 19, 2024 10:04am November 19, 2024 10:0 4am Rh negative state in antepartum period J brittany 2024 10:04am Supervision of high-risk November 19, 2024 10:04am History of miscarriage, currently pregna nt December 17, 2024 9:40am Hx of hemorrhage, currently p regnant December 17, 2024 9:40am December 17, 2024 9:4 0am Rh negative state in antepartum period A ugust 2024 9:40am Supervision of high-risk Augus t 2024 9:40am History of miscarriage, currently pregna nt December 27, 2024 9:37am Hx of hemorrhage, currently p regnant December 27, 2024 9:37am December 27, 2024 9: 37am Rh negative state in antepartum period A ugust 2024 9:37am Supervision of high-risk Augus t 2024 9:37am Chief Complaint Admit Date 14wk ob September 21, 2024 3:36p m 18wk ob 2024 8:37 am 22 wk ob November 19, 2024 10:0 4am 26 WK OB December 17, 2024 9:4 0am 28 WK OB GLUCOSE/RHOGAM December 27 9:37am Glucose & Rhogam *ok per AW December 31, 2024 8:57am Reason for Visit Admit Date History of miscarriage, currently pregna nt September 21, 2024 3:36pm Hx of hemorrhage, currently p regnant September 21, 2024 3:36pm September 21, 2024 3:36p m Rh negative state in antepartum period M ay 2024 3:36pm Supervision of high-risk September 09 3t2024 3:36pm Early stage of September 21, 2024 3:36pm History of miscarriage, currently pregna nt 2024 8:37am Hx of hemorrhage, currently p regnant 2024 8:37am 2024 8:37 am Rh negative state in antepartum period J une 2024 8:37am Supervision of high-risk 2024 8:37am History of miscarriage, currently pregna nt November 19, 2024 10:04am Hx of hemorrhage, currently p regnant November 19, 2024 10:04am November 19, 2024 10:0 4am Rh negative state in antepartum period J brittany 2024 10:04am Supervision of high-risk November 19, 2024 10:04am History of miscarriage, currently pregna nt December 17, 2024 9:40am Hx of hemorrhage, currently p regnant December 17, 2024 9:40am December 17, 2024 9:4 0am Rh negative state in antepartum period A ugust 2024 9:40am Supervision of high-risk Augus t 2024 9:40am History of miscarriage, currently pregna nt December 27, 2024 9:37am Hx of hemorrhage, currently p regnant December 27, 2024 9:37am December 27, 2024 9: 37am Rh negative state in antepartum period A ugust 2024 9:37am Supervision of high-risk Augus t 2024 9:37am History of miscarriage, currently pregna nt December 31, 2024 8:57am Hx of hemorrhage, currently p regnant December 31, 2024 8:57am December 31, 2024 8: 57am Rh negative state in antepartum period A ugust 2024 8:57am Supervision of high-risk Augus t 2024 8:57am Chief Complaint Admit Date 14wk ob September 21, 2024 3:36p m 18wk ob 2024 8:37 am 22 wk ob November 19, 2024 10:0 4am 26 WK OB December 17, 2024 9:4 0am 28 WK OB GLUCOSE/RHOGAM December 27 9:37am Glucose & Rhogam *ok per AW December 31, 2024 8:57am MONITORING January 05, 2025 9: 00am Chief Complaint Admit Date 14wk ob September 21, 2024 3:36p m 18wk ob 2024 8:37 am 22 wk ob November 19, 2024 10:0 4am 26 WK OB December 17, 2024 9:4 0am 28 WK OB GLUCOSE/RHOGAM December 27 9:37am Glucose & Rhogam *ok per AW December 31, 2024 8:57am MONITORING January 05, 2025 9: 00am MONITORING January 05, 2025 8: 44pm Reason for Visit Admit Date History of miscarriage, currently pregna nt September 21, 2024 3:36pm Hx of hemorrhage, currently p regnant September 21, 2024 3:36pm September 21, 2024 3:36p m Rh negative state in antepartum period M ay 2024 3:36pm Supervision of high-risk September 092024 3:36pm Early stage of September 21, 2024 3:36pm History of miscarriage, currently pregna nt 2024 8:37am Hx of hemorrhage, currently p regnant 2024 8:37am 2024 8:37 am Rh negative state in antepartum period J une 2024 8:37am Supervision of high-risk 2024 8:37am History of miscarriage, currently pregna nt November 19, 2024 10:04am Hx of hemorrhage, currently p regnant November 19, 2024 10:04am November 19, 2024 10:0 4am Rh negative state in antepartum period J brittany 2024 10:04am Supervision of high-risk November 19, 2024 10:04am History of miscarriage, currently pregna nt December 17, 2024 9:40am Hx of hemorrhage, currently p regnant December 17, 2024 9:40am December 17, 2024 9:4 0am Rh negative state in antepartum period A ugust 2024 9:40am Supervision of high-risk Augus t 2024 9:40am History of miscarriage, currently pregna nt December 27, 2024 9:37am Hx of hemorrhage, currently p regnant December 27, 2024 9:37am December 27, 2024 9: 37am Rh negative state in antepartum period A ugust 2024 9:37am Supervision of high-risk Augus t 2024 9:37am History of miscarriage, currently pregna nt December 31, 2024 8:57am Hx of hemorrhage, currently p regnant December 31, 2024 8:57am December 31, 2024 8: 57am Rh negative state in antepartum period A ugust 2024 8:57am Supervision of high-risk Augus t 2024 8:57am History of miscarriage, currently pregna nt January 05, 2025 9:00am Hx of hemorrhage, currently p regnant January 05, 2025 9:00am January 05, 2025 9: 00am Rh negative state in antepartum period A ugust 2024 9:00am Status post fall January 05, 2025 9: 00am Supervision of high-risk Augus t 2024 9:00am Chief Complaint Admit Date 14wk ob September 21, 2024 3:36p m 18wk ob 2024 8:37 am 22 wk ob November 19, 2024 10:0 4am 26 WK OB December 17, 2024 9:4 0am 28 WK OB GLUCOSE/RHOGAM December 27 9:37am Glucose & Rhogam *ok per AW December 31, 2024 8:57am MONITORING January 05, 2025 9: 00am MONITORING January 05, 2025 8: 44pm 30 WK OB January 12, 2025 3:35pm Reason for Visit Admit Date History of miscarriage, currently pregna nt September 21, 2024 3:36pm Hx of hemorrhage, currently p regnant September 21, 2024 3:36pm September 21, 2024 3:36p m Rh negative state in antepartum period M ay 2024 3:36pm Supervision of high-risk September 092024 3:36pm Early stage of September 21, 2024 3:36pm History of miscarriage, currently pregna nt 2024 8:37am Hx of hemorrhage, currently p regnant 2024 8:37am 2024 8:37 am Rh negative state in antepartum period J [facility] 2024 8:37am Supervision of high-risk 2024 8:37am History of miscarriage, currently pregna nt November 19, 2024 10:04am Hx of hemorrhage, currently p regnant November 19, 2024 10:04am November 19, 2024 10:0 4am Rh negative state in antepartum period J brittany 2024 10:04am Supervision of high-risk November 19, 2024 10:04am History of miscarriage, currently pregna nt December 17, 2024 9:40am Hx of hemorrhage, currently p regnant December 17, 2024 9:40am December 17, 2024 9:4 0am Rh negative state in antepartum period A [facility] 2024 9:40am Supervision of high-risk Augus 2024 9:40am History of miscarriage, currently pregna nt December 27, 2024 9:37am Hx of hemorrhage, currently p regnant December 27, 2024 9:37am December 27, 2024 9: 37am Rh negative state in antepartum period A ust 2024 9:37am Supervision of high-risk Augus t 2024 9:37am History of miscarriage, currently pregna nt December 31, 2024 8:57am Hx of hemorrhage, currently p regnant December 31, 2024 8:57am December 31, 2024 8: 57am Rh negative state in antepartum period A ust 2024 8:57am Supervision of high-risk Augus t 2024 8:57am History of miscarriage, currently pregna nt January 05, 2025 9:00am Hx of hemorrhage, currently p regnant January 05, 2025 9:00am January 05, 2025 9: 00am Rh negative state in antepartum period A [facility] 2024 9:00am Status post fall January 05, 2025 9: 00am Supervision of high-risk Augus t 2024 9:00am History of miscarriage, currently pregna nt January 12, 2025 3:35pm Hx of hemorrhage, currently p regnant January 12, 2025 3:35pm January 12, 2025 3:35pm Rh negative state in antepartum period S eptember 2024 3:35pm Status post fall January 12, 2025 3:35pm Supervision of high-risk Judy mber 2024 3:35pm Chief Complaint Admit Date 18wk ob 2024 8:37 am 22 wk ob November 19, 2024 10:0 4am 26 WK OB December 17, 2024 9:4 0am 28 WK OB GLUCOSE/RHOGAM December 27 9:37am Glucose & Rhogam *ok per AW December 31, 2024 8:57am MONITORING January 05, 2025 9: 00am MONITORING January 05, 2025 8: 44pm 30 WK OB January 12, 2025 3:35pm 32wk ob January 28, 2025 9:09am Reason for Visit Admit Date History of miscarriage, currently pregna nt 2024 8:37am Hx of hemorrhage, currently p regnant 2024 8:37am 2024 8:37 am Rh negative state in antepartum period J une 2024 8:37am Supervision of high-risk 2024 8:37am History of miscarriage, currently pregna nt November 19, 2024 10:04am Hx of hemorrhage, currently p regnant November 19, 2024 10:04am November 19, 2024 10:0 4am Rh negative state in antepartum period J brittany 2024 10:04am Supervision of high-risk November 19, 2024 10:04am History of miscarriage, currently pregna nt December 17, 2024 9:40am Hx of hemorrhage, currently p regnant December 17, 2024 9:40am December 17, 2024 9:4 0am Rh negative state in antepartum period A ugust 2024 9:40am Supervision of high-risk Augus t 2024 9:40am History of miscarriage, currently pregna nt December 27, 2024 9:37am Hx of hemorrhage, currently p regnant December 27, 2024 9:37am December 27, 2024 9: 37am Rh negative state in antepartum period A ust 2024 9:37am Supervision of high-risk Augus t 2024 9:37am History of miscarriage, currently pregna nt December 31, 2024 8:57am Hx of hemorrhage, currently p regnant December 31, 2024 8:57am December 31, 2024 8: 57am Rh negative state in antepartum period A [facility] 2024 8:57am Supervision of high-risk Augus t 2024 8:57am History of miscarriage, currently pregna nt January 05, 2025 9:00am Hx of hemorrhage, currently p regnant January 05, 2025 9:00am January 05, 2025 9: 00am Rh negative state in antepartum period A [facility] 2024 9:00am Status post fallJanuary 05, 2025 9: 00am Supervision of high-risk Augus 2024 9:00am History of miscarriage, currently pregna nt January 12, 2025 3:35pm Hx of hemorrhage, currently p regnant January 12, 2025 3:35pm January 12, 2025 3:35pm [facility] negative [facility] in [facility] 3:35[facility] Status post fallJanuary 12, 2025 3:35pm Supervision of high-risk [facility] 2024 3:35pm History of miscarriage, currently pregna nt January 28, 2025 9:09am Hx of hemorrhage, currently p regnant January 28, 2025 9:09am January 28, 2025 9:09am Rh negative state in antepartum period S [facility] 2024 9:09am Status post fallJanuary 28, 2025 9:09am Supervision of high-risk [facility] 2024 9:09am Chief Complaint Admit Date 18wk ob 2024 8:37 am 22 wk ob November 19, 2024 10:0 4am 26 WK OB December 17, 2024 9:4 0am 28 WK OB GLUCOSE/RHOGAM December 27 9:37am Glucose & Rhogam *ok per AW December 31, 2024 8:57am MONITORING January 05, 2025 9: 00am MONITORING January 05, 2025 8: 44pm 30 WK OB January 12, 2025 3:35pm 32wk ob January 28, 2025 9:09am 34wk 5d ob February 11, 2025 3: 53pm Reason for Visit Admit Date History of miscarriage, currently pregna nt 2024 8:37am Hx of hemorrhage, currently p regnant 2024 8:37am 2024 8:37 am Rh negative state in antepartum period J [facility] 2024 8:37am Supervision of high-risk 2024 8:37am History of miscarriage, currently pregna nt November 19, 2024 10:04am Hx of hemorrhage, currently p regnant November 19, 2024 10:04am November 19, 2024 10:0 4am Rh negative state in antepartum period J brittany 2024 10:04am Supervision of high-risk November 19, 2024 10:04am History of miscarriage, currently pregna nt December 17, 2024 9:40am Hx of hemorrhage, currently p regnant December 17, 2024 9:40am December 17, 2024 9:4 0am Rh negative state in antepartum period A ust 2024 9:40am Supervision of high-risk Augus t 2024 9:40am History of miscarriage, currently pregna nt December 27, 2024 9:37am Hx of hemorrhage, currently p regnant December 27, 2024 9:37am December 27, 2024 9: 37am Rh negative state in antepartum period A ugust 2024 9:37am Supervision of high-risk Augus t 2024 9:37am History of miscarriage, currently pregna nt December 31, 2024 8:57am Hx of hemorrhage, currently p regnant December 31, 2024 8:57am December 31, 2024 8: 57am Rh negative state in antepartum period A ugust 2024 8:57am Supervision of high-risk Augus t 2024 8:57am History of miscarriage, currently pregna nt January 05, 2025 9:00am Hx of hemorrhage, currently p regnant January 05, 2025 9:00am January 05, 2025 9: 00am Rh negative state in antepartum period A ugust 2024 9:00am Status post fallJanuary 05, 2025 9: 00am Supervision of high-risk Augus t 2024 9:00am History of miscarriage, currently pregna nt January 12, 2025 3:35pm Hx of hemorrhage, currently p regnant January 12, 2025 3:35pm January 12, 2025 3:35pm Rh negative state in antepartum period S eptember 2024 3:35pm Status post fallJanuary 12, 2025 3:35pm Supervision of high-risk Septe [email or web address] 3:35pm History of miscarriage, currently pregna nt January 28, 2025 9:09am Hx of hemorrhage, currently p regnant January 28, 2025 9:09am January 28, 2025 9:09am Rh negative state in antepartum period S eptember 2024 9:09am Status post fallJanuary 28, 2025 9:09am Supervision of high-risk Septe mber 2024 9:09am History of miscarriage, currently pregna nt February 11, 2025 3:53pm Hx of hemorrhage, currently p regnant February 11, 2025 3:53pm February 11, 2025 3: 53pm Rh negative state in antepartum period O ctober 2024 3:53pm Status post fallFebruary 11, 2025 3: 53pm Supervision of high-risk Octob er 2024 3:53pm Additional Source Comments INFORMATION SOURCE (unrecogn ized section and content) DATE CREATED AUTHOR 04/24/2020 [facility] DATE CREATED AUTHOR AUTHOR'S ORGANIZ ATION 04/26/2020 [facility] DATE CREATED AUTHOR AUTHOR'S ORGANIZ ATION 11/14/2024 [facility] DATE CREATED AUTHOR AUTHOR'S ORGANIZ ATION 02/24/2025 [facility] Care Teams (unrecognized sec tion and content) Team Status: Active Member Role Status Dates No Primary Care Physician Primary Care Provider Active Team Status: Inactive Member Role Status Dates No Primary Care Physician Primary Care Provider, Refer ring Provider Active Dr. Cheyenne Cuenca MD Attending Provider Active Team Status: Active Member Role Status Dates No Primary Care Physician Primary Care Provider Active Dr. Cheyenne Cuenca MD Attending Provider, Other Provider Active Team Status: Inactive Member Role Status Dates No Primary Care Physician Primary Care Provider Active Dr. Cheyenne Cuenca MD Attending Provider Active Team Status: Active Member Role Status Dates No Primary Care Physician Primary Care Provider Active Dr. Cheyenne Cuenca MD Attending Provider Active Team Status: Active Member Role Status Dates Dr. Earl Tang MD Primary Care Provider Activ e Team Status: Inactive Member Role Status Dates Dr. Earl Tang MD Primary Care Provider, Refe rring Provider Active Destiney Cano CNM Attending Provider Active Team Status: Inactive Member Role Status Dates Dr. Earl Tang MD Primary Care Provider Activ e Dr. Cheyenne Cuenca MD Attending Provider Active Team Status: Inactive Member Role Status Dates Dr. Earl Tang MD Primary Care Provider Activ e Dr. Cheyenne Cuenca MD Attending Provider, Referr ing Provider Active Team Status: Inactive Member Role Status Dates Dr. Earl Tang MD Primary Care Provider, Refe rring Provider Active Dr. Cheyenne Cuenca MD Attending Provider Active Team Status: Inactive Member Role Status Dates Dr. Earl Tang MD Primary Care Provider Activ e Dr. Ryne May DO Emergency Provider Active Team Status: Inactive Member Role Status Dates Dr. Earl Tang MD Referring Provider Active Destiney Cano CNM Attending Provider Active Team Status: Inactive Member Role Status Dates Dr. Earl Tang MD Primary Care Provider Activ e Dr. Ryne May DO Attending Provider, Emergency Pr ovider Active Team Status: Inactive Member Role Status Dates Destiney Cano CNM Attending Provider Active Dr. Earl Tang MD Primary Care Provider Activ e Team Status: Inactive Member Role Status Dates Dr. Earl Tang MD Primary Care Provider, Refe rring Provider Active Camacho Cash CNM Attending Provider Active Team Status: Inactive Member Role Status Dates Dr. Graciela Dang DO Attending Provider Activ e Dr. Earl Tang MD Primary Care Provider, Refe rring Provider Active Team Status: Inactive Member Role Status Dates Dr. Earl Tang MD Primary Care Provider, Refe rring Provider Active Dr. Graciela Dang DO Attending Provider Activ e Team Status: Inactive Member Role Status Dates Dr. Earl Tang MD Primary Care Provider, Refe rring Provider Active Sharifa Willson WORLD LANGUAGE TEACHER, WORLD LANGUAGE TEACHER-C Attending Provider Active Team Status: Inactive Member Role Status Dates Dr. Earl Tang MD Primary Care Provider Activ e Dr. Graciela Dang DO Attending Provider, Refe rring Provider Active Team Status: Active Member Role Status Dates Dr. Romy Tang MD Primary Care Provider Acti ve Team Status: Inactive Member Role Status Dates Dr. Romy Tang MD Primary Care Provider, Ref erring Provider Active Dr. Cheyenne Cuenca MD Attending Provider Active Team Status: Inactive Member Role Status Dates Dr. Romy Tang MD Primary Care Provider, Ref erring Provider Active Dr. Graciela Dang DO Attending Provider Activ e Team Status: Inactive Member Role Status Dates Dr. Romy Tang MD Primary Care Provider, Ref erring Provider Active Camacho Cash CNM Attending Provider Active Team Status: Inactive Member Role Status Dates Dr. Romy Tang MD Primary Care Provider, Ref erring Provider Active Sharifa Willson WORLD LANGUAGE TEACHER, WORLD LANGUAGE TEACHER-C Attending Provider Active Team Status: Inactive Member Role Status Dates Dr. Romy Tang MD Primary Care Provider Acti ve Dr. Graciela Dang DO Attending Provider, Refe rring Provider Active Team Status: Inactive Member Role Status Dates Dr. Romy Tang MD Primary Care Provider Acti ve Dr. Cheyenne Cuenca MD Attending Provider Active Team Status: Active Member Role Status Dates Dr. Romy Tang MD Primary Care Provider Acti ve Destiney Cano CNM Admit Provider, At tending Provider, Other Provider Active Team Status: Active Member Role Status Dates Dr. Romy Tang MD Primary Care Provider Acti ve Destiney Cano CNM Admit Provider, Other Provider A ctive Sharifa Willson WORLD LANGUAGE TEACHER, WORLD LANGUAGE TEACHER-C Attending Provider Active Team Status: Inactive Member Role Status Dates Dr. Romy Tang MD Primary Care Provider Acti ve Destiney Cano CNM Admit Provider, Attending Provid er Active Team Status: Inactive Member Role Status Dates Dr. Romy Tang MD Primary Care Provider Acti ve Start: July 09, 2024 End: July 09, 2024 Camacho Cash CNM Attending Provider Active S tart: July 09, 2024 End: July 09, 2024 Camacho Cash CNM Referring Provider Active S tart: July 09, 2024 End: July 09, 2024 Team Status: Active Member Role Status Dates Dr. Romy Tang MD Primary Care Provider Acti ve Start: July 12, 2024 Camacho Cash CNM Attending Provider Active S tart: July 12, 2024 Camacho Cash CNM Referring Provider Active S tart: July 12, 2024 Team Status: Inactive Member Role Status Dates Dr. Romy Tang MD Primary Care Provider Acti ve Start: July 12, 2024 End: July 12, 2024 Camacho Cash CNM Attending Provider Active S tart: July 12, 2024 End: July 12, 2024 Camacho Cash CNM Referring Provider Active S tart: July 12, 2024 End: July 12, 2024 Team Status: Inactive Member Role Status Dates Dr. Romy Tang MD Primary Care Provider Acti ve Start: July 26, 2024 End: July 26, 2024 Dr. Romy Tang MD Referring Provider Active Start: July 26, 2024 End: July 26, 2024 Dr. Graciela Dang DO Attending Provider Activ e Start: July 26, 2024 End: July 26, 2024 Team Status: Inactive Member Role Status Dates Dr. Romy Tang MD Primary Care Provider Acti ve Start: July 26, 2024 End: July 26, 2024 Dr. Graciela Dang DO Attending Provider Activ e Start: July 26, 2024 End: July 26, 2024 Dr. Graciela Dang DO Referring Provider Activ e Start: July 26, 2024 End: July 26, 2024 Team Status: Inactive Member Role Status Dates Dr. Romy Tang MD Primary Care Provider Acti ve Start: August 27, 2024 End: August 27, 2024 Dr. Romy Tang MD Referring Provider Active Start: August 27, 2024 End: August 27, 2024 Camacho Cash CNM Attending Provider Active S tart: August 27, 2024 End: August 27, 2024 Team Status: Inactive Member Role Status Dates Dr. Romy Tang MD Primary Care Provider Acti ve Start: August 27, 2024 End: August 27, 2024 Camacho Cash CNM Attending Provider Active S tart: August 27, 2024 End: August 27, 2024 Camacho Cash CNM Referring Provider Active S tart: August 27, 2024 End: August 27, 2024 Team Status: Inactive Member Role Status Dates Dr. Romy Tang MD Primary Care Provider Acti ve Start: September 21, 2024 End: September 21, 2024 Dr. Romy Tang MD Referring Provider Active Start: September 21, 2024 End: September 21, 2024 Camacho Cash CNM Attending Provider Active S tart: September 21, 2024 End: September 21, 2024 Team Status: Inactive Member Role Status Dates Dr. Romy Tang MD Primary Care Provider Acti ve Start: 2024 End: 2024 Dr. Romy Tang MD Referring Provider Active Start: 2024 End: 2024 Sharifa Willson NP, WORLD LANGUAGE TEACHER-C Attending Provider Active Start: 2024 End: 2024 Team Status: Active Member Role/Relationship Status Dates Dr. Romy Tang MD Primary Care Provider Acti ve Team Status: Inactive Member Role/Relationship Status Dates Dr. Romy Tang MD Primary Care Provider Acti ve Start: July 26, 2024 End: July 26, 2024 Dr. Romy Tang MD Referring Provider Active Start: July 26, 2024 End: July 26, 2024 Dr. Graciela Dang DO Attending Provider Activ e Start: July 26, 2024 End: July 26, 2024 Team Status: Inactive Member Role/Relationship Status Dates Dr. Romy Tang MD Primary Care Provider Acti ve Start: July 26, 2024 End: July 26, 2024 Dr. Graciela Dang DO Attending Provider Activ e Start: July 26, 2024 End: July 26, 2024 Dr. Graciela Dang DO Referring Provider Activ e Start: July 26, 2024 End: July 26, 2024 Team Status: Inactive Member Role/Relationship Status Dates Dr. Romy Tang MD Primary Care Provider Acti ve Start: August 27, 2024 End: August 27, 2024 Dr. Romy Tang MD Referring Provider Active Start: August 27, 2024 End: August 27, 2024 Camacho Cash CNM Attending Provider Active S tart: August 27, 2024 End: August 27, 2024 Team Status: Inactive Member Role/Relationship Status Dates Dr. Romy Tang MD Primary Care Provider Acti ve Start: August 27, 2024 End: August 27, 2024 Camacho Cash CNM Attending Provider Active S tart: August 27, 2024 End: August 27, 2024 Camacho Cash CNM Referring Provider Active S tart: August 27, 2024 End: August 27, 2024 Team Status: Inactive Member Role/Relationship Status Dates Dr. Romy Tang MD Primary Care Provider Acti ve Start: September 21, 2024 End: September 21, 2024 Dr. Romy Tang MD Referring Provider Active Start: September 21, 2024 End: September 21, 2024 Camacho Cash CNM Attending Provider Active S tart: September 21, 2024 End: September 21, 2024 Team Status: Inactive Member Role/Relationship Status Dates Dr. Romy Tang MD Primary Care Provider Acti ve Start: 2024 End: 2024 Dr. Romy Tang MD Referring Provider Active Start: 2024 End: 2024 Sharifa Willson NP, DARREL-C Attending Provider Active Start: 2024 End: 2024 Team Status: Inactive Member Role/Relationship Status Dates Dr. Romy Tang MD Primary Care Provider Acti ve Start: November 19, 2024 End: November 19, 2024 Dr. Romy Tang MD Referring Provider Active Start: November 19, 2024 End: November 19, 2024 Camacho Cash CNM Attending Provider Active S tart: November 19, 2024 End: November 19, 2024 Team Status: Inactive Member Role/Relationship Status Dates Dr. Romy Tang MD Primary Care Provider Acti ve Start: August 27, 2024 End: August 27, 2024 Dr. Romy Tang MD Referring Provider Active Start: August 27, 2024 End: August 27, 2024 Camacho Cash CNM Attending Provider Active S tart: August 27, 2024 End: August 27, 2024 Team Status: Inactive Member Role/Relationship Status Dates Dr. Romy Tang MD Primary Care Provider Acti ve Start: August 27, 2024 End: August 27, 2024 Camacho Cash CNM Attending Provider Active S tart: August 27, 2024 End: August 27, 2024 Camacho Cash CNM Referring Provider Active S tart: August 27, 2024 End: August 27, 2024 Team Status: Inactive Member Role/Relationship Status Dates Dr. Romy Tang MD Primary Care Provider Acti ve Start: September 21, 2024 End: September 21, 2024 Dr. Romy Tang MD Referring Provider Active Start: September 21, 2024 End: September 21, 2024 Camacho Cash CNM Attending Provider Active S tart: September 21, 2024 End: September 21, 2024 Team Status: Inactive Member Role/Relationship Status Dates Dr. Romy Tang MD Primary Care Provider Acti ve Start: 2024 End: 2024 Dr. Romy Tang MD Referring Provider Active Start: 2024 End: 2024 Sharifa Willson WORLD LANGUAGE TEACHER, WORLD LANGUAGE TEACHER-C Attending Provider Active Start: 2024 End: 2024 Team Status: Inactive Member Role/Relationship Status Dates Dr. Romy Tang MD Primary Care Provider Acti ve Start: November 19, 2024 End: November 19, 2024 Dr. Roym Tang MD Referring Provider Active Start: November 19, 2024 End: November 19, 2024 Camacho Cash CNM Attending Provider Active S tart: November 19, 2024 End: November 19, 2024 Team Status: Inactive Member Role/Relationship Status Dates Dr. Romy Tang MD Primary Care Provider Acti ve Start: December 17, 2024 End: December 17, 2024 Dr. oRmy Tang MD Referring Provider Active Start: December 17, 2024 End: December 17, 2024 Camacho Cash CNM Attending Provider Active S tart: December 17, 2024 End: December 17, 2024 Team Status: Inactive Member Role/Relationship Status Dates Dr. Romy Tang MD Primary Care Provider Acti ve Start: September 21, 2024 End: September 21, 2024 Dr. Romy Tang MD Referring Provider Active Start: September 21, 2024 End: September 21, 2024 Camacho Cash CNM Attending Provider Active S tart: September 21, 2024 End: September 21, 2024 Team Status: Inactive Member Role/Relationship Status Dates Dr. Romy Tang MD Primary Care Provider Acti ve Start: 2024 End: 2024 Dr. Romy Tang MD Referring Provider Active Start: 2024 End: 2024 Sharifa Willson WORLD LANGUAGE TEACHER, WORLD LANGUAGE TEACHER-C Attending Provider Active Start: 2024 End: 2024 Team Status: Inactive Member Role/Relationship Status Dates Dr. Romy Tang MD Primary Care Provider Acti ve Start: November 19, 2024 End: November 19, 2024 Dr. Romy Tang MD Referring Provider Active Start: November 19, 2024 End: November 19, 2024 Camacho Cash CNM Attending Provider Active S tart: November 19, 2024 End: November 19, 2024 Team Status: Inactive Member Role/Relationship Status Dates Dr. Romy Tang MD Primary Care Provider Acti ve Start: December 17, 2024 End: December 17, 2024 Dr. Romy Tang MD Referring Provider Active Start: December 17, 2024 End: December 17, 2024 Camacho Cash CNM Attending Provider Active S tart: December 17, 2024 End: December 17, 2024 Team Status: Inactive Member Role/Relationship Status Dates Dr. Romy Tang MD Primary Care Provider Acti ve Start: December 27, 2024 End: December 27, 2024 Dr. Romy Tang MD Referring Provider Active Start: December 27, 2024 End: December 27, 2024 Camacho Cash CNM Attending Provider Active S tart: December 27, 2024 End: December 27, 2024 Team Status: Inactive Member Role/Relationship Status Dates Dr. Romy Tang MD Primary Care Provider Acti ve Start: December 31, 2024 End: December 31, 2024 Dr. Romy Tang MD Referring Provider Active Start: December 31, 2024 End: December 31, 2024 Dr. Cheyenne Cuenca MD Attending Provider Active Start: December 31, 2024 End: December 31, 2024 Team Status: Active Member Role/Relationship Status Dates Dr. Romy Tang MD Primary Care Provider Acti ve Start: December 31, 2024 Camacho Cash CNM Attending Provider Active S tart: December 31, 2024 Camacho Cash CNM Referring Provider Active S tart: December 31, 2024 Team Status: Inactive Member Role/Relationship Status Dates Dr. Romy Tang MD Primary Care Provider Acti ve Start: January 05, 2025 End: January 05, 2025 Dr. Graciela Dang DO Attending Provider Activ e Start: January 05, 2025 End: January 05, 2025 Dr. Graciela Dang DO Referring Provider Activ e Start: January 05, 2025 End: January 05, 2025 Team Status: Inactive Member Role/Relationship Status Dates Dr. Romy Tang MD Primary Care Provider Acti ve Start: December 31, 2024 End: December 31, 2024 Camacho Cash CNM Attending Provider Active S tart: December 31, 2024 End: December 31, 2024 Camacho Cash CNM Referring Provider Active S tart: December 31, 2024 End: December 31, 2024 Team Status: Active Member Role/Relationship Status Dates Dr. Romy Tang MD Primary Care Provider Acti ve Start: January 05, 2025 Dr. Graciela Dang DO Attending Provider Activ e Start: January 05, 2025 Dr. Graciela Dang DO Referring Provider Activ e Start: January 05, 2025 Dr. Graciela Dang DO Other Provider Active Start: January 05, 2025 Team Status: Inactive Member Role/Relationship Status Dates Dr. Romy Tang MD Primary Care Provider Acti ve Start: January 12, 2025 End: January 12, 2025 Dr. Romy Tang MD Referring Provider Active Start: January 12, 2025 End: January 12, 2025 Dr. Graciela Dang DO Attending Provider Activ e Start: January 12, 2025 End: January 12, 2025 Team Status: Active Member Role/Relationship Status Dates Dr. Romy Tang MD Primary care physician Act ying Team Status: Inactive Member Role/Relationship Status Dates Dr. Romy Tang MD Primary care physician Act ying Start: 2024 End: 2024 Dr. Romy Tang MD Referring Provider Active Start: 2024 End: 2024 Sharifa Willson WORLD LANGUAGE TEACHER, WORLD LANGUAGE TEACHER-C Attending physician Active Start: 2024 End: 2024 Team Status: Inactive Member Role/Relationship Status Dates Dr. Romy Tang MD Primary care physician Act ying Start: November 19, 2024 End: November 19, 2024 Dr. Romy Tang MD Referring Provider Active Start: November 19, 2024 End: November 19, 2024 Camacho Cash CNM Attending physician Active Start: November 19, 2024 End: November 19, 2024 Team Status: Inactive Member Role/Relationship Status Dates Dr. Romy Tang MD Primary care physician Act ying Start: December 17, 2024 End: December 17, 2024 Dr. Romy Tang MD Referring Provider Active Start: December 17, 2024 End: December 17, 2024 Camacho Cash CNM Attending physician Active Start: December 17, 2024 End: December 17, 2024 Team Status: Inactive Member Role/Relationship Status Dates Dr. Romy Tang MD Primary care physician Act ying Start: December 27, 2024 End: December 27, 2024 Dr. Romy Tang MD Referring Provider Active Start: December 27, 2024 End: December 27, 2024 Camacho Cash CNM Attending physician Active Start: December 27, 2024 End: December 27, 2024 Team Status: Inactive Member Role/Relationship Status Dates Dr. Romy Tang MD Primary care physician Act ying Start: December 31, 2024 End: December 31, 2024 Dr. Romy Tang MD Referring Provider Active Start: December 31, 2024 End: December 31, 2024 Dr. Cheyenne Cuenca MD Attending physician Active Start: December 31, 2024 End: December 31, 2024 Team Status: Inactive Member Role/Relationship Status Dates Dr. Romy Tang MD Primary care physician Act ying Start: December 31, 2024 End: December 31, 2024 Camacho Cash CNM Attending physician Active Start: December 31, 2024 End: December 31, 2024 Camacho Cash CNM Referring Provider Active S tart: December 31, 2024 End: December 31, 2024 Team Status: Inactive Member Role/Relationship Status Dates Dr. Romy Tang MD Primary care physician Act ying Start: January 05, 2025 End: January 05, 2025 Dr. Graciela Dang , DO Attending physician Acti ve Start: January 05, 2025 End: January 05, 2025 Dr. Graciela Dang DO Referring Provider Activ e Start: January 05, 2025 End: January 05, 2025 Team Status: Active Member Role/Relationship Status Dates Dr. Romy Tang MD Primary care physician Act ying Start: January 05, 2025 Dr. Graciela Dang DO Attending physician Acti ve Start: January 05, 2025 Dr. Graciela Dang DO Referring Provider Activ e Start: January 05, 2025 Dr. Graciela Dang , DO Nurse Practitioner Activ e Start: January 05, 2025 Team Status: Inactive Member Role/Relationship Status Dates Dr. Romy Tang MD Primary care physician Act ying Start: January 12, 2025 End: January 12, 2025 Dr. Romy Tang MD Referring Provider Active Start: January 12, 2025 End: January 12, 2025 Dr. Graciela Dang DO Attending physician Acti ve Start: January 12, 2025 End: January 12, 2025 Team Status: Inactive Member Role/Relationship Status Dates Dr. Romy Tang MD Primary care physician Act ying Start: January 28, 2025 End: January 28, 2025 Dr. Romy Tang MD Referring Provider Active Start: January 28, 2025 End: January 28, 2025 Camacho Cash CNM Attending physician Active Start: January 28, 2025 End: January 28, 2025 Team Status: Inactive Member Role/Relationship Status Dates Dr. Romy Tang MD Primary care physician Act ying Start: February 11, 2025 End: February 11, 2025 Dr. Romy Tang MD Referring Provider Active Start: February 11, 2025 End: February 11, 2025 Dr. Cheyenne Cuenca MD Attending physician Active Start: February 11, 2025 End: February 11, 2025 Goals (unrecognized section and content) Type Care Experience svdLabor Preferences -CB/BF classes: []labor support person: []labor intervention preferences: []pain management options preferred: []cut cord/dad catch: []: []PP control planned: []discussed possible routes of delivery and associated risks: []special requests: [] Care Experience Labor Preferences-CB /BF classes: []labor support person: []labor intervention preferences: []pain management options preferred: []cut cord/dad catch: []: []PP control planned: []discussed possible routes of delivery and associated risks: []special requests: [] FOR RECORDS PERTAINING TO PATIENTS WHO ARE [...] BE BASED ON THE PRIMARY CLINICAL RECORDS. [employer] provides no warranty or guarantee of the accuracy or completeness of information in this document.
--- OUTSIDE RECORDS SUMMARY | 2025-02-25 16:12 | XMS RPT_ITS | CCD ---
Author Organization [facility] CliniSymt Care Team Providers Care Travertine Installer Name Role Phone WINSTON CONWAY Attending Unavailable [...] [phone] Dr. Cheyenne Cuenca Attending Provider [phone] Dr. Graciela Dang Attending Provider [phone] Demetris CHIEF FINANCIAL OFFICER, CHIEF FINANCIAL OFFICERCameronC Sharifa Attending Provider [phone] FREIDA Cash Attending Provider [phone] Dr. Romy Tang Primary Care Provider [phone] Dr. Romy Tang Referring Provider [phone] Dr. Cheyenne Cuenca Attending Provider [phone] Jerome, FREIDA Cabello Admit Provider [phone] Jerome, FREIDA Cabello Attending Provider Jerome, FREIDA Cabello Other Provider [phone] Clyde PERKINS, Dr. Young Primary Care Provider Camacho Cash CNM Attending Provider [phone] Camacho Cash CNM Referring Provider [phone] Clyde PERKINS, Dr. Young Referring Provider Dr. Graciela Dang DO Attending Provider Dr. [...] Provider Clyde PERKINS, Dr. Young Referring Provider Camacho Cash CNM Attending Provider [phone] Dr. Cheyenne Cuenca MD Attending Provider Camacho Cash CNM Referring Provider [phone] Baltazar Moya DO, Dr. Owens Attending Provider Baltazar Moya DO, Dr. Owens Referring Provider Baltazar Moya DO, Dr. Owens Other Provider [phone] Clyde PERKINS, Dr. Young Primary Care Physicia n Clyde PERKINS, Dr. Young Referring Provider [phone] Demetris CHIEF FINANCIAL OFFICER-C, Sharifa Attending Physician [phone] Camacho Cash CNM [...] Ranney, Christopher Referring Unavailable Graciela Dang Attending [facility] Referring Unavailable [facility] Primary Care Unavailable Camacho Cash Attending Unavailable [facility] Primary Care Unavailable Camacho Cash Attending Unavailable Camacho Cash Referring Unavailable [facility] Unavailable Camacho Cash Referring Unavailable Camacho Cash Attending [facility]available [facility] Unavailable Camacho Cash Referring Unavailable Camacho Cash Attending [facility]available [facility] Unavailable Camacho Cash Referring Unavailable Camacho Cash Attending Unavailable Graciela Dang Attending UnavailGraciela Cha Referring [facility] Care [facility] Referring Unavailable [facility] Unavailable Demetris CHIEF FINANCIAL OFFICER, Sharifa Attending Unavailable [facility] Referring Unavailable Camacho Cash Attending Unavailable [facility] Referring Unavailable Camacho Cash Attending Unavailable [facility] Unavailable Medications Current Medications Medication Drug Class(es) [...] PO DAILY June 27, 2022 12:00am Multivit 72-Uupi-Tktcfq 1-Dh a (Pnv-Dha) 27 mg iron-1 mg [...] capsule by mo uth once daily Multivit 64-Nfby-Afltqc 1-Dha (Pnv-Dha) 27 mg iron-1 mg -300 mg capsule Active 1 CAP PO DAILY June 27, 2022 1:00am Start: 06-27-2022 take 1 capsule by mo uth once daily Multivit 96-Qkfu-Cfvzti 1-Dha (Pnv-Dha) 27 mg iron-1 mg -300 [...] 27, 2023 12:00am July 16, 2024 2:45pm [place]-3 Fatty Acids (8 sources) Start: 06-27-2022 End: 01-16-2023 take 1000 mg by mouth once daily [place]-3 Fatty Acids Discontinued 1000 MG PO DAILY June 27, 2022 12:00am January 16, 2023 10:37am Start: 06-27-2022 End: 01-16-2023 take 1000 mg by mouth once daily [place]-3 Fatty Acids Discontinued 1000 MG PO DAILY June 27, 2022 1:00am January 16, 2023 11:37am Start: 06-27-2022 take 1000 mg by mout h once daily [place]-3 Fatty Acids Active 1000 MG PO DAILY June 27, 2022 12:00am [place]-3 Fatty Acids 1,000 mg capsule (14 sources) Start: 06-27-2022 End: 01-16-2023 take 1 capsule by mouth once daily [place]-3 Fatty Acids 1,000 mg capsule Discontinued 1000 [...] Test Name Value Interpretation Reference Range Facility Network Pricing Consultant Office Visit Reporton 02-11-2025 Network Pricing Consultant Office Visit Report [facility] [address], [address] [place] [address] OFFICE VISIT Date of Service: 02/11/25 MR#: [id number] Acct: [id number] Name: LYNNE PAL Rep #: [id number] : 1995 Provider: Dr. 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 (more content not included)... Normal [facility] - Chemistry and C hemistry - challengeOrdered By: Camacho Cash on 01-28-2025 Glucose Ql (U) Negative [facility] - UrinalysisOrder ed By: Camacho Cash on 01-28-2025 Protein Ql (U) Negative [facility] Network Pricing Consultant Office Visit Reporton 01-28-2025 Network Pricing Consultant Office Visit Report [facility] [address], [address] [place] [address] OFFICE VISIT Date of Service: 01/28/25 MR#: [id number] Acct: [id number] Name: LYNNE PAL Rep #: [id number] : 1995 Provider: FREIDA Myers ams Age/Sex: 29/F [place] [facility] [place]: Signed Intake Vital Signs 12/17/24 09:43 01/12/25 15:49 01/28/25 09:10 Height 5 ft 2 in 5 ft 2 in 5 ft 2 in Weight: 164 lb 6 oz BMI 30.0 BP 105/67 Intake Visit Reasons: 32wk ob Pinmaker Required: No Is patient in pain?: No [...] 1 current occupational status: employed 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 Normal [facility] - Chemistry and C hemistry - challengeOrdered By: Graciela Moya on 01-12-2025 Glucose Ql (U) Negative [facility] - UrinalysisOrder ed By: Graciela Moya on 01-12-2025 Protein Ql (U) Negative [facility] Network Pricing Consultant Office Visit Reporton 01-12-2025 Network Pricing Consultant Office Visit Report [facility] [address], [address] [place] [address] OFFICE VISIT Date of Service: 01/12/25 MR#: [id number] Acct: [id number] Name: LYNNE PAL Rep #: [id number] : 1995 Provider: Dr. 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 Normal [facility] Absolute lymphocyte countOrd ered By: Graciela Moya on 01-05-2025 Lymphocytes Auto (Unsp spec) [#/Vol] 1.55 10*3/uL 0.83-4.51 [facility] Absolute neutrophil countOrd ered By: Graciela Moya on 01-05-2025 Neutrophils (Bld) [#/Vol] 5.8 10*3/uL 2.0-7.7 [facility] Automated lymphocyte count a s percentage of total leukocytesOrdered By: Graciela Moya on 01-05-2025 Lymphocytes/100 WBC Auto (Unsp spec) 19.6 % 19-41 [facility] Basophil percentageOrdered B y: Graciela Moya on 01-05-2025 Basophils/100 WBC (Bld) 0.5 % 0-1 [facility] CBC W/Diff, Automatedon 12-11 Absolute Lymph 1.55 X10 3/uL Normal 0.83-4.51 [facility] Comment on above: Performed By: #### L 100.0100 ####[facility] [address] [place], [address] Absolute Neut 5.8 X10 3/uL Normal 2.0-7.7 [facility] Comment on above: Performed By: #### L 100.0100 ####[facility] [address] [place], [address] Basophils/100 WBC (Bld) 0.5 % Normal 0-1 [facility] Comment on above: Performed By: #### L 100.0100 ####[facility] [address] [place], [address] Eosinophils/100 WBC (Bld) 0.4 % Normal 0-5 [facility] Comment on above: Performed By: #### L 100.0100 ####[facility] [address] [place], [address] Erythrocyte distribution width (RBC) [Ratio] 12.4 % Normal 11.6-14.6 [facility] Comment on above: Performed By: #### L 100.0100 ####[facility] [address] [place], [address] Hematocrit (Bld) [Volume fraction] 31.2 % Low 37-47 [facility] Comment on above: Performed By: #### L 100.0100 ####[facility] [address] [place], [address] Hemoglobin (Bld) [Mass/Vol] 10.7 g/dL Low 12.0-15.0 [facility] Comment on above: Performed By: #### L 100.0100 ####[facility] [address] [place], [address] IG% 0.800 Normal 0.0-0.9 [facility] Comment on above: Result Comment: IG% - Immature Granulocytes (promyelocytes, myelocytes and metamyelocytes) > 1% indicates that a LEFT SHIFT is Present. Performed By: #### L 100.0100 ####[facility] [address] [place], [address] Lymphocytes/100 WBC (Bld) 19.6 % Normal 19-41 [facility] Comment on above: Performed By: #### L 100.0100 ####[facility] [address] [place], [address] MCH (RBC) [Entitic mass] 31.5 pg Normal 27.0-32.0 [facility] Comment on above: Performed By: #### L 100.0100 ####[facility] [address] [place], [address] MCHC (RBC) [Mass/Vol] 34.3 g/dL Normal 32-36 [facility] Comment on above: Performed By: #### L 100.0100 ####[facility] [address] [place], [address] MCV (RBC) [Entitic vol] 91.8 fL Normal 81-99 [facility] Comment on above: Performed By: #### L 100.0100 ####[facility] [address] [place], [address] Monocytes/100 WBC (Bld) 5.7 % Normal 0-10 [facility] Comment on above: Performed By: #### L 100.0100 ####[facility] [address] [place], [address] Neutrophils/100 WBC (Bld) 73.0 % High 47-70 [facility] Comment on above: Performed By: #### L 100.0100 ####[facility] [address] [place], [address] Nucleated RBC (Bld) [#/Vol] 0 10*3/uL Normal 0-5 [facility] Comment on above: Performed By: #### L 100.0100 ####[facility] [address] [place], [address] Platelet mean volume (Bld) [Entitic vol] 9.9 fL Normal 6.2-12.0 [facility] Comment on above: Performed By: #### L 100.0100 ####[facility] [address] [place], [address] Platelets (Bld) [#/Vol] 161 10*3/uL Normal 150-450 [facility] Comment on above: Performed By: #### L 100.0100 ####[facility] [address] [place], [address] RBC (Bld) [#/Vol] 3.40 10*6/uL Low 4.2-5.4 [facility] Comment on above: Performed By: #### L 100.0100 ####[facility] [address] [place], [address] RDW SD 41.2 fl Normal 35.1-43.9 [facility] Comment on above: Performed By: #### L 100.0100 ####[facility] [address] [place], [place], [id number] WBC (Bld) [#/Vol] 7.9 10*3/uL Normal 4.4-11.0 [facility] Comment on above: Performed By: #### L 100.0100 ####[facility] [address] [place], [place], [phone] Eosinophil percentageOrdered By: Graciela Moya on 01-05-2025 Eosinophils/100 WBC (Bld) 0.4 % 0-5 [facility] Erythrocyte distribution wid th ratioOrdered By: Graciela Moya on 01-05-2025 Erythrocyte distribution width (RBC) [Ratio] 12.4 % 11.6-14.6 [facility] Erythrocyte distribution wid th standard deviationOrdered By: Graciela Moya on 01-05-2025 Erythrocyte distribution width (RBC) [Ratio] 41.2 fl 35.1-43.9 [facility] Fibrinogenon 01-05-2025 FIBRINOGEN 419 mg/dl Normal 203-444 [facility] Comment on above: Performed By: #### L 300.4700, L803.2300 ####[facility] [address] [place], [place], [id number] Hematocrit Auto (Bld) [Volum e fraction]Ordered By: Graciela Moya on 01-05-2025 Hematocrit (Bld) [Volume fraction] 31.2 % Low 37-47 [facility] Hemoglobin measurementOrdere d By: Graciela Moya on 01-05-2025 Hemoglobin (Bld) [Mass/Vol] 10.7 g/dL Low 12.0-15.0 [facility] Immature granulocytes/100 WB C Auto (Bld)Ordered By: Graciela Moya on 01-05-2025 Immature granulocytes/100 WBC (Bld) 0.800 % 0.0-0.9 [facility] Comment on above: IG% - Immature Granu locytes (promyelocytes, myelocytes and metamyelocytes) > 1% indicates that a LEFT SHIFT is Present. Ladonnaon 01-05-2025 KLEMACIE-RANDALL Normal [facility] Comment on above: Result Comment: TEST RESULTS LIMITS Yanet Giron Study Negative Negative TESTING PERFORMED AT [facility]. ORIGINAL REPORT ON FILE IN LAB CONTAINS ADDITIONAL TEST SITE INFORMATION. Performed By: #### L 300.4700, L803.2300 ####[facility] [address] [place], [address] MCV (mean corpuscular volume ) determinationOrdered By: Graciela Moya on 01-05-2025 MCV (RBC) [Entitic vol] 91.8 fL 81-99 [facility] Mean corpuscular hemoglobin (MCH) determinationOrdered By: Graciela Moya on 01-05-2025 MCH (RBC) [Entitic mass] 31.5 pg 27.0-32.0 [facility] Mean corpuscular hemoglobin concentration (MCHC) determinationOrdered By: Graciela Moya on 01-05-2025 MCHC (RBC) [Mass/Vol] 34.3 g/dL 32-36 [facility] Mean platelet volume determi nationOrdered By: Graciela Moya on 01-05-2025 Platelet mean volume (Bld) [Entitic vol] 9.9 fL 6.2-12.0 [facility] Monocyte percentageOrdered B y: Graciela Moya on 01-05-2025 Monocytes/100 WBC (Bld) 5.7 % 0-10 [facility] Neutrophil percentageOrdered By: Graciela Moya on 01-05-2025 Neutrophils/100 WBC (Bld) 73.0 % High 47-70 [facility] Nucleated red blood cell per centageOrdered By: Graciela Moya on 01-05-2025 Nucleated RBC/100 WBC (Bld) [Ratio] 0 % 0-5 [facility] OB Triage Physician Noteon 0 01-05-2025 OB Triage Physician Note [facility] Medical Records Department [address] [place] [address] OB Triage Physician Note 01/05/252043 MR#: [id number] Acct: [id number] Name: LYNNE PAL Rep #: [id number] : 1995 29 From: Graciela Dang DO PCP: Dr. 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 Normal [facility] Platelet countOrdered By: Guilherme Moya on 01-05-2025 Platelets (Bld) [#/Vol] 161 10*3/uL 150-450 [facility] RBC Auto (Bld) [#/Vol]Ordere d By: Graciela Moya on 01-05-2025 RBC (Bld) [#/Vol] 3.40 10*6/uL Low 4.2-5.4 [facility] White blood cell (WBC) count Ordered By: Graciela Moya on 01-05-2025 WBC (Bld) [#/Vol] 7.9 10*3/uL 4.4-11.0 [facility] Absolute lymphocyte countOrd ered By: Camacho Cash on 12-31-2024 Lymphocytes Auto (Unsp spec) [#/Vol] 1.50 10*3/uL 0.83-4.51 [facility] Absolute neutrophil countOrd ered By: Camacho Cash on 12-31-2024 Neutrophils (Bld) [#/Vol] 5.6 10*3/uL 2.0-7.7 [facility] Automated lymphocyte count a s percentage of total leukocytesOrdered By: Camacho Cash on 12-31-2024 Lymphocytes/100 WBC Auto (Unsp spec) 20.0 % 19-41 [facility] Basophil percentageOrdered B y: Camacho Cash on 12-31-2024 Basophils/100 WBC (Bld) 0.4 % 0-1 [facility] CBC W/Diff, Automatedon 12-11 Absolute Lymph 1.50 X10 3/uL Normal 0.83-4.51 [facility] Comment on above: Performed By: #### L 501.0250, BTS, L100.0100, L509.8002, L3890.6006 #### [facility] [address] [place], [address] Absolute Neut 5.6 X10 3/uL Normal 2.0-7.7 [facility] Comment on above: Performed By: #### L 501.0250, BTS, L100.0100, L509.8002, L3890.6006 #### [facility] [address] [place], [address] Basophils/100 WBC (Bld) 0.4 % Normal 0-1 [facility] Comment on above: Performed By: #### L 501.0250, BTS, L100.0100, L509.8002, L3890.6006 #### [facility] [address] [place], [address] Eosinophils/100 WBC (Bld) 0.5 % Normal 0-5 [facility] Comment on above: Performed By: #### L 501.0250, BTS, L100.0100, L509.8002, L3890.6006 #### [facility] [address] [place], [address] Erythrocyte distribution width (RBC) [Ratio] 12.7 % Normal 11.6-14.6 [facility] Comment on above: Performed By: #### L 501.0250, BTS, L100.0100, L509.8002, L3890.6006 #### [facility] [address] [place], [address] Hematocrit (Bld) [Volume fraction] 31.9 % Low 37-47 [facility] Comment on above: Performed By: #### L 501.0250, BTS, L100.0100, L509.8002, L3890.6006 #### [facility] [address] [place], [address] Hemoglobin (Bld) [Mass/Vol] 10.9 g/dL Low 12.0-15.0 [facility] Comment on above: Performed By: #### L 501.0250, BTS, L100.0100, L509.8002, L3890.6006 #### [facility] [address] [place], [address] IG% 0.500 Normal 0.0-0.9 [facility] Comment on above: Result Comment: IG% - Immature Granulocytes (promyelocytes, myelocytes and metamyelocytes) > 1% indicates that a LEFT SHIFT is Present. Performed By: #### L 501.0250, BTS, L100.0100, L509.8002, L3890.6006 #### [facility] [address] [place], [address] Lymphocytes/100 WBC (Bld) 20.0 % Normal 19-41 [facility] Comment on above: Performed By: #### L 501.0250, BTS, L100.0100, L509.8002, L3890.6006 #### [facility] [address] [place], [address] MCH (RBC) [Entitic mass] 32.0 pg Normal 27.0-32.0 [facility] Comment on above: Performed By: #### L 501.0250, BTS, L100.0100, L509.8002, L3890.6006 #### [facility] [address] [place], [address] MCHC (RBC) [Mass/Vol] 34.2 g/dL Normal 32-36 [facility] Comment on above: Performed By: #### L 501.0250, BTS, L100.0100, L509.8002, L3890.6006 #### [facility] [address] [place], [address] MCV (RBC) [Entitic vol] 93.5 fL Normal 81-99 [facility] Comment on above: Performed By: #### L 501.0250, BTS, L100.0100, L509.8002, L3890.6006 #### [facility] [address] [place], [address] Monocytes/100 WBC (Bld) 4.1 % Normal 0-10 [facility] Comment on above: Performed By: #### L 501.0250, BTS, L100.0100, L509.8002, L3890.6006 #### [facility] [address] [place], [address] Neutrophils/100 WBC (Bld) 74.5 % High 47-70 [facility] Comment on above: Performed By: #### L 501.0250, BTS, L100.0100, L509.8002, L3890.6006 #### [facility] [address] [place], [address] Nucleated RBC (Bld) [#/Vol] 0 10*3/uL Normal 0-5 [facility] Comment on above: Performed By: #### L 501.0250, BTS, L100.0100, L509.8002, L3890.6006 #### [facility] [address] [place], [address] Platelet mean volume (Bld) [Entitic vol] 10.2 fL Normal 6.2-12.0 [facility] Comment on above: Performed By: #### L 501.0250, BTS, L100.0100, L509.8002, L3890.6006 #### [facility] [address] [place], [address] Platelets (Bld) [#/Vol] 177 10*3/uL Normal 150-450 [facility] Comment on above: Performed By: #### L 501.0250, BTS, L100.0100, L509.8002, L3890.6006 #### [facility] [address] [place], [address] RBC (Bld) [#/Vol] 3.41 10*6/uL Low 4.2-5.4 [facility] Comment on above: Performed By: #### L 501.0250, BTS, L100.0100, L509.8002, L3890.6006 #### [facility] [address] [place], [address] RDW SD 43.5 fl Normal 35.1-43.9 [facility] Comment on above: Performed By: #### L 501.0250, BTS, L100.0100, L509.8002, L3890.6006 #### [facility] [address] [place], [place], [address] WBC (Bld) [#/Vol] 7.5 10*3/uL Normal 4.4-11.0 [facility] Comment on above: Performed By: #### L 501.0250, BTS, L100.0100, L509.8002, L3890.6006 #### [facility] [address] [place], [place], [address] Eosinophil percentageOrdered By: Camacho Cash on 12-31-2024 Eosinophils/100 WBC (Bld) 0.5 % 0-5 [facility] Erythrocyte distribution wid th ratioOrdered By: Camacho Cash on 12-31-2024 Erythrocyte distribution width (RBC) [Ratio] 12.7 % 11.6-14.6 [facility] Erythrocyte distribution wid th standard deviationOrdered By: Camacho Cash on 12-31-2024 Erythrocyte distribution width (RBC) [Ratio] 43.5 fl 35.1-43.9 [facility] Glucose Challenge Gest 1H 50 rosailnd 12-31-2024 GLU GEST 50g 1H 93 mg/dL Normal 70-140 [facility] Comment on above: Performed By: #### L 501.0250, BTS, L100.0100, L509.8002, L3890.6006 #### [facility] [address], [place], [id number] Glucose measurement at 2 loly rs post-dose gestational glucose tolerance testOrdered By: Camacho Cash on 12-31-2024 Glucose [Mass/Vol] 93 mg/dL 70-140 [facility] HIVon 12-31-2024 HIV Non-Reactive Normal Nonreactive [facility] Comment on above: Result Comment: Non- Reactive Reactive Repeatedly reactive samples must be confirmed according to CDC recommended confirmatory algorithms. The subresults for either HIVAG or AHIV can be used as an aid in the selection of the confirmation algorithm for reactive samples. Send out specimens with Reactive results to [facility] for confirmation. Order the HIV antibody detection and differentiation: lc#[id number] Performed By: #### L 501.0250, BTS, L100.0100, L509.8002, L3890.6006 #### [facility] [place], [address] Hematocrit Auto (Bld) [Volum e fraction]Ordered By: Camacho Cash on 12-31-2024 Hematocrit (Bld) [Volume fraction] 31.9 % Low 37-47 [facility] Hemoglobin measurementOrdere d By: Camacho Cash on 12-31-2024 Hemoglobin (Bld) [Mass/Vol] 10.9 g/dL Low 12.0-15.0 [facility] Immature granulocytes/100 WB C Auto (Bld)Ordered By: Camacho Cash on 12-31-2024 Immature granulocytes/100 WBC (Bld) 0.500 % 0.0-0.9 [facility] Comment on above: IG% - Immature Granu locytes (promyelocytes, myelocytes and metamyelocytes) > 1% indicates that a LEFT SHIFT is Present. MCV (mean corpuscular volume ) determinationOrdered By: Camacho Cash on 12-31-2024 MCV (RBC) [Entitic vol] 93.5 fL 81-99 [facility] Mean corpuscular hemoglobin (MCH) determinationOrdered By: Camacho Cash on 12-31-2024 MCH (RBC) [Entitic mass] 32.0 pg 27.0-32.0 [facility] Mean corpuscular hemoglobin concentration (MCHC) determinationOrdered By: Camacho Cash on 12-31-2024 MCHC (RBC) [Mass/Vol] 34.2 g/dL 32-36 [facility] Mean platelet volume determi nationOrdered By: Camacho Cash on 12-31-2024 Platelet mean volume (Bld) [Entitic vol] 10.2 fL 6.2-12.0 [facility] Monocyte percentageOrdered B y: Camacho Cash on 12-31-2024 Monocytes/100 WBC (Bld) 4.1 % 0-10 [facility] Neutrophil percentageOrdered By: Camacho Cash on 12-31-2024 Neutrophils/100 WBC (Bld) 74.5 % High 47-70 [facility] No Panel InformationOrdered By: Camacho Cash on 12-31-2024 HIV (1&2) Antibody Non-Reactive Nonreactive [facility] Comment on above: Non-ReactiveReactive Repeatedly reactive samples must be confirmed according to CDC recommended confirmatory algorithms. The subresults for either HIVAG or AHIV can be used as an aid in the selection of the confirmation algorithm for reactive samples.Send out specimens with Reactive results to [facility] for confirmation.Order the HIV antibody detection and differentiation: #[id number] Nucleated red blood cell per centageOrdered By: Camacho Cash on 12-31-2024 Nucleated RBC/100 WBC (Bld) [Ratio] 0 % 0-5 [facility] Network Pricing Consultant Office Visit Reporton 12-31-2024 Network Pricing Consultant Office Visit Report [facility] [address], [address] [place] [address] OFFICE VISIT Date of Service: 12/31/24 MR#: [id number] Acct: [id number] Name: LYNNE PAL Rep #: [id number] : 1995 Provider: Dr. 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 Normal [facility] Platelet countOrdered By: Deric Cash on 12-31-2024 Platelets (Bld) [#/Vol] 177 10*3/uL 150-450 [facility] RBC Auto (Bld) [#/Vol]Ordere d By: Camacho Cash on 12-31-2024 RBC (Bld) [#/Vol] 3.41 10*6/uL Low 4.2-5.4 [facility] Syphilis Antibodieson 2024 Syphilis Abs Non-Reactive Normal Nonreactive [facility] Comment on above: Performed By: #### L 501.0250, BTS, L100.0100, L509.8002, L3890.6006 #### [facility] [address] [place], [place], [id number] Type AND Screenon 12-31-2024 ABO and Rh group Nom (Bld) Blood group O Rh(D) negative Normal [facility] Comment on above: Order Comment: PN Performed By: #### L 501.0250, BTS, L100.0100, L509.8002, L3890.6006 ####[facility] [address] [place], [place], [id number] White blood cell (WBC) count Ordered By: Camacho Cash on 12-31-2024 WBC (Bld) [#/Vol] 7.5 10*3/uL 4.4-11.0 [facility] Laboratory - Chemistry and C hemistry - challengeOrdered By: Camacho Cash on 12-27-2024 Glucose Ql (U) Negative [facility] - UrinalysisOrder ed By: Camacho Cash on 12-27-2024 Protein Ql (U) Negative [facility] Network Pricing Consultant Office Visit Reporton 12-27-2024 Network Pricing Consultant Office Visit Report [facility]'[address], [address] [place] [address] OFFICE VISIT Date of Service: 12/27/24 MR#: [id number] Acct: [id number] Name: LYNNE PAL Rep #: [id number] : 1995 Provider: FREIDA Myers ams Age/Sex: 29/F Location: [facility] Status: Signed Intake Vital Signs 10/21/24 08:39 12/17/24 09:43 12/27/24 09:42 Height 5 ft 2 in 5 ft 2 in 5 ft 2 in Weight: 157 lb 3 oz BMI 28.7 BP 103/67 Intake Visit Reasons: 28 WK OB GLUCOSE/RHOGAM Chief Complaint: 28wk OB/Rhogam Pinmaker Required: No Is patient in pain?: No [...] 1 current occupational status: employed 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 -???-???-?? (more content not included)... Normal [facility] Laboratory - Chemistry and C hemistry - challengeOrdered By: Camacho Cash on 12-17-2024 Glucose Ql (U) Negative [facility] - UrinalysisOrder ed By: Camacho Cash on 12-17-2024 Protein Ql (U) Negative [facility] Network Pricing Consultant Office Visit Reporton 12-17-2024 Network Pricing Consultant Office Visit Report [facility] [address], [address] [place] [address] OFFICE VISIT Date of Service: 12/17/24 MR#: [id number] Acct: [id number] Name: LYNNE PAL Rep #: [id number] : 1995 Provider: FREIDA Myers ams Age/Sex: 29/F [place] [facility] [place]: Signed Intake Vital Signs 10/21/24 08:39 11/19/24 10:06 12/17/24 09:43 Height 5 ft 2 in 5 ft 2 in 5 ft 2 in Weight: 156 lb 2 oz BMI 28.5 BP 115/70 Intake Visit Reasons: 26 WK OB Chief Complaint: 26wk OB Pinmaker Required: No Is patient in pain?: No [...] 1 current occupational status: employed 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 Normal [facility] Laboratory - Chemistry and C hemistry - challengeOrdered By: Camacho Cash on 11-19-2024 Glucose Ql (U) Negative [facility] Laboratory - UrinalysisOrder ed By: Camacho Cash on 11-19-2024 Protein Ql (U) Negative [facility] Network Pricing Consultant Office Visit Reporton 11-19-2024 Network Pricing Consultant Office Visit Report [facility] [address], [address] [place] [address] OFFICE VISIT Date of Service: 11/19/24 MR#: [id number] Acct: [id number] Name: LYNNE PAL Rep #: [id number] : 1995 Provider: FREIDA Myers ams Age/Sex: 29/F Location: [facility] [place] Status: Signed Intake Vital Signs 09/21/24 15:40 10/21/24 08:39 11/19/24 10:06 Height 5 ft 2 in 5 ft 2 in 5 ft 2 in Weight: 154 lb 6 oz BMI 28.2 BP 131/73 H Intake Visit Reasons: 22 wk ob Pinmaker Required: No Is patient in pain?: No [...] 1 current occupational status: employed 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 (more content not included)... Normal [facility] Laboratory - Chemistry and C hemistry - challengeOrdered By: Sharifa Willson on 2024 Glucose Ql (U) Negative [facility] Laboratory - UrinalysisOrder ed By: Sharifa Willson on 2024 Protein Ql (U) Negative [facility] Network Pricing Consultant Office Visit Reporton 2024 Network Pricing Consultant Office Visit Report [facility] [address] [place] [address], [address] [place] [address] OFFICE VISIT Date of Service: 10/21/24 MR#: [id number] Acct: [id number] Name: LYNNE PAL Rep #: [id number] : 1995 Provider: SHANNA trammell Age/Sex: 29/F Location: [facility] [place] Status: Signed Intake Vital Signs 07/26/24 10:30 09/21/24 15:40 10/21/24 08:39 Height 5 ft 2 in 5 ft 2 in 5 ft 2 in Weight: 146 lb 8 oz BMI 26.8 BP 116/64 Intake Visit Reasons: 18wk ob Chief Complaint: 18 Week OB Pinmaker Required: No Is patient in pain?: No [...] 1 current occupational status: employed 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 Normal [facility] Laboratory - Chemistry and C hemistry - challengeOrdered By: Camacho Cash on 09-21-2024 Glucose Ql (U) Negative [facility] Laboratory - UrinalysisOrder ed By: Camacho Cash on 09-21-2024 Protein Ql (U) Negative [facility] Network Pricing Consultant Office Visit Reporton 09-21-2024 Network Pricing Consultant Office Visit Report [facility] [address], [address] [place] [address] OFFICE VISIT Date of Service: 09/21/24 MR#: [id number] Acct: [id number] Name: LYNNE PAL Rep #: [id number] : 1995 Provider: FREIDA Myers ams Age/Sex: 28/F [place] [facility] [place]: Signed Intake Vital Signs 07/26/24 10:30 08/27/24 14:22 09/21/24 15:40 Height 5 ft 2 in 5 ft 2 in 5 ft 2 in Weight: 144 lb 8 oz BMI 26.4 BP 119/75 Intake Visit Reasons: 14wk ob Chief Complaint: 14wk OB Pinmaker Required: No Is patient in pain?: No [...] 1 current occupational status: employed 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 (more content not included)... Normal [facility] Absolute lymphocyte countOrd ered By: Graciela Griffin on 08-27-2024 Lymphocytes Auto (Unsp spec) [#/Vol] 1.55 10*3/uL 0.83-4.51 [facility] Absolute neutrophil countOrd ered By: Graciela Griffin on 08-27-2024 Neutrophils (Bld) [#/Vol] 3.8 10*3/uL 2.0-7.7 [facility] Automated lymphocyte count a s percentage of total leukocytesOrdered By: Graciela Moya on 08-27-2024 Lymphocytes/100 WBC Auto (Unsp spec) 27.0 % 19-41 [facility] Basophil percentageOrdered B y: Graciela Griffin on 08-27-2024 Basophils/100 WBC (Bld) 0.5 % 0-1 [facility] CBC W/Diff, Automatedon 08-10 Absolute Lymph 1.55 X10 3/uL Normal 0.83-4.51 [facility] Comment on above: Performed By: #### L 509.1684, BTS, L3890.5211, L509.8002, L3890.6102, L100.0100, L3890.6006 ####[facility] [address] [place], [address] Absolute Neut 3.8 X10 3/uL Normal 2.0-7.7 [facility] Comment on above: Performed By: #### L 509.4006, BTS, L3890.6301, L509.8002, L3890.6102, L100.0100, L3890.6006 ####[facility] [address] [place], [address] Basophils/100 WBC (Bld) 0.5 % Normal 0-1 [facility] Comment on above: Performed By: #### L 509.4006, BTS, L3890.6301, L509.8002, L3890.6102, L100.0100, L3890.6006 ####[facility] [address] [place], [address] Eosinophils/100 WBC (Bld) 0.3 % Normal 0-5 [facility] Comment on above: Performed By: #### L 509.4006, BTS, L3890.6301, L509.8002, L3890.6102, L100.0100, L3890.6006 ####[facility] [address] [place], [address] Erythrocyte distribution width (RBC) [Ratio] 12.9 % Normal 11.6-14.6 [facility] Comment on above: Performed By: #### L 509.4006, BTS, L3890.6301, L509.8002, L3890.6102, L100.0100, L3890.6006 ####[facility] [address] [place], [address] Hematocrit (Bld) [Volume fraction] 35.7 % Low 37-47 [facility] Comment on above: Performed By: #### L 509.4006, BTS, L3890.6301, L509.8002, L3890.6102, L100.0100, L3890.6006 ####[facility] [address] [place], [address] Hemoglobin (Bld) [Mass/Vol] 12.2 g/dL Normal 12.0-15.0 [facility] Comment on above: Performed By: #### L 509.4006, BTS, L3890.6301, L509.8002, L3890.6102, L100.0100, L3890.6006 ####[facility] [address] [place], [address] IG% 0.200 Normal 0.0-0.9 [facility] Comment on above: Result Comment: IG% - Immature Granulocytes (promyelocytes, myelocytes and metamyelocytes) > 1% indicates that a LEFT SHIFT is Present. Performed By: #### L 509.4006, BTS, L3890.6301, L509.8002, L3890.6102, L100.0100, L3890.6006 ####[facility] [address] [place], [address] Lymphocytes/100 WBC (Bld) 27.0 % Normal 19-41 [facility] Comment on above: Performed By: #### L 509.4006, BTS, L3890.6301, L509.8002, L3890.6102, L100.0100, L3890.6006 ####[facility] [address] [place], [address] MCH (RBC) [Entitic mass] 30.3 pg Normal 27.0-32.0 [facility] Comment on above: Performed By: #### L 509.4006, BTS, L3890.6301, L509.8002, L3890.6102, L100.0100, L3890.6006 ####[facility] [address] [place], [address] MCHC (RBC) [Mass/Vol] 34.2 g/dL Normal 32-36 [facility] Comment on above: Performed By: #### L 509.4006, BTS, L3890.6301, L509.8002, L3890.6102, L100.0100, L3890.6006 ####[facility] [address] [place], [address] MCV (RBC) [Entitic vol] 88.6 fL Normal 81-99 [facility] Comment on above: Performed By: #### L 509.4006, BTS, L3890.6301, L509.8002, L3890.6102, L100.0100, L3890.6006 ####[facility] [address] [place], [address] Monocytes/100 WBC (Bld) 5.2 % Normal 0-10 [facility] Comment on above: Performed By: #### L 509.4006, BTS, L3890.6301, L509.8002, L3890.6102, L100.0100, L3890.6006 ####[facility] [address] [place], [address] Neutrophils/100 WBC (Bld) 66.8 % Normal 47-70 [facility] Comment on above: Performed By: #### L 509.4006, BTS, L3890.6301, L509.8002, L3890.6102, L100.0100, L3890.6006 ####[facility] [address] [place], [address] Nucleated RBC (Bld) [#/Vol] 0 10*3/uL Normal 0-5 [facility] Comment on above: Performed By: #### L 509.4006, BTS, L3890.6301, L509.8002, L3890.6102, L100.0100, L3890.6006 ####[facility] [address] [place], [address] Platelet mean volume (Bld) [Entitic vol] 11.3 fL Normal 6.2-12.0 [facility] Comment on above: Performed By: #### L 509.4006, BTS, L3890.6301, L509.8002, L3890.6102, L100.0100, L3890.6006 ####[facility] [address] [place], [address] Platelets (Bld) [#/Vol] 194 10*3/uL Normal 150-450 [facility] Comment on above: Performed By: #### L 509.4006, BTS, L3890.6301, L509.8002, L3890.6102, L100.0100, L3890.6006 ####[facility] [address] [place], [address] RBC (Bld) [#/Vol] 4.03 10*6/uL Low 4.2-5.4 [facility] Comment on above: Performed By: #### L 509.4006, BTS, L3890.6301, L509.8002, L3890.6102, L100.0100, L3890.6006 ####[facility] [address] [place], [address] RDW SD 41.8 fl Normal 35.1-43.9 [facility] Comment on above: Performed By: #### L 509.4006, BTS, L3890.6301, L509.8002, L3890.6102, L100.0100, L3890.6006 ####[facility] [address] [place], [address] WBC (Bld) [#/Vol] 5.7 10*3/uL Normal 4.4-11.0 [facility] Comment on above: Performed By: #### L 509.4006, BTS, L3890.6301, L509.8002, L3890.6102, L100.0100, L3890.6006 ####[facility] [address] [place], [place], [id number] Eosinophil percentageOrdered By: Graciela Moya on 08-27-2024 Eosinophils/100 WBC (Bld) 0.3 % 0-5 [facility] Erythrocyte distribution wid th ratioOrdered By: Graciela Moya on 08-27-2024 Erythrocyte distribution width (RBC) [Ratio] 12.9 % 11.6-14.6 [facility] Erythrocyte distribution wid th standard deviationOrdered By: Graciela Moya on 08-27-2024 Erythrocyte distribution width (RBC) [Ratio] 41.8 fl 35.1-43.9 [facility] HIVon 08-27-2024 HIV Non-Reactive Normal Nonreactive [facility] Comment on above: Result Comment: Non- Reactive Reactive Repeatedly reactive samples must be confirmed according to CDC recommended confirmatory algorithms. The subresults for either HIVAG or AHIV can be used as an aid in the selection of the confirmation algorithm for reactive samples. Send out specimens with Reactive results to [facility] for confirmation. Order the HIV antibody detection and differentiation: #[id number] Performed By: #### L 509.4006, BTS, L3890.6301, L509.8002, L3890.6102, L100.0100, L3890.6006 ####[facility] [address] [place], [place], [id number] Hematocrit Auto (Bld) [Volum e fraction]Ordered By: Graciela Moya on 08-27-2024 Hematocrit (Bld) [Volume fraction] 35.7 % Low 37-47 [facility] Hemoglobin measurementOrdere d By: Graciela Moya on 08-27-2024 Hemoglobin (Bld) [Mass/Vol] 12.2 g/dL 12.0-15.0 [facility] Hepatitis C Antibodyon 08-27 Hepatitis C Ab Non-Reactive Normal Nonreactive [facility] Comment on above: Result Comment: Reac tive: Presumptive evidence of antibodies to HCV. Follow CDC recommendations for supplemental testing. Non-Reactive: Antibodies to HCV were not detected; does not exclude the possibility of exposure to HCV Reactive Results are presumptive evidence of antibodies to HCV. Follow CDC recommendations for supplemental testing. Order confirmation testing: HCV Quant by PCR testing - HCVPCR #[id number] Non Reactive: < 0.8 Equivocal: >/= 0.8 to < 1.0 Reactive: >/= 1.[address] [facility] requires that a reactive/equivocal HCV antibody result be sent out for confirmation. HCV Quant by PCR testing. Performed By: #### L 509.4006, BTS, L3890.6301, L509.8002, L3890.6102, L100.0100, L3890.6006 ####[facility] [address] [place], [place], [id number] Immature granulocytes/100 WB C Auto (Bld)Ordered By: Graciela Moya on 08-27-2024 Immature granulocytes/100 WBC (Bld) 0.200 % 0.0-0.9 [facility] Comment on above: IG% - Immature Granu locytes (promyelocytes, myelocytes and metamyelocytes) > 1% indicates that a LEFT SHIFT is Present. L3890.6102on 08-27-2024 HEP B Surf Ag Non-Reactive Normal Nonreactive [facility] Comment on above: Result Comment: Reac tive: Presumptive evidence of HBV. Repeatedly reactive samples must be confirmed using a neutralization test ([employer] HBsAg Confirmatory Test) Non-Reactive: HBsAg not detected; does not exclude the possibility of exposure to HBV Performed By: #### L 509.4006, BTS, L3890.6301, L509.8002, L3890.6102, L100.0100, L3890.6006 ####[facility] [address] [place], [place], [id number] L509.4006on 08-27-2024 Rubella IgG REAC Normal Nonreactive [facility] Comment on above: Result Comment: Anti body Result: Interpretation Non-Reactive: Non-Immune Reactive: Immune The following results were obtained with the [employer] Rubella IgG assay. Results from assays of other manufacturers cannot be used interchangeably. Performed By: #### L 509.4006, BTS, L3890.6301, L509.8002, L3890.6102, L100.0100, L3890.6006 ####[facility] [address] [place], [address] Laboratory - Chemistry and C hemistry - challengeOrdered By: Camacho Cash on 08-27-2024 Glucose Ql (U) Negative [facility] Laboratory - Microbiology an d Antimicrobial susceptibilityOrdered By: Graciela Moya on 08-27-2024 HBV surface Ag Ql (S) Non-Reactive Nonreactive [facility] Comment on above: Reactive: Presumptiv e evidence of HBV. Repeatedly reactive samples must be confirmed using a neutralization test ([employer] HBsAg Confirmatory Test)Non-Reactive: HBsAg not detected; does not exclude the possibility of exposure to HBV Laboratory - UrinalysisOrder ed By: Camacho Cash on 08-27-2024 Protein Ql (U) Negative [facility] MCV (mean corpuscular volume ) determinationOrdered By: Graciela Moya on 08-27-2024 MCV (RBC) [Entitic vol] 88.6 fL 81-99 [facility] Mean corpuscular hemoglobin (MCH) determinationOrdered By: Graciela Moya on 08-27-2024 MCH (RBC) [Entitic mass] 30.3 pg 27.0-32.0 [facility] Mean corpuscular hemoglobin concentration (MCHC) determinationOrdered By: Graciela Moya on 08-27-2024 MCHC (RBC) [Mass/Vol] 34.2 g/dL 32-36 [facility] Mean platelet volume determi nationOrdered By: Graciela Moya on 08-27-2024 Platelet mean volume (Bld) [Entitic vol] 11.3 fL 6.2-12.0 [facility] Monocyte percentageOrdered B y: Graciela Moya on 08-27-2024 Monocytes/100 WBC (Bld) 5.2 % 0-10 [facility] Neutrophil percentageOrdered By: Graciela Moya on 08-27-2024 Neutrophils/100 WBC (Bld) 66.8 % 47-70 [facility] No Panel InformationOrdered By: Graciela Moya on 08-27-2024 HIV (1&2) Antibody Non-Reactive Nonreactive [facility] Comment on above: Non-ReactiveReactive Repeatedly reactive samples must be confirmed according to CDC recommended confirmatory algorithms. The subresults for either HIVAG or AHIV can be used as an aid in the selection of the confirmation algorithm for reactive samples.Send out specimens with Reactive results to [facility] for confirmation.Order the HIV antibody detection and differentiation: #[id number] Nucleated red blood cell per centageOrdered By: Graciela Moya on 08-27-2024 Nucleated RBC/100 WBC (Bld) [Ratio] 0 % 0-5 [facility] Network Pricing Consultant Office Visit Reporton 08-27-2024 Network Pricing Consultant Office Visit Report [facility] [address], [address] [place] [address] OFFICE VISIT Date of Service: 08/27/24 MR#: [id number] Acct: [id number] Name: LYNNE PAL Rep #: [id number] : 1995 Provider: FREIDA Myers ams Age/Sex: 28/F Location: [facility] Status: Signed Intake Vital Signs 03/11/24 15:17 07/26/24 10:30 08/27/24 14:22 Height 5 ft 2 in 5 ft 2 in 5 ft 2 in Weight: 141 lb 2 oz BMI 25.8 BP 110/76 Intake Visit Reasons: 10wk ob Chief Complaint: 10wk OB Pinmaker Required: No Is patient in pain?: No [...] 1 current occupational status: employed 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 HPI 10wk ob Details: LNYNE PAL is a 28 year old who [...] 173 -?? (more content not included)... Normal [facility] Platelet countOrdered By: Guilherme Moya on 08-27-2024 Platelets (Bld) [#/Vol] 194 10*3/uL 150-450 [facility] RBC Auto (Bld) [#/Vol]Ordere d By: Graciela Moya on 08-27-2024 RBC (Bld) [#/Vol] 4.03 10*6/uL Low 4.2-5.4 [facility] Syphilis Antibodieson 2024 Syphilis Abs Non-Reactive Normal Nonreactive [facility] Comment on above: Performed By: #### L 509.4006, BTS, L3890.6301, L509.8002, L3890.6102, L100.0100, L3890.6006 ####[facility] [address] [place], [place], [id number] Type AND Screenon 08-27-2024 Ab SCREEN GEL Negative Normal [facility] Comment on above: Order Comment: PN Performed By: #### L 509.4006, BTS, L3890.6301, L509.8002, L3890.6102, L100.0100, L3890.6006 ####[facility] [address] [place], [place], [id number] ABO and Rh group Nom (Bld) Blood group O Rh(D) negative Normal [facility] Comment on above: Order Comment: PN Performed By: #### L 509.4006, BTS, L3890.6301, L509.8002, L3890.6102, L100.0100, L3890.6006 ####[facility] [address] [place], [address] White blood cell (WBC) count Ordered By: Graciela Moya on 08-27-2024 WBC (Bld) [#/Vol] 5.7 10*3/uL 4.4-11.0 [facility] Urine Cultureon 07-29-2024 URC Mixed Gram Positive Organisms Frederick Count 11,000-25,000 MIXC Mixed contaminants. Submit a new specimen if indicated. Normal [facility] Comment on above: Performed By: #### L 7000.1800, M100.2200 ####[facility] [address] [place], [address] Chlamydia/GC ANUSHA aptimaon CHLAMY,NUC ACID Negative Normal Negative [facility] Comment on above: Performed By: #### L 7000.1800, M100.2200 ####[facility] [address] [place], [address] GC BY NUC ACID Negative Normal Negative [facility] Comment on above: Result Comment: Perf ormed at: =G - [facility] [address] [id number] [employer]: Jeane Patiño MD, Phone: [phone] Performed By: #### L 7000.1800, M100.2200 ####[facility] [address] [place], [address] C. trachomatis rRNA ANUSHA+prob e Ql (Unsp spec)Ordered By: Graciela Moya on 07-26-2024 Chlamydia DNA (ANUSHA) Negative Negative [facility] Chlamydia trachomatis rRNA d etection by probe and target amplification methodOrdered By: Graciela Moya on 07-26-2024 C. trachomatis rRNA ANUSHA+probe Ql (Unsp spec) Negative Negative [facility] Neisseria gonorrhoeae nuclei c acid detection by amplified probe techniqueOrdered By: Graciela Moya on 07-26-2024 N. gonorrhoeae DNA ANUSHA+probe Ql (Unsp spec) Negative Negative [facility] Comment on above: Performed at: =[facility] [address] [place] [id number] Director: Jeane Patiño MD, Phone: [phone] Network Pricing Consultant Office Visit Reporton 07-26-2024 Network Pricing Consultant Office Visit Report [facility] [address], [address] [place] [address] OFFICE VISIT Date of Service: 07/26/24 MR#: [id number] Acct: [id number] Name: LYNNE PAL Rep #: [id number] : 1995 Provider: Dr. 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 Normal [facility] Urine cultureOrdered By: Philly Moya on 07-26-2024 Bacteria identified Cx Nom (U) Positive Abnormal [facility] HCG ( test) QlOrder ed By: Camacho Cash on 07-12-2024 Human Chorionic Gonadotropin, Quant 101 mIU/mL High <9 [facility] Comment on above: Gestational Age0.2-1 Week: 5-50 mIU/mL1-2 Weeks: 50-500 mIU/mL2-3 Weeks: 100-5000 mIU/mL3-4 Weeks: 500-10,000 mIU/mL4-5 Weeks:1000-50,000 mIU/mL5-6 Weeks: 10,000-100,000 mIU/mL6-8 Weeks: 15,000-200,000 mIU/mL2-3 Months:10,000-100,000 mIU/mL Serum human chorionic gonado tropin detection for pregnancyOrdered By: Camacho Cash on 07-12-2024 HCG ( test) Ql 101 mIU/mL High <9 [facility] Comment on above: Gestational Age0.2-1 Week: 5-50 mIU/mL1-2 Weeks: 50-500 mIU/mL2-3 Weeks: 100-5000 mIU/mL3-4 Weeks: 500-10,000 mIU/mL4-5 Weeks:1000-50,000 mIU/mL5-6 Weeks: 10,000-100,000 mIU/mL6-8 Weeks: 15,000-200,000 mIU/mL2-3 Months:10,000-100,000 mIU/mL hCG Titer Quant., Serumon HCG QUANT. 101 mIU/mL High <9 non-preg [facility] Comment on above: Result Comment: Gest ational Age 0.2-1 Week: 5-50 mIU/mL 1-2 Weeks: 50-500 mIU/mL 2-3 Weeks: 100-5000 mIU/mL 3-4 Weeks: 500-10,000 mIU/mL 4-5 Weeks:1000-50,000 mIU/mL 5-6 Weeks: 10,000-100,000 mIU/mL 6-8 Weeks: 15,000-200,000 mIU/mL 2-3 Months:10,000-100,000 mIU/mL Performed By: #### L 700.8000 ####[facility] [address] [place], [address] HCG ( test) QlOrder ed By: Camacho Cash on 07-09-2024 Human Chorionic Gonadotropin, Quant 23 mIU/mL High <9 [facility] Comment on above: Gestational Age0.2-1 Week: 5-50 mIU/mL1-2 Weeks: 50-500 mIU/mL2-3 Weeks: 100-5000 mIU/mL3-4 Weeks: 500-10,000 mIU/mL4-5 Weeks:1000-50,000 mIU/mL5-6 Weeks: 10,000-100,000 mIU/mL6-8 Weeks: 15,000-200,000 mIU/mL2-3 Months:10,000-100,000 mIU/mL Serum human chorionic gonado tropin detection for pregnancyOrdered By: Camacho Cash on 07-09-2024 HCG ( test) Ql 23 mIU/mL High <9 [facility] Comment on above: Gestational Age0.2-1 Week: 5-50 mIU/mL1-2 Weeks: 50-500 mIU/mL2-3 Weeks: 100-5000 mIU/mL3-4 Weeks: 500-10,000 mIU/mL4-5 Weeks:1000-50,000 mIU/mL5-6 Weeks: 10,000-100,000 mIU/mL6-8 Weeks: 15,000-200,000 mIU/mL2-3 Months:10,000-100,000 mIU/mL hCG Titer Quant., Serumon HCG QUANT. 23 mIU/mL High <9 non-preg [facility] Comment on above: Result Comment: Gest ational Age 0.2-1 Week: 5-50 mIU/mL 1-2 Weeks: 50-500 mIU/mL 2-3 Weeks: 100-5000 mIU/mL 3-4 Weeks: 500-10,000 mIU/mL 4-5 Weeks:1000-50,000 mIU/mL 5-6 Weeks: 10,000-100,000 mIU/mL 6-8 Weeks: 15,000-200,000 mIU/mL 2-3 Months:10,000-100,000 mIU/mL Performed By: #### L 700.8000 ####[facility] [address] [place], [address] Absolute lymphocyte countOrd ered By: Destiney Cano on 09-15-2023 Lymphocytes Auto (Unsp spec) [#/Vol] 1.32 10*3/uL 0.83-4.51 [facility] Automated lymphocyte count a s percentage of total leukocytesOrdered By: Destiney Cano on 09-15-2023 Lymphocytes/100 WBC Auto (Unsp spec) 9.8 % 19-41 [facility] Basophil percentageOrdered B y: Destiney Cano on 09-15-2023 Basophils/100 WBC (Bld) 0.1 % 0-1 [facility] Eosinophils/100 WBC (Bld) 0.0 % 0-5 [facility] Hemoglobin (Bld) [Mass/Vol] 10.0 g/dL 12.0-15.0 [facility] Monocytes/100 WBC (Bld) 4.8 % 0-10 [facility] Neutrophils (Bld) [#/Vol] 11.4 10*3/uL 2.0-7.7 [facility] Neutrophils/100 WBC (Bld) 85.0 % 47-70 [facility] WBC (Bld) [#/Vol] 13.5 10*3/uL 4.4-11.0 [facility] Determination of erythrocyte mean corpuscular volume (MCV)Ordered By: Destiney Cano on 09-15-2023 MCV (RBC) [Entitic vol] 92.1 fL 81-99 [facility] Erythrocyte distribution wid th ratioOrdered By: Destiney Cano on 09-15-2023 Erythrocyte distribution width (RBC) [Ratio] 12.1 % 11.6-14.6 [facility] Erythrocyte distribution wid th standard deviationOrdered By: Destiney Cano on 09-15-2023 Erythrocyte distribution width (RBC) [Entitic vol] 40.9 fL 35.1-43.9 [facility] Hematocrit Auto (Bld) [Volum e fraction]Ordered By: Destiney Cano on 09-15-2023 Hematocrit (Bld) [Volume fraction] 29.3 % 37-47 [facility] Immature granulocytes/100 WB C Auto (Bld)Ordered By: Destiney Cano on 09-15-2023 Immature granulocytes/100 WBC (Bld) 0.300 % 0.0-0.9 [facility] Comment on above: IG% - Immature Granu locytes (promyelocytes, myelocytes and metamyelocytes) > 1% indicates that a LEFT SHIFT is Present. Laboratory - Hematology and Cell countsOrdered By: Destiney Cano on 09-15-2023 MCH (RBC) [Entitic mass] 31.4 pg 27.0-32.0 [facility] MCHC (RBC) [Mass/Vol] 34.1 g/dL 32-36 [facility] Nucleated RBC/100 WBC (Bld) [Ratio] 0 % 0-5 [facility] Platelet mean volume (Bld) [Entitic vol] 11.1 fL 6.2-12.0 [facility] Platelets (Bld) [#/Vol] 146 10*3/uL 150-450 [facility] RBC Auto (Bld) [#/Vol]Ordere d By: Destiney Cano on 09-15-2023 RBC (Bld) [#/Vol] 3.18 10*6/uL 4.2-5.4 [facility] No Panel InformationOrdered By: Destiney Cano on 09-14-2023 Vaginal Amniotic Fluid Detection Positive Negative [facility] Comment on above: Amniotic fluid prese nt indicates rupture of Membranes. RESULTS CALLED TO PENNY RODRIGUEZ 09/14/23 1457 Emely Yadav.REPORT READ BACK BY SAME . Serum Treponema species anti body detectionOrdered By: Destiney Cano on 09-14-2023 Treponema sp Ab Ql (S) Non-Reactive [facility] Laboratory - Chemistry and C hemistry - challengeon 09-12-2023 Glucose Ql (U) Negative [facility] Laboratory - Urinalysison Protein Ql (U) Negative [facility] Laboratory - Chemistry and C hemistry - challengeon 09-05-2023 Glucose Ql (U) Negative [facility] Laboratory - Urinalysison Protein Ql (U) Negative [facility] Laboratory - Chemistry and C hemistry - challengeon 08-28-2023 Glucose Ql (U) Negative [facility] Laboratory - Urinalysison Protein Ql (U) Negative [facility] Laboratory - Chemistry and C hemistry - challengeon 08-22-2023 Glucose Ql (U) Negative [facility] Laboratory - Urinalysison Protein Ql (U) Negative [facility] Laboratory - Chemistry and C hemistry - challengeon 08-14-2023 Glucose Ql (U) Negative [facility] Laboratory - Urinalysison Protein Ql (U) Negative [facility] No Panel InformationOrdered By: Cheyenne Cuenca on 08-14-2023 Group B Streptococcus Culture Group B Beta Streptococcus is not isolated. [facility] Laboratory - Chemistry and C hemistry - challengeon 08-08-2023 Glucose Ql (U) Negative [facility] Laboratory - Urinalysison Protein Ql (U) Negative [facility] Laboratory - Chemistry and C hemistry - challengeon 07-24-2023 Glucose Ql (U) Negative [facility] Laboratory - Urinalysison Protein Ql (U) Negative [facility] Laboratory - Chemistry and C hemistry - challengeon 07-11-2023 Glucose Ql (U) Negative [facility] Laboratory - Urinalysison Protein Ql (U) Negative [facility] Laboratory - Chemistry and C hemistry - challengeon 06-27-2023 Glucose Ql (U) Negative [facility] Laboratory - Urinalysison Protein Ql (U) Negative [facility] Absolute lymphocyte countOrd ered By: Graciela Moya on 06-19-2023 Lymphocytes Auto (Unsp spec) [#/Vol] 1.84 10*3/uL 0.83-4.51 [facility] Automated lymphocyte count a s percentage of total leukocytesOrdered By: Graciela Moya on 06-19-2023 Lymphocytes/100 WBC Auto (Unsp spec) 20.8 % 19-41 [facility] Basophil percentageOrdered B y: Graciela Moya on 06-19-2023 Basophils/100 WBC (Bld) 0.6 % 0-1 [facility] Eosinophils/100 WBC (Bld) 0.6 % 0-5 [facility] Hemoglobin (Bld) [Mass/Vol] 11.4 g/dL 12.0-15.0 [facility] Monocytes/100 WBC (Bld) 4.4 % 0-10 [facility] Neutrophils (Bld) [#/Vol] 6.4 10*3/uL 2.0-7.7 [facility] Neutrophils/100 WBC (Bld) 72.8 % 47-70 [facility] WBC (Bld) [#/Vol] 8.8 10*3/uL 4.4-11.0 [facility] Determination of erythrocyte mean corpuscular volume (MCV)Ordered By: Graciela Moya on 06-19-2023 MCV (RBC) [Entitic vol] 95.0 fL 81-99 [facility] Erythrocyte distribution wid th ratioOrdered By: Graciela Moya on 06-19-2023 Erythrocyte distribution width (RBC) [Ratio] 12.5 % 11.6-14.6 [facility] Erythrocyte distribution wid th standard deviationOrdered By: Graciela Moya on 06-19-2023 Erythrocyte distribution width (RBC) [Entitic vol] 43.5 fL 35.1-43.9 [facility] Gestational diabetes screen 1-hour screen with 50g oral glucose loadOrdered By: Graciela Moya on 06-19-2023 Glucose 1 Hr post 50 g glucose PO [Mass/Vol] 95 mg/dL 70-140 [facility] HIV 1 and HIV-2 antibody ass ay with HIV-1 p24 antigen detectionOrdered By: Graciela Moya on 06-19-2023 HIV 1+2 Ab+HIV1 p24 Ag IA Ql Non-Reactive Nonreactive [facility] Hematocrit Auto (Bld) [Volum e fraction]Ordered By: Graciela Moya on 06-19-2023 Hematocrit (Bld) [Volume fraction] 34.5 % 37-47 [facility] Immature granulocytes/100 WB C Auto (Bld)Ordered By: Graciela Moya on 06-19-2023 Immature granulocytes/100 WBC (Bld) 0.800 % 0.0-0.9 [facility] Comment on above: IG% - Immature Granu locytes (promyelocytes, myelocytes and metamyelocytes) > 1% indicates that a LEFT SHIFT is Present. Laboratory - Hematology and Cell countsOrdered By: Graciela Moya on 06-19-2023 MCH (RBC) [Entitic mass] 31.4 pg 27.0-32.0 [facility] MCHC (RBC) [Mass/Vol] 33.0 g/dL 32-36 [facility] Nucleated RBC/100 WBC (Bld) [Ratio] 0 % 0-5 [facility] Platelet mean volume (Bld) [Entitic vol] 9.8 fL 6.2-12.0 [facility] Platelets (Bld) [#/Vol] 181 10*3/uL 150-450 [facility] RBC Auto (Bld) [#/Vol]Ordere d By: Graciela Moya on 06-19-2023 RBC (Bld) [#/Vol] 3.63 10*6/uL 4.2-5.4 [facility] Serum Treponema species anti body detectionOrdered By: Graciela Moya on 06-19-2023 Treponema sp Ab Ql (S) Non-Reactive [facility] Laboratory - Chemistry and C hemistry - challengeon 06-13-2023 Glucose Ql (U) Negative [facility] Laboratory - Urinalysison Protein Ql (U) Negative [facility] Laboratory - Chemistry and C hemistry - challengeon 05-16-2023 Glucose Ql (U) Negative [facility] Laboratory - Urinalysison Protein Ql (U) Negative [facility] Laboratory - Chemistry and C hemistry - challengeon 04-14-2023 Glucose Ql (U) Negative [facility] Laboratory - Urinalysison Protein Ql (U) Negative [facility] Laboratory - Chemistry and C hemistry - challengeon 03-20-2023 Glucose Ql (U) Negative [facility] Laboratory - Urinalysison Protein Ql (U) Negative [facility] Serum or plasma choriogonado tropin detectionOrdered By: Ryne May on 02-01-2023 HCG ( test) Ql 695606 mIU/mL <4 [facility] Comment on above: hCG levels with Gest ational AgeGestational Age hCG mIU/mL (IU/L)0.2 - 1 week 5 - 501-2 weeks 50 - 5002-3 weeks 100 - 28871-2 weeks 500 - 533502-1 weeks 1000 - 739786-3 weeks 56397 - 100,0006-8 weeks 10516 - 200,0002-3 months 06435 - 100,000 Absolute lymphocyte countOrd ered By: Graciela Moya on 01-20-2023 Lymphocytes Auto (Unsp spec) [#/Vol] 1.62 10*3/uL 0.83-4.51 [facility] Basophil percentageOrdered B y: Graciela Moya on 01-20-2023 Basophils/100 WBC (Bld) 0.7 % 0-1 [facility] Eosinophils/100 WBC (Bld) 1.1 % 0-5 [facility] Neutrophils (Bld) [#/Vol] 3.4 10*3/uL 2.0-7.7 [facility] Neutrophils/100 WBC (Bld) 62.7 % 47-70 [facility] WBC (Bld) [#/Vol] 5.4 10*3/uL 4.4-11.0 [facility] Blood erythrocytes count (nu mber/volume)Ordered By: Graciela Moya on 01-20-2023 RBC (Bld) [#/Vol] 4.30 10*6/uL 4.2-5.4 [facility] Blood hemoglobin measurement (mass/volume)Ordered By: Graciela Moya on 01-20-2023 Hemoglobin (Bld) [Mass/Vol] 12.8 g/dL 12.0-15.0 [facility] Blood lymphocytes/100 leukoc ytesOrdered By: Graciela Moya on 01-20-2023 Lymphocytes/100 WBC (Bld) 29.8 % 19-41 [facility] Blood monocytes/100 leukocyt esOrdered By: Graciela Moya on 01-20-2023 Monocytes/100 WBC (Bld) 5.5 % 0-10 [facility] Blood platelet mean volumeOr dered By: Graciela Moya on 01-20-2023 Platelet mean volume (Bld) [Entitic vol] 10.6 fL 6.2-12.0 [facility] Chlamydia trachomatis rRNA d etection by probe and target amplification methodOrdered By: Graciela Moya on 01-20-2023 C. trachomatis rRNA ANUSHA+probe Ql (Unsp spec) Negative Negative [facility] Culture, urineOrdered By: Guilherme Moya on 01-20-2023 Bacteria identified Cx Nom (U) Culture exhibits no growth. [facility] Determination of erythrocyte mean corpuscular volume (MCV)Ordered By: Graciela Moya on 01-20-2023 MCV (RBC) [Entitic vol] 89.8 fL 81-99 [facility] HIV 1 and HIV-2 antibody ass ay with HIV-1 p24 antigen detectionOrdered By: Graciela Moya on 01-20-2023 HIV 1+2 Ab+HIV1 p24 Ag IA Ql Non-Reactive Nonreactive [facility] Hematocrit Auto (Bld) [Volum e fraction]Ordered By: Graciela Moya on 01-20-2023 Hematocrit (Bld) [Volume fraction] 38.6 % 37-47 [facility] Laboratory - Hematology and Cell countsOrdered By: Graciela Moya on 01-20-2023 Erythrocyte distribution width (RBC) [Entitic vol] 38.3 fL 35.1-43.9 [facility] Erythrocyte distribution width (RBC) [Ratio] 11.7 % 11.6-14.6 [facility] Immature granulocytes/100 WBC (Bld) 0.200 % 0.0-0.9 [facility] Comment on above: IG% - Immature Granu locytes (promyelocytes, myelocytes and metamyelocytes) > 1% indicates that a LEFT SHIFT is Present. MCH (RBC) [Entitic mass] 29.8 pg 27.0-32.0 [facility] Nucleated RBC/100 WBC (Bld) [Ratio] 0 % 0-5 [facility] Laboratory - Microbiology an d Antimicrobial susceptibilityOrdered By: Graciela Moya on 01-20-2023 N. gonorrhoeae DNA ANUSHA+probe Ql (Unsp spec) Negative Negative [facility] Comment on above: Performed at: =[facility] Jose greene [address] [id number] Director: Jeane Patiño MD, Phone: [phone] MCHC Auto (RBC) [Mass/Vol]Or dered By: Graciela Moya on 01-20-2023 MCHC (RBC) [Mass/Vol] 33.2 g/dL 32-36 [facility] No Panel InformationOrdered By: Graciela Moya on 01-20-2023 Hepatitis B Surface Antigen Non-Reactive Nonreactive [facility] Hepatitis C Antibody Non-Reactive Nonreactive [facility] Comment on above: Non Reactive: < 0.8 Equivocal: >/= 0.8 to < 1.0 Reactive: >/= 1.0The CDC recommends that a reactive/equivocal HCV antibody result be followed up by the HCV Nucleic Acid Amplificationtest (259514) Rubella IgG Antibody Reactive Nonreactive [facility] Comment on above: Antibody Results Int erpretation of Immune Status Non Reactive Presumed Non-Immune Equivocal Equivocal Reactive Presumed Immune Platelets bldOrdered By: Philly Moya on 01-20-2023 Platelets (Bld) [#/Vol] 191 10*3/uL 150-450 [facility] Serum Treponema species anti body detectionOrdered By: Graciela Moya on 01-20-2023 Treponema sp Ab Ql (S) Non-Reactive [facility] Serum or plasma choriogonado tropin detectionOrdered By: Cheyenne Cuenca on 01-11-2023 HCG ( test) Ql 2987 mIU/mL <4 [facility] Comment on above: hCG levels with Gest ational AgeGestational Age hCG mIU/mL (IU/L)0.2 - 1 week 5 - 501-2 weeks 50 - 5002-3 weeks 100 - 16327-4 weeks 500 - 899612-7 weeks 1000 - 389171-4 weeks 09018 - 100,0006-8 weeks 53909 - 200,0002-3 months 07371 - 100,000 Serum or plasma choriogonado tropin detectionOrdered By: Cheyenne Cuenca on 01-09-2023 HCG ( test) Ql 1481 mIU/mL <4 [facility] Comment on above: hCG levels with Gest ational AgeGestational Age hCG mIU/mL (IU/L)0.2 - 1 week 5 - 501-2 weeks 50 - 5002-3 weeks 100 - 57471-5 weeks 500 - 420878-0 weeks 1000 - 127951-2 weeks 12598 - 100,0006-8 weeks 65039 - 200,0002-3 months 29480 - 100,000 Basophil percentageOrdered B y: Dr. Cuenca on 07-05-2022 WBC (Bld) [#/Vol] 4.2 10*3/uL 4.4-11.0 [facility] Blood erythrocytes count (nu mber/volume)Ordered By: Dr. Cuenca on 07-05-2022 RBC (Bld) [#/Vol] 4.38 10*6/uL 4.2-5.4 [facility] Blood hemoglobin measurement (mass/volume)Ordered By: Dr. Cuenca on 07-05-2022 Hemoglobin (Bld) [Mass/Vol] 13.1 g/dL 12.0-15.0 [facility] Blood platelet mean volumeOr dered By: Dr. Cuenca on 07-05-2022 Platelet mean volume (Bld) [Entitic vol] 10.5 fL 6.2-12.0 [facility] Determination of erythrocyte mean corpuscular volume (MCV)Ordered By: Dr. Cuenca on 07-05-2022 MCV (RBC) [Entitic vol] 90.0 fL 81-99 [facility] Hematocrit Auto (Bld) [Volum e fraction]Ordered By: Dr. Cuenca on 07-05-2022 Hematocrit (Bld) [Volume fraction] 39.4 % 37-47 [facility] Laboratory - Hematology and Cell countsOrdered By: Dr. Cuenca on 07-05-2022 Erythrocyte distribution width (RBC) [Entitic vol] 38.1 fL 35.1-43.9 [facility] Erythrocyte distribution width (RBC) [Ratio] 11.7 % 11.6-14.6 [facility] MCH (RBC) [Entitic mass] 29.9 pg 27.0-32.0 [facility] MCHC Auto (RBC) [Mass/Vol]Or dered By: Dr. Cuenca on 07-05-2022 MCHC (RBC) [Mass/Vol] 33.2 g/dL 32-36 [facility] Platelets bldOrdered By: Dr. Cuenca on 07-05-2022 Platelets (Bld) [#/Vol] 181 10*3/uL 150-450 [facility] CORONAVIRUS PCR [CCL]on 04-11 REF LAB REPORT Positive Normal [facility] Comment on above: Performed By: #### [id number] #### [facility],[address] [place] [id number] SEND TO ? YES Normal [facility] Comment on above: Performed By: #### 2 [id number] #### [facility],[address] [place] [address] COVID 19 Result [employer] Positive Abnormal [facility] Comment on above: Result Comment: Posi tive for COVID19 (SARS CoV2) by PCR.(*) This test was developed and its performance characteristics determined by [facility] [place]. This test has been authorized by FDA under an Emergency Use Authorization (EUA). This test has been validated in accordance with the FDA's Guidance Document Policy for Diagnostics Testing in Laboratories Certified to Perform High Complexity Testing under CLIA prior to Emergency use Authorization for Coronavirus Disease 2019 during the Public Health Emergency issued on July 10, 2019. [facility] [address] [place] [address] Zackery Ba III, M.D. [id number] Performed By: #### 2 [id number] #### [address] [address] COVID 19 Source [employer] Nasopharyngeal Swab Normal [facility] Comment on above: Result Comment: Lidya ected on 04/23 AT 0558: Previously reported as UU Performed By: #### 2 [id number] #### [address] [address] Coronavirus 2019 0 COVID 19 Result [employer] Abnormal Negative for COVID19 (SARS CoV2) by PCR. [facility] Comment on above: Result Comment: Posi tive for This test was developed and its performance characteristics determined by [facility] [place]. This test has been authorized by FDA [...] developed and its performance characteristics determined by [facility] [place]. This test has been authorized by FDA [...] developed and its performance characteristics determined by [facility] [place]. This test has been authorized by FDA [...] developed and its performance characteristics determined by [facility] [place]. This test has been authorized by FDA under an Emergency Use Authorization (EUA). This test has been validated in accordance with the FDA's Guidance Document Policy for Diagnostics Testing in Laboratories Certified to Perform High Complexity Testing under CLIA prior to Emergency use Authorization for Coronavirus Disease 2019 during the Public Health Emergency issued on July 10, 2019. COVID 19 Source [employer]ER Normal [facility] Comment on above: Result Comment: Naso pharyngeal Corrected on 04/23 AT 0558: Previously reported as UU Swab Corrected on 04/23 AT 0558: Previously reported as UU Vital Signs Date Time Vital Sign Value Performing Clinician Henrry luis 02-11-2025 15:57-0400 Body height 157.[address] Romy Tang MD Work Phone: [facility] 02-11-2025 15:57-0400 Body mass index (BMI) [Ratio] 29.9 kg/m2 Dr. Romy Tang MD Work Phone: 6(369)702-644385 [place] [address] 02-11-2025 15:57-0400 Body weight 74.[address] Romy Tang MD Work Phone: 9(334)702-739585 [place] [address] 02-11-2025 15:57-0400 Diastolic blood pressure 74 mm[Hg] Dr. Romy Tang MD Work Phone: 7(519)707-407723 [place] [address] 02-11-2025 15:57-0400 Systolic blood pressure 131 mm[Hg] Dr. Romy Tang MD Work Phone: 5(991)529-077423 [place] [address] 01-28-2025 09:10-0400 Body height 157.[address] Romy Tang MD Work Phone: 0(930)267-377923 [place] [address] 01-28-2025 09:10-0400 Body mass index (BMI) [Ratio] 30 kg/m2 Dr. Romy Tang MD Work Phone: 0(010)860-422023 [place] [address] 01-28-2025 09:10-0400 Body weight 74.[address] Romy Tang MD Work Phone: 5(100)191-560123 [place] [address] 01-28-2025 09:10-0400 Diastolic blood pressure 67 mm[Hg] Dr. Romy Tang MD Work Phone: 8(101)709-354923 [place] [address] 01-28-2025 09:10-0400 Systolic blood pressure 105 mm[Hg] Dr. Romy Tang MD Work Phone: 8(088)579-519623 [place] [address] 01-12-2025 15:49-0400 Body height 157.[address] Romy Tang MD Work Phone: 5(653)075-691123 [place] [address] 01-12-2025 15:47-0400 Body mass index (BMI) [Ratio] 29.9 kg/m2 Dr. Romy Tang MD Work Phone: 2(661)630-419923 [place] [address] 01-12-2025 15:47-0400 Body weight 74.[address] Romy Tang MD Work Phone: 6(560)628-540023 [place] [address] 01-12-2025 15:47-0400 Diastolic blood pressure 65 mm[Hg] Dr. Romy Tang MD Work Phone: [facility] 01-12-2025 15:47-0400 Systolic blood pressure 110 mm[Hg] Dr. Romy Tang MD Work Phone: [facility] 01-05-2025 12:43-0400 Diastolic blood pressure 59 mm[Hg] Dr. Romy Tang MD Work Phone: 5(103)472-833185 [place] [address] 01-05-2025 12:43-0400 Heart rate 88 /min Dr. Romy Tang MD Work Phone: 9(113)175-477123 [place] [address] 01-05-2025 12:43-0400 Systolic blood pressure 105 mm[Hg] Dr. Romy Tang MD Work Phone: 1(592)853-166823 [place] [address] 01-05-2025 09:16-0400 Body temperature 98.4 [degF] Dr. Romy Tang MD Work Phone: 6(919)944-311423 [place] [address] 01-05-2025 09:16-0400 Respiratory rate 16 /min Dr. Romy Tang MD Work Phone: 0(183)455-747523 [place] [address] 01-05-2025 09:09-0400 Body height 157.[address] Romy Tang MD Work Phone: 6(650)423-024623 [place] [address] 01-05-2025 09:09-0400 Body mass index (BMI) [Ratio] 29.2 kg/m2 Dr. Romy Tang MD Work Phone: 8(830)834-475485 [place] [address] 01-05-2025 09:09-0400 Body weight 72.[address] Romy Tang MD Work Phone: 2(861)158-623223 [place] [address] 12-31-2024 09:01-0400 Body height 157.[address] Romy Tang MD Work Phone: 6(762)661-243323 [place] [address] 12-31-2024 09:01-0400 Body mass index (BMI) [Ratio] 28.7 kg/m2 Dr. Romy Tang MD Work Phone: 6(936)498-490803 [address] 12-31-2024 09:01-0400 Body weight 71.[address] Romy Tang MD Work Phone: 4(277)448-655223 [place] [address] 12-31-2024 09:01-0400 Diastolic blood pressure 74 mm[Hg] Dr. Romy Tang MD Work Phone: 9(355)827-003023 [place] [address] 12-31-2024 09:01-0400 Systolic blood pressure 110 mm[Hg] Dr. Romy Tang MD Work Phone: 7(603)239-244523 [place] [address] 12-27-2024 09:42-0400 Body height 157.[address] Romy Tang MD Work Phone: 6(726)252-701323 [place] [address] 12-27-2024 09:42-0400 Body mass index (BMI) [Ratio] 28.7 kg/m2 Dr. Romy Tang MD Work Phone: 1(504)870-115623 [place] [address] 12-27-2024 09:42-0400 Body weight 71.[address] Romy Tang MD Work Phone: 2(122)792-831323 [place] [address] 12-27-2024 09:42-0400 Diastolic blood pressure 67 mm[Hg] Dr. Romy Tang MD Work Phone: 7(344)147-508623 [place] [address] 12-27-2024 09:42-0400 Systolic blood pressure 103 mm[Hg] Dr. Romy Tang MD Work Phone: 0(596)026-773523 [place] [address] 12-17-2024 09:43-0400 Body height 157.[address] Romy Tang MD Work Phone: 3(344)248-034423 [place] [address] 12-17-2024 09:43-0400 Body mass index (BMI) [Ratio] 28.5 kg/m2 Dr. Romy Tang MD Work Phone: 8(570)108-575523 [place] [address] 12-17-2024 09:43-0400 Body weight 70.[address] Romy Tang MD Work Phone: 5(841)448-007623 [place] [address] 12-17-2024 09:43-0400 Diastolic blood pressure 70 mm[Hg] Dr. Romy Tang MD Work Phone: 2(803)550-942585 [place] [address] 12-17-2024 09:43-0400 Systolic blood pressure 115 mm[Hg] Dr. Romy Tang MD Work Phone: 9(576)710-085423 [place] [address] 11-19-2024 10:06-0400 Body height 157.[address] Romy Tang MD Work Phone: 3(133)544-173023 [place] [address] 11-19-2024 10:06-0400 Body mass index (BMI) [Ratio] 28.2 kg/m2 Dr. Romy Tang MD Work Phone: 7(021)912-585623 [place] [address] 11-19-2024 10:06-0400 Body weight 70.[address] Romy Tang MD Work Phone: 6(840)158-130623 [place] [address] 11-19-2024 10:06-0400 Diastolic blood pressure 73 mm[Hg] Dr. Romy Tang MD Work Phone: 5(277)490-101023 [place] [address] 11-19-2024 10:06-0400 Systolic blood pressure 131 mm[Hg] Dr. Romy Tang MD Work Phone: 0(743)058-898923 [place] [address] 2024 08:39-0400 Body height 157.[address] Romy Tang MD Work Phone: 9(651)673-235523 [place] [address] 2024 08:39-0400 Body mass index (BMI) [Ratio] 26.8 kg/m2 Dr. Romy Tang MD Work Phone: 8(262)890-293123 [place] [address] 2024 08:39-0400 Body weight 66.[address] Romy Tang MD Work Phone: 4(814)415-402623 [place] [address] 2024 08:39-0400 Diastolic blood pressure 64 mm[Hg] Dr. Romy Tang MD Work Phone: 7(748)504-938423 [place] [address] 2024 08:39-0400 Systolic blood pressure 116 mm[Hg] Dr. Romy Tang MD Work Phone: 0(076)566-146523 [place] [address] 09-21-2024 15:40-0400 Body height 157.[address] Romy Tang MD Work Phone: 4(765)570-642123 [place] [address] 09-21-2024 15:40-0400 Body mass index (BMI) [Ratio] 26.4 kg/m2 Dr. Romy Tang MD Work Phone: 6(205)412-986423 [place] [address] 09-21-2024 15:40-0400 Body weight 65.[address] Romy Tang MD Work Phone: 2(396)191-826323 [place] [address] 09-21-2024 15:40-0400 Diastolic blood pressure 75 mm[Hg] Dr. Romy Tang MD Work Phone: 8(224)102-629223 [place] [address] 09-21-2024 15:40-0400 Systolic blood pressure 119 mm[Hg] Dr. Romy Tang MD Work Phone: 5(017)086-306223 [place] [address] 08-27-2024 14:22-0400 Body mass index (BMI) [Ratio] 25.8 kg/m2 Dr. Romy Tang MD Work Phone: 3(059)565-020323 [place] [address] 08-27-2024 14:22-0400 Body weight 64.[address] Romy Tang MD Work Phone: 4(486)434-136623 [place] [address] 08-27-2024 14:22-0400 Diastolic blood pressure 76 mm[Hg] Dr. Romy Tang MD Work Phone: 0(305)724-229323 [place] [address] 08-27-2024 14:22-0400 Systolic blood pressure 110 mm[Hg] Dr. Romy Tang MD Work Phone: 9(502)663-428823 [place] [address] 07-26-2024 10:30-0400 Body height 157.[address] Romy Tang MD Work Phone: 2(345)085-795723 [place] [address] 07-26-2024 10:27-0400 Body mass index (BMI) [Ratio] 25.4 kg/m2 Dr. Romy Tang MD Work Phone: 7(440)053-237723 [place] [address] 07-26-2024 10:27-0400 Body weight 63.[address] Romy Tang MD Work Phone: [facility] 07-26-2024 10:27-0400 Diastolic blood pressure 80 mm[Hg] Dr. Romy Tang MD Work Phone: [facility] 07-26-2024 10:27-0400 Systolic blood pressure 120 mm[Hg] Dr. Romy Tang MD Work Phone: [facility] 09-16-2023 14:30-0400 Body temperature 97.1 [degF] Dr. Romy Tang Work Phone: [facility] 09-16-2023 14:30-0400 Diastolic blood pressure 81 mm[Hg] Dr. Romy Tang Work Phone: [facility] 09-16-2023 14:30-0400 Heart rate 93 /min Dr. Romy Tang Work Phone: [facility] 09-16-2023 14:30-0400 Respiratory rate 16 /min Dr. Romy Tang Work Phone: [facility] 09-16-2023 14:30-0400 SaO2% (BldA) [Mass fraction] 99 % Dr. Romy Tang Work Phone: [facility] 09-16-2023 14:30-0400 Systolic blood pressure 122 mm[Hg] Dr. Romy Tang Work Phone: [facility] 09-14-2023 15:20-0400 Body height 157.[address] Romy Tang Work Phone: [facility] 09-14-2023 15:20-0400 Body mass index (BMI) [Ratio] 31.4 kg/m2 Dr. Romy Tang Work Phone: [facility] 09-14-2023 15:20-0400 Body weight 78.[address] Romy Tang Work Phone: [facility] 09-12-2023 10:30-0400 Body mass index (BMI) [Ratio] 31.4 kg/m2 Dr. Romy Tang Work Phone: [facility] 09-12-2023 10:30-0400 Body weight 78.[address] Romy Tang Work Phone: [facility] 09-12-2023 10:30-0400 Diastolic blood pressure 82 mm[Hg] Dr. Romy Tang Work Phone: [facility] 09-12-2023 10:30-0400 Systolic blood pressure 117 mm[Hg] Dr. Romy Tang Work Phone: [facility] 09-05-2023 16:25-0400 Diastolic blood pressure 82 mm[Hg] Dr. Romy Tang Work Phone: [facility] 09-05-2023 16:25-0400 Systolic blood pressure 123 mm[Hg] Dr. Romy Tang Work Phone: [facility] 09-05-2023 16:01-0400 Body mass index (BMI) [Ratio] 31.7 kg/m2 Dr. Romy Tang Work Phone: [facility] 09-05-2023 16:01-0400 Body weight 78.[address] Romy Tang Work Phone: [facility] 08-28-2023 15:56-0400 Body mass index (BMI) [Ratio] 31.1 kg/m2 Dr. Romy Tang Work Phone: [facility] 08-28-2023 15:56-0400 Body weight 77.[address] Romy Tang Work Phone: [facility] 08-28-2023 15:56-0400 Diastolic blood pressure 72 mm[Hg] Dr. Romy Tang Work Phone: [facility] 08-28-2023 15:56-0400 Systolic blood pressure 112 mm[Hg] Dr. Romy Tang Work Phone: [facility] 08-22-2023 16:06-0400 Body mass index (BMI) [Ratio] 30.2 kg/m2 Dr. Romy Tang Work Phone: [facility] 08-22-2023 16:06-0400 Body weight 75.[address] Romy Tang Work Phone: [facility] 08-22-2023 16:06-0400 Diastolic blood pressure 75 mm[Hg] Dr. Romy Tang Work Phone: [facility] 08-22-2023 16:06-0400 Systolic blood pressure 125 mm[Hg] Dr. Romy Tang Work Phone: [facility] 08-14-2023 15:54-0400 Body height 157.[address] Romy Tang Work Phone: [facility] 08-14-2023 15:52-0400 Body mass index (BMI) [Ratio] 30.3 kg/m2 Dr. Romy Tang Work Phone: [facility] 08-14-2023 15:52-0400 Body weight 75.[address] Romy Tang Work Phone: [facility] 08-14-2023 15:52-0400 Diastolic blood pressure 77 mm[Hg] Dr. Romy Tang Work Phone: [facility] 08-14-2023 15:52-0400 Systolic blood pressure 119 mm[Hg] Dr. Romy Tang Work Phone: [facility] 08-08-2023 11:01-0400 Body mass index (BMI) [Ratio] 29.9 kg/m2 Dr. Romy Tang Work Phone: [facility] 08-08-2023 11:01-0400 Body weight 74.[address] Romy Tang Work Phone: [facility] 08-08-2023 11:01-0400 Diastolic blood pressure 79 mm[Hg] Dr. Romy Tang Work Phone: [facility] 08-08-2023 11:01-0400 Systolic blood pressure 124 mm[Hg] Dr. Romy Tang Work Phone: [facility] 07-24-2023 15:54-0400 Body mass index (BMI) [Ratio] 28.9 kg/m2 Dr. Romy Tang Work Phone: [facility] 07-24-2023 15:54-0400 Body weight 71.[address] Romy Tang Work Phone: [facility] 07-24-2023 15:54-0400 Diastolic blood pressure 72 mm[Hg] Dr. Romy Tang Work Phone: [facility] 07-24-2023 15:54-0400 Systolic blood pressure 107 mm[Hg] Dr. Romy Tang Work Phone: 9(079)005-308585 [place] [address] 07-11-2023 15:45-0500 Body mass index (BMI) [Ratio] 29 kg/m2 Dr. Romy Tang Work Phone: [facility] 07-11-2023 15:45-0500 Body weight 72.[address] Romy Tang Work Phone: [facility] 07-11-2023 15:45-0500 Diastolic blood pressure 76 mm[Hg] Dr. Romy Tang Work Phone: [facility] 07-11-2023 15:45-0500 Systolic blood pressure 116 mm[Hg] Dr. Romy Tang Work Phone: [facility] 06-27-2023 13:18-0500 Body mass index (BMI) [Ratio] 28.6 kg/m2 Dr. Romy Tang Work Phone: [facility] 06-27-2023 13:18-0500 Body weight 70.[address] Roym Tang Work Phone: [facility] 06-27-2023 13:18-0500 Diastolic blood pressure 79 mm[Hg] Dr. Romy Tang Work Phone: [facility] 06-27-2023 13:18-0500 Systolic blood pressure 118 mm[Hg] Dr. Romy Tang Work Phone: 0(266)896-791503 [address] 06-19-2023 09:04-0500 Body height 157.[address] Earl Tang Work Phone: [facility] 06-19-2023 09:04-0500 Body mass index (BMI) [Ratio] 28.2 kg/m2 Dr. Earl Tang Work Phone: 4(595)844-913303 [address] 06-19-2023 09:04-0500 Body weight 69.[address] Earl Tang Work Phone: 3(718)640-559523 [place] [address] 06-13-2023 15:43-0500 Body mass index (BMI) [Ratio] 28.3 kg/m2 Dr. Earl Tang Work Phone: 9(631)684-553723 [place] [address] 06-13-2023 15:43-0500 Body weight 70.[address] Earl Tang Work Phone: 4(414)478-587223 [place] [address] 06-13-2023 15:43-0500 Diastolic blood pressure 80 mm[Hg] Dr. Earl Tang Work Phone: 2(428)108-505585 [place] [address] 06-13-2023 15:43-0500 Systolic blood pressure 131 mm[Hg] Dr. Earl Tang Work Phone: 4(445)665-661703 [address] 05-16-2023 15:43-0500 Body mass index (BMI) [Ratio] 27.2 kg/m2 Dr. Earl Tang Work Phone: 8(286)674-959523 [place] [address] 05-16-2023 15:43-0500 Body weight 67.[address] Earl Tang Work Phone: 4(161)768-268603 [address] 05-16-2023 15:43-0500 Diastolic blood pressure 77 mm[Hg] Dr. Earl Tang Work Phone: [facility] 05-16-2023 15:43-0500 Systolic blood pressure 123 mm[Hg] Dr. Earl Tang Work Phone: [facility] 04-14-2023 15:59-0500 Body mass index (BMI) [Ratio] 26 kg/m2 Dr. Earl Tang Work Phone: [facility] 04-14-2023 15:59-0500 Body weight 64.[address] Earl Tang Work Phone: [facility] 04-14-2023 15:59-0500 Diastolic blood pressure 65 mm[Hg] Dr. Earl Tang Work Phone: [facility] 04-14-2023 15:59-0500 Systolic blood pressure 111 mm[Hg] Dr. Earl Tang Work Phone: [facility] 03-20-2023 15:42-0500 Body mass index (BMI) [Ratio] 25 kg/m2 Dr. Earl Tang Work Phone: [facility] 03-20-2023 15:42-0500 Body weight 62.[address] Earl Tang Work Phone: [facility] 03-20-2023 15:42-0500 Diastolic blood pressure 74 mm[Hg] Dr. Earl Tang Work Phone: [facility] 03-20-2023 15:42-0500 Systolic blood pressure 111 mm[Hg] Dr. Earl Tang Work Phone: [facility] 02-19-2023 14:24-0400 Body height 157.[address] Earl Tang Work Phone: [facility] 02-19-2023 14:18-0400 Body mass index (BMI) [Ratio] 24.2 kg/m2 Dr. Earl Tang Work Phone: [facility] 02-19-2023 14:18-0400 Body weight 60.[address] Earl Tang Work Phone: [facility] 02-01-2023 03:14-0400 Diastolic blood pressure 60 mm[Hg] Dr. Earl Tang Work Phone: [facility] 02-01-2023 03:14-0400 Heart rate 71 /min Dr. Earl Tang Work Phone: 3(967)798-994885 [place] [address] 02-01-2023 03:14-0400 Respiratory rate 15 /min Dr. Earl Tang Work Phone: 0(944)296-368703 [address] 02-01-2023 03:14-0400 SaO2% (BldA) [Mass fraction] 100 % Dr. Earl Tang Work Phone: 3(162)006-386403 [address] 02-01-2023 03:14-0400 Systolic blood pressure 102 mm[Hg] Dr. Earl Tang Work Phone: 8(744)310-001285 [place] [address] 01-31-2023 23:22-0400 Body height 157.[address] Earl Tang Work Phone: 6(110)452-972303 [address] 01-31-2023 23:22-0400 Body mass index (BMI) [Ratio] 24.3 kg/m2 Dr. Earl Tang Work Phone: 7(539)788-319085 [place] [address] 01-31-2023 23:22-0400 Body temperature 97.6 [degF] Dr. Earl Tang Work Phone: [facility] 01-31-2023 23:22-0400 Body weight 60.[address] Earl Tang Work Phone: 4(191)614-193503 [address] 01-20-2023 16:31-0400 Body mass index (BMI) [Ratio] 24.1 kg/m2 Dr. Earl Tang Work Phone: 5(308)861-934685 [place] [address] 01-20-2023 16:31-0400 Body weight 59.[address] Earl Tang Work Phone: [facility] 01-20-2023 16:31-0400 Diastolic blood pressure 68 mm[Hg] Dr. Earl Tang Work Phone: [facility] 01-20-2023 16:31-0400 Systolic blood pressure 110 mm[Hg] Dr. Earl Tang Work Phone: [facility] 10-02-2022 14:17-0400 Body height 157.[address] Earl Tang Work Phone: [facility] 10-02-2022 14:11-0400 Body mass index (BMI) [Ratio] 24.2 kg/m2 Dr. Earl Tang Work Phone: [facility] 10-02-2022 14:11-0400 Body weight 60.[address] Earl Tang Work Phone: [facility] 10-02-2022 14:11-0400 Diastolic blood pressure 70 mm[Hg] Dr. Earl Tang Work Phone: [facility] 10-02-2022 14:11-0400 Systolic blood pressure 106 mm[Hg] Dr. Earl Tang Work Phone: [facility] 07-05-2022 14:00-0500 Body temperature 97.4 [degF] No Primary Care Physician [facility] 07-05-2022 14:00-0500 Diastolic blood pressure 52 mm[Hg] No Primary Care Physician [facility] 07-05-2022 14:00-0500 Heart rate 65 /min No Primary Care Physician [facility] 07-05-2022 14:00-0500 Respiratory rate 18 /min No Primary Care Physician [facility] 07-05-2022 14:00-0500 SaO2% (BldA) [Mass fraction] 99 % No Primary Care Physician [facility] 07-05-2022 14:00-0500 Systolic blood pressure 86 mm[Hg] No Primary Care Physician [facility] 07-05-2022 11:58-0500 Body height 157.48 cm No Primary Care Physician [facility] 07-05-2022 11:58-0500 Body mass index (BMI) [Ratio] 23.8 kg/m2 No Primary Care Physician [facility] 07-05-2022 11:58-0500 Body weight 59 kg No Primary Care Physician [facility] 07-02-2022 14:53-0500 Body mass index (BMI) [Ratio] 24.3 kg/m2 No Primary Care Physician [facility] 07-02-2022 14:53-0500 Body weight 60.49 kg No Primary Care Physician [facility] 07-02-2022 14:53-0500 Diastolic blood pressure 71 mm[Hg] No Primary Care Physician [facility] 07-02-2022 14:53-0500 Systolic blood pressure 105 mm[Hg] No Primary Care Physician [facility] Encounters Encounter Date Encounter Type Care Provider Facility Start: 03-04-2025 ambulatory Romy Sales lity:[facility] Start: 02-25-2025 ambulatory Romy Sales lity:[facility] Start: 02-11-2025 End: 02-11-[address] Cheyenne [facility] Work Phone: Start: 02-11-2025 End: 02-11-[address] Romy Tang MD Work Phone: [facility] Start: 01-28-2025 End: 01-28-2025 Patient encounter procedure Camacho Cash CNM [facility] Work Phone: Start: 01-28-2025 End: 01-28-[address] Romy Tang MD Work Phone: [facility] Start: 01-12-2025 End: 01-12-[address] Graciela Dang DO [facility] Work Phone: Start: 01-12-2025 End: 01-12-[address] Romy Tang MD Work Phone: [facility] Start: 01-05-2025 Non-patient / Non-visit Dr. Graciela Dang DO -[facility] Start: 01-05-2025 End: 01-05-[address] Romy Tang MD Work Phone: -[facility] Start: 01-05-2025 End: 01-05-[address] Graciela Dang DO -[facility] Work Phone: Start: 12-31-2024 End: 12-31-[address] Cheyenne Cuenca [facility] Work Phone: Start: 12-31-2024 End: 12-31-[address] Romy Tang MD Work Phone: [facility] Start: 12-31-2024 End: 12-31-2024 ambulatory Romy Tang Facility:[facility] Start: 12-27-2024 End: 12-27-2024 Patient encounter procedure Camacho Cash CNM [facility] Work Phone: Start: 12-27-2024 End: 12-27-[address] Romy Tang MD Work Phone: [facility] Start: 12-17-2024 End: 12-17-2024 Patient encounter procedure Camacho Cash CNM [facility] Work Phone: Start: 12-17-2024 End: 12-17-[address] Romy Tang MD Work Phone: [facility] Start: 11-19-2024 End: 11-19-2024 Patient encounter procedure Camacho Cash CNM [facility] Work Phone: Start: 11-19-2024 End: 11-19-[address] Romy Tang MD Work Phone: [facility] Start: 11-11-2024 End: 11-11-2024 ambulatory CAMACHO CAHS [facility] Start: 10-26-2024 End: 10-26-2024 ambulatory RICKY PAYNE [facility] Start: 2024 End: 2024 Patient encounter procedure Sharifa OTERO [facility] Work Phone: Start: 2024 End: [address] Romy Tang MD Work Phone: [facility] Work Phone: Start: 09-21-2024 End: 09-21-2024 Patient encounter procedure Camacho Cash CNM [facility] Work Phone: Start: 09-21-2024 End: 09-21-[address] Romy Tang MD Work Phone: [facility] Work Phone: Start: 08-27-2024 End: 08-27-2024 Patient encounter procedure Camacho JOHN [facility] Work Phone: Start: 08-27-2024 End: 08-27-2024 ambulatory [place]omy [place] Facility:[facility] Start: 08-27-2024 End: 08-27-2024 ambulatory Romy [place] Facility:[facility] Start: 07-26-2024 End: 07-26-[address] Romy Tang MD Work Phone: [facility] Work Phone: Start: 07-26-2024 End: 07-26-[address] Graciela Dang DO -Laboratory, Specimen Work Phone: Start: 07-26-2024 End: 07-26-[address] Graciela Dang DO [facility] Work Phone: Start: 07-26-2024 End: 07-26-2024 ambulatory Romy Tang Facility:[facility] Start: 07-26-2024 End: 07-26-2024 ambulatory Graciela Dang Facility:[facility] Start: 07-12-2024 End: 07-12-[address] Romy Tang MD Work Phone: [facility] Work Phone: Start: 07-12-2024 End: 07-12-2024 Patient encounter procedure Camacho JOHNM -Laboratory Work Phone: Start: 07-12-2024 End: 07-12-2024 ambulatory Romy Tang Facility:[facility] Start: 07-09-2024 End: 07-09-[address] Romy Tang MD Work Phone: [facility] Work Phone: Start: 07-09-2024 End: 07-09-2024 Patient encounter procedure Camacho Cash CNM -Laboratory Work Phone: Start: 07-09-2024 End: 07-09-2024 ambulatory Romy Tang Facility:[facility] Start: 09-16-2023 Non-patient / Non-visit Dr. Romy Tang Work Phone: [facility] Start: 09-15-2023 Non-patient / Non-visit Dr. Romy Tang Work Phone: [facility] Start: 09-14-2023 Non-patient / Non-visit Dr. Romy Tang Work Phone: [facility] Start: 09-14-2023 End: 09-16-2023 Evaluation and management of inpatient Dr. Romy Tang Work Phone: [facility] Work Phone: Start: 09-12-2023 End: 09-12-[address] Romy Tang Work Phone: [facility] Work Phone: Start: 09-05-2023 End: 09-05-[address] Rmoy Tang Work Phone: [facility] Work Phone: Start: 08-28-2023 End: 08-28-[address] Romy Tang Work Phone: [facility] Work Phone: Start: 08-22-2023 End: 08-22-[address] Romy Tang Work Phone: [facility] Work Phone: Start: 08-14-2023 End: 08-14-[address] Romy Tang Work Phone: [facility] Work Phone: Start: 08-14-2023 End: 08-14-[address] Romy Tang Work Phone: [facility]-Laboratory, Specimen Work Phone: Start: 08-14-2023 End: 08-14-[address] Romy Tang Work Phone: [facility] Work Phone: Start: 08-08-2023 End: 08-08-[address] Romy Tang Work Phone: [facility] Work Phone: Start: 07-24-2023 End: 07-24-[address] Romy Tang Work Phone: [facility] Work Phone: Start: 07-11-2023 End: 07-11-[address] Romy Tang Work Phone: [facility] Work Phone: Start: 06-27-2023 End: 06-27-[address] Romy Tang Work Phone: [facility] Work Phone: Start: 06-19-2023 End: 06-19-[address] Earl Tang Work Phone: [facility] Work Phone: Start: 06-19-2023 End: 06-19-2023 Patient [...] 03-06-[address] Earl Tang Work Phone: [facility] Work Phone: Start: 03-06-2023 End: 03-06-[address] Earl Tang Work Phone: [facility] Work Phone: Start: 02-19-2023 End: 02-19-[address] Earl Tang Work Phone: [facility] Work Phone: Start: 01-31-2023 End: 02-01-2023 Emergency department patient visit Dr. Earl Tang Work Phone: [facility]-Emergency Department Work Phone: Start: 01-20-2023 End: 01-20-[address] Earl Tang Work Phone: [facility] Work Phone: Start: 01-11-2023 End: 01-11-[address] Earl Tang Work Phone: [facility] Work Phone: Start: 01-11-2023 End: 01-11-[address] Earl Tang Work Phone: [facility]-Laboratory Work Phone: Start: 01-09-2023 End: 01-09-[address] Earl Tang Work Phone: [facility]-Laboratory Work Phone: Start: 10-02-2022 End: 10-02-[address] Earl Tang Work Phone: [facility] Work Phone: Start: 07-05-2022 Non-patient / Non-visit No Primary Care Physician [facility] Start: 07-05-2022 End: 07-05-2022 Admission to same day surgery center No Primary Care Physician [facility] Start: 07-05-2022 End: 07-05-2022 ambulatory No Primary Care Physician [facility] Work Phone: Start: 07-04-2022 Non-patient / Non-visit No Primary Care Physician [facility] Start: 07-02-2022 End: 07-02-2022 ambulatory No Primary Care Physician [facility] Work Phone: Start: 07-02-2022 End: 07-02-2022 Patient encounter procedure No Primary Care Physician [facility]-Laboratory, Specimen Start: 07-02-2022 End: 07-02-2022 Patient encounter procedure No Primary Care Physician [facility] Start: 04-21-2020 End: 04-21-2020 Patient encounter procedure WINSTON Thao MAN [facility] Procedures Date Procedure Procedure Detail Performing Clinician Start: 01-05-2025 Fibrinogen assay, quantitative Dr. Romy Tang MD Work Phone: Start: 01-05-2025 Hemoglobin F measure ment using Klemarizaauer-Betke method Dr. Romy Tang MD Work Phone: Comment on above: TEST RESULTS [facility] patrica Giron Study Negative Negative TESTING PERFORMED AT [facility]. ORIGINAL REPORT ON FILE IN LAB CONTAINS ADDITIONAL TEST SITE INFORMATION. __ Start: 12-31-2024 Serologic test for syphilis Dr. Rmoy Tang MD Work Phone: Start: 08-27-2024 Hepatitis [...] HCV Quant by PCR testing - HCVPCR #[id number] Non Reactive: < 0.8 Equivocal: >/= 0.8 [...] 03-06-2023 Transvaginal obstetr ic ultrasonography Dr. Earl Tang Work Phone: Start: 02-01-[address] ic ultrasonography Dr. Earl Tang Work Phone: Start: 01-20-[address] Damien Tang Work Phone: Start: 07-05-2022 Dilation and curetta ge of uterus No Primary Care Physician H/O: surgery H/O dilation and curettage Dr. Earl Tang Work Phone: Plan of Treatment Date Care Activity Detail Author Start: 02-11-2025 [facility] Start: 01-05-2025 Nonstress test [facility] Start: 01-05-2025 Obstetric monitoring [facility] Start: 01-05-2025 Vital signs measurements [facility] Start: 01-05-2025 [facility] Start: 01-05-2025 Patient discharge [facility] Start: 12-31-2024 Anti-D (Rh) immunoglobulin [facility] Start: 12-31-2024 CBC W Auto Different ial panel - Blood [facility] Start: 12-31-2024 Measurement of gluco se 2 hours after glucose challenge for glucose tolerance test [facility] Start: 12-31-2024 Serologic test for syphilis [facility] Start: 12-31-2024 [facility] Start: 09-16-2023 Documentation procedure [facility] Start: 09-16-2023 [facility] Start: 09-16-2023 Patient discharge [facility] Start: 09-15-2023 Administration of blood product [facility] Start: 09-15-2023 [facility] Start: 09-15-2023 Administration of medication [facility] Start: 09-15-2023 Application of ice c ollar, cap or bag [facility] Start: 09-15-2023 Catheterization of vein [facility] Start: 09-15-2023 Introduction of urinary catheter [facility] Start: 09-15-2023 Measuring intake and output [facility] Start: 09-15-2023 Notification of physician [facility] Start: 09-15-2023 Procedure discontinued [facility] Start: 09-15-2023 Provision of activity privileges [facility] Start: 09-15-2023 Vital signs measurements [facility] Start: 09-15-2023 End: 09-15-2023 [facility] Start: 09-15-2023 Documentation procedure [facility] Start: 09-14-2023 Leukocyte reduced red blood cells [facility] Start: 09-14-2023 Admission procedure [facility] Start: 09-14-2023 Verification routine [facility] Start: 07-06-2022 Complete blood count [facility] Start: 07-05-2022 Introduction of urinary catheter [facility] Start: 07-05-2022 Ambulation therapy management [facility] Start: 07-05-2022 Ambulation without limitation [facility] Start: 07-05-2022 Continuous pulse oximetry [facility] Start: 07-05-2022 Elevation of head of bed [facility] Start: 07-05-2022 Incentive spirometry [facility] Start: 07-05-2022 Measuring intake and output [facility] Start: 07-05-2022 Medication education [facility] Start: 07-05-2022 Notification of physician [facility] Start: 07-05-2022 End: 07-05-2022 Oxygen therapy [facility] Start: 07-05-2022 Patient education [facility] Start: 07-05-2022 Procedures relating to eating and drinking [facility] Start: 07-05-2022 Taking patient vital signs [facility] Start: 07-05-2022 Vital signs measurements [facility] Start: 07-05-2022 [facility] Start: 07-05-2022 Patient discharge [facility] Start: 07-02-2022 Liquid based cervica l cytology screening [facility] Anti-D (Rh) immunoglobulin [facility] CBC W Auto Different ial panel - Blood [facility] CBC W Auto Different ial panel - Blood [facility] Erythrocyte mean cor puscular volume determination [facility] Hematocrit [Volume F raction] of Blood [facility] Hemoglobin [Mass/volume] in Blood [facility] Hemoglobin F [Presen ce] in Blood by Kleihauer-Betke method [facility] Hepatitis C antibody measurement [facility] Leukocytes [#/volume] in Blood [facility] Mean corpuscular hem oglobin concentration determination [facility] Mean corpuscular hem oglobin determination [facility] Measurement of gluco se 2 hours after glucose challenge for glucose tolerance test [facility] Neutrophil count [facility] Neutrophil percent d ifferential count [facility] Path report.final Dx Spec [facility] Patient Education [facility] Work Phone: Patient referral [facility] Work Phone: Platelets [#/volume] in Blood [facility] Procedure [facility] Red blood cell count [facility] Red cell distributio n width determination [facility] Rubella IgG measurement [facility] Serologic test for syphilis [facility] Serologic test for syphilis [facility] [place] Immunization Date Immunization Notes Care Provider Fa [facility] 02-11-2025 tetanus toxoid, reduced diphtheria toxoid, and acellular pertussis vaccine, adsorbed Dr. Romy Tang MD Work Phone: [facility] 06-27-2023 tetanus toxoid, reduced diphtheria toxoid, and acellular pertussis vaccine, adsorbed Dr. Romy Tang Work Phone: [facility] Payers Date Payer Category Payer Self-pay [id number] 2024 Unknown [id number] 1996 Unknown [id number] 2.16.84 [id number] 1996 Unknown [id number] 2.16. [id number] 1996 Unknown [id number] 2.16. 840.1.154339.3.579.2.479 Unknown Unknown [id number] 2.16.8 40.1.145506.3.579.2.462 Unknown [id number] 2.16.8 40.1.795541.3.579.2.462 Unknown [id number] 2.16.8 40.1.231194.3.579.2.462 Unknown [id number] 2.16.8 40.1.543383.3.579.2.462 Unknown [id number] 2.16.8 40.1.322451.3.579.2.462 Unknown [id number] 2.16.8 40.1.583152.3.579.2.462 Unknown [id number] 2.16.8 40.1.742792.3.579.2.462 Unknown [id number] 2.16.8 40.1.801222.3.579.2.462 Unknown [id number] 2.16.8 40.1.928710.3.579.2.462 Unknown [id number] 2.16.8 40.1.275777.3.579.2.462 Unknown [id number] 2.16.8 40.1.444577.3.579.2.462 Unknown [id number] 2.16.8 40.1.290004.3.579.2.462 Unknown [id number] 2.16.8 40.1.122603.3.579.2.462 Unknown [id number] 2.16.8 40.1.835720.3.579.2.462 Unknown [id number] 2.16.8 40.1.366947.3.579.2.462 Unknown [id number] 2.16.8 40.1.968382.3.579.2.462 Unknown [id number] 2.16.8 40.1.669998.3.579.2.462 Unknown [id number] 2.16.8 40.1.094898.3.579.2.462 Unknown [id number] 2.16.8 40.1.132024.3.579.2.462 Unknown [id number] 2.16.8 40.1.841772.3.579.2.462 Social History Date Type Detail Facility [facility] Start: 07-02-2022 End: 09-14-2023 Tobacco smoking status OKIS Unknown if ever smoked [facility] Start: 1995 Sex Assigned At Female W [facility] Start: 07-16-2024 Tobacco smoking stat us NHIS Never smoked tobacco (finding) [facility] Start: 07-23-2024 End: 08-04-2024 Sex Female (finding) [facility] Sex Female [facility] Goals Date Patient Goal Desired Activity /State Mental Status Date Assessment Result Facility 07-05-2022 Cognitive function [facility] Work Phone: 07-05-2022 Cognitive function Patient Nestor alcantar Person;Place;Time [facility] Work Phone: Clinical Notes 07-04-2022 to 01-28-2025 Note Date & Type Note Facility 01-28-2025 Progress note [facility] 01-12-2025 Progress note [facility] 01-12-2025 Progress note Note Date/Time January 12, 2025 4:06pm [facility] [address], [address] [place] [address] OFFICE VISIT Date of Service: 01/12/25 MR#: [id number] Acct: [id number] Name: LYNNE PAL Rep #: [id number] : 1995 Provider: Dr. 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/hazards: No pets and animals: [...] 3-4 times per week duration: 15-30 minutes/day kenia/pentecostalism: Gnosticism seatbelt use: always do you feel safe [...] full term 7lbs 4oz Female n one [facility] Destiney Sy Delivery Date: 09/15/23 Last [...] Monitoring, Signs and Symptoms of Preeclampsia and Welcome Education Coding Level of Care Code OB [...] Elise DO> Date _ [facility] Signature: Date (if applicable) CC: ~ [facility] Work Phone: [phone]) 390-228808-18-2025 Progress [facility] [address] [place] [address], [address] [place] [address] OFFICE VISIT Date of Service: 12/27/24 MR#: [id number] Acct: [id number] Name: LYNNE PAL Rep #: [id number] : 1995 Provider: FREIDA Cash Age/Sex: 29/F [place] [facility] [place]: Signed Intake Vital Signs 10/21/24 08:39 12/17/24 09:43 12/27/24 09:42 Height 5 ft 2 in 5 ft 2 in 5 ft 2 in Weight: 157 lb 3 oz BMI 28.7 BP 103/67 Intake Visit Reasons: 28 WK OB GLUCOSE/RHOGAM Chief Complaint: 28wk OB/Rhogam Pinmaker Required: No Is patient in pain?: No [...] 1 current occupational status: employed 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 [place] appropriate handout given. 12/27/24 0967 s FREIDA> Date Ara Cash CNM Cosigner Signature: Date (if applicable) CC: ~ [facility]08-08-2025 Progress [facility] [address], [address] [place] [address] OFFICE VISIT Date of Service: 12/17/24 MR#: [id number] Acct: [id number] Name: LYNNE APL Rep #: [id number] : 1995 Provider: FREIDA Cash Age/Sex: 29/F [place] [facility] [place]: Signed Intake Vital Signs 10/21/24 08:39 11/19/24 10:06 12/17/24 09:43 Height 5 ft 2 in 5 ft 2 in 5 ft 2 in Weight: 156 lb 2 oz BMI 28.5 BP 115/70 Intake Visit Reasons: 26 WK OB Chief Complaint: 26wk OB Pinmaker Required: No Is patient in pain?: No [...] 1 current occupational status: employed 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/hazards: No pets and animals: No history of recent travel: [place] ([place]) sexually active: Yes Smoking Status: Never smoker [...] 3-4 times per week duration: 15-30 minutes/day kenia/pentecostalism: Gnosticism seatbelt use: always do you feel safe [...] full term 7lbs 4oz Female n one [facility] Destiney Lópezrett Delivery Date: 09/15/23 Last [...] Galaviz Signature: Date (if applicable) CC: ~ [facility]07-11-2025 Progress [facility] [address] [place] [address], [address] [place] [address] OFFICE VISIT Date of Service: 11/19/24 MR#: [id number] Acct: [id number] Name: LYNNE PAL Rep #: [id number] : 1995 Provider: FREIDA Cash Age/Sex: 29/F Location: [facility] Status: Signed Intake Vital Signs 09/21/24 15:40 10/21/24 08:39 11/19/24 10:06 Height 5 ft 2 in 5 ft 2 in 5 ft 2 in Weight: 154 lb 6 oz BMI 28.2 BP 131/73 H Intake Visit Reasons: 22 wk ob Pinmaker Required: No Is patient in pain?: No [...] 1 current occupational status: employed 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/hazards: No pets and animals: No history of recent travel: [place] ([place]) sexually active: Yes Smoking Status: Never smoker [...] 3-4 times per week duration: 15-30 minutes/day kenia/pentecostalism: Gnosticism seatbelt use: always do you feel safe [...] full term 7lbs 4oz Female n one [facility] Destiney Lópezrett Delivery Date: 09/15/23 Last [...] Monitoring, Signs and Symptoms of Preeclampsia and Welcome Education ROS Const Reports system reviewed and [...] Cosigner Signature: Date (if applicable) CC: ~ [facility]06-12-2025 Evaluation note* Diagnosis Onset Date [...] of high-risk acute January 28, 2025 9:09am [place] [employer] Work Phone: [phone] 883-261806-12-2025 Evaluation note* Diagnosis Onset Date Resolution Status [...] Supervision of high-risk acute February 11 3:53pm [facility] Work Phone: 1(230) 266-543506-12-2025 Progress [facility] [address] [place] [address], [address] [place] [address] OFFICE VISIT Date of Service: 10/21/24 MR#: [id number] Acct: [id number] Name: LYNNE PAL Rep #: [id number] : 1995 Provider: SHANNA Willson Age/Sex: 29/F [place] [facility] [place]: Signed Intake Vital Signs 07/26/24 10:30 09/21/24 15:40 10/21/24 08:39 Height 5 ft 2 in 5 ft 2 in 5 ft 2 in Weight: 146 lb 8 oz BMI 26.8 BP 116/64 Intake Visit Reasons: 18wk ob Chief Complaint: 18 Week OB Pinmaker Required: No Is patient in pain?: No [...] 1 current occupational status: employed 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 10/21/24 0854 s CHIEF FINANCIAL OFFICER CHIEF FINANCIAL OFFICER-C> Date _ Sharifa Willson CHIEF FINANCIAL OFFICER CHIEF FINANCIAL OFFICER-C Cosigner Signature: Date (if applicable) CC: ~ [facility]05-13-2025 Evaluation note* Diagnosis Onset Date [...] Supervision of high-risk acute December 27 9:37am [facility] Work Phone: [phone]) 391-622505-13-2025 Evaluation note* Diagnosis Onset Date Resolution Status [...] Supervision of high-risk acute December 31 8:57am [facility] Work Phone: 1(965) 289-715205-13-2025 Evaluation note* Diagnosis Onset Date Resolution Status [...] Supervision of high-risk acute January 05 9:00am [facility] Work Phone: 1([phone]) 441-686105-13-2025 Evaluation note* Diagnosis Onset Date Resolution Status [...] Supervision of high-risk acute January 12 3:35pm [facility] Work Phone: 1([phone]) 153-927705-13-2025 Progress [facility] [address] [place] [address], [address] [place] [address] OFFICE VISIT Date of Service: 09/21/24 MR#: [id number] Acct: [id number] Name: LYNNE PAL Rep #: [id number] : 1995 Provider: FREIDA Cash Age/Sex: 28/F [place] [facility] [place]: Signed Intake Vital Signs 07/26/24 10:30 08/27/24 14:22 09/21/24 15:40 Height 5 ft 2 in 5 ft 2 in 5 ft 2 in Weight: 144 lb 8 oz BMI 26.4 BP 119/75 Intake Visit Reasons: 14wk ob Chief Complaint: 14wk OB Pinmaker Required: No Is patient in pain?: No [...] 1 current occupational status: employed 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/hazards: No pets and animals: No history of recent travel: [place]) sexually active: Yes Smoking Status: Never smoker [...] 3-4 times per week duration: 15-30 minutes/day kenia/pentecostalism: Gnosticism seatbelt use: always do you feel safe [...] full term 7lbs 4oz Female n one [facility] Destiney Sy Delivery Date: 09/15/23 Last [...] Cosigner Signature: Date (if applicable) CC: ~ [facility]05-13-2025 Progress note Author Camacho Cash [facility] Note Date/Time September 21, 2024 3:51p [facility] Women[facility] [address], [address] [place] [address] OFFICE VISIT Date of Service: 09/21/24 MR#: [id number] Acct: [id number] Name: LYNNE PAL Rep #: [id number] : 1995 Provider: FREIDA Cash Age/Sex: 28/F [place] [facility] [place]: Signed Intake Vital Signs 07/26/24 10:30 08/27/24 14:22 09/21/24 15:40 Height 5 ft 2 in 5 ft 2 in 5 ft 2 in Weight: 144 lb 8 oz BMI 26.4 BP 119/75 Intake Visit Reasons: 14wk ob Chief Complaint: 14wk OB Pinmaker Required: No Is patient in pain?: No [...] 1 current occupational status: employed 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 GA appropriate handout given. 09/21/24 6652 <Electronically signed by Camacho scruggs CNM> Date _ Camacho Cash CNM Cosigner Signature: Date (if applicable) CC: ~ [place] [employer] Work Phone: 1([phone]) 298-782904-18-2025 Evaluation note* Diagnosis Onset Date Resolution Status [...] of high-risk acute December 17, 2024 9:40am [facility] Work Phone: [phone] Evaluation note* Diagnosis Onset Date Resolution Status Admit Date Early stage of acute July 26, 2024 10:21am History of miscarriage, currently acute July 26, 2 025 10:21am Hx of hemorrhage, currently acute July 26, 2 025 10:21am acute July 26 10:21am Rh negative state in antepar radha period acute July 26, 2024 10:21am Supervision of high-risk acute July 26, 2024 10:21am [facility] Work Phone: 1([phone]) 436-703703-17-2025 Evaluation note* Diagnosis Onset Date Resolution Status [...] high-risk acute September 21, 2024 3 :36pm [place] [employer] Work Phone: 1(451) 565-435403-17-2025 Evaluation note* Diagnosis Onset Date Resolution Status [...] 8:37am Supervision of high-risk acute 2024 8:37am [facility] Work Phone: 1(494) 247-825003-17-2025 Evaluation note* Diagnosis Onset Date Resolution Status [...] of high-risk acute November 19, 2024 10:04am [facility] Work Phone: 1([phone]) 817-533205-07-2024 Progress note Author Sharifa Willson [facility] September 16, 2023 7:54am Note Date/Time September 16, 2023 7:51am [facility] Medical Records Department [address] [place] [address] Progress Note - OBGYN 09/16/23 0751 MR#: [id number] Acct: [id number] Name: LYNNE PAL Rep #:[id number] : 1995 27 From: Sharifa Willson NP CHIEF FINANCIAL OFFICER-C PCP: Dr. Romy Tang MD Status :AD[facility] IN [id number] Subject[facility] Subjective Patient doing well without complaints. [...] 4. rubella immune 5. home today 09/16/23 2053 <Electronically signed by Sharifa Willson NP CHIEF FINANCIAL OFFICER-C> Cosigner Signature (if applicable): CC: ~ Signed [facility] Work Phone: 1(503) 911-528005-06-2024 Progress note Author Camacho Cash [facility] September 15, 2023 8:07am Note Date/Time September 15, 2023 8:08am [facility] Medical Records Department [address] [place] [address] Progress Note - OBGYN 09/15/23 0805 MR#: [id number] Acct: [id number] Name: LYNNE PAL Rep #:[id number] : 1995 From: Camacho Cash CNM PCP: Dr. Romy Tang MD Status :ADM IN Location: [address] Subjective Subjective Patient doing well without [...] (Auto) 73.8 H, Lymph % (Auto) 19.2, Hawkins % (Auto) 6.0, Eos % (Auto) 0.3, [...] 86.9 H, Lymph % (Auto) 9.3 L, Hawkins % (Auto) 2.3, Eos % (Auto) 0.0, [...] (Auto) 85.0 H, Lymph % (Auto) 9.8L, Hawkins % (Auto) 4.8, Eos % (Auto) 0.0, [...] Cosigner Signature (if applicable): CC: ~ Signed [facility] Work Phone: 1(231) 785-915705-06-2024 Discharge summary Author Destiney Cano [facility] September 15, 2023 12:28am Note Date/Time September 15, 2023 12:28a m [facility] Medical Records Department [address] [place] [address] Instructions for Home/Discharge Instructions 09/15/23 0028 MR#: [id number] Acct: [id number] Name: LYNNE PAL Rep #:[id number] : 1995 27 From: Destiney Cano CNM [...] CC: Dr. Romy Tang MD ~ Signed [facility] Work Phone: 1([phone]) 926-130805-06-2024 Procedure [facility] 09-14-2023 History and physical note Author Destiney Cano [facility] September 14, 2023 9:26pm Note Date/Time September 14, 2023 9:25pm [facility] Medical Records Department [address] [place] [address] H&P Exam - [employer]ORE [employer]GER 09/14/232116 MR#: [id number] Acct: [id number] Name: LYNNE PAL Rep #:[id number] : 1995 27 From: Destiney Cano CNM PCP: Dr. 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 updated on admission, exam and poc and agrees with midwifery primary management, available as needed for consult. 09/14/232125 <Electronically signed by Destiney Cano CNM> Cosigner Signature (if applicable): CC: FREIDA Cano; Dr. Romy Tang MD~ Signed [facility] Work Phone: 1([phone]) 244-349402-23-2023 History and physical note Author Dr. 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 07/04/22 6638 <Electronically signed by Cheyenne Cuenca MD> Cosigner Signature (if applicable): CC: Dr. Cheyenne Cuenca MD; No Primary Care Physician~ Signed [facility] Work Phone: Evaluation note* Diagnosis Onset Date Resolution Status acute Supervision of normal first acute Missed acute [facility] Work Phone: evaluation note* Diagnosis Onset Date Resolution Status Missed acute resolved Supervision of normal first resolved Missed acute [facility] Work Phone: evaluation noteNo assessment information available [facility] Work Phone: evaluation note* Diagnosis Onset Date Resolution Status acute Rh negative state in antepartum period acute Supervision of high-risk acute [facility] Work Phone: evaluation note* Diagnosis Onset Date Resolution Status acute Rh negative state in antepartum period acute Supervision of high-risk acute acute Rh negative state in antepartum period acute Supervision of high-risk acute [facility] Work Phone: evaluation note* Diagnosis Onset [...] antepartum period acute Supervision of high-risk acute [facility] Work Phone: evaluation note* Diagnosis Onset [...] antepartum period acute Supervision of high-risk acute [facility] Work Phone: evaluation note* Diagnosis Onset [...] amniotic membranes resolved Supervision of high-risk resolved [facility] Work Phone: Hospital Discharge instructions Additional Instructions Please call your W[employer] STORE MANAGER office on Friday to discuss need for repeat evaluation. Your ultrasound today showed the fetus/baby to be in the uterus with a normal heartbeat of 161 bpm. If you have increased bleeding or any further concerns please return to the ER for repeat evaluation.[facility] Work Phone: Progress note Author Sharifa Willson [place] [facility] Note Date/Time 2024 8:53 am [facility] [address] [place] [address], [address] [place] [address] OFFICE VISIT Date of Service: 10/21/24 MR#: [id number] Acct: [id number] Name: LYNNE PAL Rep #: [id number] : 1995 Provider: SHANNA Willson Age/Sex: 29/F [place] [facility] [place]: Signed Intake Vital Signs 07/26/24 10:30 09/21/24 15:40 10/21/24 08:39 Height 5 ft 2 in 5 ft 2 in 5 ft 2 in Weight: 146 lb 8 oz BMI 26.8 BP 116/64 Intake Visit Reasons: 18wk ob Chief Complaint: 18 Week OB Pinmaker Required: No Is patient in pain?: No [...] 1 current occupational status: employed 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/hazards: No pets and animals: No history of recent travel: [place] ([place]) sexually active: Yes Smoking Status: Never smoker [...] 3-4 times per week duration: 15-30 minutes/day kenia/pentecostalism: Gnosticism seatbelt use: always do you feel safe [...] full term 7lbs 4oz Female n one [facility] Destiney Sy Delivery Date: 09/15/23 Last [...] Monitoring, Signs and Symptoms of Preeclampsia and Welcome Education ROS Const Reports system reviewed and [...] PRR, , ANGEL LUIS 03/20/25, PC May, oYssi (2) : Status: Acute Qualifiers: Weeks of [...] 10/21/24 0854 <Electronically signed by Sharifa scruggs CHIEF FINANCIAL OFFICER CHIEF FINANCIAL OFFICER-C> Date _ Sharifa Willson NP CHIEF FINANCIAL OFFICER-C Cosigner Signature: Date (if applicable) CC: ~ [facility] Work Phone: Progress note Author Camacho Cash [facility] Note Date/Time November 19, 2024 10:4 3am 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/hazards: No pets and animals: No history of recent travel: [place]) sexually active: Yes Smoking Status: Never smoker [...] 3-4 times per week duration: 15-30 minutes/day kenia/pentecostalism: Gnosticism seatbelt use: always do you feel safe [...] full term 7lbs 4oz Female n one [facility] Destiney Lópezrett Delivery Date: 09/15/23 Last [...] Cosigner Signature: Date (if applicable) CC: ~ [facility] Work Phone: Progress note Author Camacho Cash [facility] Note Date/Time December 17, 2024 10: 06am [facility] [address], [address] [place] [address] OFFICE VISIT Date of Service: 12/17/24 MR#: [id number] Acct: [id number] Name: LYNNE PAL Rep #: [id number] : 1995 Provider: FREIDA Cash Age/Sex: 29/F [place] [facility] [place]: Signed Intake Vital Signs 10/21/24 08:39 11/19/24 10:06 12/17/24 09:43 Height 5 ft 2 in 5 ft 2 in 5 ft 2 in Weight: 156 lb 2 oz BMI 28.5 BP 115/70 Intake Visit Reasons: 26 WK OB Chief Complaint: 26wk OB Pinmaker Required: No Is patient in pain?: No [...] 1 current occupational status: employed 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/hazards: No pets and animals: No history of recent travel: [place]) sexually active: Yes Smoking Status: Never smoker [...] 3-4 times per week duration: 15-30 minutes/day kenia/pentecostalism: Gnosticism seatbelt use: always do you feel safe [...] full term 7lbs 4oz Female n one [facility] Destiney Cano Yossi Delivery Date: 09/15/23 [...] Monitoring, Signs and Symptoms of Preeclampsia and Welcome Education ROS Const Reports system reviewed and [...] Cosigner Signature: Date (if applicable) CC: ~ [facility] Work Phone: Progress note Author Camacho Cash [place] [facility] Note Date/Time December 27, 2024 9: 55am [facility] [address], [address] [place] [address] OFFICE VISIT Date of Service: 12/27/24 MR#: [id number] Acct: [id number] Name: LYNNE PAL Rep #: [id number] : 1995 Provider: FREIDA Cash Age/Sex: 29/F [place] [facility] [place]: Signed Intake Vital Signs 10/21/24 08:39 12/17/24 09:43 12/27/24 09:42 Height 5 ft 2 in 5 ft 2 in 5 ft 2 in Weight: 157 lb 3 oz BMI 28.7 BP 103/67 Intake Visit Reasons: 28 WK OB GLUCOSE/RHOGAM Chief Complaint: 28wk OB/Rhogam Pinmaker Required: No Is patient in pain?: No [...] 1 current occupational status: employed 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/hazards: No pets and animals: No history of recent travel: [place]) sexually active: Yes Smoking Status: Never smoker [...] 3-4 times per week duration: 15-30 minutes/day kenia/pentecostalism: Gnosticism seatbelt use: always do you feel safe [...] full term 7lbs 4oz Female n one [facility] Destiney Sy Delivery Date: 09/15/23 Last [...] Monitoring, Signs and Symptoms of Preeclampsia and Welcome Education ROS Const Reports system reviewed and [...] Cosigner Signature: Date (if applicable) CC: ~ [place] [facility] Work Phone: Progress note Author Camacho Cash [facility] Note Date/Time January 28, 2025 9:23am [facility] [place] [facility] [address], [address] [place] [address] OFFICE VISIT Date of Service: 01/28/25 MR#: [id number] Acct: [id number] Name: LYNNE PAL Rep #: [id number] : 1995 Provider: FREIDA Cash Age/Sex: 29/F Location[facility] Status: Signed Intake Vital Signs 12/17/24 09:43 01/12/25 15:49 01/28/25 09:10 Height 5 ft 2 in 5 ft 2 in 5 ft 2 in Weight: 164 lb 6 oz BMI 30.0 BP 105/67 Intake Visit Reasons: 32wk ob Pinmaker Required: No Is patient in pain?: No [...] 1 current occupational status: employed 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/hazards: No pets and animals: No history of recent travel: [place]) sexually active: Yes Smoking Status: Never smoker [...] 3-4 times per week duration: 15-30 minutes/day kenia/pentecostalism: Gnosticism seatbelt use: always do you feel safe [...] full term 7lbs 4oz Female n one [facility] Destiney Lópezrett Delivery Date: 09/15/23 Last [...] Cosigner Signature: Date (if applicable) CC: ~ [facility] Work Phone: Reason for referral (narrative)No reason for referral information [facility] Work Phone: Summary Purpose Family History No Family History Records Found Relationship Condition Age at Onset Recorded Date/T audrey father Hypertension Unknown Advance Directives No Advanced Directives Records Found Advance Directive Response Recorded Date/ Time Living Will No July 03, 023 9:39am Power of Bonding Equipment Operator No July 03, 2022 9:39am Advance Directive Response Recorded Date/ Time Living Will No September 24, 2022 3 :46pm Power of Bonding Equipment Operator No September 24, 2022 3:46pm Advance Directive Response Recorded Date/ Time Living Will No February 01, 2023 12:51am Power of Bonding Equipment Operator No January 12:51am Advance Directive Response Recorded Date/ Time Living Will No January 31, 2023 11:51pm Power of Bonding Equipment Operator No January 11:51pm Advance Directive Response Recorded Date/ Time Living Will No September 14, 2023 4: 29pm Power of Bonding Equipment Operator No September 14, 2023 4:29pm Chief Complaint [...] Rh negative state in antepartum period J [facility] 2024 8:37am Supervision of high-risk 2024 8:37am [...] Rh negative state in antepartum period J [facility] 2024 8:37am Supervision of high-risk 2024 8:37am [...] Rh negative state in antepartum period A [facility] 2024 9:40am Supervision of high-risk Augus [...] Rh negative state in antepartum period A [facility] 2024 9:00am Status post fall January [...] Rh negative state in antepartum period A [facility] 2024 8:57am Supervision of high-risk Augus t 2024 8:57am History of miscarriage, currently pregna nt January 05, 2025 9:00am Hx of hemorrhage, currently p regnant January 05, 2025 9:00am January 05, 2025 9: 00am Rh negative state in antepartum period A [facility] 2024 9:00am Status post fallJanuary 05, 2025 9: 00am Supervision of high-risk Augus 2024 9:00am History of miscarriage, currently pregna nt January 12, 2025 3:35pm Hx of hemorrhage, currently p regnant January 12, 2025 3:35pm January 12, 2025 3:35pm Rh negative state in antepartum period [facility] 3:35pm Status post fallJanuary 12, 2025 3:35pm [facility] History of miscarriage, currently pregna nt January 28, 2025 9:09am Hx of hemorrhage, currently p regnant January 28, 2025 9:09am January 28, 2025 9:09am Rh negative state in antepartum period S [facility] 2024 9:09am Status post fallJanuary 28, 2025 9:09am Supervision of high-risk [facility] 2024 9:09am Chief Complaint Admit Date 18wk [...] Rh negative state in antepartum period J [facility] 2024 8:37am Supervision of high-risk 2024 8:37am [...] section and content) DATE CREATED AUTHOR 04/24/2020 [facility] DATE CREATED AUTHOR AUTHOR'S ORGANIZ ATION 04/26/2020 [facility] DATE CREATED AUTHOR AUTHOR'S ORGANIZ ATION 11/14/2024 [facility] DATE CREATED AUTHOR AUTHOR'S ORGANIZ ATION 02/24/2025 [facility] Care Teams (unrecognized sec [...] Provider, Refe rring Provider Active Sharifa Willson CHIEF FINANCIAL OFFICER, CHIEF FINANCIAL OFFICER-C Attending Provider Active Team Status: Inactive Member [...] Provider, Ref erring Provider Active Sharifa Willson CHIEF FINANCIAL OFFICER, CHIEF FINANCIAL OFFICER-C Attending Provider Active Team Status: Inactive Member [...] Provider, Other Provider A ctive Sharifa Willson CHIEF FINANCIAL OFFICER, CHIEF FINANCIAL OFFICER-C Attending Provider Active Team Status: Inactive Member [...] Start: 2024 End: 2024 Sharifa Willson NP, CHIEF FINANCIAL OFFICER-C Attending Provider Active Start: 2024 End: 2024 [...] Active Start: 2024 End: 2024 Sharifa Willson CHIEF FINANCIAL OFFICER, CHIEF FINANCIAL OFFICER-C Attending Provider Active Start: 2024 End: 2024 [...] Active Start: 2024 End: 2024 Sharifa Willson CHIEF FINANCIAL OFFICER, CHIEF FINANCIAL OFFICER-C Attending Provider Active Start: 2024 End: 2024 [...] Active Start: 2024 End: 2024 Sharifa Willson CHIEF FINANCIAL OFFICER, CHIEF FINANCIAL OFFICER-C Attending physician Active Start: 2024 End: 2024 [...] BE BASED ON THE PRIMARY CLINICAL RECORDS. [employer] provides no warranty or guarantee of the accuracy or completeness of information in this document.
== END | disposition home or self-care (01) ==
LOC: LABSPEC 16:03
PROVIDERS: PCP Family Medicine; Visit Provider Obstetrics & Gynecology
DX: O09.92 Supervision of high risk pregnancy, unspecified, second trimester (principal); Z3A.00 Weeks of gestation of pregnancy not specified
CPT/HCPCS: 87081

== ENCOUNTER 2025-03-19 04:45 | Inpatient (IN) | payer BC, SELFPAY ==
[2025-03-19] VITALS (34 sets, daily range): BP systolic 108–131; BP diastolic 56–77; PULSE 64–111; RESP 16; TEMP 36.1–37.5; O2SAT 81–100; BMI 30.5
[2025-03-19] MEDS: Lactated Ringers 1,000 ML 50 ML IV (05:05)
[2025-03-19 05:18] LABS: Hematocrit 33.3 % (37-47); Hemoglobin 11.3 g/dL (12.0-15.0); Immature Granulocytes Count 0.070 X10^3/uL (0.0-0.0); Mean Corp Hgb Conc 33.9 g/dL (32-36); Mean Corpuscular Volume 91.7 fL (81-99); Mean Platelet Vol. 9.8 fl (6.2-12.0); NRBC Flagged by Analyzer 0 % (0-5); Platelet Count 186 K/mm3 (150-450); RBC Distribution Width CV 12.8 % (11.6-14.6); RBC Distribution Width SD 42.1 fl (35.1-43.9); Red Blood Count 3.63 M/mm3 (4.2-5.4); White Blood Count 12.8 K/mm3 (4.4-11.0)
[2025-03-19 06:04] LABS: Syphilis Antibodies Nonreactive (Nonreactive)
--- NOTE | 2025-03-19 07:36 | PCM.HP.OB ---
HPI - General General Date of Admission: 03/19/25 HPI Narrative LYNNE PAL, is a 29 y/o @ 39 weeks 6 days who presents to L&D with contractions. She was 2 cm in the office yesterday and when she presented she was 5 cm. She currently is 8 cm dilated and declines epidural. Maternal Data Information ANGEL LUIS Calculator Estimated Delivery Date Method Current WG Current Estimate 03/20/25 Ultrasound #1 39w 6d Other Estimates 03/05/25 LMP (Certain) 42w 0d PFSH PFSH Medical History hemorrhage (spontaneous vaginal delivery) History of group B Streptococcus (GBS) infection Pre-conception counseling Breast tenderness in female Non-smoker Home Medications ?Medication ?Instructions ?Recorded ?Last Taken ?Type Lactobacillus acidophilus and 1 cap PO DAILY supplement 06/27/22 03/17/25 History rhamnosus 15 billion cell capsule (Probiotic) multivitamin no.47-iron fum 27 1 cap PO DAILY 06/27/22 03/17/25 History mg-folate no.1 1 mg-dha 300 mg capsule (PNV-DHA) Allergy/AdvReac Type Severity Reaction Status Date / Time No Known Allergies Allergy Verified 03/19/25 04:37 Family History Father Hypertension Surgical History H/O dilation and curettage Hx of wisdom tooth extraction Social History adopted: No household members: spouse housing: house number of children: 1 current occupational status: employed 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[employer] current occupational exposures/hazards: No pets and animals: No history of recent travel: No ([place]) sexually active: Yes Smoking Status: Never smoker alcohol intake: former details: social- but not while substance use type: does not use well-balanced diet: daily or most days caffeine: No eating out: rarely or never during the past year weight has: other details: had a baby is 7# heavier than prepregnancy what type of physical activity do you participate in: walking and weight training frequency: 3-4 times per week duration: 15-30 minutes/day kenia/church: Spiritism seatbelt use: always do you feel safe at home: Yes additional social history: - Yossi- Marketing History 3 Elective abortions Hx Para 1 Spontaneous abortions 1 Hx # Term Pregnancies Ectopic pregnancies Hx # Pregnancies Multiple births # of living children 1 Past Pregnancies Del. Date Name GA/Weeks Outcome Route Bth Weight Gen Labor Lgth Anesthesia Del Locatn Provider FOB Unknown June 2022 miscarriage 8wk 09/15/23 May 40 live - full term 7lbs 4oz Female none [facility] Destiney Sy Delivery Date: 09/15/23 Last Updated by: Snow Delgado PP hem. Visit Details Expected Delivery Route/Plan Labor Preferences- CB/BF classes: [] labor support person: [] labor intervention preferences: pain management options preferred: minimal intervention cut cord/dad catch: yes an dpatient wants to pull him out : yes PP control planned: [] discussed possible routes of delivery and associated risks: [] special requests: [] Plans Covid status: [] Flu vaccine: given Tdap vaccine: given Rhogam: na LARC form signed: declined movement and labor precautions reviewed. Problem list reviewed and updated with the most current plan of care details and appropriate orders placed. Relevant counseling for the gestational age provided. Continue routine care and follow up unless otherwise noted in visit notes/problem list details OB Flowsheet Initial Weight: 135 lb Date <del>?</del> EGA Weight BP Urine Prot <del>?</del> Glucose FHR FuHt Pres Dilation <del>?</del> Effaced St Visit Note 07/26/24 <del>?</del> 6w 1d 139 lb 4 oz (+4 lb 4 oz) 120/80 <del>?</del> 105 <del>?</del> JV- CRL measuring 6 weeks 1 day with heart tones. states is 6 weeks by when she calculated ovulation. unsure about nipt or blood type testing of baby (she is rh neg) 08/27/24 <del>?</del> 10w 5d 141 lb 2 oz (+6 lb 2 oz) 110/76 Negative <del>?</del> Negative 173 <del>?</del> KW- CRL cons with 10.5 weeks. labs today and MFM order placed 09/21/24 <del>?</del> 14w 2d 144 lb 8 oz (+9 lb 8 oz) 119/75 Negative <del>?</del> Negative 153 <del>?</del> KW- no vb/cramping. US scheduled- 10/26. no concerns KW- no vb/cramping. US scheduled- 10/26. no concerns. declines AFP 10/21/24 <del>?</del> 18w 4d 146 lb 8 oz (+11 lb 8 oz) 116/64 Negative <del>?</del> Negative 151 <del>?</del> MH-No VB. Feeling movement. No concerns 11/19/24 <del>?</del> 22w 5d 154 lb 6 oz (+19 lb 6 oz) 131/73 Negative <del>?</del> Negative 155 <del>?</del> KW- no vb/cramping. good fm. glucose at 28 week. will do the fresh test. 12/17/24 <del>?</del> 26w 5d 156 lb 2 oz (+21 lb 2 oz) 115/70 Negative <del>?</del> Negative 150 26 <del>?</del> KW- no vb/lof/ctx. good fm. glucose and rhogam next visit. LARC today. 12/27/24 <del>?</del> 28w 1d 157 lb 3 oz (+22 lb 3 oz) 103/67 Negative <del>?</del> Negative 155 27 <del>?</del> KW- no vb/lof/ctx. good fm. Missed draw time and will need to redo. Will come in friday for labs and rhogam. declines TDAP today. 01/12/25 <del>?</del> 30w 3d 164 lb (+29 lb) 110/65 Negative <del>?</del> Negative 145 29 <del>?</del> JV- no lof, vaginal bleeding, or dec fm. 01/28/25 <del>?</del> 32w 5d 164 lb 6 oz (+29 lb 6 oz) 105/67 Negative <del>?</del> Negative 145 31 <del>?</del> KW- no vb/lof/ctx. good fm. declined tdap and flu shot. 02/11/25 <del>?</del> 34w 5d 163 lb 6 oz (+28 lb 6 oz) 131/74 <del>?</del> 140 34 <del>?</del> Sm- no vb lof good fm no reuglar ctx discussed and 02/25/25 <del>?</del> 36w 5d 167 lb 3 oz (+32 lb 3 oz) 106/71 Negative <del>?</del> Negative 140 36 <del>?</del> SM- no vb lof good fm no regular ctx 03/04/25 <del>?</del> 37w 5d 166 lb 1 oz (+31 lb 1 oz) 108/72 Negative <del>?</del> Negative 145 37 Cephalic <del>?</del> JV- no lof, vaginal bleeding, or dec fm. declines pelvic exam. 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 no vb/lof/ctx. good fm 03/18/25 <del>?</del> 39w 5d 167 lb 3 oz (+32 lb 3 oz) 115/73 Negative <del>?</del> Negative 137 38.5 Cephalic 3 <del>?</del> 90 -2 JV- no lof, vaginal bleeding, or dec fm. Membrane sweep today. ROS Constitutional Constitutional: Denies change in weight, fatigue, fever(s), headache(s), poor appetite or weakness Eyes Eyes: Denies blurry vision, change in vision, seeing flashes or spots in vision ENT HEENT: Denies dizziness, headache(s), loss taste/smell or sore throat Cardiovascular Cardiovascular: Denies chest pain, dizziness, dyspnea, irregular heart rhythm, leg edema, palpitations, rapid heart rate or vomiting Respiratory/Chest Respiratory/Chest: Denies chest tightness, cough, dyspnea or breast pain Gastrointestinal Gastrointestinal: Denies abdominal pain, anorexia, constipation, cramping, diarrhea, hemorrhoids, vomiting or weight changes Genitourinary Genitourinary: Denies dysuria, flank pain, genital lesions, genital pain, urinary frequency or urinary urgency Musculoskeletal Musculoskeletal: Denies back pain, difficulty walking, joint pain, limited range of motion, muscle cramps or numbness Integumentary Integumentary: Denies lesions or unusual bruising Neurologic Neurologic: Denies abnormal movements, abnormal speech, dizziness, numbness, seizure-like activity or syncope Psychiatric Psychiatric: Denies anxiety, behavioral changes, change in appetite, change in libido, cognitive impairment, confusion, depression, difficulty concentrating, hallucinations or suicidal thoughts Endocrine Endocrinology: Denies excessive sweating, polydipsia or polyuria Hematologic/Lymphatic Hematologic/Lymphatic: Denies easy bleeding, easy bruising or lymphadenopathy Allergic/Immunologic Allergic/Immunologic: Denies itchy eyes, lip swelling, seasonal rhinorrhea, rhinitis, throat swelling, tongue swelling, eczemia, wheezing or asthma Vital Signs Vital Signs Vital Signs: 03/19/25 04:35 03/19/25 04:35 03/19/25 04:35 Temperature Temperature Source Pulse Rate 103 H Respiratory Rate Blood Pressure 130/71 H BP Systolic 130 BP Diastolic 71 Pulse Ox 81 03/19/25 04:35 03/19/25 04:35 03/19/25 04:35 Temperature Temperature Source Temporal Pulse Rate 111 H Respiratory Rate 16 Blood Pressure BP Systolic BP Diastolic Pulse Ox 03/19/25 04:35 03/19/25 04:35 03/19/25 05:24 Temperature 98.0 F Temperature Source Temporal Pulse Rate Respiratory Rate Blood Pressure BP Systolic BP Diastolic Pulse Ox 100 03/19/25 05:24 03/19/25 05:24 03/19/25 05:24 Temperature Temperature Source Pulse Rate 90 Respiratory Rate 16 Blood Pressure 108/59 L BP Systolic 108 BP Diastolic 59 Pulse Ox 03/19/25 05:24 03/19/25 05:25 03/19/25 05:25 Temperature 98.0 F Temperature Source Pulse Rate 81 Respiratory Rate Blood Pressure BP Systolic BP Diastolic Pulse Ox 99 03/19/25 06:49 03/19/25 06:49 03/19/25 06:49 Temperature 98.2 F Temperature Source Temporal Pulse Rate Respiratory Rate 16 Blood Pressure BP Systolic BP Diastolic Pulse Ox 03/19/25 06:50 03/19/25 06:50 03/19/25 06:50 Temperature Temperature Source Pulse Rate 82 82 Respiratory Rate Blood Pressure 109/60 BP Systolic 109 BP Diastolic 60 Pulse Ox 03/19/25 06:50 Temperature Temperature Source Pulse Rate Respiratory Rate Blood Pressure BP Systolic BP Diastolic Pulse Ox 99 Weight Weight: 167 lb Body Mass Index (BMI) 30.5 Physical Exam Const alert, oriented x3, no apparent distress and healthy appearing General Appearance: cooperative; Negative for anxious HEENT normocephalic Face and Sinus: normal facial exam Eyes EOMs intact bilaterally and no scleral icterus General Eye: normal appearance of both eyes Neck full ROM and supple Lymph Lymphatic: no lymphadenopathy noted Resp normal respiratory effort Effort and Inspection: able to speak in complete sentences Cardio regular rate GI soft to palpation and non-tender Inspection: gravid Palpation: soft; Negative for tender Back/Spine no CVA tenderness Extremity normal to inspection, full ROM and no clubbing, cyanosis or edema General Extremity: Negative for calf tenderness or edema Skin Lesions: no lesions Rashes: no rashes Psych mental status grossly normal Labs Labs Labs: Blood Type O NEGATIVE Antibody Screen NEGATIVE Hct, (37-47) 33.3 % L Hgb, (12.0-15.0) 11.3 g/dL L Obstetrics Ultrasound Syphilis Total Ab, (Nonreactive) Nonreactive Rubella IgG Antibody, (Nonreactive) REAC Hep Bs Antigen, (Nonreactive) Nonreactive Hepatitis C Antibody, (Nonreactive) Nonreactive Chlamydia DNA (ANUSHA), (Negative) Negative N.gonorrhoeae DNA (ANUSHA), (Negative) Negative HIV 1&2 Antibody, (Nonreactive) Nonreactive Glucose 1 Hr 50 gm, (70-140) 93 mg/dL Assessment & Plan (1) Active labor at term: (2) Hx of hemorrhage, currently : (3) Supervision of high-risk : QUALIFIERS: Trimester: second trimester Qualified Code(s): O09.92 - Supervision of high risk , unspecified, second trimester COMMENT: PRR, , ANGEL LUIS 03/20/25, boy name secret JEFFERSON Olvera, Yossi (4) : QUALIFIERS: Weeks of gestation: 39 weeks Qualified Code(s): Z3A.39 - 39 weeks gestation of COMMENT: GBS neg. Declined NIPT & Carrier testing (5) History of miscarriage, currently : (6) Rh negative state in antepartum period: COMMENT: rhogam at 28 weeks. PLAN: Plan Patient presents IAL, plan expectant management for , pitocin/AROM PRN if needed. Pain management: none . GBS neg. Management of any complications: none I have reviewed the [facility] and made any clinically relevant updates.
[2025-03-19] MEDS: Oxytocin 15 Units/NS 250ml 15 UNITS/250 ML IV.SOLN 334 UNITS IV (08:17)
[2025-03-19] MEDS: Oxytocin 15 Units/NS 250ml 15 UNITS/250 ML IV.SOLN 83 UNITS IV (08:48)
--- NOTE | 2025-03-19 08:58 | EX.PCM.OBVAG ---
Assessment & Plan (1) Active labor at term: (2) Hx of hemorrhage, currently : (3) Supervision of high-risk : QUALIFIERS: Trimester: second trimester Qualified Code(s): O09.92 - Supervision of high risk , unspecified, second trimester COMMENT: PRR, , ANGEL LUIS 03/20/25, boy name secret JEFFERSON Olvera, Yossi (4) : QUALIFIERS: Weeks of gestation: 39 weeks Qualified Code(s): Z3A.39 - 39 weeks gestation of COMMENT: GBS neg. Declined NIPT & Carrier testing (5) History of miscarriage, currently : (6) Rh negative state in antepartum period: COMMENT: rhogam at 28 weeks. Maternal Data Information ANGEL LUIS Calculator Estimated Delivery Date Method Current WG Current Estimate 03/20/25 Ultrasound #1 39w 6d Other Estimates 03/05/25 LMP (Certain) 42w 0d Final ANGEL LUIS: 03/20/25 Final ANGEL LUIS Source: US <20 weeks Gestational age: 39weeks 6 days Vaginal Delivery Maternal Presentation Maternal Presentation: Active Labor Type of Induction: Amniotomy Vaginal Delivery Information Procedure Performed: Spontaneous Vaginal Delivery Surgeon/Practitioner: Graciela Dang Date of Procedure: 03/19/25 Pre-Procedure Diagnosis: @ 39 weeks 6 days, active labor Post-Procedure Diagnosis: @ 39 weeks 6 days, active labor Type of anesthesia: None Estimated Blood Loss: 500cc Time of Delivery: 08:14 Findings Description of procedure: Patient began pushing and delivered the head in the SUSU presentation. The head was delivered atraumatically. The anterior and posterior shoulders delivered without complication followed by the rest of the infant and the infant was placed on the maternal abdomen. Delayed cord clamping was employed for approximately 60 seconds. Cord was clamped and cut and gentle traction was applied to the cord and the placenta delivered spontaneously immediately following it was noted to be intact with three-vessel cord. The perineum and vagina were inspected and noted to have no laceration. EBL was 500cc. Methergine, hemabate, and pitocin were given to stop bleeding and treat atony. Patient and infant tolerated delivery well. Procedure findings: viable male Kory Presentation: Vertex Amniotic Membrane Rupture Type: Artificial Amniotic Fluid Description: Clear Placental Delivery Description: Spontaneous Placenta Disposition: [facility] Specimen collected: No Cord Vessel Description: 3 Vessels Cord Entanglement: None A Gender: Male (1 minute): 8 (5 minute): 9 Delayed Cord Clamping: Yes Internet Database Specialist global clinical leader: No Post Vaginal Deli Medications given after delivery: IV Pitocin, IM Methergin and IM Hemabate Episiotomy Description: None Laceration: None Complication Complications: No Multi Select Codes Urinary/Genital Urinary/Genital CPT Codes: 70231 Vaginal Delivery [facility]
--- NOTE | 2025-03-19 09:02 | DCINST_ITS ---
Discharge Instructions
--- NOTE | 2025-03-19 09:02 | PCM.DC ---
Discharge Instructions DC O2, CPAP, BIPAP needs Home O2 Discharge instructions: No Dressing / Incision Discharge Activity: Return to Normal Activity, May Not Drive (while taking narcotic pain medications.) and May Shower May resume sexual activity in: 4-6 weeks Dressing / Incision Call your doctor if your incision/area has: Continuous Slow Oozing, Sudden Increased Bleeding, Increased Pain/ Swelling, Increased Redness and Foul Smelling Discharge Call your doctor if you observe: Fever of 101 or Higher, Chest pain and Calf discomfort Follow Up Care Please Follow Up With: Graciela Dang, When: Call [phone] to make an appointment with your doctor in 6 weeks. If you had elevated blood pressure or 4th degree laceration, you will need to be seen in 2 weeks. Test Results: Test results from this visit will be discussed in further detail at your follow-up appointment, if applicable. Discharge Plan Admission Admit Date/Time: 03/19/25 04:45 Primary Reason for Your Visit: vaginal delivery Attending Provider: Graciela Dang Primary Care Provider: Hector Tang Discharge Orders/Prescriptions Prescriptions: No Action PNV-DHA 27 mg iron-1 mg -300 mg capsule 1 cap PO DAILY Probiotic 15 billion cell capsule 1 cap PO DAILY Referrals / Follow Up: Hector Tang MD [Primary Care Provider, Family Practice] Disposition Disposition (needs filled in before D/C Order can be placed): Home, Self Care
[2025-03-20] MEDS: Rho(D) Immune Globulin 300 MCG (1500 Unit) Syringe IV (04:17)
[2025-03-20 04:18] VITALS: BP 105/61; PULSE 87
[2025-03-20 04:21] VITALS: BP 105/61; PULSE 81; RESP 16; TEMP 36.4; O2SAT 97
[2025-03-20 08:24] VITALS: BP 96/52; PULSE 71; O2SAT 99
[2025-03-20 08:29] VITALS: BP 96/52; PULSE 71; RESP 16; TEMP 36.6; O2SAT 99
--- NOTE | 2025-03-20 11:00 | PCM.PN.OB ---
Subjective Subjective Patient doing well without complaints. Tolerating PO. Ambulating and voiding without difficulty. Feeding well. Denies chest pain, shortness of breath, calf pain/swelling, fevers, chills, lightheadedness. Objective Data Objective Data Vital Signs: Vital Signs Temp Pulse Resp BP Pulse Ox O2 Del Method 97.8 F 71 16 96/52 L 99 Room Air 03/20/25 08:29 03/20/25 08:29 03/20/25 08:29 03/20/25 08:29 03/20/25 08:29 03/20/25 08:29 Oxygen Delivery Method Room Air Weight: 167 lb Body Mass Index (BMI) 30.5 Intake & Output: Intake and Output for Last 24 Hours 03/18/25 03/19/25 03/20/25 23:59 23:59 23:59 Intake Total 576.17 / 576.17 Output Total 1000 / 1000 Balance -423.83 / -423.83 Lab / Micro Data 03/19/25 05:09 Labs: Laboratory Results - last 24 hr 03/19/25 11:35: Screen NEGATIVE, Baby's Blood Type A POSITIVE, Baby's BRITTANI NEGATIVE ROS Constitutional Constitutional: Denies chills, fatigue, fever(s), poor appetite or weakness Eyes Eyes: Denies blurry vision, change in vision, seeing flashes or spots in vision ENT HEENT: Denies dizziness, headache(s), loss taste/smell or sore throat Cardiovascular Cardiovascular: Denies chest pain, dizziness, dyspnea, irregular heart rhythm, palpitations or rapid heart rate Respiratory/Chest Respiratory/Chest: Denies chest tightness, cough, dyspnea or breast pain Gastrointestinal Gastrointestinal: Denies abdominal pain, constipation or vomiting Genitourinary Genitourinary: Denies dysuria or flank pain Musculoskeletal Musculoskeletal: Denies difficulty walking, joint pain, limited range of motion or numbness Neurologic Neurologic: Denies abnormal movements, abnormal speech, dizziness, numbness, seizure-like activity or syncope Psychiatric Psychiatric: Denies anxiety, behavioral changes, change in appetite, confusion, depression or suicidal thoughts Physical Exam Const alert, oriented x3 and no apparent distress General Appearance: cooperative and comfortable Resp normal respiratory effort Cardio regular rate GI normal to inspection, nondistended, normoactive bowel sounds GI Narrative: uterus is firm below umbilicus Palpation: soft Back/Spine no CVA tenderness and thoraco-lumbar ROM normal Extremity normal to inspection, no clubbing, cyanosis or edema, no calf tenderness and no pedal edema Psych mental status grossly normal, thought process normal, cooperative, affect normal, speech normal, activity/motor behavior normal, denies homicidal ideation and denies suicidal ideation Assessment & Plan (1) Vaginal delivery: COMMENT: peter Horn- JV 03/19/25 (2) Active labor at term: (3) Hx of hemorrhage, currently : (4) Supervision of high-risk : QUALIFIERS: Trimester: second trimester Qualified Code(s): O09.92 - Supervision of high risk , unspecified, second trimester COMMENT: PRR, , ANGEL LUIS 03/20/25, boy name secret JEFFERSON Olvera, Yossi PLAN: Plan s/p PPD #1 1. routine post delivery care 2. breast feeding- support given 3. rh negative workup ordered 4. rubella immune 5. patient wishes to be discharged to home today.
[2025-03-20 14:22] VITALS: BP 112/69; PULSE 75; PULSE 81; PULSE 85; RESP 16; TEMP 36.2; O2SAT 99
== END 2025-03-20 15:35 | disposition home or self-care (01) | DRG 807 ==
LOC: WPOUT 04:47 → WP 04:47
PROVIDERS: Admitting Provider Obstetrics & Gynecology; PCP Family Medicine; Visit Provider Obstetrics & Gynecology
DX: O26.893 Other specified pregnancy related conditions, third trimester (principal); Z37.0 Single live birth; Z3A.39 39 weeks gestation of pregnancy; Z87.59 Personal history of other complications of pregnancy, childbirth and the puerperium; Z67.91 Unspecified blood type, Rh negative
CPT/HCPCS: 59025; 59050; 85025; 85461; 86780; 86850; 86900; 86901; 90384; 99221; G0378; J0675; J2790; J2791